=== PATIENT | male | born 1940 | race Caucasian/White ===

== ENCOUNTER 2020-06-30 05:43 | Emergency (ER) | payer MEDICARE, SELFPAY ==
[2020-06-30 05:50] VITALS: BP 176/80; PULSE 118; RESP 28; TEMP 36.9; O2SAT 98
[2020-06-30 06:06] VITALS: BP 129/69; PULSE 116; RESP 18; O2SAT 96
[2020-06-30] MEDS: LIDOCAINE 2% (UROJET) 5 ML GEL TOP ×2 (06:08→06:20)
--- NOTE | 2020-06-30 06:19 | ED_ITS ---
HPI - Male Genitourinary General Chief complaint: Urogenital-Male Stated complaint: unable to pee Time Seen by Provider: 06/30/20 06:12 Source: patient Mode of arrival: Ambulatory History of Present Illness HPI Narrative: Patient here for urinary retention. Onset yesterday/last night. Decreased urine output. Now has full sensation his bladder. History of atrial fibrillation and is on Coumadin. Had similar episode 5 years ago with Zepeda catheter leg bag. Does not have a regular urologist. Had instant relief with 14 Malay catheter placed. 800 mL of urine output Related Data Home Medications Medication Instructions Recorded Confirmed methimazole 5 mg #0 04/20/17 Previous Rx's Medication Instructions Recorded aspirin 81 mg PO QDAY #150 tab 10/03/16 tamsulosin 0.4 mg PO BEDTIME #7 cap 06/30/20 warfarin 5 mg tablet 5 mg PO QDAY #100 tab 07/06/20 Allergies Allergy/AdvReac Type Severity Reaction Status Date / Time No Known Allergies Allergy Uncoded 01/13/18 13:06 Review of Systems Review of Systems Narrative: GENERAL: Denies chills, fatigue, malaise, fever, sweats. HEENT: Denies sinus pain, ear pain, sore throat, difficulty swallowing, dizziness. RESPIRATORY: Denies dyspnea, cough, wheezing, hemoptysis, sputum. CARDIOVASCULAR: Denies chest pain, palpitations, orthopnea, edema, GASTROINTESTINAL: Denies nausea, vomiting, abdominal pain, diarrhea, constipation, melena. : Complains of urinary retention. MUSCULOSKELETAL: denies weakness, joint pain, or bony pain SKIN: Denies rash, skin lesions NEUROLOGIC: Denies weakness, headache, numbness, change in speech, confusion, seizures, incoordination. PSYCHIATRIC: No concerning psychosocial issues. ROS Unobtainable: All systems reviewed & are unremarkable except as noted in HPI and below Patient History Medical History Atrial fibrillation (Chronic 2013) Cardiomyopathy (Chronic 2013) CVA (cerebral vascular accident) (Resolved 08/03/15) Diabetes mellitus (Chronic) Hyperthyroidism (Chronic) Urinary retention (Resolved 2014) Family History Father CVA (cerebral vascular accident) Sister Thyroid disorder Social History (Reviewed 06/30/20 @ 17:03 by MARA Barrett Smoking Status: Never smoker Smoking Status: Never smoker Substance Use Type: does not use Exam Narrative Exam Narrative: GENERAL: patient appears stated age. Well-nourished, well- developed patient, in no distress, not toxic HEAD: Atraumatic. Normocephalic. EYES: Pupils equal round and reactive. Extraocular motions intact. No scleral icterus. No injection or drainage. GASTROINTESTINAL: Abdomen soft, palpable urinary bladder slightly tender and dis tended, no peritoneal signs NEURO: AOx4. SKIN: No rash or erythema of visible areas PSYCH: Not anxious, is cooperative Initial Vital Signs Initial Vital Signs: Vital Signs Temperature 98.4 F 06/30/20 05:50 Pulse Rate 118 H 06/30/20 05:50 Respiratory Rate 28 H 06/30/20 05:50 Blood Pressure 176/80 H 06/30/20 05:50 Pulse Oximetry 98 06/30/20 05:50 Course Course Course Narrative: s/o dr mujica...awaiting UA results Orders Ordered: Discontinued Medications Lidocaine HCl (Urojet) 5 ml TOP NOW ONE Stop: 06/30/20 06:03 Last Admin: 06/30/20 06:08 Dose: 5 ml Documented by: INÉS Lidocaine HCl (Urojet) 5 ml TOP NOW ONE Stop: 06/30/20 06:19 Last Admin: 06/30/20 06:20 Dose: 5 ml Documented by: INÉS Reevaluation(s) Reevaluation #1: Feeling much better now with Zepeda catheter. 800 mL urine output. No blood Time: 06:36 Vital Signs Vital signs: Vital Signs - 8 hr 06/30/20 05:50 06/30/20 06:06 Temperature 98.4 F Pulse Rate 118 H 116 H Respiratory Rate 28 H 18 Blood Pressure 176/80 H 129/69 Pulse Oximetry 98 96 MDM - Male Genitourinary Differential Diagnosis Differential diagnosis: Likely acute retention of urine Medical Records Attestation: I reviewed the patient's medical records. Lab Data Result diagrams: 06/30/20 06:35 06/30/20 06:35 Labs: Lab Results 06/30/20 06/30/20 06/30/20 Range/Units 06:09 06:35 06:35 WBC 8.7 (4.5-11.0) X10^3/uL RBC 4.87 (4.5-5.9) X10^6/uL Hgb 14.5 (13.5-17.5) g/dL Hct 42.8 (41-53) % MCV 87.8 (80-100) fL MCH 29.8 (26-34) PG MCHC 34.0 (30-36) % RDW 13.8 (11.6-14.8) % Plt Count 240 (150-400) X10^3/uL Neut % (Auto) 91.1 H (50-75) % Lymph % (Auto) 7.1 L (25-40) % [place] % (Auto) 1.7 L (3-14) % Eos % (Auto) 0.0 L (2-4) % Baso % (Auto) 0.1 (0-2) % Neut # (Auto) 7900 H (6620-3002) /uL Lymph # (Auto) 600 L (1591-0471) /uL [place] # (Auto) 100 (0-900) /uL Eos # (Auto) 0 (0-450) /uL Baso # (Auto) 0 (0-100) /uL PT 21.8 H (10.1-12.7) SECONDS INR 1.9 H (0.9-1.3) APTT 34 (26.4-36.2) SECONDS Sodium (137-145) mmol/L Potassium (3.4-5.1) mmol/L Chloride (98-107) mmol/L Carbon Dioxide (22-32) mmol/L BUN (9-20) mg/dL Creatinine (0.66-1.25) mg/dL Estimated GFR (>60) mL/min BUN/Creatinine Ratio (6-22) Glucose (80-110) mg/dL Calcium (8.4-10.2) mg/dL Total Bilirubin (0.2-1.3) mg/dL AST (17-59) IU/L ALT (<50) IU/L Alkaline Phosphatase (38-126) U/L Total Protein (6.3-8.2) g/dL Albumin (3.5-5.0) g/dL Globulin (1.7-4.1) g/dL Albumin/Globulin Ratio (1.0-2.8) Urine Color Yellow Urine Appearance Cloudy Urine pH 6.5 (4.5-8.0) Ur Specific [place] 1.015 (1.000-1.035) Urine Protein Negative (Negative) Urine Glucose (UA) Negative (Negative) g/dL Urine Ketones Negative (NEGATIVE) Urine Occult Blood 3+ H (Negative) Urine Nitrate Positive (Negative) Urine Bilirubin Negative (NEGATIVE) Urine Urobilinogen 0.2 (0.2) E.U./dL Ur Leukocyte Esterase 2+ H (NEGATIVE) Urine RBC 1-5/hpf (0-5/HPF) Urine WBC >100/hpf H (0-5/HPF) Ur Squamous Epith Cells 0-1 /hpf (0-5/HPF) Urine Bacteria Many (>30) H (None) Ur Culture Indicated? Specimen cultured 06/30/20 Range/Units 06:35 WBC (4.5-11.0) X10^3/uL RBC (4.5-5.9) X10^6/uL Hgb (13.5-17.5) g/dL Hct (41-53) % MCV (80-100) fL MCH (26-34) PG MCHC (30-36) % RDW (11.6-14.8) % Plt Count (150-400) X10^3/uL Neut % (Auto) (50-75) % Lymph % (Auto) (25-40) % [place] % (Auto) (3-14) % Eos % (Auto) (2-4) % Baso % (Auto) (0-2) % Neut # (Auto) (0267-4462) /uL Lymph # (Auto) (0282-6431) /uL [place] # (Auto) (0-900) /uL Eos # (Auto) (0-450) /uL Baso # (Auto) (0-100) /uL PT (10.1-12.7) SECONDS INR (0.9-1.3) APTT (26.4-36.2) SECONDS Sodium 137 (137-145) mmol/L Potassium 4.3 (3.4-5.1) mmol/L Chloride 105 (98-107) mmol/L Carbon Dioxide 21 L (22-32) mmol/L BUN 26 H (9-20) mg/dL Creatinine 0.61 L (0.66-1.25) mg/dL Estimated GFR > 60.0 (>60) mL/min BUN/Creatinine Ratio 42.6 H (6-22) Glucose 163 H (80-110) mg/dL Calcium 9.7 (8.4-10.2) mg/dL Total Bilirubin 1.3 (0.2-1.3) mg/dL AST 28 (17-59) IU/L ALT 25 (<50) IU/L Alkaline Phosphatase 100 (38-126) U/L Total Protein 7.8 (6.3-8.2) g/dL Albumin 4.3 (3.5-5.0) g/dL Globulin 3.5 (1.7-4.1) g/dL Albumin/Globulin Ratio 1.2 (1.0-2.8) Urine Color Urine Appearance Urine pH (4.5-8.0) Ur Specific [place] (1.000-1.035) Urine Protein (Negative) Urine Glucose (UA) (Negative) g/dL Urine Ketones (NEGATIVE) Urine Occult Blood (Negative) Urine Nitrate (Negative) Urine Bilirubin (NEGATIVE) Urine Urobilinogen (0.2) E.U./dL Ur Leukocyte Esterase (NEGATIVE) Urine RBC (0-5/HPF) Urine WBC (0-5/HPF) Ur Squamous Epith Cells (0-5/HPF) Urine Bacteria (None) Ur Culture Indicated? MDM Narrative Medical decision making narrative: Appropriate for discharge home. Will give referral for Urology Discharge Plan Departure Patient Disposition: Home Clinical Impression: Urinary retention UTI (urinary tract infection) Qualifiers: Urinary tract infection type: site unspecified Hematuria presence: without hematuria Qualified Code(s): N39.0 - Urinary tract infection, site not specified Discharge Date/Time: 06/30/20 08:05 Instructions: How to Care for Your Zepeda Catheter -- Male, DI for Urinary Tract Infection (UTI), DI for Urinary Retention in Men Activity Restrictions/Additional Instructions: Continue care for Zepeda bag as demonstrated here. Called provided urology office on Thursday for office recheck next week and for removal of the catheter. Return if worse.. Prescription for Flomax has been sent to [facility] here in [facility]. Close follow up is particularly important due to our need to use an antibiotic while you are on Warfarin. Antibiotics can alter your warfarin and make you more likely to bleed. It is very important that you follow closely to be sure there are no complications Prescriptions: New tamsulosin 0.4 mg capsule 0.4 mg PO BEDTIME Qty: 7 RF: 0 No Action aspirin 81 MG tablet,delayed release (DR/EC) 81 mg PO QDAY Qty: 150 RF: 11 methimazole 5 MG tablet 5 mg Qty: 0 RF: 0 warfarin 5 mg tablet 5 mg PO QDAY Qty: 100 RF: 3 Referrals: Nancy Conteh MD [Physician] - Lloyd Butler MD [Primary Care Provider] -
[2020-06-30 06:53] LABS: Add Manual Diff / Slide Review NO; Basophils Absolute Auto 0 /uL (0-100); Basophils Percent Auto 0.1 % (0-2); Eosinophils Absolute Auto 0 /uL (0-450); Hematocrit 42.8 % (41-53); Hemoglobin 14.5 g/dL (13.5-17.5); INR 1.9 (0.9-1.3); Lymphocytes Absolute Auto 600 /uL (1100-4500); Lymphocytes Percent Auto 7.1 % (25-40); Mean Corpuscular Hemoglobin 29.8 PG (26-34); Mean Corpuscular Volume 87.8 fL (80-100); Monocytes Absolute Auto 100 /uL (0-900); Monocytes Percent Auto 1.7 % (3-14); Neutrophils Absolute Auto 7900 /uL (1500-7000); Neutrophils Percent Auto 91.1 % (50-75); Platelet Count 240 X10^3/uL (150-400); Prothrombin Time 21.8 SECONDS (10.1-12.7); Red Blood Cell Count 4.87 X10^6/uL (4.5-5.9); Red Cell Distribution Width 13.8 % (11.6-14.8); White Blood Cell Count 8.7 X10^3/uL (4.5-11.0)
[2020-06-30 06:55] LABS: PTT Partial Thromboplastin Tim 34 SECONDS (26.4-36.2)
[2020-06-30 06:57] LABS: Alanine Aminotransferase 25 IU/L (<50); Albumin 4.3 g/dL (3.5-5.0); Albumin Globulin Ratio 1.2 (1.0-2.8); Alkaline Phosphatase 100 U/L (38-126); Aspartate Aminotransferase 28 IU/L (17-59); BUN Creatinine Ratio 42.6 (6-22); Bilirubin Total 1.3 mg/dL (0.2-1.3); Blood Urea Nitrogen 26 mg/dL (9-20); Calcium 9.7 mg/dL (8.4-10.2); Carbon Dioxide 21 mmol/L (22-32); Chloride 105 mmol/L (98-107); Estimated Glomerular Filt Rate > 60.0 mL/min (>60); Globulin 3.5 g/dL (1.7-4.1); Glucose 163 mg/dL (80-110); HEMOLYSIS < 15 (0-50); Potassium 4.3 mmol/L (3.4-5.1); Sodium 137 mmol/L (137-145); Total Protein 7.8 g/dL (6.3-8.2)
[2020-06-30 06:57] LABS: Bilirubin Urine UA NEGATIVE (NEGATIVE); Color Urine UA YELLOW; Glucose Urine UA NEGATIVE (Negative); Ketones Urine UA NEGATIVE (NEGATIVE); Leukocyte Esterase Urine UA 2+ (NEGATIVE); Nitrite Urine UA POSITIVE (Negative); Occult Blood Urine UA 3+ (Negative); Protein Urine UA NEGATIVE (Negative); Specific Gravity Urine UA 1.015 (1.000-1.035); Urobilinogen Urine UA 0.2 E.U./dL (0.2); pH Urine UA 6.5 (4.5-8.0)
[2020-06-30 06:59] LABS: Appearance Urine UA CLOUDY
[2020-06-30 07:18] LABS: Bacteria Urine Many (>30); Culture Indicated Urine Specimen Cultured; RBC Urine 1-5/HPF (0-5/HPF); Squamous Epithelial Cell Urine 0-1 /HPF (0-5/HPF); WBC Urine >100/HPF (0-5/HPF)
== END 2020-06-30 08:05 | disposition home or self-care (01) ==
PROVIDERS: Emergency Provider Emergency Medicine; PCP Internal Medicine
DX: R33.9 Retention of urine, unspecified (principal)
CPT/HCPCS: 36415; 51701; 51798; 80053; 81001; 85025; 85610; 85730; 87077; 87086; 99284

== ENCOUNTER 2020-06-30 15:08 | Emergency (ER) | payer MEDICARE, SELFPAY ==
[2020-06-30 15:22] VITALS: BP 134/73; PULSE 108; RESP 26; TEMP 37.2; O2SAT 98; BMI 22.6
--- NOTE | 2020-06-30 15:32 | ED.MALEGU ---
HPI - Male Genitourinary <BRAULIO Barrett - Last Filed: 06/30/20 17:09> General Chief complaint: Urogenital-Male Stated complaint: cath is plugging up Time Seen by Provider: 06/30/20 15:19 Source: patient Mode of arrival: Ambulatory Limitations: no limitations History of Present Illness HPI Narrative: This is a 80-year-old male, nonsmoker, who had history of AFib and takes Coumadin daily and baby aspirin as needed, urinary retention and has been using the indwelling [place] catheter return to ED with recurring urinary retention after he was seen and evaluated for urinary tension early this morning. A new campa catheter with 14 fr changed out at that time. Lab and urine tests were done this morning before he was discharged to home. INR at that time was 1.9. Urine showed + for nitritre and leuko esterase. Urine culture is pending and he was to start antibiotic medication Keflex q.i.d. dose for 7 days. No leukocytosis and kidney function was normal this morning. Patient was to follow-up with urologist by calling the office on Thursday and to take Flomax. Patient noticed no good urine output since 8:00 a.m. with blood tinged dark urine. Patient denies fever, chills, nausea or vomiting but bladder discomfort. Related Data Home Medications Medication Instructions Recorded Confirmed methimazole 5 mg #0 04/20/17 Previous Rx's Medication Instructions Recorded aspirin 81 mg PO QDAY #150 tab 10/03/16 warfarin 5 mg tablet 5 mg PO QDAY #100 tab 12/06/19 cephalexin [Keflex] 500 mg PO QID 7 Days #28 cap 06/30/20 tamsulosin 0.4 mg PO BEDTIME #7 cap 06/30/20 Allergies Allergy/AdvReac Type Severity Reaction Status Date / Time No Known Allergies Allergy Uncoded 01/13/18 13:06 Review of Systems <BRAULIO Barrett - Last Filed: 06/30/20 17:09> Review of Systems Narrative: General: Denies fever, chills, fatigue, malaise, sweats. HEENT: Denies sinus pain, ear pain, sore throat, difficulty swallowing, dizziness. Respiratory: Denies dyspnea, cough, wheezing, hemoptysis, sputum. Cardiovascular: Denies chest pain, palpitations, orthopnea, edema. Gastrointestinal: Denies nausea, vomiting, abdominal pain, diarrhea, constipation, melena. : See HPI Musculoskeletal: Denies weakness, joint pain or bony pain. Skin: Denies rash, skin lesions, or other. Neurologic: Denies weakness, headache, numbness, change in speech, confusion, seizures, incoordination. Psychiatric: No concerning psychosocial issues. 12-point review of systems is negative except for those stated above. Patient History <BRAULIO Barrett - Last Filed: 06/30/20 17:09> Medical History Atrial fibrillation (Chronic 2013) Cardiomyopathy (Chronic 2013) CVA (cerebral vascular accident) (Resolved 08/03/15) Diabetes mellitus (Chronic) Hyperthyroidism (Chronic) Urinary retention (Resolved 2014) Family History Father CVA (cerebral vascular accident) Sister Thyroid disorder Social History Smoking Status: Never smoker Smoking Status: Never smoker Substance Use Type: does not use Exam <BRAULIO Barrett - Last Filed: 06/30/20 17:09> Narrative Exam Narrative: GEN: Alert, oriented x 3, well appearing and nourished, and in mild distress with bladder discomfort. Head: Normal cephalic, atraumatic. No scalp or temporal tenderness, palpable mass or rash. EYES: Pupils are equal, round, and reactive to light and accommodation. Extraocular muscles are intact bilaterally. There is no subconjunctival hemorrhage, exudate and sclera non-icteric. ENT: Hearing grossly intact. Nose without bleeding, purulent discharge or deviation. Facial sinuses nontender to palpate. Mucous membrane moist, no mucosal lesion. Throat without erythema, tonsillar hypertrophy or exudate. Uvula in midline, airway patent. Neck: Trachea in midline. No JVD, non-tender without lymphadenopathy. No masses or thyroid megaly. Supple, non-tender and no meningeal signs. CARDIAC: Irregular regular rate and rhythm without murmurs, gallops, or rubs. No chest wall tenderness. No peripheral edema, cyanosis or pallor. Capillary refill is less than 2 seconds. RESPIRATORY: Lungs are clear to auscultate bilaterally. No cough, wheezes, rales, or rhonchi. No stridor, respiratory distress, increase work of breathing, or accessary muscle used. ABD: Abdomen soft and non-distended. Mid low abdomen tender to palpate. No guarding or rebound tenderness to palpate. Bowel sounds are normal in all 4 quadrants. There is no palpable masses or organomegaly. EXT: Full painless ROM of all extremities with no loss of sensation, strength, effusion or edema. SKIN: Warm, dry, normal color for patient. No erythema, lesions or rash over visible areas. BACK: Nontender without deformity or crepitance. No flank tenderness. NEUROLOGICAL: Alert and oriented to place, time and person. Sensation and motor function intact bilaterally. No facial droops, dysphasia. PSYCHIATRIC: Good judgement and reason, without hallucinations, abnormal affect or abnormal behaviors during the examination. Patient is not suicidal. Initial Vital Signs Initial Vital Signs: Vital Signs Temperature 98.9 F 06/30/20 15:22 Pulse Rate 108 H 06/30/20 15:22 Respiratory Rate 26 H 06/30/20 15:22 Blood Pressure 134/73 06/30/20 15:22 Pulse Oximetry 98 06/30/20 15:22 <Carrington Vigil DO - Last Filed: 07/06/20 01:11> Initial Vital Signs Initial Vital Signs: Vital Signs Temperature 98.9 F 06/30/20 15:22 Pulse Rate 108 H 06/30/20 15:22 Respiratory Rate 26 H 06/30/20 15:22 Blood Pressure 134/73 06/30/20 15:22 Pulse Oximetry 98 06/30/20 15:22 Scores <[facility] - Last Filed: 06/30/20 17:09> GCS [place] coma scale eye opening: Spontaneous [place] coma scale verbal response: Orientated [place] coma scale motor response: Obey commands [place] coma scale total score: 15 qSOFA Altered Mental Status (GCS <15): No Respiratory rate greater than/equal to 22: Yes Systolic blood pressure less than or equal to 100: No qSOFA Total: 1 0-1 Not High Risk 1-3 High risk Course <[facility] Last Filed: 06/30/20 17:09> Orders Ordered: Discontinued Medications Lidocaine HCl (Urojet) 5 ml TOP NOW ONE Stop: 06/30/20 15:43 Last Admin: 06/30/20 15:52 Dose: 5 ml Documented by: LUCHO Vital Signs Vital signs: Vital Signs - 8 hr 06/30/20 15:22 06/30/20 16:55 Temperature 98.9 F Pulse Rate 108 H 99 H Respiratory Rate 26 H 18 Blood Pressure 134/73 140/76 Pulse Oximetry 98 98 <Carrington Vigil DO - Last Filed: 07/06/20 01:11> Orders Ordered: Discontinued Medications Lidocaine HCl (Urojet) 5 ml TOP NOW ONE Stop: 06/30/20 15:43 Last Admin: 06/30/20 15:52 Dose: 5 ml Documented by: LUCHO Vital Signs Vital signs: Vital Signs - 8 hr 06/30/20 15:22 06/30/20 16:55 Temperature 98.9 F Pulse Rate 108 H 99 H Respiratory Rate 26 H 18 Blood Pressure 134/73 140/76 Pulse Oximetry 98 98 [facility] - Male Genitourinary <BRAULIO Barrett - Last Filed: 06/30/20 17:09> Differential Diagnosis Differential diagnosis: Likely urinary tract infection, acute retention of urine and other (Pyelonephritis, super therapeutic Coumadin) Medical Records Attestation: I reviewed the patient's medical records. [facility] Narrative Medical decision making narrative: This is a 80-year-old male who has chronic urinary retention with indwelling [place] catheter visited this morning with urinary retention. A new [place] catheter with 14 [place] was changed out at that time and patient discharged to home with Keflex for UTI and Flomax and to follow-up with urologist on Thursday return to ED with recurring urinary retention symptoms. No good urine output since 8:00 a.m. according to patient. Labs in test were not repeated. Urine culture is pending. INR is 1.9 this morning. No leukocytosis. Campa catheter was switched out to 20 [place] a larger size and irrigated with saline. Small multiple blood clots obtained and was able to drain bladder without difficulty. Patient reports relieve bladder discomfort with good urine output. Patient advised to take Keflex and Flomax as prescribed and to follow-up with urologist this morning and return precautions were discussed with patient. Patient verbalized understanding and in agreement with treatment plan. Patient request leg bag to use for urine drainage instead of campa bag and provided. Patient reports he is familiar how to manage Campa catheter and bag. Discharge Plan Departure Patient Disposition: Home Clinical Impression: Urinary retention Discharge Date/Time: 06/30/20 17:33 Instructions: DI for Urinary Retention in Men Activity Restrictions/Additional Instructions: You have been diagnosed with [urinary retention from Camp[place] catheter blockage with clots. New larger size in 20 [place] Campa catheter inserted with good drainage. Urine cultures pending. Labs are not repeated from this morning. INR is 1.9 today.]. What to do: *Take your medications as directed. Please continue with tamsulosin that has been prescribed for you at night daily. *Follow up with your primary care provider in 2-3 days, call for an appointment. Please follow-up with urologist Thursday by calling the office. Let them know you were seen in the ED and that we asked you to be seen in follow up. *Return to ED if you have any new, worsening, or concerning symptoms, such as bladder distension, urinary retention symptoms, chest pain, breathing difficulty, fever, chest pain, or any acute concerns.]. Prescriptions: No Action aspirin 81 MG tablet,delayed release (DR/EC) 81 mg PO QDAY Qty: 150 RF: 11 methimazole 5 MG tablet 5 mg Qty: 0 RF: 0 warfarin [Coumadin] 5 mg tablet 5 mg PO QDAY Qty: 100 RF: 3 tamsulosin 0.4 mg capsule 0.4 mg PO BEDTIME Qty: 7 RF: 0 cephalexin [Keflex] 500 mg capsule 500 mg PO QID 7 Days Qty: 28 RF: 0 Referrals: Nancy Conteh MD [Physician] - Lloyd Butler MD [Primary Care Provider] - <Carrington Vigil DO - Last Filed: 07/06/20 01:11> Cosign ED Attending Kortneyature Attestation: I was immediately available in the department for consultation. This documentation has been reviewed and I agree with assessment and plan. Supervised by Carrington Vigil DO
[2020-06-30] MEDS: LIDOCAINE 2% (UROJET) 5 ML GEL TOP (15:52)
[2020-06-30 16:55] VITALS: BP 140/76; PULSE 99; RESP 18; O2SAT 98
[2020-06-30 17:32] VITALS: BP 143/91; PULSE 100; RESP 20; O2SAT 97
== END 2020-06-30 17:33 | disposition home or self-care (01) ==
PROVIDERS: Emergency Provider Nurse Practitioner Family; PCP Internal Medicine
DX: R33.9 Retention of urine, unspecified (principal)
CPT/HCPCS: 36415; 51700; 51701; 51705; 51798; 80053; 81001; 85025; 85610; 85730; 87077; 87086; 87186; 99284

== ENCOUNTER → 2020-07-23 15:37 | Outpatient (CLI) | payer MEDICARE, SELFPAY ==
[2020-07-23 17:17] LABS: Hemoglobin A1C% w Est Avg Glu 5.7 % (4.0-6.0)
[2020-07-23 17:35] LABS: Free T3, Triiodothyronine Free 7.61 pg/mL (2.77-5.27); Free T4, Direct Thyroxine 2.82 ng/dL (0.78-2.19)
[2020-07-23 17:49] LABS: Thyroid Stimulating Hormone < 0.015 uIU/mL (0.47-4.68)
== END ==
PROVIDERS: PCP Internal Medicine; Referring Provider Internal Medicine; Visit Provider Internal Medicine
DX: E05.90 Thyrotoxicosis, unspecified without thyrotoxic crisis or storm (principal); E11.9 Type 2 diabetes mellitus without complications; I42.9 Cardiomyopathy, unspecified; I48.91 Unspecified atrial fibrillation; Z79.01 Long term (current) use of anticoagulants
CPT/HCPCS: 36415; 83036; 84439; 84443; 84481

== ENCOUNTER 2020-08-02 12:44 | Emergency (ER) | payer MEDICARE, SELFPAY ==
[2020-08-02] VITALS (8 sets, daily range): BP systolic 128–149; BP diastolic 69–78; PULSE 97–116; RESP 16–17; TEMP 35.7; O2SAT 95–100; BMI 22.6
--- NOTE | 2020-08-02 12:52 | ED_ITS ---
HPI - Male Genitourinary <SCOTT Wells - Last Filed: 08/02/20 18:30> General Chief complaint: Urogenital-Male Stated complaint: cannot urinate Time Seen by Provider: 08/02/20 12:45 Source: patient Mode of arrival: Ambulatory Limitations: no limitations History of Present Illness HPI Narrative: The patient is an 80 year old male nonsmoker with history of atrial fibrillation, on Coumadin and history of urinary retention who presents with a chief complaint of urinary retention. He states he had his Zepeda catheter removed on Thursday, was urinating fine yesterday with no dysuria u rgency or frequency. However he has been able to urinate since 05:30 this morning. He states that prior, he had a 14 [place] catheter inserted, had to come back and had replaced with a 20 [place] catheter. He denies any fevers nausea vomiting or diarrhea. He presents requesting a 20 [place] catheter to help him urinate today. He states that he saw urology on Thursday. The patient notes that he has not had anything to drink since last night as he has been self restricting his fluids. Related Data Previous Rx's Medication Instructions Recorded warfarin 5 mg tablet 5 mg PO QDAY #100 tab 07/06/20 methimazole 5 mg tablet 5 mg PO DAILY #90 tab 07/24/20 nitrofurantoin 100 mg PO BID #6 cap 07/24/20 monohydrate/macrocrystals 100 mg capsule tamsulosin 0.4 mg capsule 0.4 mg PO BEDTIME #30 cap 07/24/20 cephalexin 500 mg PO TID 7 Days #21 cap 08/02/20 Allergies Allergy/AdvReac Type Severity Reaction Status Date / Time No Known Drug Allergies Allergy Verified 08/02/20 12:51 Review of Systems <SCOTT Wlels - Last Filed: 08/02/20 18:30> Review of Systems Narrative: GENERAL: Denies chills, fatigue, malaise, fever, sweats. HEENT: Denies sinus pain, ear pain, sore throat, difficulty swallowing, dizziness. RESPIRATORY: Denies dyspnea, cough, wheezing, hemoptysis, sputum. CARDIOVASCULAR: Denies chest pain, palpitations, orthopnea, edema, GASTROINTESTINAL: Denies nausea, vomiting, abdominal pain, diarrhea, constipation, melena. : See HPI MUSCULOSKELETAL: denies weakness, joint pain, or bony pain SKIN: Denies rash, skin lesions, or other NEUROLOGIC: Denies weakness, headache, numbness, change in speech, confusion, seizures, incoordination. PSYCHIATRIC: No concerning psychosocial issues. 12 point review of systems is negative except for those stated above Patient History <SCOTT Wells - Last Filed: 08/02/20 18:30> Medical History (Updated 08/02/20 @ 16:01 by SCOTT Wells) Atrial fibrillation (Chronic) Cardiomyopathy (Chronic 2013) CVA (cerebral vascular accident) (Resolved 08/03/15) Diabetes mellitus (Chronic) Hyperthyroidism (Chronic) Urinary retention (Resolved 2014) Urinary retention (Acute) Surgical History S/P vasectomy (Acute) Family History Father CVA (cerebral vascular accident) Sister Thyroid disorder Social History Smoking Status: Never smoker Smoking Status: Never smoker Substance Use Type: does not use Exam <SCOTT Wells - Last Filed: 08/02/20 18:30> Narrative Exam Narrative: GENERAL: This is a well-nourished, well-developed patient, in mild distress. HEAD: Atraumatic. Normocephalic. No temporal or scalp tenderness. EYES: Pupils equal round and reactive. Extraocular motions intact. No scleral icterus. No injection or drainage. ENT: Nose without bleeding, purulent drainage or septal hematoma. Wearing a mask. Airway patent. NECK: Trachea midline. No JVD or lymphadenopathy. Supple, nontender, no meningeal signs. CARDIOVASCULAR: Irregular rate and tachycardic rhythm RESPIRATORY: Clear to auscultation. Breath sounds equal bilaterally. No wheezes, rales, or rhonchi. GASTROINTESTINAL: Abdomen soft, suprapubic tenderness to palpation, nondistended. No hepato-splenomegaly, or palpable masses. No guarding. Active bowel sounds all 4 quadrants EXTREMITIES: No clubbing, cyanosis, or edema. No joint tenderness, effusion, or edema noted. BACK: Nontender without deformity or crepitance. No flank tenderness. NEURO: AOx3. No gross cranial nerve deficit. SKIN: No rash or erythema on visible skin Initial Vital Signs Initial Vital Signs: Vital Signs Temperature 96.3 F L 08/02/20 12:45 Pulse Rate 111 H 08/02/20 12:45 Respiratory Rate 17 08/02/20 12:45 Blood Pressure 149/76 H 08/02/20 12:45 Pulse Oximetry 100 08/02/20 12:45 <Angy Walker DO - Last Filed: 08/06/20 07:55> Initial Vital Signs Initial Vital Signs: Vital Signs Temperature 96.3 F L 08/02/20 12:45 Pulse Rate 111 H 08/02/20 12:45 Respiratory Rate 17 08/02/20 12:45 Blood Pressure 149/76 H 08/02/20 12:45 Pulse Oximetry 100 08/02/20 12:45 Scores <SCOTT Wells - Last Filed: 08/02/20 18:30> GCS [place] coma scale eye opening: Spontaneous [place] coma scale verbal response: Orientated [place] coma scale motor response: Obey commands [place] coma scale total score: 15 Course <SCOTT Wells - Last Filed: 08/02/20 18:30> Orders Ordered: Discontinued Medications Sodium Chloride (Normal Saline 0.9%) 1,000 mls @ 1,000 mls/hr IV BOLUS ONE Stop: 08/02/20 14:38 Last Infusion: 08/02/20 15:02 Dose: 0 mls/hr Documented by: Admin: 08/02/20 14:02 Dose: 1,000 mls/hr Documented by: RMARTIN Lidocaine HCl (Urojet) 5 ml TOP NOW ONE Stop: 08/02/20 12:50 Last Admin: 08/02/20 13:18 Dose: 5 ml Documented by: BTONER Vital Signs Vital signs: Vital Signs - 8 hr 08/02/20 12:45 08/02/20 13:30 08/02/20 13:37 Temperature 96.3 F L Pulse Rate 111 H 115 H 116 H Respiratory Rate 17 16 Blood Pressure 149/76 H 132/77 Pulse Oximetry 100 98 98 08/02/20 14:00 08/02/20 14:30 08/02/20 15:00 Temperature Pulse Rate 106 H 115 H 105 H Respiratory Rate Blood Pressure 128/69 136/78 141/71 H Pulse Oximetry 95 99 97 08/02/20 15:30 08/02/20 16:13 Temperature Pulse Rate 103 H 97 H Respiratory Rate 16 Blood Pressure 130/73 Pulse Oximetry 99 95 <Angy Walker DO - Last Filed: 08/06/20 07:55> Orders Ordered: Discontinued Medications Sodium Chloride (Normal Saline 0.9%) 1,000 mls @ 1,000 mls/hr IV BOLUS ONE Stop: 08/02/20 14:38 Last Infusion: 08/02/20 15:02 Dose: 0 mls/hr Documented by: Admin: 08/02/20 14:02 Dose: 1,000 mls/hr Documented by: RMARTIN Lidocaine HCl (Urojet) 5 ml TOP NOW ONE Stop: 08/02/20 12:50 Last Admin: 08/02/20 13:18 Dose: 5 ml Documented by: BTONER Vital Signs Vital signs: Vital Signs - 8 hr 08/02/20 12:45 08/02/20 13:30 08/02/20 13:37 Temperature 96.3 F L Pulse Rate 111 H 115 H 116 H Respiratory Rate 17 16 Blood Pressure 149/76 H 132/77 Pulse Oximetry 100 98 98 08/02/20 14:00 08/02/20 14:30 08/02/20 15:00 Temperature Pulse Rate 106 H 115 H 105 H Respiratory Rate Blood Pressure 128/69 136/78 141/71 H Pulse Oximetry 95 99 97 08/02/20 15:30 08/02/20 16:13 Temperature Pulse Rate 103 H 97 H Respiratory Rate 16 Blood Pressure 130/73 Pulse Oximetry 99 95 MDM - Male Genitourinary <ESMER Wells-BC - Last Filed: 08/02/20 18:30> Lab Data Result diagrams: 08/02/20 13:53 08/02/20 13:53 Labs: Lab Results 08/02/20 08/02/20 08/02/20 Range/Units 13:15 13:53 13:53 WBC 8.6 (4.5-11.0) X10^3/uL RBC 4.82 (4.5-5.9) X10^6/uL Hgb 14.7 (13.5-17.5) g/dL Hct 43.2 (41-53) % MCV 89.5 (80-100) fL MCH 30.4 (26-34) PG MCHC 34.0 (30-36) % RDW 14.1 (11.6-14.8) % Plt Count 228 (150-400) X10^3/uL Neut % (Auto) 87.3 H (50-75) % Lymph % (Auto) 9.0 L (25-40) % [place] % (Auto) 3.3 (3-14) % Eos % (Auto) 0.1 L (2-4) % Baso % (Auto) 0.3 (0-2) % Neut # (Auto) 7500 H (6980-7944) /uL Lymph # (Auto) 800 L (1649-1119) /uL [place] # (Auto) 300 (0-900) /uL Eos # (Auto) 0 (0-450) /uL Baso # (Auto) 0 (0-100) /uL PT (10.1-12.7) SECONDS INR (0.9-1.3) APTT (26.4-36.2) SECONDS Sodium 140 (137-145) mmol/L Potassium 4.4 (3.4-5.1) mmol/L Chloride 106 (98-107) mmol/L Carbon Dioxide 27 (22-32) mmol/L BUN 17 (9-20) mg/dL Creatinine 0.53 L (0.66-1.25) mg/dL Estimated GFR > 60.0 (>60) mL/min BUN/Creatinine Ratio 32.1 H (6-22) Glucose 129 H (80-110) mg/dL Calcium 9.5 (8.4-10.2) mg/dL Total Bilirubin 1.1 (0.2-1.3) mg/dL AST 27 (17-59) IU/L ALT 22 (<50) IU/L Alkaline Phosphatase 100 (38-126) U/L Total Protein 7.7 (6.3-8.2) g/dL Albumin 4.3 (3.5-5.0) g/dL Globulin 3.4 (1.7-4.1) g/dL Albumin/Globulin Ratio 1.3 (1.0-2.8) Urine Color Yellow Urine Appearance Sl cloudy Urine pH 6.0 (4.5-8.0) Ur Specific [place] 1.015 (1.000-1.035) Urine Protein Negative (Negative) Urine Glucose (UA) Negative (Negative) g/dL Urine Ketones Negative (NEGATIVE) Urine Occult Blood 3+ H (Negative) Urine Nitrate Positive (Negative) Urine Bilirubin Negative (NEGATIVE) Urine Urobilinogen 0.2 (0.2) E.U./dL Ur Leukocyte Esterase 2+ H (NEGATIVE) Urine RBC 5-10/hpf H (0-5/HPF) Urine WBC 30-100/hpf H (0-5/HPF) Ur Squamous Epith Cells 0-1 /hpf (0-5/HPF) Urine Bacteria Many (>30) H (None) Ur Culture Indicated? Specimen cultured 08/02/20 Range/Units 13:53 WBC (4.5-11.0) X10^3/uL RBC (4.5-5.9) X10^6/uL Hgb (13.5-17.5) g/dL Hct (41-53) % MCV (80-100) fL MCH (26-34) PG MCHC (30-36) % RDW (11.6-14.8) % Plt Count (150-400) X10^3/uL Neut % (Auto) (50-75) % Lymph % (Auto) (25-40) % [place] % (Auto) (3-14) % Eos % (Auto) (2-4) % Baso % (Auto) (0-2) % Neut # (Auto) (7481-3664) /uL Lymph # (Auto) (8624-6762) /uL [place] # (Auto) (0-900) /uL Eos # (Auto) (0-450) /uL Baso # (Auto) (0-100) /uL PT 33.5 H (10.1-12.7) SECONDS INR 2.9 H (0.9-1.3) APTT 39 H D (26.4-36.2) SECONDS Sodium (137-145) mmol/L Potassium (3.4-5.1) mmol/L Chloride (98-107) mmol/L Carbon Dioxide (22-32) mmol/L BUN (9-20) mg/dL Creatinine (0.66-1.25) mg/dL Estimated GFR (>60) mL/min BUN/Creatinine Ratio (6-22) Glucose (80-110) mg/dL Calcium (8.4-10.2) mg/dL Total Bilirubin (0.2-1.3) mg/dL AST (17-59) IU/L ALT (<50) IU/L Alkaline Phosphatase (38-126) U/L Total Protein (6.3-8.2) g/dL Albumin (3.5-5.0) g/dL Globulin (1.7-4.1) g/dL Albumin/Globulin Ratio (1.0-2.8) Urine Color Urine Appearance Urine pH (4.5-8.0) Ur Specific [place] (1.000-1.035) Urine Protein (Negative) Urine Glucose (UA) (Negative) g/dL Urine Ketones (NEGATIVE) Urine Occult Blood (Negative) Urine Nitrate (Negative) Urine Bilirubin (NEGATIVE) Urine Urobilinogen (0.2) E.U./dL Ur Leukocyte Esterase (NEGATIVE) Urine RBC (0-5/HPF) Urine WBC (0-5/HPF) Ur Squamous Epith Cells (0-5/HPF) Urine Bacteria (None) Ur Culture Indicated? MDM Narrative Medical decision making narrative: The patient is an 80-year-old male who presents with a chief complaint of urinary retention after his Zepeda catheter was removed on Thursday. He has been restricting fluids overnight, so lab work was taken to evaluate renal function. This came back within normal limits. A Zepeda catheter was inserted over L of urine was drained. He does have signs of infection, nitrate positive urine. 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 I spoke with Dr Walker regarding antibiotic selection, who recommended another course of cephalexin at this point time. I did prescribe this 3 times a day, discussed at length the patient strict return precautions including abdominal pain with fever, flank pain etcetera. Discussed at length the importance of coming back to the emergency department for any acute concerns and encouraged follow-up with primary care provider as well as Urology. Patient was given copious instructions regarding Zepeda catheter care. He said he felt much improved after the Zepeda catheter was placed on requested to go home. Patient has no questions or concerns upon discharge and states understanding of return precautions as well as follow-up care. <Angy Sethi Aaron, DO - Last Filed: 08/06/20 07:55> Lab Data Labs: Lab Results 08/02/20 08/02/20 08/02/20 Range/Units 13:15 13:53 13:53 WBC 8.6 (4.5-11.0) X10^3/uL RBC 4.82 (4.5-5.9) X10^6/uL Hgb 14.7 (13.5-17.5) g/dL Hct 43.2 (41-53) % MCV 89.5 (80-100) fL MCH 30.4 (26-34) PG MCHC 34.0 (30-36) % RDW 14.1 (11.6-14.8) % Plt Count 228 (150-400) X10^3/uL Neut % (Auto) 87.3 H (50-75) % Lymph % (Auto) 9.0 L (25-40) % [place] % (Auto) 3.3 (3-14) % Eos % (Auto) 0.1 L (2-4) % Baso % (Auto) 0.3 (0-2) % Neut # (Auto) 7500 H (4424-1678) /uL Lymph # (Auto) 800 L (1735-0925) /uL [place] # (Auto) 300 (0-900) /uL Eos # (Auto) 0 (0-450) /uL Baso # (Auto) 0 (0-100) /uL PT (10.1-12.7) SECONDS INR (0.9-1.3) APTT (26.4-36.2) SECONDS Sodium 140 (137-145) mmol/L Potassium 4.4 (3.4-5.1) mmol/L Chloride 106 (98-107) mmol/L Carbon Dioxide 27 (22-32) mmol/L BUN 17 (9-20) mg/dL Creatinine 0.53 L (0.66-1.25) mg/dL Estimated GFR > 60.0 (>60) mL/min BUN/Creatinine Ratio 32.1 H (6-22) Glucose 129 H (80-110) mg/dL Calcium 9.5 (8.4-10.2) mg/dL Total Bilirubin 1.1 (0.2-1.3) mg/dL AST 27 (17-59) IU/L ALT 22 (<50) IU/L Alkaline Phosphatase 100 (38-126) U/L Total Protein 7.7 (6.3-8.2) g/dL Albumin 4.3 (3.5-5.0) g/dL Globulin 3.4 (1.7-4.1) g/dL Albumin/Globulin Ratio 1.3 (1.0-2.8) Urine Color Yellow Urine Appearance Sl cloudy Urine pH 6.0 (4.5-8.0) Ur Specific [place] 1.015 (1.000-1.035) Urine Protein Negative (Negative) Urine Glucose (UA) Negative (Negative) g/dL Urine Ketones Negative (NEGATIVE) Urine Occult Blood 3+ H (Negative) Urine Nitrate Positive (Negative) Urine Bilirubin Negative (NEGATIVE) Urine Urobilinogen 0.2 (0.2) E.U./dL Ur Leukocyte Esterase 2+ H (NEGATIVE) Urine RBC 5-10/hpf H (0-5/HPF) Urine WBC 30-100/hpf H (0-5/HPF) Ur Squamous Epith Cells 0-1 /hpf (0-5/HPF) Urine Bacteria Many (>30) H (None) Ur Culture Indicated? Specimen cultured 08/02/20 Range/Units 13:53 WBC (4.5-11.0) X10^3/uL RBC (4.5-5.9) X10^6/uL Hgb (13.5-17.5) g/dL Hct (41-53) % MCV (80-100) fL MCH (26-34) PG MCHC (30-36) % RDW (11.6-14.8) % Plt Count (150-400) X10^3/uL Neut % (Auto) (50-75) % Lymph % (Auto) (25-40) % [place] % (Auto) (3-14) % Eos % (Auto) (2-4) % Baso % (Auto) (0-2) % Neut # (Auto) (7544-9447) /uL Lymph # (Auto) (1368-0308) /uL [place] # (Auto) (0-900) /uL Eos # (Auto) (0-450) /uL Baso # (Auto) (0-100) /uL PT 33.5 H (10.1-12.7) SECONDS INR 2.9 H (0.9-1.3) APTT 39 H D (26.4-36.2) SECONDS Sodium (137-145) mmol/L Potassium (3.4-5.1) mmol/L Chloride (98-107) mmol/L Carbon Dioxide (22-32) mmol/L BUN (9-20) mg/dL Creatinine (0.66-1.25) mg/dL Estimated GFR (>60) mL/min BUN/Creatinine Ratio (6-22) Glucose (80-110) mg/dL Calcium (8.4-10.2) mg/dL Total Bilirubin (0.2-1.3) mg/dL AST (17-59) IU/L ALT (<50) IU/L Alkaline Phosphatase (38-126) U/L Total Protein (6.3-8.2) g/dL Albumin (3.5-5.0) g/dL Globulin (1.7-4.1) g/dL Albumin/Globulin Ratio (1.0-2.8) Urine Color Urine Appearance Urine pH (4.5-8.0) Ur Specific [place] (1.000-1.035) Urine Protein (Negative) Urine Glucose (UA) (Negative) g/dL Urine Ketones (NEGATIVE) Urine Occult Blood (Negative) Urine Nitrate (Negative) Urine Bilirubin (NEGATIVE) Urine Urobilinogen (0.2) E.U./dL Ur Leukocyte Esterase (NEGATIVE) Urine RBC (0-5/HPF) Urine WBC (0-5/HPF) Ur Squamous Epith Cells (0-5/HPF) Urine Bacteria (None) Ur Culture Indicated? Discharge Plan Departure Patient Disposition: Home Clinical Impression: Acute urinary retention Urinary tract infection Qualifiers: Urinary tract infection type: site unspecified Hematuria presence: with hematuria Qualified Code(s): N39.0 - Urinary tract infection, site not specified Discharge Date/Time: 08/02/20 16:13 Instructions: How to Care for Your Zepeda Catheter -- Male, DI for Urinary Tract Infection (UTI), DI for Urinary Retention in Men Activity Restrictions/Additional Instructions: Thank you for trusting us with your care today. As discussed, your urine is still showing signs of infection. I have placed you on an antibiotic. Please take this with probiotic or yogurt. Given that you had so much urine in her bladder and were unable to urinate we placed a Zepeda catheter. I have included a handout regarding care Zepeda catheters. Please be sure to keep it clean. I encouraged follow-up with both your primary care provider as well as your urologist. Please monitor for fevers, Zepeda not working properly, severe flank pain, etcetera and come back to the emergency department for any acute concerns. Prescriptions: New cephalexin 500 mg capsule 500 mg PO TID 7 Days Qty: 21 RF: 0 No Action warfarin 5 mg tablet 5 mg PO QDAY Qty: 100 RF: 3 methimazole 5 mg tablet 5 mg PO DAILY Qty: 90 RF: 3 nitrofurantoin monohyd/m-cryst [Macrobid] 100 mg capsule 100 mg PO BID Qty: 6 RF: 0 tamsulosin 0.4 mg capsule 0.4 mg PO BEDTIME Qty: 30 RF: 3 Referrals: Nancy Conteh MD [Physician] - Lloyd Butler MD [Primary Care Provider] -
[2020-08-02] MEDS: LIDOCAINE 2% (UROJET) 5 ML GEL TOP (13:18)
--- NOTE | 2020-08-02 13:23 | PC.NURSE ---
Pt had catheter removed 2 days ago.
[2020-08-02 13:28] LABS: Appearance Urine UA SL CLOUDY; Bilirubin Urine UA NEGATIVE (NEGATIVE); Color Urine UA YELLOW; Glucose Urine UA NEGATIVE (Negative); Ketones Urine UA NEGATIVE (NEGATIVE); Leukocyte Esterase Urine UA 2+ (NEGATIVE); Nitrite Urine UA POSITIVE (Negative); Occult Blood Urine UA 3+ (Negative); Protein Urine UA NEGATIVE (Negative); Specific Gravity Urine UA 1.015 (1.000-1.035); Urobilinogen Urine UA 0.2 E.U./dL (0.2)
[2020-08-02 13:37] LABS: Bacteria Urine Many (>30); RBC Urine 5-10/HPF (0-5/HPF); Squamous Epithelial Cell Urine 0-1 /HPF (0-5/HPF); WBC Urine 30-100/HPF (0-5/HPF)
[2020-08-02 13:38] LABS: Culture Indicated Urine Specimen Cultured
--- NOTE | 2020-08-02 13:38 | PC.NURSE ---
Hx of AFIB. Provider aware of pulse. Denies SOB, dizziness, or chest pain.
[2020-08-02 14:02] LABS: Add Manual Diff / Slide Review NO; Basophils Absolute Auto 0 /uL (0-100); Basophils Percent Auto 0.3 % (0-2); Eosinophils Absolute Auto 0 /uL (0-450); Eosinophils Percent Auto 0.1 % (2-4); Hematocrit 43.2 % (41-53); Hemoglobin 14.7 g/dL (13.5-17.5); Lymphocytes Absolute Auto 800 /uL (1100-4500); Mean Corpuscular Hemoglobin 30.4 PG (26-34); Mean Corpuscular Volume 89.5 fL (80-100); Monocytes Absolute Auto 300 /uL (0-900); Monocytes Percent Auto 3.3 % (3-14); Neutrophils Absolute Auto 7500 /uL (1500-7000); Neutrophils Percent Auto 87.3 % (50-75); Platelet Count 228 X10^3/uL (150-400); Red Blood Cell Count 4.82 X10^6/uL (4.5-5.9); Red Cell Distribution Width 14.1 % (11.6-14.8); White Blood Cell Count 8.6 X10^3/uL (4.5-11.0)
[2020-08-02] MEDS: SODIUM CHLORIDE 0.9% 1,000 ML 1000 ML IV (14:02)
[2020-08-02 14:06] LABS: INR 2.9 (0.9-1.3); Prothrombin Time 33.5 SECONDS (10.1-12.7)
--- NOTE | 2020-08-02 14:07 | PC.NURSE ---
1000ml out of urinary catheter. Dark yellow in color, clear, odorless.
[2020-08-02 14:09] LABS: PTT Partial Thromboplastin Tim 39 SECONDS (26.4-36.2)
[2020-08-02 14:10] LABS: Alanine Aminotransferase 22 IU/L (<50); Albumin 4.3 g/dL (3.5-5.0); Albumin Globulin Ratio 1.3 (1.0-2.8); Alkaline Phosphatase 100 U/L (38-126); Aspartate Aminotransferase 27 IU/L (17-59); BUN Creatinine Ratio 32.1 (6-22); Bilirubin Total 1.1 mg/dL (0.2-1.3); Blood Urea Nitrogen 17 mg/dL (9-20); Calcium 9.5 mg/dL (8.4-10.2); Carbon Dioxide 27 mmol/L (22-32); Chloride 106 mmol/L (98-107); Estimated Glomerular Filt Rate > 60.0 mL/min (>60); Globulin 3.4 g/dL (1.7-4.1); Glucose 129 mg/dL (80-110); HEMOLYSIS < 15 (0-50); Potassium 4.4 mmol/L (3.4-5.1); Sodium 140 mmol/L (137-145); Total Protein 7.7 g/dL (6.3-8.2)
== END 2020-08-02 16:13 | disposition home or self-care (01) ==
PROVIDERS: Emergency Provider Nurse Practitioner Family; PCP Internal Medicine
DX: R33.8 Other retention of urine (principal); N39.0 Urinary tract infection, site not specified; R31.9 Hematuria, unspecified; I48.91 Unspecified atrial fibrillation; Z79.01 Long term (current) use of anticoagulants
CPT/HCPCS: 36415; 51701; 51798; 80053; 81001; 85025; 85610; 85730; 87077; 87086; 87186; 96360; 99284

== ENCOUNTER → 2020-09-19 13:05 | Outpatient (CLI) | payer MEDICARE, SELFPAY ==
[2020-09-19 14:31] LABS: Prostate Specific Antigen 7.29 ng/mL (0.10-4.00)
== END ==
PROVIDERS: PCP Internal Medicine; Referring Provider Specialist; Visit Provider Specialist
DX: R97.20 Elevated prostate specific antigen [PSA] (principal)
CPT/HCPCS: 36415; 84153

== ENCOUNTER → 2020-09-25 09:41 | Outpatient (CLI) | payer MEDICARE, SELFPAY | PROVIDERS: PCP Internal Medicine; Visit Provider Specialist | DX: N39.0 Urinary tract infection, site not specified (principal); R33.9 Retention of urine, unspecified | CPT/HCPCS: 51798; 81002; 87077; 87086; 87186 ==

== ENCOUNTER 2020-10-27 13:30 | Emergency (ER) | payer MEDICARE, SELFPAY ==
[2020-10-27] VITALS (8 sets, daily range): BP systolic 131–197; BP diastolic 77–102; PULSE 90–125; RESP 28; TEMP 36.4; O2SAT 97–100; BMI 22.6
--- NOTE | 2020-10-27 13:53 | ED.MALEGU ---
HPI - Male Genitourinary <BRAULIO Calle - Last Filed: 10/27/20 16:21> General Chief complaint: Urogenital-Male Stated complaint: cant go to the bath room Time Seen by Provider: 10/27/20 13:33 Source: patient Mode of arrival: Ambulatory History of Present Illness HPI Narrative: 80yo male with a history of AFib who is currently on warfarin, and urinary retention who intermittently self caths, presents to the emergency department for ongoing urinary tension. Patient states he was last able to urinate last evening. He felt pressure to urinate this morning but was unable to. He tried to self cath but only was able to get a small amount of blood out. Patient reports increasing abdominal pain and pressure. He is currently on cephalexin for UTI on 09/25/20 per urology. Patient denies any fevers, chills, nausea, vomiting, diarrhea, chest pain, shortness of breath, or any other concerns. Related Data Previous Rx's Medication Instructions Recorded warfarin 5 mg tablet 5 mg PO QDAY #100 tab 07/06/20 methimazole 5 mg tablet 5 mg PO DAILY #90 tab 07/24/20 nitrofurantoin 100 mg PO BID #6 cap 09/25/20 monohydrate/macrocrystals 100 mg capsule cephalexin 500 mg capsule 500 mg PO TID #45 cap 09/27/20 Allergies Allergy/AdvReac Type Severity Reaction Status Date / Time No Known Drug Allergies Allergy Verified 10/27/20 13:42 Review of Systems <BRAULIO Calle - Last Filed: 10/27/20 16:21> Review of Systems Narrative: REVIEW OF SYSTEMS: GENERAL: Denies fever. HENT: No head trauma. CARDIOVASCULAR: No chest pain. RESPIRATORY: No shortness of breath or cough. GASTROINTESTINAL: No nausea, vomiting, or abdominal pain, see HPI. GENITOURINARY: Complains of urinary hesitancy, see HPI. MUSCULOSKELETAL: No trauma. INTEGUMENTARY: No rash. Patient History <BRAULIO Calle - Last Filed: 10/27/20 16:21> Medical History Atrial fibrillation Cardiomyopathy (2013) CVA (cerebral vascular accident) (08/03/15) Diabetes mellitus Hyperthyroidism Urinary retention (2015) Urinary retention Surgical History S/P vasectomy Family History Father CVA (cerebral vascular accident) Sister Thyroid disorder Social History Smoking Status: Never smoker Smoking Status: Never smoker alcohol intake frequency: holidays/special occasions only Substance Use Type: does not use Exam <BRAULIO Calle - Last Filed: 10/27/20 16:21> Initial Vital Signs Initial Vital Signs: Vital Signs Temperature 97.6 F 10/27/20 13:40 Pulse Rate 125 H 10/27/20 13:40 Respiratory Rate 28 H 10/27/20 13:40 Blood Pressure 197/102 H 10/27/20 13:40 Pulse Oximetry 100 10/27/20 13:40 PHYSICAL EXAMINATION: GENERAL: Awake and alert.. HENT: Normocephalic, atraumatic. Hearing intact. EYES: No periorbital swelling. CARDIOVASCULAR: AFib on monitor. RESPIRATORY: Normal respiratory rate, trachea midline, airway patent. No stridor, nasal flaring or accessory muscle use. GASTROINTESTINAL: Bowel sounds normoactive. Abdomen with bladder distended initially. Post drainage of > 1500ml and repeat examination without a palpable bladder. No tenderness. Urinary output initially with bright red blood, then a large amount of yellow urine, bright red blood returned with clots. Irrigation with 2L of NS restored urine to light pink. GENITALURINARY: No CVA tenderness. MUSCULOSKELETAL: Normal gait and coordination. Equal tone and mass bilaterally. SKIN: Warm, dry, soft, appropriate color for ethnicity. No lesions, rashes, or wounds to visulized areas. NEURO: Alert and Oriented X 3. Good coordination. No ataxia, or sensory deficits, or cognitive issues. PSYCH: Appropriate affect and mood. <Thanh Cortez DO - Last Filed: 10/27/20 17:18> Initial Vital Signs Initial Vital Signs: Vital Signs Temperature 97.6 F 10/27/20 13:40 Pulse Rate 125 H 10/27/20 13:40 Respiratory Rate 28 H 10/27/20 13:40 Blood Pressure 197/102 H 10/27/20 13:40 Pulse Oximetry 100 10/27/20 13:40 Course <Hannah OlsonBRAULIO - Last Filed: 10/27/20 16:21> Course Course Narrative: 1355: Bladder scanner with >1000ml. Nursing attempted straight cath, blood and cloths preventing draining. Bladder distended 1408: Nursing attempted [address] way Zepeda. Was able to drain urine with clots. 1600: Irrigation with 2 L complete. Orders Ordered: ED Orders 10/27/20 14:00 Complete Blood Count AUTO DIFF Stat Comprehensive Metabolic Panel Stat Prothrombin Time INR Stat Urinalysis and Microscopic Stat Urine Culture Stat Discontinued Medications Sodium Chloride (Normal Saline 0.9%) 500 mls @ 500 mls/hr IV BOLUS ONE Stop: 10/27/20 16:41 Last Infusion: 10/27/20 16:28 Dose: 0 mls/hr Documented by: Admin: 10/27/20 15:50 Dose: 500 mls/hr Documented by: KRIS Morphine Sulfate (Morphine 4 Mg/Ml Inj) 4 mg IV NOW ONE Stop: 10/27/20 13:59 Last Admin: 10/27/20 14:20 Dose: Not Given Documented by: KRIS Consultations Consultation #1: Patient staffed with Dr. cortez. Vital Signs Vital signs: Vital Signs - 8 hr 10/27/20 13:40 10/27/20 13:43 10/27/20 13:44 Temperature 97.6 F Pulse Rate 125 H 90 90 Respiratory Rate 28 H Blood Pressure 197/102 H 197/102 H Pulse Oximetry 100 100 99 10/27/20 14:30 10/27/20 15:00 10/27/20 15:30 Temperature Pulse Rate 114 H 111 H 106 H Respiratory Rate Blood Pressure 141/80 H 131/79 145/77 H Pulse Oximetry 99 99 97 10/27/20 16:00 10/27/20 16:30 Temperature Pulse Rate 111 H 119 H Respiratory Rate Blood Pressure 158/94 H 162/84 H Pulse Oximetry 98 100 <Thanh Cortez DO - Last Filed: 10/27/20 17:18> Orders Ordered: ED Orders 10/27/20 14:00 Complete Blood Count AUTO DIFF Stat Comprehensive Metabolic Panel Stat Prothrombin Time INR Stat Urinalysis and Microscopic Stat Urine Culture Stat Discontinued Medications Sodium Chloride (Normal Saline 0.9%) 500 mls @ 500 mls/hr IV BOLUS ONE Stop: 10/27/20 16:41 Last Infusion: 10/27/20 16:28 Dose: 0 mls/hr Documented by: Admin: 10/27/20 15:50 Dose: 500 mls/hr Documented by: KRIS Morphine Sulfate (Morphine 4 Mg/Ml Inj) 4 mg IV NOW ONE Stop: 10/27/20 13:59 Last Admin: 10/27/20 14:20 Dose: Not Given Documented by: KRIS Vital Signs Vital signs: Vital Signs - 8 hr 10/27/20 13:40 10/27/20 13:43 10/27/20 13:44 Temperature 97.6 F Pulse Rate 125 H 90 90 Respiratory Rate 28 H Blood Pressure 197/102 H 197/102 H Pulse Oximetry 100 100 99 10/27/20 14:30 10/27/20 15:00 10/27/20 15:30 Temperature Pulse Rate 114 H 111 H 106 H Respiratory Rate Blood Pressure 141/80 H 131/79 145/77 H Pulse Oximetry 99 99 97 10/27/20 16:00 10/27/20 16:30 Temperature Pulse Rate 111 H 119 H Respiratory Rate Blood Pressure 158/94 H 162/84 H Pulse Oximetry 98 100 MDM - Male Genitourinary <BRAULIO Calle - Last Filed: 10/27/20 16:21> Medical Records Attestation: I reviewed the patient's medical records. Lab Data Attestation: I reviewed the patient's lab results. Result diagrams: 10/27/20 14:00 10/27/20 14:00 Labs: Lab Results 10/27/20 10/27/20 10/27/20 Range/Units 14:00 14:00 14:00 WBC 10.0 (4.5-11.0) X10^3/uL RBC 5.23 (4.5-5.9) X10^6/uL Hgb 16.0 (13.5-17.5) g/dL Hct 46.6 (41-53) % MCV 89.2 (80-100) fL MCH 30.6 (26-34) PG MCHC 34.3 (30-36) % RDW 13.9 (11.6-14.8) % Plt Count 257 (150-400) X10^3/uL Neut % (Auto) 75.5 H (50-75) % Lymph % (Auto) 19.0 L (25-40) % [place] % (Auto) 5.1 (3-14) % Eos % (Auto) 0.1 L (2-4) % Baso % (Auto) 0.3 (0-2) % Neut # (Auto) 7500 H (0078-8490) /uL Lymph # (Auto) 1900 (3674-8029) /uL [place] # (Auto) 500 (0-900) /uL Eos # (Auto) 0 (0-450) /uL Baso # (Auto) 0 (0-100) /uL PT 27.0 H (10.1-12.7) SECONDS INR 2.4 H (0.9-1.3) Sodium 140 (137-145) mmol/L Potassium 4.5 (3.4-5.1) mmol/L Chloride 106 (98-107) mmol/L Carbon Dioxide 25 (22-32) mmol/L BUN 16 (9-20) mg/dL Creatinine 0.62 L (0.66-1.25) mg/dL Estimated GFR > 60.0 (>60) mL/min BUN/Creatinine Ratio 25.8 H (6-22) Glucose 120 H (80-110) mg/dL Calcium 9.9 (8.4-10.2) mg/dL Total Bilirubin 1.5 H (0.2-1.3) mg/dL AST 31 (17-59) IU/L ALT 24 (<50) IU/L Alkaline Phosphatase 121 (38-126) U/L Total Protein 8.4 H (6.3-8.2) g/dL Albumin 4.8 (3.5-5.0) g/dL Globulin 3.6 (1.7-4.1) g/dL Albumin/Globulin Ratio 1.3 (1.0-2.8) Urine Color Urine Appearance Urine pH (4.5-8.0) Ur Specific [place] (1.000-1.035) Urine Protein (Negative) Urine Glucose (UA) (Negative) g/dL Urine Ketones (NEGATIVE) Urine Occult Blood (Negative) Urine Nitrate (Negative) Urine Bilirubin (NEGATIVE) Urine Urobilinogen (0.2) E.U./dL Ur Leukocyte Esterase (NEGATIVE) Urine RBC (0-5/HPF) Urine WBC (0-5/HPF) Urine Bacteria (None) Ur Culture Indicated? 10/27/20 Range/Units 14:00 WBC (4.5-11.0) X10^3/uL RBC (4.5-5.9) X10^6/uL Hgb (13.5-17.5) g/dL Hct (41-53) % MCV (80-100) fL MCH (26-34) PG MCHC (30-36) % RDW (11.6-14.8) % Plt Count (150-400) X10^3/uL Neut % (Auto) (50-75) % Lymph % (Auto) (25-40) % [place] % (Auto) (3-14) % Eos % (Auto) (2-4) % Baso % (Auto) (0-2) % Neut # (Auto) (6866-1373) /uL Lymph # (Auto) (8068-8052) /uL [place] # (Auto) (0-900) /uL Eos # (Auto) (0-450) /uL Baso # (Auto) (0-100) /uL PT (10.1-12.7) SECONDS INR (0.9-1.3) Sodium (137-145) mmol/L Potassium (3.4-5.1) mmol/L Chloride (98-107) mmol/L Carbon Dioxide (22-32) mmol/L BUN (9-20) mg/dL Creatinine (0.66-1.25) mg/dL Estimated GFR (>60) mL/min BUN/Creatinine Ratio (6-22) Glucose (80-110) mg/dL Calcium (8.4-10.2) mg/dL Total Bilirubin (0.2-1.3) mg/dL AST (17-59) IU/L ALT (<50) IU/L Alkaline Phosphatase (38-126) U/L Total Protein (6.3-8.2) g/dL Albumin (3.5-5.0) g/dL Globulin (1.7-4.1) g/dL Albumin/Globulin Ratio (1.0-2.8) Urine Color Yellow Urine Appearance Clear Urine pH 6.0 (4.5-8.0) Ur Specific [place] 1.010 (1.000-1.035) Urine Protein Trace H (Negative) Urine Glucose (UA) Negative (Negative) g/dL Urine Ketones Negative (NEGATIVE) Urine Occult Blood 3+ H (Negative) Urine Nitrate Negative (Negative) Urine Bilirubin Negative (NEGATIVE) Urine Urobilinogen 0.2 (0.2) E.U./dL Ur Leukocyte Esterase Trace H (NEGATIVE) Urine RBC 10-30/hpf H (0-5/HPF) Urine WBC 10-30/hpf H (0-5/HPF) Urine Bacteria None seen (None) Ur Culture Indicated? Specimen cultured MDM Narrative Medical decision making narrative: 80-year-old male presenting to the emergency department for urinary tension. Unsure exact cause of urinary tension however, patient has a history of prostate issues in the past. He also self caths at home however he was not able to do so today due to clots. Patient is hemodynamically stable, well-appearing. Hemoglobin and hematocrit are stable, INR within therapeutic limits. After irrigation, urine return to light pink yellow without significant clots. Catheter was kept in place due to significant retention and difficulty self cathing as well as the initial catheter placed in the emergency department was unable to drain due to clots. Patient was given leg bag, he was encouraged to follow up with urologist as soon as possible. Patient initially had significant increased heart rate of 125, he appeared very uncomfortable due to bladder distension. After bladder distension was relieved patient remained in AFib with a rate of 90-111. No concerns for sepsis given lack of white blood cell count, patient is afebrile, well-appearing. Laboratory work does show a small amount of white blood cells and red blood cells in urine. He is currently on cephalexin as prescribed by Urology. Patient was encouraged to continue with cephalexin. Urine was sent for culture. Return precautions given for new or worsening symptoms. He agrees to plan of care verbalized understanding. <Thanh Cortez, - Last Filed: 10/27/20 17:18> Lab Data Attestation: I reviewed the patient's lab results. Labs: Lab Results 10/27/20 10/27/20 10/27/20 Range/Units 14:00 14:00 14:00 WBC 10.0 (4.5-11.0) X10^3/uL RBC 5.23 (4.5-5.9) X10^6/uL Hgb 16.0 (13.5-17.5) g/dL Hct 46.6 (41-53) % MCV 89.2 (80-100) fL MCH 30.6 (26-34) PG MCHC 34.3 (30-36) % RDW 13.9 (11.6-14.8) % Plt Count 257 (150-400) X10^3/uL Neut % (Auto) 75.5 H (50-75) % Lymph % (Auto) 19.0 L (25-40) % [place] % (Auto) 5.1 (3-14) % Eos % (Auto) 0.1 L (2-4) % Baso % (Auto) 0.3 (0-2) % Neut # (Auto) 7500 H (0387-4678) /uL Lymph # (Auto) 1900 (3512-9821) /uL [place] # (Auto) 500 (0-900) /uL Eos # (Auto) 0 (0-450) /uL Baso # (Auto) 0 (0-100) /uL PT 27.0 H (10.1-12.7) SECONDS INR 2.4 H (0.9-1.3) Sodium 140 (137-145) mmol/L Potassium 4.5 (3.4-5.1) mmol/L Chloride 106 (98-107) mmol/L Carbon Dioxide 25 (22-32) mmol/L BUN 16 (9-20) mg/dL Creatinine 0.62 L (0.66-1.25) mg/dL Estimated GFR > 60.0 (>60) mL/min BUN/Creatinine Ratio 25.8 H (6-22) Glucose 120 H (80-110) mg/dL Calcium 9.9 (8.4-10.2) mg/dL Total Bilirubin 1.5 H (0.2-1.3) mg/dL AST 31 (17-59) IU/L ALT 24 (<50) IU/L Alkaline Phosphatase 121 (38-126) U/L Total Protein 8.4 H (6.3-8.2) g/dL Albumin 4.8 (3.5-5.0) g/dL Globulin 3.6 (1.7-4.1) g/dL Albumin/Globulin Ratio 1.3 (1.0-2.8) Urine Color Urine Appearance Urine pH (4.5-8.0) Ur Specific [place] (1.000-1.035) Urine Protein (Negative) Urine Glucose (UA) (Negative) g/dL Urine Ketones (NEGATIVE) Urine Occult Blood (Negative) Urine Nitrate (Negative) Urine Bilirubin (NEGATIVE) Urine Urobilinogen (0.2) E.U./dL Ur Leukocyte Esterase (NEGATIVE) Urine RBC (0-5/HPF) Urine WBC (0-5/HPF) Urine Bacteria (None) Ur Culture Indicated? 10/27/20 Range/Units 14:00 WBC (4.5-11.0) X10^3/uL RBC (4.5-5.9) X10^6/uL Hgb (13.5-17.5) g/dL Hct (41-53) % MCV (80-100) fL MCH (26-34) PG MCHC (30-36) % RDW (11.6-14.8) % Plt Count (150-400) X10^3/uL Neut % (Auto) (50-75) % Lymph % (Auto) (25-40) % [place] % (Auto) (3-14) % Eos % (Auto) (2-4) % Baso % (Auto) (0-2) % Neut # (Auto) (8532-3766) /uL Lymph # (Auto) (0889-7135) /uL [place] # (Auto) (0-900) /uL Eos # (Auto) (0-450) /uL Baso # (Auto) (0-100) /uL PT (10.1-12.7) SECONDS INR (0.9-1.3) Sodium (137-145) mmol/L Potassium (3.4-5.1) mmol/L Chloride (98-107) mmol/L Carbon Dioxide (22-32) mmol/L BUN (9-20) mg/dL Creatinine (0.66-1.25) mg/dL Estimated GFR (>60) mL/min BUN/Creatinine Ratio (6-22) Glucose (80-110) mg/dL Calcium (8.4-10.2) mg/dL Total Bilirubin (0.2-1.3) mg/dL AST (17-59) IU/L ALT (<50) IU/L Alkaline Phosphatase (38-126) U/L Total Protein (6.3-8.2) g/dL Albumin (3.5-5.0) g/dL Globulin (1.7-4.1) g/dL Albumin/Globulin Ratio (1.0-2.8) Urine Color Yellow Urine Appearance Clear Urine pH 6.0 (4.5-8.0) Ur Specific [place] 1.010 (1.000-1.035) Urine Protein Trace H (Negative) Urine Glucose (UA) Negative (Negative) g/dL Urine Ketones Negative (NEGATIVE) Urine Occult Blood 3+ H (Negative) Urine Nitrate Negative (Negative) Urine Bilirubin Negative (NEGATIVE) Urine Urobilinogen 0.2 (0.2) E.U./dL Ur Leukocyte Esterase Trace H (NEGATIVE) Urine RBC 10-30/hpf H (0-5/HPF) Urine WBC 10-30/hpf H (0-5/HPF) Urine Bacteria None seen (None) Ur Culture Indicated? Specimen cultured MDM Narrative Medical decision making narrative: Patient is tachycardic however has a history of atrial fibrillation review of his prior ER/clinic vision shows that his heart rate normally Hovers around 110. Lab a follow-up with his primary provider. Discharge Plan Departure Patient Disposition: Home Clinical Impression: Acute urinary retention Hematuria Qualifiers: Hematuria type: gross Qualified Code(s): R31.0 - Gross hematuria Instructions: DI for Hematuria, DI for Urinary Retention in Men Activity Restrictions/Additional Instructions: Thank you for entrusting me with your care today. As discussed, we have placed a Zepeda catheter in your bladder and irrigated the clots out. Continue to take your Keflex that you have been prescribed. Leave the catheter in place. Please call Dr. Conteh on Thursday and schedule an appointment as soon as possible. Return emergency department for any new or worsening symptoms such as increased pain, catheter not draining, bladder pressure, high fevers, or any other concerns. Prescriptions: No Action warfarin 5 mg tablet 5 mg PO QDAY Qty: 100 RF: 3 methimazole 5 mg tablet 5 mg PO DAILY Qty: 90 RF: 3 cephalexin [Keflex] 500 mg capsule 500 mg PO TID Qty: 45 RF: 0 nitrofurantoin monohyd/m-cryst [Macrobid] 100 mg capsule 100 mg PO BID Qty: 6 RF: 0 Referrals: Lloyd Butler MD [Primary Care Provider] -
[2020-10-27 14:15] LABS: Bacteria Urine None Seen
[2020-10-27 14:16] LABS: Appearance Urine UA CLEAR; Bilirubin Urine UA NEGATIVE (NEGATIVE); Color Urine UA YELLOW; Glucose Urine UA NEGATIVE (Negative); Ketones Urine UA NEGATIVE (NEGATIVE); Leukocyte Esterase Urine UA TRACE (NEGATIVE); Nitrite Urine UA NEGATIVE (Negative); Occult Blood Urine UA 3+ (Negative); Protein Urine UA TRACE (Negative); Urobilinogen Urine UA 0.2 E.U./dL (0.2)
[2020-10-27 14:17] LABS: Add Manual Diff / Slide Review NO; Basophils Absolute Auto 0 /uL (0-100); Basophils Percent Auto 0.3 % (0-2); Eosinophils Absolute Auto 0 /uL (0-450); Eosinophils Percent Auto 0.1 % (2-4); Hematocrit 46.6 % (41-53); Lymphocytes Absolute Auto 1900 /uL (1100-4500); Mean Corpuscular HGB Conc 34.3 % (30-36); Mean Corpuscular Hemoglobin 30.6 PG (26-34); Mean Corpuscular Volume 89.2 fL (80-100); Monocytes Absolute Auto 500 /uL (0-900); Monocytes Percent Auto 5.1 % (3-14); Neutrophils Absolute Auto 7500 /uL (1500-7000); Neutrophils Percent Auto 75.5 % (50-75); Platelet Count 257 X10^3/uL (150-400); Red Blood Cell Count 5.23 X10^6/uL (4.5-5.9); Red Cell Distribution Width 13.9 % (11.6-14.8)
--- NOTE | 2020-10-27 14:22 | PC.NURSE ---
Pt had large clots and very little return with 2 way 20fr. Hosp coordinator getting 3 way 20fr.
--- NOTE | 2020-10-27 14:24 | PC.NURSE ---
Pt feels significant relief after 3 way placed. Had gross hematuria and large clots draining. irrigation not needed at this time.
[2020-10-27 14:30] LABS: INR 2.4 (0.9-1.3)
[2020-10-27 14:34] LABS: Culture Indicated Urine Specimen Cultured; RBC Urine 10-30/HPF (0-5/HPF); WBC Urine 10-30/HPF (0-5/HPF)
[2020-10-27 14:40] LABS: Alanine Aminotransferase 24 IU/L (<50); Albumin 4.8 g/dL (3.5-5.0); Albumin Globulin Ratio 1.3 (1.0-2.8); Alkaline Phosphatase 121 U/L (38-126); Aspartate Aminotransferase 31 IU/L (17-59); BUN Creatinine Ratio 25.8 (6-22); Bilirubin Total 1.5 mg/dL (0.2-1.3); Blood Urea Nitrogen 16 mg/dL (9-20); Calcium 9.9 mg/dL (8.4-10.2); Carbon Dioxide 25 mmol/L (22-32); Chloride 106 mmol/L (98-107); Estimated Glomerular Filt Rate > 60.0 mL/min (>60); Globulin 3.6 g/dL (1.7-4.1); Glucose 120 mg/dL (80-110); HEMOLYSIS < 15 (0-50); Potassium 4.5 mmol/L (3.4-5.1); Sodium 140 mmol/L (137-145); Total Protein 8.4 g/dL (6.3-8.2)
[2020-10-27] MEDS: SODIUM CHLORIDE 0.9% 500 ML IV (15:50)
--- NOTE | 2020-10-27 16:55 | PC.NURSE ---
Pt switched to a leg bag, irrigation complete. Pt has had catheter before. Dr Cortez, OK to DC home. HR is ok, pt to follow up with Dr Butler.
== END 2020-10-27 17:18 | disposition home or self-care (01) ==
PROVIDERS: Emergency Provider Nurse Practitioner; PCP Internal Medicine
DX: R33.8 Other retention of urine (principal); R31.0 Gross hematuria; I48.91 Unspecified atrial fibrillation; Z79.01 Long term (current) use of anticoagulants; R10.9 Unspecified abdominal pain; E11.9 Type 2 diabetes mellitus without complications
CPT/HCPCS: 36415; 51701; 51798; 80053; 81001; 85025; 85610; 87077; 87086; 96360; 99282; 99284

== ENCOUNTER 2020-11-01 10:23 | Emergency (ER) | payer MEDICARE, SELFPAY ==
[2020-11-01] VITALS (9 sets, daily range): BP systolic 138–175; BP diastolic 72–91; PULSE 107–128; RESP 17–43; TEMP 36.3; O2SAT 96–100; BMI 22.6
--- NOTE | 2020-11-01 11:03 | PC.NURSE ---
Pt here recenlty for catheter irrigation. Pt states that he is having dribbling around the catheter.
--- NOTE | 2020-11-01 11:09 | ED.MALEGU ---
HPI - Male Genitourinary <Veronica Strickland PA-C - Last Filed: 11/01/20 14:48> General Chief complaint: Urogenital-Male Stated complaint: urinary catheter clogged x4 days Time Seen by Provider: 11/01/20 10:48 Source: patient Mode of arrival: Ambulatory Limitations: no limitations History of Present Illness HPI Narrative: This is an 80-year-old male with history of AFib, urinary retention, on warfarin, indwelling Zepeda catheter in place who presents complaining of pressure and discomfort with peeing and urine leaking around his catheter. He was seen in the emergency department 5 days ago at that time he had blood in his urine and clots and was flushed with 2 L of fluid and left with a Zepeda catheter in place. Previous to this he self cathed intermittently. He then followed up with his urologist and his nurse 2 days ago because he was having leaking around his catheter he says that they seemed to fix the problem at his office visit but as soon as he got home the same thing happened again. He drank a lot of fluid yesterday but ?a lot of it went around outside my catheter?. He states he has been having pressure and pain with urination for a while this has not changed since it started about a week ago. Today he has not had anything to drink because ?it hurts and I feel pressure when I pee and I do not want to drink anything because of this. He acknowledges that he did stop taking his warfarin a few days ago because he was worried about the bleeding he had had his bladder but that he restarted it last night. He denies fevers, chills, flank pain, abdominal pain, chest pain, shortness of breath, fatigue or any other symptoms. MD Complaint: dysuria Onset (ago): week(s) (1) Duration: constant Location: abdomen (Tenderness over his bladder) Severity: similar to previous episodes Severity scale (1-10): 4 (Pressure and discomfort with urination) Quality: aching and dull Exacerbating factors: urination Associated symptoms: Reports other Related Data Previous Rx's Medication Instructions Recorded warfarin 5 mg tablet 5 mg PO QDAY #100 tab 07/06/20 methimazole 5 mg tablet 5 mg PO DAILY #90 tab 07/24/20 nitrofurantoin 100 mg PO BID #6 cap 09/25/20 monohydrate/macrocrystals 100 mg capsule cephalexin 500 mg capsule 500 mg PO TID #45 cap 09/27/20 minocycline 50 mg PO QID #41 caplet 11/01/20 phenazopyridine [Pyridium] 100 mg PO TID PRN #20 tab 11/01/20 Allergies Allergy/AdvReac Type Severity Reaction Status Date / Time No Known Drug Allergies Allergy Verified 11/01/20 10:47 Review of Systems <Veronica Strickland PA-C - Last Filed: 11/01/20 14:48> Review of Systems Narrative: GENERAL: Denies chills, fatigue, malaise, fever, sweats. HEENT: Denies sinus pain, ear pain, sore throat, difficulty swallowing, dizziness. RESPIRATORY: Denies dyspnea, cough, wheezing, hemoptysis, sputum. CARDIOVASCULAR: Denies chest pain, palpitations, orthopnea, edema, GASTROINTESTINAL: Denies nausea, vomiting, abdominal pain, diarrhea, constipation, melena. : Endorses dysuria with pressure and pain with urination, endorses but urine leaking around catheter, denies frequency, incontinence, hematuria, urinary retention. MUSCULOSKELETAL: denies weakness, joint pain, or bony pain SKIN: Denies rash, skin lesions, or other NEUROLOGIC: Denies weakness, headache, numbness, change in speech, confusion, seizures, incoordination. PSYCHIATRIC: No concerning psychosocial issues. 12 point review of systems is negative except for those stated above ROS Unobtainable: All systems reviewed & are unremarkable except as noted in HPI and below Patient History <Veronica Strickland PA-C - Last Filed: 11/01/20 14:48> Medical History Atrial fibrillation Cardiomyopathy (2013) CVA (cerebral vascular accident) (08/03/15) Diabetes mellitus Hyperthyroidism Urinary retention (2014) Urinary retention Surgical History S/P vasectomy Family History Father CVA (cerebral vascular accident) Sister Thyroid disorder Social History Smoking Status: Never smoker Smoking Status: Never smoker alcohol intake frequency: holidays/special occasions only Substance Use Type: does not use Exam <Veronica Strickland PA-C - Last Filed: 11/01/20 14:48> Narrative Exam Narrative: GENERAL: 80 year old patient appears stated age, well-appearing alert. Well-nourished, well-developed patient, in mild distress. HEAD: Atraumatic. Normocephalic. EYES: Pupils equal round and reactive. Extraocular motions intact. No scleral icterus. No injection or drainage. ENT: Nose without bleeding, purulent drainage. Throat without erythema, tonsillar hypertrophy or exudate. Airway patent. NECK: Trachea midline. Non tender CARDIOVASCULAR: Rapid irregular rate and rhythm about 120 without murmurs, gallops, or rubs. RESPIRATORY: No respiratory distress. Clear to auscultation. Breath sounds equal bilaterally. No wheezes, rales, or rhonchi. GASTROINTESTINAL: Abdomen soft, non-tender, nondistended. : urinary catheter in place EXTREMITIES: No edema or joint tenderness. BACK: Nontender without deformity or crepitance. No flank tenderness. NEURO: AOx3. SKIN: No rash or erythema of visible areas Initial Vital Signs Initial Vital Signs: Vital Signs Temperature 97.3 F L 11/01/20 10:41 Pulse Rate 124 H 11/01/20 10:41 Respiratory Rate 17 11/01/20 10:41 Blood Pressure 175/88 H 11/01/20 10:41 Pulse Oximetry 99 11/01/20 10:41 <Angy Walker DO - Last Filed: 11/01/20 19:06> Initial Vital Signs Initial Vital Signs: Vital Signs Temperature 97.3 F L 11/01/20 10:41 Pulse Rate 124 H 11/01/20 10:41 Respiratory Rate 17 11/01/20 10:41 Blood Pressure 175/88 H 11/01/20 10:41 Pulse Oximetry 99 11/01/20 10:41 Scores <Veronica Strickland PA-C - Last Filed: 11/01/20 14:48> GCS [place] coma scale eye opening: Spontaneous [place] coma scale verbal response: Orientated [place] coma scale motor response: Obey commands [place] coma scale total score: 15 Course <Veronica Strickland PA-C - Last Filed: 11/01/20 14:48> Course Course Narrative: Initially attempted to flush the patient's catheter at this was moderately successful but bladder scan revealed he has only about 138 mL present in his bladder. Then he was set up with a flash and we had good flow initially however after about 5 minutes this stopped flowing and RN reports that he is unable to flush the catheter. Discusses with attending physician, it is reasonable to replace the catheter at this point given that we are not able to get a consistent flow. 11:[address] Conteh, the patient's urologist and spoke with him about patient's complaints today as well as the culture which was noted to return positive for pantoea. Dr. Conteh does recommend treating this, based on the addendum to the patient's chart from 10/27 regarding the return of culture Dr. chiang noted that minocycline is 1 of the best oral treatments for this the dose is starting dose of minocycline 100 mg p.o. x1 dose than 50 mg p.o. q.6 for total of 41 tabs and a total of 10 day course. Patient will need to have more frequent INR monitoring as minocycline does affect the INR. Dr. Conteh recommends azo or a prescription for peridium that the patient can take Q 8 to help with his bladder spasms and pain. We were able to successfully flush the patient's catheter consistently and has not had any additional blockages. Additionally we were able to stand him up and he had no leakage around his catheter. This time we are not going to replace the catheter. 13:06 I spoke with the patient and discussed the plan with him he is in agreement he understands that he needs to have INR checks within 48 hours of starting his antibiotic and again every 2-4 days depending on what his doctor recommends. Advised him to keep taking his warfarin unless he is told to discontinue or change his dose. 13:11 Orders Ordered: ED Orders 11/01/20 10:50 EKG-12 Lead Stat 11/01/20 11:00 Basic Metabolic Panel Stat Complete Blood Count AUTO DIFF Stat Prothrombin Time INR Stat Discontinued Medications Hydromorphone HCl (Hydromorphone 1 Mg Inj) 0.5 mg IM NOW ONE Stop: 11/01/20 11:34 Last Admin: 11/01/20 11:37 Dose: 0.5 mg Documented by: AIDE Vital Signs Vital signs: Vital Signs - 8 hr 11/01/20 11:28 11/01/20 11:30 11/01/20 12:00 Pulse Rate 117 H 113 H 110 H Respiratory Rate 41 H 30 H 21 Blood Pressure 154/91 H 142/89 H 150/72 H Pulse Oximetry 100 100 96 11/01/20 12:30 11/01/20 12:32 11/01/20 14:13 Pulse Rate 107 H 111 H Respiratory Rate 43 H Blood Pressure 138/75 146/80 H Pulse Oximetry 100 100 <Angy Walker DO - Last Filed: 11/01/20 19:06> Orders Ordered: ED Orders 11/01/20 10:50 EKG-12 Lead Stat 11/01/20 11:00 Basic Metabolic Panel Stat Complete Blood Count AUTO DIFF Stat Prothrombin Time INR Stat Discontinued Medications Hydromorphone HCl (Hydromorphone 1 Mg Inj) 0.5 mg IM NOW ONE Stop: 11/01/20 11:34 Last Admin: 11/01/20 11:37 Dose: 0.5 mg Documented by: AIDE Vital Signs Vital signs: Vital Signs - 8 hr 11/01/20 11:28 11/01/20 11:30 11/01/20 12:00 Pulse Rate 117 H 113 H 110 H Respiratory Rate 41 H 30 H 21 Blood Pressure 154/91 H 142/89 H 150/72 H Pulse Oximetry 100 100 96 11/01/20 12:30 11/01/20 12:32 11/01/20 14:13 Pulse Rate 107 H 111 H Respiratory Rate 43 H Blood Pressure 138/75 146/80 H Pulse Oximetry 100 100 MDM - Male Genitourinary <Veronica Strickland PA-C - Last Filed: 11/01/20 14:48> Differential Diagnosis Differential diagnosis: Likely urinary tract infection, urethritis, acute retention of urine and other (Catheter problem, bladder pain, bladder spasm) Medical Records Attestation: I reviewed the patient's medical records. Lab Data Attestation: I reviewed the patient's lab results. Result diagrams: 11/01/20 11:00 11/01/20 11:00 Labs: Lab Results 11/01/20 11/01/20 11/01/20 Range/Units 11:00 11:00 11:00 WBC 7.3 (4.5-11.0) X10^3/uL RBC 4.77 (4.5-5.9) X10^6/uL Hgb 14.3 (13.5-17.5) g/dL Hct 43.3 (41-53) % MCV 90.7 (80-100) fL MCH 29.9 (26-34) PG MCHC 33.0 (30-36) % RDW 13.7 (11.6-14.8) % Plt Count 284 (150-400) X10^3/uL Neut % (Auto) 64.5 (50-75) % Lymph % (Auto) 26.9 (25-40) % [place] % (Auto) 7.4 (3-14) % Eos % (Auto) 0.8 L (2-4) % Baso % (Auto) 0.4 (0-2) % Neut # (Auto) 4700 (5288-0913) /uL Lymph # (Auto) 2000 (1213-4110) /uL [place] # (Auto) 500 (0-900) /uL Eos # (Auto) 100 (0-450) /uL Baso # (Auto) 0 (0-100) /uL PT 15.7 H D (10.1-12.7) SECONDS INR 1.4 H (0.9-1.3) Sodium 142 (137-145) mmol/L Potassium 3.9 (3.4-5.1) mmol/L Chloride 108 H (98-107) mmol/L Carbon Dioxide 28 (22-32) mmol/L BUN 25 H (9-20) mg/dL Creatinine 0.53 L (0.66-1.25) mg/dL Estimated GFR > 60.0 (>60) mL/min BUN/Creatinine Ratio 47.2 H (6-22) Glucose 117 H (80-110) mg/dL Calcium 9.7 (8.4-10.2) mg/dL [facility] Narrative Medical decision making narrative: This is a slightly uncomfortable appearing but alert 80-year-old a history of chronic AFib, urinary retention currently with a indwelling Zepeda catheter in place who presents complaining of pain with urination pressure with urination, and feeling like yesterday and today he has been having leaking outside of his catheter. Patient was in and out of AFib during ED stay. Was recently in the emergency department with clots and blood in his urine and was flushed out. Currently does not have any obvious clots or significant blood noted in his urine. Some of his urine is light pink tinged initially he is flushed with 2 L in the ED with ultimately good return. His pain improves with IM Dilaudid. He has no ongoing leaking around his catheter. After consultation with Urology, recommendation is to treat his UTI, recent cultures resulted with pantoea. Prescription sent in for minocycline, counseled the patient regarding INR checks on a frequent basis including initially at 48 hours after starting his antibiotic. Also sent in a prescription for Pyridium for the patient. I have low suspicion for pyelonephritis, urosepsis or other acute process that would require further workup in the emergency department today. Emergency return precautions provided, all questions answered. <Angy Walker, DO - Last Filed: 11/01/20 19:06> Lab Data Labs: Lab Results 11/01/20 11/01/20 11/01/20 Range/Units 11:00 11:00 11:00 WBC 7.3 (4.5-11.0) X10^3/uL RBC 4.77 (4.5-5.9) X10^6/uL Hgb 14.3 (13.5-17.5) g/dL Hct 43.3 (41-53) % MCV 90.7 (80-100) fL MCH 29.9 (26-34) PG MCHC 33.0 (30-36) % RDW 13.7 (11.6-14.8) % Plt Count 284 (150-400) X10^3/uL Neut % (Auto) 64.5 (50-75) % Lymph % (Auto) 26.9 (25-40) % [place] % (Auto) 7.4 (3-14) % Eos % (Auto) 0.8 L (2-4) % Baso % (Auto) 0.4 (0-2) % Neut # (Auto) 4700 (7346-5387) /uL Lymph # (Auto) 2000 (3813-1304) /uL [place] # (Auto) 500 (0-900) /uL Eos # (Auto) 100 (0-450) /uL Baso # (Auto) 0 (0-100) /uL PT 15.7 H D (10.1-12.7) SECONDS INR 1.4 H (0.9-1.3) Sodium 142 (137-145) mmol/L Potassium 3.9 (3.4-5.1) mmol/L Chloride 108 H (98-107) mmol/L Carbon Dioxide 28 (22-32) mmol/L BUN 25 H (9-20) mg/dL Creatinine 0.53 L (0.66-1.25) mg/dL Estimated GFR > 60.0 (>60) mL/min BUN/Creatinine Ratio 47.2 H (6-22) Glucose 117 H (80-110) mg/dL Calcium 9.7 (8.4-10.2) mg/dL ECG Data Attestation: I personally reviewed and interpreted this ECG as follows: Prior ECG tracings: available for review Interpretation: AFib with rapid ventricular response of 102, QRS [address] elevation appreciated. No depression noted. Patient has prior from 09/30/2016 which appears similar. Discharge Plan Departure Patient Disposition: Home Clinical Impression: Acute UTI (urinary tract infection), Painful bladder spasm, Anticoagulated on warfarin Instructions: DI for Urinary Tract Infection (UTI) Activity Restrictions/Additional Instructions: Thank you for letting us be part of your care in the emergency department today. We flushed your catheter and gave you some medicine for pain which improved your symptoms and you were no longer having issues with leaking around your catheter when standing up after your treatment in the ED. I also talked to your urologist Dr. Conteh will your in the emergency department and we do need to treat the urinary tract infection as we discussed the medication for this is called minocycline I have sent this prescription in to your pharmacy. I have also prescribed a medicine that should help with bladder pain and spasming that you can take every 8 hours. Please note as we discussed it is extremely important that you have your INR levels checked regularly while you are taking the antibiotic the antibiotic can affect your INR levels. You should get your INR checked within 48 hours of starting the antibiotic, and probably every 3-4 days after that or every 2 days if her doctor recommends that this. Do not change her dose unless your doctor recommends that you change it based on the results of your INR tests. There is no evidence of an emergent or life threatening illness at this time, but follow up with your doctor in 1-2 days is recommended nonetheless to continue to rule out serious underlying causes of your symptoms. Please call the office for an appointment. Please return to the Emergency Department for any worsening or persistent symptoms. Please take medications as directed. Prescriptions: New minocycline 50 mg capsule 50 mg PO QID Qty: 41 RF: 0 phenazopyridine [Pyridium] 100 mg tablet 100 mg PO TID PRN (Reason: pain) Qty: 20 RF: 0 No Action warfarin 5 mg tablet 5 mg PO QDAY Qty: 100 RF: 3 methimazole 5 mg tablet 5 mg PO DAILY Qty: 90 RF: 3 cephalexin [Keflex] 500 mg capsule 500 mg PO TID Qty: 45 RF: 0 nitrofurantoin monohyd/m-cryst [Macrobid] 100 mg capsule 100 mg PO BID Qty: 6 RF: 0 Referrals: Lloyd Butler MD [Primary Care Provider] - <Angy Walker DO - Last Filed: 11/01/20 19:06> Cosign ED Attending Greyson Attestation: I was immediately available in the department for consultation. Documentation has been reviewed. Patient was started on antibiotics secondary to urine culture from recent visit. Patient has a atypical bacteria and a literature search review showed the Levaquin her minocycline to be the most appropriate options. Both can elevated INR but was selected for minocycline also in conjunction with Urology recommendation. Patient has had this intermittent AFib. He is fully anticoagulated. Labs initial findings today did not show acute changes concerning for sepsis. Patient did not have any cardiac symptoms other than his chronic paroxysmal atrial fibrillation. Patient was recommended to have frequent INR checks this week, then next being within 2 day of starting antibiotics.
[2020-11-01 11:25] LABS: Add Manual Diff / Slide Review NO; Basophils Absolute Auto 0 /uL (0-100); Basophils Percent Auto 0.4 % (0-2); Eosinophils Absolute Auto 100 /uL (0-450); Eosinophils Percent Auto 0.8 % (2-4); Hematocrit 43.3 % (41-53); Hemoglobin 14.3 g/dL (13.5-17.5); Lymphocytes Absolute Auto 2000 /uL (1100-4500); Lymphocytes Percent Auto 26.9 % (25-40); Mean Corpuscular Hemoglobin 29.9 PG (26-34); Mean Corpuscular Volume 90.7 fL (80-100); Monocytes Absolute Auto 500 /uL (0-900); Monocytes Percent Auto 7.4 % (3-14); Neutrophils Absolute Auto 4700 /uL (1500-7000); Neutrophils Percent Auto 64.5 % (50-75); Platelet Count 284 X10^3/uL (150-400); Red Blood Cell Count 4.77 X10^6/uL (4.5-5.9); Red Cell Distribution Width 13.7 % (11.6-14.8); White Blood Cell Count 7.3 X10^3/uL (4.5-11.0)
[2020-11-01 11:32] LABS: INR 1.4 (0.9-1.3); Prothrombin Time 15.7 SECONDS (10.1-12.7)
[2020-11-01 11:36] LABS: BUN Creatinine Ratio 47.2 (6-22); Blood Urea Nitrogen 25 mg/dL (9-20); Calcium 9.7 mg/dL (8.4-10.2); Carbon Dioxide 28 mmol/L (22-32); Chloride 108 mmol/L (98-107); Estimated Glomerular Filt Rate > 60.0 mL/min (>60); Glucose 117 mg/dL (80-110); HEMOLYSIS < 15 (0-50); Potassium 3.9 mmol/L (3.4-5.1); Sodium 142 mmol/L (137-145)
[2020-11-01] MEDS: HYDROMORPHONE 1 MG INJ 0.5 MG IM (11:37)
== END 2020-11-01 14:14 | disposition home or self-care (01) ==
PROVIDERS: Emergency Provider Student in an Organized Health Care Education/Training Program; PCP Internal Medicine
DX: N39.0 Urinary tract infection, site not specified (principal); N32.89 Other specified disorders of bladder; I48.91 Unspecified atrial fibrillation; Z79.01 Long term (current) use of anticoagulants; R30.0 Dysuria; R10.9 Unspecified abdominal pain; R33.9 Retention of urine, unspecified; E11.9 Type 2 diabetes mellitus without complications; E05.90 Thyrotoxicosis, unspecified without thyrotoxic crisis or storm; I42.9 Cardiomyopathy, unspecified
CPT/HCPCS: 36415; 51798; 80048; 85025; 85610; 93005; 96372; 99283; 99284; J1170

== ENCOUNTER → 2020-11-28 11:08 | Outpatient (CLI) | payer MEDICARE, SELFPAY | PROVIDERS: PCP Internal Medicine; Visit Provider Specialist | DX: N39.0 Urinary tract infection, site not specified (principal) | CPT/HCPCS: 51702; 87077; 87086 ==

== ENCOUNTER → 2020-12-05 13:39 | Outpatient (CLI) | payer MEDICARE, SELFPAY | PROVIDERS: PCP Internal Medicine; Visit Provider Specialist | DX: N39.0 Urinary tract infection, site not specified (principal); R33.9 Retention of urine, unspecified; N40.1 Benign prostatic hyperplasia with lower urinary tract symptoms; N13.8 Other obstructive and reflux uropathy; Z87.440 Personal history of urinary (tract) infections | CPT/HCPCS: 51798; 52000; 76872; 81002; 87077; 87086; 87147; 87186; 99214 ==

== ENCOUNTER → 2021-01-08 13:55 | Outpatient (CLI) | payer MEDICARE, SELFPAY | PROVIDERS: PCP Internal Medicine; Visit Provider Specialist | DX: N39.0 Urinary tract infection, site not specified (principal); Z46.6 Encounter for fitting and adjustment of urinary device | CPT/HCPCS: 51702; 87077; 87086; 87186 ==

== ENCOUNTER → 2021-02-06 10:36 | Outpatient (CLI) | payer MEDICARE, SELFPAY | PROVIDERS: PCP Internal Medicine; Visit Provider Specialist | DX: N13.8 Other obstructive and reflux uropathy (principal); N40.1 Benign prostatic hyperplasia with lower urinary tract symptoms | CPT/HCPCS: 51702; 87077; 87086; 87186 ==

== ENCOUNTER 2021-02-08 16:49 | Observation (INO) | payer MEDICARE, SELFPAY ==
[2021-02-08] VITALS (20 sets, daily range): BP systolic 126–173; BP diastolic 64–137; PULSE 84–132; RESP 12–48; TEMP 36.4–36.6; O2SAT 96–100; BMI 22.6
--- NOTE | 2021-02-08 17:08 | DI.CT.S_ITS ---
PROCEDURE: CT STROKE INDICATIONS: severe right sided headache on comadin TECHNIQUE: Noncontrast 4.5 mm thick angled axial sections acquired from the foramen magnum to the vertex, with coronal reformats. For radiation dose reduction, the following was used: automated exposure control, adjustment of mA and/or kV according to patient size. COMPARISON: None. FINDINGS: Image quality: Excellent. CSF spaces: Basal cisterns are patent. No extra-axial fluid collections. The ventricles are symmetric in size and shape. Brain: Right frontoparietal encephalomalacia and gliosis consistent with an old right MCA infarct. Wedge-shaped left cerebellar infarcts noted as well. Old lacunar infarct noted in the left caudate. No intracranial bleeds or masses. There is cerebral volume loss for age, with resultant ventricular and sulcal prominence. There are periventricular and deep white matter chronic small vessel ischemic changes. There is intracranial internal carotid artery atherosclerosis. Skull and face: Calvarium and visualized facial bones appear intact, without suspicious lesions. Sinuses: Visualized sinuses and mastoids are clear. IMPRESSION: 1. No evidence of intracranial hemorrhage or mass effect. 2. Old right MCA infarct and smaller old left cerebellar infarcts. 3. Dense vertebral and cavernous ICA atherosclerotic calcification. Critical results were discussed with Dr. Pruitt at 4:43 p.m. [place] time 01/09/2021 This study fulfills neurological imaging criteria for inclusion or exclusion of acute stroke therapies based on available published neurological guidelines. Dictated by: Dariel Chao M.D. on 02/08/2021 at 16:38 Approved by: Dariel Chao M.D. on 02/08/2021 at 16:44
--- NOTE | 2021-02-08 17:09 | DI.RAD.S_ITS ---
PROCEDURE: XR CHEST 1V INDICATIONS: chest pain TECHNIQUE: One view of the chest was acquired. COMPARISON: [facility], , CHEST 1 VIEW, 09/30/2016, 20:38. FINDINGS: Surgical changes and devices: None. Lungs and pleura: Lungs are clear. No pleural effusions or pneumothorax. Mediastinum: Mediastinal contours appear normal. Heart size is normal. Bones and chest wall: No suspicious bony lesions. Overlying soft tissues appear unremarkable. IMPRESSION: No acute process. Dictated by: Leonor Hinton M.D. on 02/08/2021 at 17:35 Approved by: Leonor Hinton M.D. on 02/08/2021 at 17:35
--- NOTE | 2021-02-08 17:10 | ED.NEUROSD ---
HPI - Neuro Symptoms/Deficit General Chief Complaint: Neuro Symptoms/Deficit Stated Complaint: RIGHT EYE PAIN TO MUCH PAIN TO WALK Time Seen by Provider: 02/08/21 17:05 Source: patient and family Mode of arrival: Ambulatory Limitations: no limitations History of Present Illness HPI Narrative: Patient is a 80-year-old male history of atrial fibrillation on Coumadin presenting with sudden onset of severe right-sided headache and eye pain started last evening. Son states it comes and goes in waves is currently quite severe. He has had prior stroke and has some left-sided weakness. He denies any chest pain or palpitations. Pain is pretty unbearable at this moment a difficult to examine. He says he is quite sensitive to light feels better to keep his eyes closed. On Anticoagulants: Yes Related Data Home Medications Medication Instructions Recorded Confirmed tamsulosin [Flomax] 0.4 mg PO DAILY 02/08/21 02/08/21 Previous Rx's Medication Instructions Recorded warfarin 5 mg tablet 5 mg PO QDAY #100 tab 12/04/20 Allergies Allergy/AdvReac Type Severity Reaction Status Date / Time No Known Drug Allergies Allergy Verified 02/08/21 17:06 Review of Systems Review of Systems ROS Unobtainable: All systems reviewed & are unremarkable except as noted in HPI and below Constitutional Constitutional: Denies chills, Denies fever(s), Reports headache(s), Denies lethargy and Denies weakness Eyes Eyes: Denies loss of vision ENT Ears, Nose, Mouth, and Throat: Denies change in voice, Denies vertigo, Denies dizziness, Reports headache(s), Denies neck pain and Denies sore throat Cardiovascular Cardiovascular: Denies chest pain, Denies syncope, Denies irregular heart rhythm, Denies lightheadedness, Denies palpitations, Denies dyspnea, Denies dyspnea on exertion and Denies orthopnea Respiratory Respiratory: Denies cough, Denies dyspnea, Denies dyspnea on exertion and Denies wheezing Gastrointestinal Gastrointestinal: Reports as per HPI, Denies abdominal pain, Denies bloating, Denies constipation, Denies nausea, Denies vomiting and Denies hematemesis Musculoskeletal Musculoskeletal: Denies neck pain Integumentary/Breasts Skin/Breast: Denies pruritus, Denies erythema, Denies rash and Denies wounds Neurologic Neurologic: Reports as per HPI, Denies vertigo, Denies dizziness, Denies syncope, Reports headache(s), Denies loss of vision, Denies memory loss, Denies convulsions and Denies weakness Psychiatric Psychiatric: Denies memory loss Endocrine Endocrine: Denies palpitations Hematologic/Lymphatic On Anticoagulants: Yes Allergic/Immunologic Allergic/Immunologic: Denies wheezing Patient History Medical History Atrial fibrillation BPH w urinary obs/LUTS Cardiomyopathy (2013) CVA (cerebral vascular accident) (08/03/15) Diabetes mellitus History of UTI Hyperthyroidism Urinary retention (2014) Urinary retention Surgical History S/P vasectomy Family History Father CVA (cerebral vascular accident) Sister Thyroid disorder Social History household members: none Smoking Status: Never smoker Smoking Status: Never smoker alcohol intake frequency: holidays/special occasions only Substance Use Type: does not use Exam Initial Vital Signs Initial Vital Signs: Vital Signs Pulse Rate 114 H 02/08/21 16:58 Blood Pressure 173/104 H 02/08/21 16:58 Pulse Oximetry 99 02/08/21 16:58 GENERAL: Thin 80-year-old female clutching right side of his head appears in severe pain HEENT: Head atraumatic,EOMI, pupils reactive, no peripheral vision loss face symmetric, moist mucous membranes Neck supple CARDIOVASCULAR: Regular rate and rhythm without murmurs, rubs or gallops. RESPIRATORY: Breath sounds equal bilaterally, no wheezes rales or rhonchi. ABDOMEN: Soft, nontender. Normoactive bowel sounds all 4 quadrants. No guarding or rebound. EXTREMITIES: Normal range of motion, no clubbing or edema. Neurovascularly intact NEUROLOGICAL: Alert and oriented x4.Normal gait and speech. Cranial nerves II through XII grossly intact. Good agxzna-jh-crhr, good lpja-vj-rlqb, strength equal bilaterally, no dysarthria or aphasia, sensation in tact to soft touch bilaterally, no visual changes, no facial droop SKIN: Warm, dry, no laceration, no petechiae, no rashes or lesions. Scores NIH Stroke Scale Level of Conciousness: Alert, keenly responsive Ask month/age: Answers both questions correctly. Open/close eyes, close hand: Performs both tasks correctly Best gaze horizontal: Normal Visual hanson: No visual loss Facial palsy: Normal symetrical movement Left arm drift: No drift for full 10 sec Right arm drift: No drift for full 10 sec Left leg drift: No drift for full 5 sec Right leg drift: No drift for full 5 sec Limb ataxia: Absent Sensory on face/arms/legs: Normal, no sensory loss Best language: No aphasia, normal Dysarthria: Normal Extinction or inattention: No abnormality Total NIH Stroke scale score: 0 Course Orders Ordered: Acetaminophen (Acetaminophen 325 Mg Tablet) 650 mg PO Q6HR PRN PRN Reason: Fever/Mild Pain (1-3) Ascorbic Acid (Ascorbic Acid 500 Mg Tablet) 500 mg PO BID [facility] Hydromorphone HCl (Hydromorphone 0.5 Mg Inj) 0.5 mg IV Q6H PRN PRN Reason: Pain, Moderate (4-6) Last Admin: 02/09/21 05:43 Dose: 0.5 mg Documented by: Sodium Chloride (Normal Saline 0.9%) 1,000 mls @ 100 mls/hr IV CONT [facility] Last Admin: 02/09/21 03:08 Dose: 100 mls/hr Documented by: Methimazole (Methimazole 5 Mg Tablet) 5 mg PO DAILY [facility] Naloxone HCl (Naloxone 0.4 Mg/Ml Vial) 0.2 mg IV Q2MIN PRN PRN Reason: Opiate Reversal Non-Formulary Medication (Methenamine Hippurate) 1 gram PO BID [facility] Last Admin: 02/08/21 22:02 Dose: Not Given Documented by: Ondansetron HCl (Ondansetron 4 Mg/2 Ml Inj) 4 mg IV Q8HR PRN PRN Reason: Nausea And Vomiting Oxycodone HCl (Oxycodone Ir 5 Mg Tablet) 5 mg PO Q6HR PRN PRN Reason: Pain, Moderate (4-6) Last Admin: 02/08/21 21:22 Dose: 5 mg Documented by: Warfarin Sodium (Warfarin 5 Mg Tablet) 5 mg PO 1700 [facility] Discontinued Medications Acetaminophen (Acetaminophen 325 Mg Tablet) 975 mg PO NOW ONE Stop: 02/08/21 19:00 Last Admin: 02/08/21 19:28 Dose: 975 mg Documented by: [place] Hydromorphone HCl (Hydromorphone 0.5 Mg Inj) 0.5 mg IV NOW ONE Stop: 02/08/21 17:36 Last Admin: 02/08/21 17:40 Dose: 0.5 mg Documented by: [place] Hydromorphone HCl (Hydromorphone 0.5 Mg Inj) 0.5 mg IV NOW ONE Stop: 02/08/21 19:00 Last Admin: 02/08/21 19:28 Dose: 0.5 mg Documented by: [place] Sodium Chloride (Normal Saline 0.9%) 1,000 mls @ 150 mls/hr IV CONT [place] Last Admin: 02/08/21 17:40 Dose: 150 mls/hr Documented by: [place] Morphine Sulfate (Morphine 4 Mg/Ml Inj) 4 mg IV NOW ONE Stop: 02/08/21 17:09 Last Admin: 02/08/21 17:21 Dose: 4 mg Documented by: [place] Ondansetron HCl (Ondansetron 4 Mg/2 Ml Inj) 4 mg IV NOW ONE Stop: 02/08/21 17:09 Last Admin: 02/08/21 17:23 Dose: 4 mg Documented by: [place] Vital Signs Vital signs: Vital Signs - 8 hr 02/08/21 16:58 02/08/21 17:00 02/08/21 17:06 Temperature 97.9 F Pulse Rate 114 H 119 H 121 H Respiratory Rate 18 33 H Blood Pressure 173/104 H 168/92 H 168/92 H Pulse Oximetry 99 99 99 02/08/21 17:29 02/08/21 17:30 02/08/21 17:45 Temperature Pulse Rate 119 H 109 H 109 H Respiratory Rate 38 H 32 H Blood Pressure 167/137 H Pulse Oximetry 100 99 98 02/08/21 17:46 02/08/21 18:00 02/08/21 18:15 Temperature Pulse Rate 108 H 110 H 103 H Respiratory Rate 44 H 43 H 27 H Blood Pressure 145/64 H 132/65 140/74 Pulse Oximetry 97 98 98 02/08/21 18:30 02/08/21 18:45 02/08/21 19:00 Temperature Pulse Rate 104 H 105 H 102 H Respiratory Rate 18 41 H 48 H Blood Pressure 142/67 H 144/78 H Pulse Oximetry 98 97 97 02/08/21 19:01 Temperature Pulse Rate 128 H Respiratory Rate 43 H Blood Pressure 159/89 H Pulse Oximetry 98 MDM - Neuro Symptoms/Deficit Lab Data Attestation: I reviewed the patient's lab results. Result diagrams: 02/08/21 17:15 02/08/21 17:15 Labs: Lab Results 02/08/21 02/08/21 02/08/21 Range/Units 17:15 17:15 17:15 WBC 9.7 (4.5-11.0) X10^3/uL RBC 4.90 (4.5-5.9) X10^6/uL Hgb 14.9 (13.5-17.5) g/dL Hct 43.5 (41-53) % MCV 88.8 (80-100) fL MCH 30.4 (26-34) PG MCHC 34.3 (30-36) % RDW 14.0 (11.6-14.8) % Plt Count 265 (150-400) X10^3/uL Neut % (Auto) 67.4 (50-75) % Lymph % (Auto) 26.8 (25-40) % [place] % (Auto) 5.7 (3-14) % Eos % (Auto) 0.0 L (2-4) % Baso % (Auto) 0.1 (0-2) % Neut # (Auto) 6500 (8439-9946) /uL Lymph # (Auto) 2600 (0211-6376) /uL [place] # (Auto) 600 (0-900) /uL Eos # (Auto) 0 (0-450) /uL Baso # (Auto) 0 (0-100) /uL PT 35.9 H (10.1-12.7) SECONDS INR 3.1 H (0.9-1.3) APTT 41 H (26.4-36.2) SECONDS Sodium 140 (137-145) mmol/L Potassium 4.5 (3.4-5.1) mmol/L Chloride 107 (98-107) mmol/L Carbon Dioxide 23 (22-32) mmol/L BUN 22 H (9-20) mg/dL Creatinine 0.56 L (0.66-1.25) mg/dL Estimated GFR > 60.0 (>60) mL/min BUN/Creatinine Ratio 39.3 H (6-22) Glucose 148 H (80-110) mg/dL Calcium 10.3 H (8.4-10.2) mg/dL Total Bilirubin 1.0 (0.2-1.3) mg/dL AST 34 (17-59) IU/L ALT 26 (<50) IU/L Alkaline Phosphatase 103 (38-126) U/L Total Creatine Kinase 72 (55-170) U/L CK-MB (CK-2) TNP CK-MB (CK-2) Rel Index TNP Troponin I < 0.012 (0.01-0.034) ng/mL Total Protein 8.4 H (6.3-8.2) g/dL Albumin 4.6 (3.5-5.0) g/dL Globulin 3.8 (1.7-4.1) g/dL Albumin/Globulin Ratio 1.2 (1.0-2.8) Lipase 85 (23-300) U/L SARS-CoV-2 (PCR) (Negative) 02/08/21 Range/Units 19:51 WBC (4.5-11.0) X10^3/uL RBC (4.5-5.9) X10^6/uL Hgb (13.5-17.5) g/dL Hct (41-53) % MCV (80-100) fL MCH (26-34) PG MCHC (30-36) % RDW (11.6-14.8) % Plt Count (150-400) X10^3/uL Neut % (Auto) (50-75) % Lymph % (Auto) (25-40) % [place] % (Auto) (3-14) % Eos % (Auto) (2-4) % Baso % (Auto) (0-2) % Neut # (Auto) (6651-3640) /uL Lymph # (Auto) (4249-6104) /uL [place] # (Auto) (0-900) /uL Eos # (Auto) (0-450) /uL Baso # (Auto) (0-100) /uL PT (10.1-12.7) SECONDS INR (0.9-1.3) APTT (26.4-36.2) SECONDS Sodium (137-145) mmol/L Potassium (3.4-5.1) mmol/L Chloride (98-107) mmol/L Carbon Dioxide (22-32) mmol/L BUN (9-20) mg/dL Creatinine (0.66-1.25) mg/dL Estimated GFR (>60) mL/min BUN/Creatinine Ratio (6-22) Glucose (80-110) mg/dL Calcium (8.4-10.2) mg/dL Total Bilirubin (0.2-1.3) mg/dL AST (17-59) IU/L ALT (<50) IU/L Alkaline Phosphatase (38-126) U/L Total Creatine Kinase (55-170) U/L CK-MB (CK-2) CK-MB (CK-2) Rel Index Troponin I (0.01-0.034) ng/mL Total Protein (6.3-8.2) g/dL Albumin (3.5-5.0) g/dL Globulin (1.7-4.1) g/dL Albumin/Globulin Ratio (1.0-2.8) Lipase (23-300) U/L SARS-CoV-2 (PCR) Negative (Negative) Imaging Data CT scan - head: Radiologist's Impression: PROCEDURE: CT STROKE INDICATIONS: severe right sided headache on comadin TECHNIQUE: Noncontrast 4.5 mm thick angled axial sections acquired from the foramen magnum to the vertex, with coronal reformats. For radiation dose reduction, the following was used: automated exposure control, adjustment of mA and/or kV according to patient size. COMPARISON: None. FINDINGS: Image quality: Excellent. CSF spaces: Basal cisterns are patent. No extra-axial fluid collections. The ventricles are symmetric in size and shape. Brain: Right frontoparietal encephalomalacia and gliosis consistent with an old right MCA infarct. Wedge-shaped left cerebellar infarcts noted as well. Old lacunar infarct noted in the left caudate. No intracranial bleeds or masses. There is cerebral volume loss for age, with resultant ventricular and sulcal prominence. There are periventricular and deep white matter chronic small vessel ischemic changes. There is intracranial internal carotid artery atherosclerosis. Skull and face: Calvarium and visualized facial bones appear intact, without suspicious lesions. Sinuses: Visualized sinuses and mastoids are clear. IMPRESSION: 1. No evidence of intracranial hemorrhage or mass effect. 2. Old right MCA infarct and smaller old left cerebellar infarcts. 3. Dense vertebral and cavernous ICA atherosclerotic calcification. Critical results were discussed with Dr. Pruitt at 4:43 p.m. [place] time 01/09/2021 This study fulfills neurological imaging criteria for inclusion or exclusion of acute stroke therapies based on available published neurological guidelines. Dictated by: Dariel Chao M.D. on 02/08/2021 at 16:38 CTA - brain/neck: Radiologist's Impression: PROCEDURE: CT ANGIO HEAD AND NECK INDICATIONS: severe right sided headache TECHNIQUE: Pre-contrast 4.5 mm thick sections acquired from the foramen magnum to the vertex. After the administration of intravenous contrast, 1 mm thick sections acquired from the aortic arch through the [place]. Post-contrast 4.5 mm thick sections then re-acquired from the foramen magnum to the vertex. 3-dimensional nfixkep-ghvkikjpb-ovifrdxzwz (MIP) and/or volume rendering reformats were acquired of the central intracranial vasculature and neck separately. COMPARISON: None. FINDINGS: CT Brain with contrast: Cerebrum, cerebellum and brainstem: Cystic encephalomalacia and gliosis noted in the right frontoparietal lobe consistent with old infarct. There is wedge-shaped infarct in the left cerebellum as well as the lacunar infarct in the head of the left caudate. Generalized atrophy and chronic ischemic change noted. No intracranial hemorrhage. Ventricles: Appropriate size and position. No evidence of hydrocephalus. Skull base: The bony sella, pituitary gland and infundibulum are unremarkable. Posterior fossa and cerebellum are unremarkable. Visualized portions of the external auditory canals and tympanic cavity are within normal limits. Calvarium and Scalp: No scalp soft tissue swelling. The underlying calvarium is intact without skull fracture or lytic lesion. Paranasal Sinuses: Unremarkable as visualized. No acute sinusitis. Mastoids: Unremarkable as visualized. No mastoid effusion. Cerebral CT Angiogram: Internal carotid arteries: Dense bilateral atherosclerotic calcification of the cavernous portions of both internal carotid arteries results in moderate bilateral stenosis. Anterior cerebral arteries: Unremarkable. No significant stenosis. No occlusion. No aneurysm. Middle cerebral arteries: Unremarkable. No significant stenosis. No occlusion. No aneurysm. Posterior cerebral arteries: Unremarkable. No significant stenosis. No occlusion. No aneurysm. Basilar artery: Unremarkable. No significant stenosis. No occlusion. No aneurysm. Vertebral arteries: Dense intradural atherosclerotic calcification results in moderate bilateral V4 stenosis, there is a moderate poststenotic dilatation noted on the right as well Dural sinuses: Hypoplastic left transverse and sigmoid sinus. Neck CT Angiogram: Internal carotid arteries: Calcified and noncalcified atherosclerotic plaque noted in both proximal internal carotid arteries results in 60 to 70% stenosis on the right and no hemodynamically significant stenosis on the left utilizing NASCET criteria. Common carotid arteries: Unremarkable. No significant stenosis. No dissection or occlusion. External carotid arteries: Unremarkable. No occlusion. Vertebral arteries: Unremarkable. No significant stenosis. No dissection or occlusion. Aortic arch and mediastinum: None Soft tissues: Visualized neck soft tissues demonstrate no suspicious abnormalities. Unremarkable thyroid. Bones: No suspicious bony lesions. Visualized cervical spine appears normally aligned. Multilevel degenerative disc disease results in moderate central stenosis at C6-7. IMPRESSION: 1. No evidence of intracranial large vessel occlusion, or vascular malformation 2. Mixed atherosclerotic plaque in both proximal ICA results in 60-70% stenosis on the right utilizing NASCET criteria 3. Dense calcified atherosclerotic plaque results in moderate bilateral cavernous ICA stenosis and moderate bilateral intradural vertebral artery stenosis with poststenotic dilation of right V4 vertebral artery. 4. Old right frontoparietal, left cerebellar cortical infarcts and left basal ganglia lacunar infarcts. Any quantitative measurements of stenosis were performed using NASCET criteria. Dictated by: Dariel Chao M.D. on 02/08/2021 at 16:45 ECG Data Attestation: I personally reviewed and interpreted this ECG as follows: Prior ECG tracings: available for review Interpretation: Is atrial fibrillation rate [address] changes artifact noted PVC noted MDM Narrative Medical decision making narrative: Patient has had multiple doses of pain medications. Dilaudid does seem to help his pain. He gets sharp shooting episodes of pain in his head and not his eye that last for about 2-3 minutes and then resolved. Shingles like pain however no rash has developed yet. I did a bedside ultrasound does not show any retinal detachment or does he have loss or blackening of his chin. At this time working diagnosis of severe migraine headache or early shingles. He is afebrile does not have leukocytosis do not suspect meningitis or infection at this time. Patients son is here with him however patient does live alone. At this time patient's pain continues beyond his control and unable to go home. Dr. Muñoz up dated on test results and need for pain control agrees to observation Discharge Plan Departure Patient Disposition: Admitted as Observation Clinical Impression: Headache Qualifiers: Headache type: unspecified Headache chronicity pattern: acute headache Intractability: intractable Qualified Code(s): R51.9 - Headache, unspecified Admit Date/Time: 02/08/21 19:51 Admit Provider: Rosario Muñoz
--- NOTE | 2021-02-08 17:17 | DI.CT.S_ITS ---
PROCEDURE: CT ANGIO HEAD AND NECK INDICATIONS: severe right sided headache TECHNIQUE: Pre-contrast 4.5 mm thick sections acquired from the foramen magnum to the vertex. After the administration of intravenous contrast, 1 mm thick sections acquired from the aortic arch through the [place] of [place]. Post-contrast 4.5 mm thick sections then re-acquired from the foramen magnum to the vertex. 3-dimensional hbbztkn-kmqvcecuw-vdpnbwrlpm (MIP) and/or volume rendering reformats were acquired of the central intracranial vasculature and neck separately. COMPARISON: None. FINDINGS: CT Brain with contrast: Cerebrum, cerebellum and brainstem: Cystic encephalomalacia and gliosis noted in the right frontoparietal lobe consistent with old infarct. There is wedge-shaped infarct in the left cerebellum as well as the lacunar infarct in the head of the left caudate. Generalized atrophy and chronic ischemic change noted. No intracranial hemorrhage. Ventricles: Appropriate size and position. No evidence of hydrocephalus. Skull base: The bony sella, pituitary gland and infundibulum are unremarkable. Posterior fossa and cerebellum are unremarkable. Visualized portions of the external auditory canals and tympanic cavity are within normal limits. Calvarium and Scalp: No scalp soft tissue swelling. The underlying calvarium is intact without skull fracture or lytic lesion. Paranasal Sinuses: Unremarkable as visualized. No acute sinusitis. Mastoids: Unremarkable as visualized. No mastoid effusion. Cerebral CT Angiogram: Internal carotid arteries: Dense bilateral atherosclerotic calcification of the cavernous portions of both internal carotid arteries results in moderate bilateral stenosis. Anterior cerebral arteries: Unremarkable. No significant stenosis. No occlusion. No aneurysm. Middle cerebral arteries: Unremarkable. No significant stenosis. No occlusion. No aneurysm. Posterior cerebral arteries: Unremarkable. No significant stenosis. No occlusion. No aneurysm. Basilar artery: Unremarkable. No significant stenosis. No occlusion. No aneurysm. Vertebral arteries: Dense intradural atherosclerotic calcification results in moderate bilateral V4 stenosis, there is a moderate poststenotic dilatation noted on the right as well Dural sinuses: Hypoplastic left transverse and sigmoid sinus. Neck CT Angiogram: Internal carotid arteries: Calcified and noncalcified atherosclerotic plaque noted in both proximal internal carotid arteries results in 60 to 70% stenosis on the right and no hemodynamically significant stenosis on the left utilizing NASCET criteria. Common carotid arteries: Unremarkable. No significant stenosis. No dissection or occlusion. External carotid arteries: Unremarkable. No occlusion. Vertebral arteries: Unremarkable. No significant stenosis. No dissection or occlusion. Aortic arch and mediastinum: None Soft tissues: Visualized neck soft tissues demonstrate no suspicious abnormalities. Unremarkable thyroid. Bones: No suspicious bony lesions. Visualized cervical spine appears normally aligned. Multilevel degenerative disc disease results in moderate central stenosis at C6-7. IMPRESSION: 1. No evidence of intracranial large vessel occlusion, or vascular malformation 2. Mixed atherosclerotic plaque in both proximal ICA results in 60-70% stenosis on the right utilizing NASCET criteria 3. Dense calcified atherosclerotic plaque results in moderate bilateral cavernous ICA stenosis and moderate bilateral intradural vertebral artery stenosis with poststenotic dilation of right V4 vertebral artery. 4. Old right frontoparietal, left cerebellar cortical infarcts and left basal ganglia lacunar infarcts. Any quantitative measurements of stenosis were performed using NASCET criteria. Dictated by: Dariel Chao M.D. on 02/08/2021 at 16:45 Approved by: Dariel Chao M.D. on 02/08/2021 at 17:17
[2021-02-08] MEDS: MORPHINE 4 MG/ML INJ IV (17:21)
[2021-02-08 17:22] LABS: Add Manual Diff / Slide Review NO; Basophils Absolute Auto 0 /uL (0-100); Basophils Percent Auto 0.1 % (0-2); Eosinophils Absolute Auto 0 /uL (0-450); Hematocrit 43.5 % (41-53); Hemoglobin 14.9 g/dL (13.5-17.5); Lymphocytes Absolute Auto 2600 /uL (1100-4500); Lymphocytes Percent Auto 26.8 % (25-40); Mean Corpuscular HGB Conc 34.3 % (30-36); Mean Corpuscular Hemoglobin 30.4 PG (26-34); Mean Corpuscular Volume 88.8 fL (80-100); Monocytes Absolute Auto 600 /uL (0-900); Monocytes Percent Auto 5.7 % (3-14); Neutrophils Absolute Auto 6500 /uL (1500-7000); Neutrophils Percent Auto 67.4 % (50-75); Platelet Count 265 X10^3/uL (150-400); White Blood Cell Count 9.7 X10^3/uL (4.5-11.0)
[2021-02-08] MEDS: ONDANSETRON 4 MG/2 ML INJ IV (17:23)
[2021-02-08 17:29] LABS: INR 3.1 (0.9-1.3); Prothrombin Time 35.9 SECONDS (10.1-12.7)
[2021-02-08 17:32] LABS: PTT Partial Thromboplastin Tim 41 SECONDS (26.4-36.2)
[2021-02-08 17:34] LABS: Alanine Aminotransferase 26 IU/L (<50); Albumin 4.6 g/dL (3.5-5.0); Albumin Globulin Ratio 1.2 (1.0-2.8); Alkaline Phosphatase 103 U/L (38-126); Aspartate Aminotransferase 34 IU/L (17-59); BUN Creatinine Ratio 39.3 (6-22); Blood Urea Nitrogen 22 mg/dL (9-20); Calcium 10.3 mg/dL (8.4-10.2); Carbon Dioxide 23 mmol/L (22-32); Chloride 107 mmol/L (98-107); Creatine Kinase 72 U/L (55-170); Estimated Glomerular Filt Rate > 60.0 mL/min (>60); Globulin 3.8 g/dL (1.7-4.1); Glucose 148 mg/dL (80-110); HEMOLYSIS 20 (0-50); Lipase 85 U/L (23-300); Potassium 4.5 mmol/L (3.4-5.1); Sodium 140 mmol/L (137-145); Total Protein 8.4 g/dL (6.3-8.2)
[2021-02-08] MEDS: SODIUM CHLORIDE 0.9% 1,000 ML 150 ML IV (17:40)
[2021-02-08] MEDS: HYDROMORPHONE 0.5 MG INJ IV ×2 (17:40→19:28)
[2021-02-08 17:46] LABS: Troponin I < 0.012 ng/mL (0.01-0.034)
[2021-02-08] MEDS: ACETAMINOPHEN 325 MG TABLET 975 MG PO (19:28)
[2021-02-08 20:51] LABS: COVID19 - ADMIT (NP swab/PCR) Negative (Negative)
[2021-02-08] MEDS: OXYCODONE IR 5 MG TABLET PO (21:22)
[2021-02-09 01:00] VITALS: BP 156/86; RESP 18; TEMP 37.2
[2021-02-09 01:35] VITALS: PULSE 79; O2SAT 98
[2021-02-09] MEDS: SODIUM CHLORIDE 0.9% 1,000 ML 100 ML IV (03:08)
[2021-02-09] MEDS: HYDROMORPHONE 0.5 MG INJ IV (05:43)
[2021-02-09 06:12] LABS: INR 3.2 (0.9-1.3); Prothrombin Time 37.9 SECONDS (10.1-12.7)
--- NOTE | 2021-02-09 06:19 | PC.NURSE ---
Pt having episode of severe pain for approximately 10min, RN at bedside along with son. BLOCK MECHANIC arrives after episode when pt was resting, RN and son recommended waiting to obtain VS so pt can rest.
[2021-02-09 08:00] VITALS: BP 145/94; PULSE 96; RESP 22; TEMP 36.5; O2SAT 100
[2021-02-09] MEDS: OXYCODONE IR 5 MG TABLET PO (08:27)
[2021-02-09] MEDS: ACETAMINOPHEN 325 MG TABLET 650 MG PO (08:28)
[2021-02-09] MEDS: methIMAzole 5 MG TABLET PO (10:09)
--- NOTE | 2021-02-09 11:11 | DI.MRI.S_ITS ---
PROCEDURE: MR HEAD/BRAIN WO/W CON INDICATIONS: trigeminal neuralgia TECHNIQUE: Noncontrast sagittal T1 spin echo, axial T2 fast spin echo, axial FLAIR, axial gradient echo, axial diffusion and ADC through the brain. Axial/sagittal/coronal 3-D CISS, thin-slice axial T1 spin echo with fat saturation through the skull base. After the administration of contrast, axial and coronal thin-slice T1 spin echo with fat saturation through the skull base, axial T1 spin echo with fat saturation through the brain. COMPARISON: [facility], MR, STROKE PROTOCOL, 08/03/2015, 12:34. [facility], CT, HEAD WITHOUT CONTRAST, 09/30/2016, 20:51. [facility], CT, CT ANGIO HEAD AND NECK, 02/08/2021, 17:22. [facility], CT, CT STROKE, 02/08/2021, 17:15. FINDINGS: Image quality: Excellent. Trigeminal nerves: In this patient with this given history, scrutiny is given to the trigeminal nerves. The trigeminal nerves demonstrate a normal appearance, without masses or abdominal enhancement seen along their courses, including within the [place]ckel's [place]. The other visualized cranial nerves at the skull base likewise appear unremarkable. CSF spaces: Ventricles are normal in size and shape. No extra-axial fluid collections. Basal cisterns are patent. Brain: No intracranial bleeds or mass effects. No abnormal intracranial enhancement. Diffusion weighted images show no acute ischemic insults. [place]-white matter interface is intact. Brainstem is normal. Areas of remote infarction are seen, which are worst involving the right MCA distribution. Brain parenchymal volume loss and chronic small vessel ischemic change can be seen. Normal intravascular flow voids are present. Relatively prominent perivascular spaces are noted. Skull and face: Calvarial marrow signal is normal. Orbits appear normal. Sinuses: Sinuses and mastoids appear clear. IMPRESSION: No significant abnormality of the trigeminal nerves is seen on this study. No masses or abnormal enhancement can be seen. Remote areas of infarction are seen, which are worst involving the right MCA distribution. Note is made of age-appropriate brain parenchymal volume loss and chronic small vessel ischemic changes. Dictated by: Guillermo Martin M.D. on 02/09/2021 at 16:05 Approved by: Guillermo Martin M.D. on 02/09/2021 at 16:08
--- NOTE | 2021-02-09 11:16 | P.HP_ITS ---
History of Present Illness History of Present Illness Date Patient Seen: 02/09/21 Time Patient Seen: 09:00 Chief complaint: RIGHT EYE PAIN UNABLE TO WALK Narrative: Pt is an 80yo man with atrial fibrillation on chronic anticoagulation, hyperthyroidism, and BPH who presents with severe episodic right-sided facial pain. The patient reports that the evening of 02/07 he had his 1st severe episode. The pain was sharp and stabbing, and started behind his right eye and traveled to his right cheek and jaw. It lasted for around 1 minutes and then spontaneously resolved. Yesterday, he continued to have more of these episodes. He states that they became increasingly intense in pain and lasting for a few minutes at a time. He reached the point that he could hardly walk when the pain was happening due to it being too severe, and he came to the hospital for evaluation. The patient does report having intermittent sharp shooting pain on the right side of his face for many years, since working a local [email or web address]. He always attributed this to a sinus infection he had in the past. These episodes historically would only last for a few seconds. In the ED, due to initial concern for brain bleed, head CT/CTA were completed that did not show any etiology. Lab work was also unrevealing. He was treated with IV Dilaudid with improvement of the pain. This morning, the pt reports that he was symptom free for 5-6 hours overnight. He notes that moving his head suddenly seems to provoke the pain, such as when he was startled awake for vitals this morning. The pain seems to be lasting for slightly longer periods of time now. When the pain occurs, all he can do is close his eyes tightly. Nursing noted he became very sweaty and clenched his entire body when it occurred this morning. The pt denies any photophobia, however. He has no history of headaches or migraines. He denies any recent rash. No recent head trauma. He was otherwise feeling well prior to 02/07. Patient History Medical History Atrial fibrillation BPH w urinary obs/LUTS Cardiomyopathy (2013) CVA (cerebral vascular accident) (08/03/15) Diabetes mellitus History of UTI Hyperthyroidism Urinary retention (2014) Urinary retention Surgical History S/P vasectomy Family & Social History Family History Father CVA (cerebral vascular accident) Sister Thyroid disorder Social History: household members none Prior Living Arrangements House Safety & Behavioral: Feels Safe in Current Yes Environment Suicidal Ideation Description None Tobacco & Substance use: Smoking Status Never smoker alcohol intake frequency holiday/special occasion Substance Use Type does not use Meds Home Medications and Allergies Home Medications Medication Instructions Recorded Confirmed Type warfarin 5 mg tablet 5 mg PO QDAY #100 tab 12/04/20 02/08/21 Rx tamsulosin [Flomax] 0.4 mg PO DAILY 02/08/21 02/08/21 History Allergies Allergy/AdvReac Type Severity Reaction Status Date / Time No Known Drug Allergies Allergy Verified 02/08/21 17:06 Exam Vital Signs (past 8 hours): - 02/09/21 08:00 Temperature 97.7 F Pulse Rate 96 H Respiratory Rate 22 Blood Pressure 145/94 H Pulse Oximetry 100 Oxygen Delivery Method Room Air Oxygen Flow Rate 0 Narrative Exam Narrative: GEN - alert, cooperative and no distress HEENT - normocephalic and atraumatic, sclera white, moist mucus membranes NECK - FROM, no adenopathy, no JVD HEART - irregularly irregular rhythm, S1, S2 normal, no S3 or S4, grade 2/6 systolic murmur LUNGS - symmetric chest rise, no accessory muscles, clear to auscultation bilaterally ABD - flat, nondistended, normal bowel sounds, soft, nontender and no hepatomegaly, splenomegaly or masses EXT - no cyanosis, clubbing or edema SKIN - no rashes or suspicious lesions NEURO - alert and and oriented to person, place and situation, CN II-XII intact on right side, left side with slight facial droop from prior CVA, left side with decreased strength compared to right from prior CVA Objective Labs Result Diagrams: 02/08/21 17:15 02/08/21 17:15 Labs: Laboratory Results - last 24 hr 02/08/21 02/08/21 02/08/21 17:15 17:15 17:15 WBC 9.7 RBC 4.90 Hgb 14.9 Hct 43.5 MCV 88.8 MCH 30.4 MCHC 34.3 RDW 14.0 Plt Count 265 Neut % (Auto) 67.4 Lymph % (Auto) 26.8 [place] % (Auto) 5.7 Eos % (Auto) 0.0 L Baso % (Auto) 0.1 Neut # (Auto) 6500 Lymph # (Auto) 2600 [place] # (Auto) 600 Eos # (Auto) 0 Baso # (Auto) 0 PT 35.9 H INR 3.1 H APTT 41 H Sodium 140 Potassium 4.5 Chloride 107 Carbon Dioxide 23 BUN 22 H Creatinine 0.56 L Estimated GFR > 60.0 BUN/Creatinine Ratio 39.3 H Glucose 148 H Calcium 10.3 H Total Bilirubin 1.0 AST 34 ALT 26 Alkaline Phosphatase 103 Total Creatine Kinase 72 CK-MB (CK-2) TNP CK-MB (CK-2) Rel Index TNP Troponin I < 0.012 Total Protein 8.4 H Albumin 4.6 Globulin 3.8 Albumin/Globulin Ratio 1.2 Lipase 85 SARS-CoV-2 (PCR) 02/08/21 02/09/21 19:51 05:36 WBC RBC Hgb Hct MCV MCH MCHC RDW Plt Count Neut % (Auto) Lymph % (Auto) [place] % (Auto) Eos % (Auto) Baso % (Auto) Neut # (Auto) Lymph # (Auto) [place] # (Auto) Eos # (Auto) Baso # (Auto) PT 37.9 H INR 3.2 H APTT Sodium Potassium Chloride Carbon Dioxide BUN Creatinine Estimated GFR BUN/Creatinine Ratio Glucose Calcium Total Bilirubin AST ALT Alkaline Phosphatase Total Creatine Kinase CK-MB (CK-2) CK-MB (CK-2) Rel Index Troponin I Total Protein Albumin Globulin Albumin/Globulin Ratio Lipase SARS-CoV-2 (PCR) Negative Assessment & Plan Assessment & Plan narrative: Pt is an 80yo man with atrial fibrillation on chronic anticoagulation, hyperthyroidism, hx of CVA, and BPH who presents with severe episodic right-sided facial pain. Based on symptoms, most consistent with trigeminal neuralgia. No other evidence of shingles at this time, as no rash is present. No causes seen on head CT completed in the ED. 1) Trigeminal neuralgia: Most consistent diagnosis. No known trigger at this point, possibly idiopathic. Based on pt report, could have been having low- grade symptoms for several years. - Careful initiate Carbamazepine. Start very low dose 100mg BID. Can titrate up as needed/tolerated. - Head MRI to evaluate more thoroughly for neurovascular compromise - If Carbamazepine ineffective consider addition of Sumatriptan or Gabapentin - Labs with CBC, CMP in the AM 2) Atrial fibrillation: Rate controlled - Trend INR - Continue Coumadin as per clinic dosing 3) Hyperthyroidism: - Continue Methimazole - Recheck TSH, T3, T4 in the AM 4) BPH: - Continue Tamsulosin FEN: General diet DVT ppx: on Warfarin as above Code: DNR Dispo: Pending stability on new medications and improvement in symptoms. Anticipate at least one additional midnight. Quality VTE Deep Vein Thrombosis/Pulmonary Embolism Present on Admission: No
[2021-02-09 12:00] VITALS: BP 160/58; PULSE 104; RESP 16; TEMP 36.6; O2SAT 96
[2021-02-09] MEDS: carBAMazepine 200 MG TABLET 100 MG PO ×2 (12:26→21:27)
--- NOTE | 2021-02-09 14:11 | CM.DANOTE ---
Patient is an 80 year old male who was admitted on 02/08/21 for Right Eye Pain. Pt has MCR for insurance and his PCP is Dr. Butler. EMR was reviewed. Per MD, pt with hx of AFIB and CVA with residual weakness and admitted for possible severe migraine vs early shingles and needing pain management. Per RN, pt with possible new dx and pt and son were given information regarding this new dx and a new trial on a seizure medication to see if it lessens pt's pain and gets him closer to baseline. Pt resides in [place] alone but has local supportive son and Dtr and another son. Pt's last admission was when he had his CVA and family was very supportive. Plan: SW to follow tomorrow to determine d/c planning needs and if new medication has helped to relieve some of pt's symptoms towards confirming safe plan of home with family assist. EDDA Ray Discharge Planning/Care Management CM Discharge Assessment Start: 02/09/21 14:08 Freq: Status: Active Protocol: Document 02/09/21 14:08 BF (Rec: 02/09/21 14:11 BF [id number]) Discharge Planning Assessment Assigned Shelf Filler EDDA Delgado Advance Directives? Yes: POLST Advance Directives on File No History Provided By Patient,Family Member,Medical Record Has Patient been admitted in last 30 No days? Prior Living Arrangements House Household Members none Type of transporation used prior to Relies on Others admit Independent with ADL's Yes Is patient alert and oriented? Yes: mostly Needs Assistance With Home Chores / Shopping Caregiver for Another No Barriers to Discharge No Discharge Plan Home Transportation Arrangement Son bedside and can provide transport Referrals Initiated None needed Review Status In Process Please Provide Date Initial DC 02/09/21 Assessment Was Performed Next Review Type Continued Stay Review
[2021-02-09 17:12] VITALS: BP 147/90; PULSE 69; RESP 19; TEMP 36.8; O2SAT 95
[2021-02-09] MEDS: WARFARIN 5 MG TABLET PO (17:22)
[2021-02-09 20:52] VITALS: BP 161/78; PULSE 68; RESP 17; O2SAT 98
[2021-02-09] MEDS: SODIUM CHLORIDE 0.9% FLUSH 10 ML IV (21:27)
[2021-02-10 02:20] VITALS: BP 158/101; PULSE 106; RESP 18; TEMP 36.7; O2SAT 99
[2021-02-10 04:59] VITALS: BP 140/91; PULSE 99; RESP 16; TEMP 37.1; O2SAT 98
[2021-02-10 06:35] LABS: Add Manual Diff / Slide Review NO; Basophils Absolute Auto 0 /uL (0-100); Basophils Percent Auto 0.3 % (0-2); Eosinophils Absolute Auto 0 /uL (0-450); Eosinophils Percent Auto 0.4 % (2-4); Hematocrit 42.9 % (41-53); Hemoglobin 14.3 g/dL (13.5-17.5); Lymphocytes Absolute Auto 2400 /uL (1100-4500); Lymphocytes Percent Auto 26.6 % (25-40); Mean Corpuscular HGB Conc 33.3 % (30-36); Mean Corpuscular Hemoglobin 30.1 PG (26-34); Mean Corpuscular Volume 90.4 fL (80-100); Monocytes Absolute Auto 700 /uL (0-900); Monocytes Percent Auto 7.7 % (3-14); Neutrophils Absolute Auto 5900 /uL (1500-7000); Platelet Count 240 X10^3/uL (150-400); Red Blood Cell Count 4.74 X10^6/uL (4.5-5.9); Red Cell Distribution Width 14.2 % (11.6-14.8)
[2021-02-10 06:41] LABS: Prothrombin Time 56.4 SECONDS (10.1-12.7)
[2021-02-10 06:44] LABS: PTT Partial Thromboplastin Tim 45 SECONDS (26.4-36.2)
[2021-02-10 06:47] LABS: Alanine Aminotransferase 133 IU/L (<50); Albumin 3.7 g/dL (3.5-5.0); Albumin Globulin Ratio 1.2 (1.0-2.8); Alkaline Phosphatase 77 U/L (38-126); Aspartate Aminotransferase 114 IU/L (17-59); BUN Creatinine Ratio 41.3 (6-22); Bilirubin Total 0.9 mg/dL (0.2-1.3); Blood Urea Nitrogen 26 mg/dL (9-20); Calcium 9.3 mg/dL (8.4-10.2); Carbon Dioxide 29 mmol/L (22-32); Chloride 108 mmol/L (98-107); Estimated Glomerular Filt Rate > 60.0 mL/min (>60); Globulin 3.1 g/dL (1.7-4.1); Glucose 98 mg/dL (80-110); HEMOLYSIS < 15 (0-50); Potassium 4.4 mmol/L (3.4-5.1); Sodium 143 mmol/L (137-145); Total Protein 6.8 g/dL (6.3-8.2)
[2021-02-10 07:00] LABS: Erythrocyte Sedimentation Rate 7 MM/HR (0-15)
[2021-02-10 07:23] LABS: INR 4.8 (0.9-1.3)
[2021-02-10 07:33] LABS: Thyroid Stimulating Hormone < 0.015 uIU/mL (0.47-4.68)
[2021-02-10] MEDS: HYDROMORPHONE 0.5 MG INJ IV (08:45)
[2021-02-10] MEDS: SODIUM CHLORIDE 0.9% FLUSH 10 ML IV ×2 (08:46→21:04)
--- NOTE | 2021-02-10 09:15 | P.PN_ITS ---
Subjective Subjective Date Patient Seen: 02/10/21 Time Patient Seen: 08:30 Interval history: The pt reports having no additional episodes of pain until a single episode last night around 10:30pm. That episode lasted at most 5 minutes. He then had another episode when I was present in the room this morning, that lasted nearly 20 minutes. During the episode, his entire body was extremely tense, and he was wincing in severe pain. An ice pack was applied to his head which did help slightly. He received IV Dilaudid with minimal relief. The pt denies any negative side effects from the Carbamazepine. Exam Vital Signs (past 8 hours): - 02/10/21 02:20 02/10/21 04:59 Temperature 98.0 F 98.7 F Pulse Rate 106 H 99 H Respiratory Rate 18 16 Blood Pressure 158/101 H 140/91 H Pulse Oximetry 99 98 Oxygen Delivery Method Room Air Oxygen Flow Rate 0 Narrative Exam Narrative: Gen: laying in bed holding extremely still CV: RRR, grade 2/6 systolic murmur Resp: clear to auscultation bilaterally Abd: soft, nontender, nondistended Ext: no edema Objective Labs Result Diagrams: 02/10/21 06:04 02/10/21 06:04 Labs: Laboratory Results - last 24 hr 02/10/21 02/10/21 02/10/21 06:04 06:04 06:04 WBC 9.0 RBC 4.74 Hgb 14.3 Hct 42.9 MCV 90.4 MCH 30.1 MCHC 33.3 RDW 14.2 Plt Count 240 Neut % (Auto) 65.0 Lymph % (Auto) 26.6 [place] % (Auto) 7.7 Eos % (Auto) 0.4 L Baso % (Auto) 0.3 Neut # (Auto) 5900 Lymph # (Auto) 2400 [place] # (Auto) 700 Eos # (Auto) 0 Baso # (Auto) 0 ESR 7 PT 56.4 H D INR 4.8 H* APTT 45 H Sodium 143 Potassium 4.4 Chloride 108 H Carbon Dioxide 29 BUN 26 H Creatinine 0.63 L Estimated GFR > 60.0 BUN/Creatinine Ratio 41.3 H Glucose 98 Calcium 9.3 Total Bilirubin 0.9 AST 114 H ALT 133 H Alkaline Phosphatase 77 C-Reactive Protein 1.0 Total Protein 6.8 Albumin 3.7 Globulin 3.1 Albumin/Globulin Ratio 1.2 TSH 02/10/21 06:04 WBC RBC Hgb Hct MCV MCH MCHC RDW Plt Count Neut % (Auto) Lymph % (Auto) [place] % (Auto) Eos % (Auto) Baso % (Auto) Neut # (Auto) Lymph # (Auto) [place] # (Auto) Eos # (Auto) Baso # (Auto) ESR PT INR APTT Sodium Potassium Chloride Carbon Dioxide BUN Creatinine Estimated GFR BUN/Creatinine Ratio Glucose Calcium Total Bilirubin AST ALT Alkaline Phosphatase C-Reactive Protein Total Protein Albumin Globulin Albumin/Globulin Ratio TSH < 0.015 L PFSH Medical History Atrial fibrillation BPH w urinary obs/LUTS Cardiomyopathy (2013) CVA (cerebral vascular accident) (08/03/15) Diabetes mellitus History of UTI Hyperthyroidism Urinary retention (2014) Urinary retention Surgical History S/P vasectomy Family History Father CVA (cerebral vascular accident) Sister Thyroid disorder Social History household members: none Smoking Status: Never smoker Assessment & Plan Assessment & Plan narrative: Pt is an 80yo man with atrial fibrillation on chronic anticoagulation, hyperthyroidism, hx of CVA, and BPH who presents with severe episodic right-sided facial pain. Based on symptoms, most consistent with trigeminal neuralgia. No other evidence of shingles at this time, as no rash is present. No causes seen on head CT completed in the ED. 1) Trigeminal neuralgia: Most consistent diagnosis, however duration of sympto ms when they occur is atypical. No known trigger at this point, possibly idiopathic. MRI completed yesterday negative. Based on pt report, could have been having low-grade symptoms for several years. Pt did have decreased frequency of symptoms on Carbamazepine, however liver enzymes elevated this morning. - D/C Carbamazepine due to liver enzyme elevation - Start Gabapentin 100mg TID, gradual titration due to risk of sedation and age - Will give 3mg Sumatriptan subcuteneously as well - Trend CMP due to liver enzyme elevation 2) Atrial fibrillation: Rate controlled. INR significantly elevated to 4.8 this morning, no evidence of bleeding. - Trend INR - Hold Coumadin dose 3) Hyperthyroidism: TSH remains low, T3/T4 pending - Continue Methimazole 4) BPH: - Continue Tamsulosin FEN: General diet DVT ppx: on Warfarin as above Code: DNR Dispo: Pending stability today. Pt does not tolerate pain, likely return to ED if discharged now. Hopeful pain remains controlled during the day and can d/c this evening. Quality VTE Deep Vein Thrombosis/Pulmonary Embolism Present on Admission: No
[2021-02-10] MEDS: SUMAtriptan 6 MG/0.5 ML VIAL 3 MG SUBCUT (09:30)
[2021-02-10] MEDS: GABAPENTIN 100 MG CAPSULE PO ×3 (09:30→21:04)
[2021-02-10 09:45] VITALS: BP 147/99; PULSE 116; RESP 16; TEMP 37.6; O2SAT 98
[2021-02-10] MEDS: OXYCODONE IR 5 MG TABLET PO (13:00)
[2021-02-10 17:00] VITALS: BP 132/77; PULSE 88; RESP 19; TEMP 36.6; O2SAT 98
[2021-02-10 21:00] VITALS: BP 145/90; PULSE 103; RESP 17; TEMP 36.7; O2SAT 97
[2021-02-10] MEDS: ASCORBIC ACID 500 MG TABLET PO (21:04)
[2021-02-11 02:00] VITALS: BP 147/79; PULSE 98; RESP 18; TEMP 36.9
[2021-02-11] MEDS: SODIUM CHLORIDE 0.9% FLUSH 10 ML IV (06:38)
[2021-02-11] MEDS: HYDROMORPHONE 0.5 MG INJ IV (06:38)
--- NOTE | 2021-02-11 06:46 | PC.NURSE ---
Patient denied pain at 0630. Lab came and lights were put on overhead. Patient had 10/10 pain in his right mosque area. face was covered with a towel to keep out the light. Pain was too much to speak. Patient shaking,fists clenched, jaw rigid. Son was helping to keep towel over his eyes. Administered dilaudid for pain.
[2021-02-11 06:54] LABS: Alanine Aminotransferase 98 IU/L (<50); Albumin 3.7 g/dL (3.5-5.0); Albumin Globulin Ratio 1.2 (1.0-2.8); Alkaline Phosphatase 81 U/L (38-126); Aspartate Aminotransferase 60 IU/L (17-59); BUN Creatinine Ratio 34.5 (6-22); Bilirubin Total 1.2 mg/dL (0.2-1.3); Blood Urea Nitrogen 20 mg/dL (9-20); Calcium 9.2 mg/dL (8.4-10.2); Carbon Dioxide 24 mmol/L (22-32); Chloride 105 mmol/L (98-107); Estimated Glomerular Filt Rate > 60.0 mL/min (>60); Globulin 3.2 g/dL (1.7-4.1); Glucose 95 mg/dL (80-110); HEMOLYSIS < 15 (0-50); Potassium 4.1 mmol/L (3.4-5.1); Sodium 138 mmol/L (137-145); Total Protein 6.9 g/dL (6.3-8.2)
[2021-02-11 07:13] LABS: Prothrombin Time 62.1 SECONDS (10.1-12.7)
[2021-02-11 07:16] LABS: PTT Partial Thromboplastin Tim 45 SECONDS (26.4-36.2)
[2021-02-11 07:20] LABS: INR 5.2 (0.9-1.3)
[2021-02-11 08:29] VITALS: BP 154/79; PULSE 105; RESP 18; TEMP 36.1; O2SAT 96
--- NOTE | 2021-02-11 08:43 | P.DS_ITS ---
History of Present Illness History of Present Illness Date Patient Seen: 02/11/21 Time Patient Seen: 08:45 Chief complaint: RIGHT EYE PAIN UNABLE TO WALK Narrative: Pt is an 80yo man with atrial fibrillation on chronic anticoagulation, hyperthyroidism, and BPH who presents with severe episodic right-sided facial pain. The patient reports that the evening of 02/07 he had his 1st severe episode. The pain was sharp and stabbing, and started behind his right eye and traveled to his right cheek and jaw. It lasted for around 1 minutes and then spontaneously resolved. Yesterday, he continued to have more of these episodes. He states that they became increasingly intense in pain and lasting for a few minutes at a time. He reached the point that he could hardly walk when the pain was happening due to it being too severe, and he came to the hospital for evaluation. The patient does report having intermittent sharp shooting pain on the right side of his face for many years, since working a local [id number]. He always attributed this to a sinus infection he had in the past. These episodes historically would only last for a few seconds. In the ED, due to initial concern for brain bleed, head CT/CTA were completed that did not show any etiology. Lab work was also unrevealing. He was treated with IV Dilaudid with improvement of the pain. This morning, the pt reports that he was symptom free for 5-6 hours overnight. He notes that moving his head suddenly seems to provoke the pain, such as when he was startled awake for vitals this morning. The pain seems to be lasting for slightly longer periods of time now. When the pain occurs, all he can do is close his eyes tightly. Nursing noted he became very sweaty and clenched his entire body when it occurred this morning. The pt denies any photophobia, however. He has no history of headaches or migraines. He denies any recent rash. No recent head trauma. He was otherwise feeling well prior to 02/07. {from Dr. Muñoz's H&P 02/09/21} Discharge Providers Provider Date of admission: 02/08/21 19:51 Discharge Date: 02/11/21 Primary care physician: Lloyd Butler MD Discharge provider: Lloyd Butler MD Summary Hospital Course Discharge Diagnosis: 1. Head pain, possible trigeminal neuralgia verses early herpes zoster 2. Iatrogenic coagulopathy due to warfarin 3. Hyperthyroidism on medication 4. Atrial fibrillation, chronic, anticoagulated with warfarin 5. Diabetes 6. BPH with urinary outflow obstruction, with chronic indwelling Zepeda catheter Hospital Course: Patient was admitted to the hospital via the ED as above. Entire workup from a neurologic standpoint was normal including imaging with CT scan CT angiography and MRI. Symptoms were felt to be due possibly to early zoster verses eye trigeminal neuralgia. Patient had initially been started on carbamazepine but bumped his LFTs so this was discontinued. Patient was switched to gabapentin which seem to at least reduce the frequency of his episodes of pain. He was still having episodes up to and including the morning of discharge. Patient was empirically started on valacyclovir which will be continued for 7 days given that zoster remains a significant possibility Patient's INR was elevated and remained elevated at discharge. He will remain off warfarin until INR returns to a therapeutic level No issues with his catheter or urinary tract during this hospitalization Status at Discharge Cognitive/behavioral status at discharge: at baseline, oriented Functional status at discharge: independent ambulation Overall status at discharge: patient is progressing back to baseline Exam Vital Signs (past 8 hours): - 02/11/21 02:00 02/11/21 08:29 Temperature 98.5 F 96.9 F L Pulse Rate 98 H 105 H Respiratory Rate 18 18 Blood Pressure 147/79 H 154/79 H Pulse Oximetry 96 Oxygen Delivery Method Room Air Oxygen Flow Rate 0 Objective Labs Result Diagrams: 02/10/21 06:04 02/11/21 06:37 Labs: Laboratory Results - last 24 hr 02/11/21 02/11/21 06:37 06:37 PT 62.1 H D INR 5.2 H* APTT 45 H Sodium 138 Potassium 4.1 Chloride 105 Carbon Dioxide 24 BUN 20 Creatinine 0.58 L Estimated GFR > 60.0 BUN/Creatinine Ratio 34.5 H Glucose 95 Calcium 9.2 Total Bilirubin 1.2 AST 60 H ALT 98 H Alkaline Phosphatase 81 Total Protein 6.9 Albumin 3.7 Globulin 3.2 Albumin/Globulin Ratio 1.2 PFSH Medical History Atrial fibrillation BPH w urinary obs/LUTS Cardiomyopathy (2013) CVA (cerebral vascular accident) (08/03/15) Diabetes mellitus History of UTI Hyperthyroidism Urinary retention (2014) Urinary retention Surgical History S/P vasectomy Family History Father CVA (cerebral vascular accident) Sister Thyroid disorder Social History household members: none Smoking Status: Never smoker Discharge Plan Discharge Plan Patient Disposition: Home Discharge orders & Medications Prescriptions: New methimazole 5 mg Tablet 5 mg PO DAILY Qty: 30 RF: 0 gabapentin 100 mg Capsule 100 mg PO TID Qty: 90 RF: 0 valacyclovir [Valtrex] 1 gram tablet 1,000 mg PO TID Qty: 20 RF: 0 Continued tamsulosin [Flomax] 0.4 mg Capsule 0.4 mg PO DAILY RF: 0 Discontinued warfarin 5 mg tablet 5 mg PO QDAY Qty: 100 RF: 0 Follow up/Referrals: Lloyd Butler MD [Primary Care Provider] - 1 Week (protime at [facility] on 02/13/21, please make appt as well as f/u with Dr. Butler) Discharge Health Status Multidrug resistant organism: No MDRO Diet/Activity/Treatments Diet: Diet as Tolerated Other treatments: Hold Warfarin until next protime on 02/13/21 Visit Report/Discharge Packet Instructions: Trigeminal Neuralgia Discharge Data Primary Care Provider: Lloyd Butler Attending Provider: Lloyd Butler Quality VTE Deep Vein Thrombosis/Pulmonary Embolism Present on Admission: No
[2021-02-11] MEDS: OXYCODONE IR 5 MG TABLET PO (09:21)
[2021-02-11] MEDS: GABAPENTIN 100 MG CAPSULE PO (09:22)
[2021-02-11] MEDS: methIMAzole 5 MG TABLET PO (09:22)
[2021-02-11] MEDS: valACYclovir 500 MG TABLET 1000 MG PO (09:30)
[2021-02-11 10:38] LABS: Free T3, Triiodothyronine Free 6.99 pg/mL (2.77-5.27); Free T4, Direct Thyroxine 2.92 ng/dL (0.78-2.19)
[2021-02-11 11:18] VITALS: BP 135/77; PULSE 107; RESP 18; TEMP 36.4; O2SAT 97
--- NOTE | 2021-02-11 13:10 | PC.NURSE ---
Discharge instructions reviewed with patient and his son. Patient aware of blood draw on 02/13 and to not take coumadin until then, patient aware of follow up appointment with Dr. Butler. IV dc'd intact. Escorted out via wheelchair with IT SALES EXECUTIVE with all belongings to home with son.
== END 2021-02-11 13:11 | disposition home or self-care (01) ==
LOC: ED 19:51 → AC 19:51
PROVIDERS: Admitting Provider Family Medicine; Emergency Provider Emergency Medicine; PCP Internal Medicine; Referring Provider Emergency Medicine; Visit Provider Internal Medicine
DX: R51.9 Headache, unspecified (principal); H57.11 Ocular pain, right eye; Z79.01 Long term (current) use of anticoagulants; I48.20 Chronic atrial fibrillation, unspecified; I69.354 Hemiplegia and hemiparesis following cerebral infarction affecting left non-dominant side; N40.1 Benign prostatic hyperplasia with lower urinary tract symptoms; N13.8 Other obstructive and reflux uropathy; R33.8 Other retention of urine; E05.90 Thyrotoxicosis, unspecified without thyrotoxic crisis or storm; E11.9 Type 2 diabetes mellitus without complications; Z20.822 Contact with and (suspected) exposure to COVID-19
CPT/HCPCS: 36415; 70450; 70496; 70498; 70553; 71045; 80053; 82550; 82962; 83690; 84439; 84443; 84481; 84484; 85025; 85610; 85651; 85730; 86140; 87635; 93005; 96361; 96372; 96374; 96375; 96376; 99217; 99219; 99224; 99285; 99406; C9803; G0378; A9579; J1170; J2270; J2405; J3030

== ENCOUNTER → 2021-03-27 10:36 | Outpatient (CLI) | payer MEDICARE, SELFPAY ==
[2021-02-08 21:24] VITALS: BMI 22.6
== END ==
PROVIDERS: PCP Internal Medicine; Visit Provider Specialist
DX: R33.9 Retention of urine, unspecified (principal); Z87.440 Personal history of urinary (tract) infections
CPT/HCPCS: 51702; 87077; 87086; 87186

== ENCOUNTER → 2021-04-17 10:42 | Outpatient (CLI) | payer MEDICARE, SELFPAY ==
[2021-02-08 21:24] VITALS: BMI 22.6
== END ==
PROVIDERS: PCP Internal Medicine; Referring Provider Specialist; Visit Provider Specialist
DX: N39.0 Urinary tract infection, site not specified (principal)
CPT/HCPCS: 51702; 87077; 87086; 87186

== ENCOUNTER → 2021-05-15 10:51 | Outpatient (CLI) | payer MEDICARE, SELFPAY ==
[2021-02-08 21:24] VITALS: BMI 22.6
== END ==
PROVIDERS: PCP Internal Medicine; Visit Provider Specialist
DX: R30.0 Dysuria (principal)
CPT/HCPCS: 51702; 87077; 87086; 87186

== ENCOUNTER → 2021-06-19 08:32 | Outpatient (CLI) | payer MEDICARE, SELFPAY ==
[2021-02-08 21:24] VITALS: BMI 22.6
== END ==
PROVIDERS: PCP Internal Medicine; Visit Provider Specialist
DX: R30.0 Dysuria (principal)
CPT/HCPCS: 51702; 87077; 87086; 87186

== ENCOUNTER → 2021-06-21 13:47 | Outpatient (CLI) | payer MEDICARE, SELFPAY ==
[2021-02-08 21:24] VITALS: BMI 22.6
[2021-06-21 15:15] LABS: Hemoglobin A1C% w Est Avg Glu 5.3 % (4.0-6.0)
[2021-06-21 15:49] LABS: Alanine Aminotransferase 20 IU/L (<50); Albumin 4.4 g/dL (3.5-5.0); Albumin Globulin Ratio 1.5 (1.0-2.8); Alkaline Phosphatase 79 U/L (38-126); Aspartate Aminotransferase 28 IU/L (17-59); BUN Creatinine Ratio 27.4 (6-22); Bilirubin Total 0.6 mg/dL (0.2-1.3); Blood Urea Nitrogen 17 mg/dL (9-20); Calcium 9.9 mg/dL (8.4-10.2); Carbon Dioxide 32 mmol/L (22-32); Chloride 103 mmol/L (98-107); Estimated Glomerular Filt Rate > 60.0 mL/min (>60); Glucose 99 mg/dL (80-110); HEMOLYSIS < 15 (0-50); Potassium 5.2 mmol/L (3.4-5.1); Sodium 141 mmol/L (137-145); Total Protein 7.4 g/dL (6.3-8.2)
[2021-06-21 16:07] LABS: Free T4, Direct Thyroxine 3.27 ng/dL (0.78-2.19)
[2021-06-21 16:21] LABS: Thyroid Stimulating Hormone < 0.015 uIU/mL (0.47-4.68)
== END ==
PROVIDERS: PCP Internal Medicine; Referring Provider Internal Medicine; Visit Provider Internal Medicine
DX: E11.9 Type 2 diabetes mellitus without complications (principal); G50.0 Trigeminal neuralgia; E05.90 Thyrotoxicosis, unspecified without thyrotoxic crisis or storm
CPT/HCPCS: 36415; 80053; 83036; 84439; 84443; 84481

== ENCOUNTER → 2021-07-18 13:54 | Outpatient (CLI) | payer MEDICARE, SELFPAY ==
[2021-02-08 21:24] VITALS: BMI 22.6
== END ==
PROVIDERS: PCP Internal Medicine; Referring Provider Specialist; Visit Provider Specialist
DX: R30.0 Dysuria (principal)
CPT/HCPCS: 51702; 87077; 87086; 87186

== ENCOUNTER → 2021-08-15 11:22 | Outpatient (CLI) | payer MEDICARE, SELFPAY ==
[2021-02-08 21:24] VITALS: BMI 22.6
== END ==
PROVIDERS: PCP Internal Medicine; Referring Provider Specialist; Visit Provider Specialist
DX: N39.0 Urinary tract infection, site not specified (principal); R33.9 Retention of urine, unspecified
CPT/HCPCS: 51702; 87077; 87086; 87186

== ENCOUNTER → 2021-09-16 10:11 | Outpatient (CLI) | payer MEDICARE, SELFPAY ==
[2021-02-08 21:24] VITALS: BMI 22.6
[2021-09-16 11:20] LABS: Appearance Urine UA CLOUDY; Bilirubin Urine UA NEGATIVE (NEGATIVE); Color Urine UA YELLOW; Glucose Urine UA NEGATIVE (Negative); Ketones Urine UA NEGATIVE (NEGATIVE); Leukocyte Esterase Urine UA 3+ (NEGATIVE); Nitrite Urine UA POSITIVE (Negative); Occult Blood Urine UA 3+ (Negative); Protein Urine UA 1+ (Negative); Urobilinogen Urine UA 0.2 E.U./dL (0.2)
[2021-09-16 12:43] LABS: Amorphous Sediment Urine 1+; Bacteria Urine Many (>30); Culture Indicated Urine Specimen Cultured; RBC Urine 10-30/HPF (0-5/HPF); WBC Urine 30-100/HPF (0-5/HPF)
== END ==
PROVIDERS: PCP Internal Medicine; Visit Provider Specialist
DX: Z87.440 Personal history of urinary (tract) infections (principal); Z09 Encounter for follow-up examination after completed treatment for conditions other than malignant neoplasm
CPT/HCPCS: 51702; 81001; 87077; 87086; 87186

== ENCOUNTER → 2021-10-17 11:43 | Outpatient (CLI) | payer MEDICARE, SELFPAY ==
[2021-02-08 21:24] VITALS: BMI 22.6
== END ==
PROVIDERS: PCP Internal Medicine; Referring Provider Specialist; Visit Provider Specialist
DX: N39.0 Urinary tract infection, site not specified (principal); R33.9 Retention of urine, unspecified; R31.0 Gross hematuria; Z87.440 Personal history of urinary (tract) infections
CPT/HCPCS: 51702; 51798; 87077; 87086; 87186; 99215

== ENCOUNTER → 2021-11-18 10:45 | Outpatient (CLI) | payer MEDICARE, SELFPAY ==
[2021-02-08 21:24] VITALS: BMI 22.6
== END ==
PROVIDERS: PCP Internal Medicine; Visit Provider Specialist
DX: R30.0 Dysuria (principal); R33.9 Retention of urine, unspecified
CPT/HCPCS: 51702; 87077; 87086; 87186

== ENCOUNTER → 2021-12-17 10:40 | Outpatient (CLI) | payer MEDICARE, SELFPAY ==
[2021-02-08 21:24] VITALS: BMI 22.6
== END ==
PROVIDERS: PCP Internal Medicine; Visit Provider Specialist
DX: R30.0 Dysuria (principal)
CPT/HCPCS: 87077; 87086; 87186

== ENCOUNTER → 2022-01-17 08:29 | Outpatient (CLI) | payer MEDICARE, SELFPAY ==
[2021-02-08 21:24] VITALS: BMI 22.6
== END ==
PROVIDERS: PCP Internal Medicine; Visit Provider Specialist
DX: R30.0 Dysuria (principal); R33.9 Retention of urine, unspecified
CPT/HCPCS: 51703; 87077; 87086; 87186

== ENCOUNTER 2022-01-23 09:00 | Emergency (ER) | payer MEDICARE, SELFPAY ==
[2021-02-08 21:24] VITALS: BMI 22.6
[2022-01-23] VITALS (23 sets, daily range): BP systolic 122–180; BP diastolic 70–104; PULSE 78–125; RESP 14–35; TEMP 36.6; O2SAT 94–100; BMI 21.9
--- NOTE | 2022-01-23 09:11 | DI.RAD.S_ITS ---
PROCEDURE: XR CHEST 1V INDICATIONS: Possible stroke TECHNIQUE: One view of the chest was acquired. COMPARISON: [facility], CR, CHEST 1 VIEW, 09/30/2016, 20:38. [facility], CT, CT STROKE, 01/23/2022, 9:18. [facility], CR, XR CHEST 1V, 02/08/2021, 17:08. FINDINGS: Surgical changes and devices: None. Lungs and pleura: Low lung volumes are noted. This causes a crowded appearance to the lung markings and limits evaluation. On this semiupright portable chest examination, no large pneumothorax or large pleural effusions are seen. No focal infiltrates are seen. Mediastinum: Mediastinal contours appear normal. Heart size is normal. Bones and chest wall: No suspicious bony lesions. Age-appropriate bony degenerative changes are seen. Overlying soft tissues appear unremarkable. IMPRESSION: Limited portable chest examination, without a significant cardiopulmonary abnormality identified. Dictated by: Guillermo Martin M.D. on 01/23/2022 at 8:25 Approved by: Guillermo Martin M.D. on 01/23/2022 at 8:26
--- NOTE | 2022-01-23 09:11 | DI.CT.S_ITS ---
PROCEDURE: CT STROKE INDICATIONS: SLURRED SPEECH,not tpa candidate TECHNIQUE: Noncontrast 4.5 mm thick angled axial sections acquired from the foramen magnum to the vertex, with coronal reformats. For radiation dose reduction, the following was used: automated exposure control, adjustment of mA and/or kV according to patient size. COMPARISON: [facility], MR, MR HEAD/BRAIN WO/W CON, 02/09/2021, 15:55. [facility], CT, CT ANGIO HEAD AND NECK, 02/08/2021, 17:22. [facility], CT, CT STROKE, 02/08/2021, 17:15. FINDINGS: Image quality: Excellent. CSF spaces: Basal cisterns are patent. No extra-axial fluid collections. The ventricles are symmetric in size and shape. Brain: No intracranial bleeds or masses. Chronic right frontal-parietal infarct and small left cerebellar hemisphere lacunar infarcts are stable compared to February 08, 2021. Small, chronic lacunar infarcts in the left grigsby radiata have developed in the interval since the prior exam. There is cerebral volume loss for age, with resultant ventricular and sulcal prominence. There are periventricular and deep white matter chronic small vessel ischemic changes. There is intracranial internal carotid artery and vertebral artery atherosclerosis. Skull and face: Calvarium and visualized facial bones appear intact, without suspicious lesions. Sinuses: Visualized sinuses and mastoids are clear. IMPRESSION: No acute intracranial disease process. Findings telephoned to Dr. Oquendo on January 23, 2022 at 9:27 a.m.. This study fulfills neurological imaging criteria for inclusion or exclusion of acute stroke therapies based on available published neurological guidelines. Dictated by: Dena Sahu MD, PhD on 01/23/2022 at 9:25 Approved by: Dena Sahu MD, PhD on 01/23/2022 at 9:29
--- NOTE | 2022-01-23 09:18 | DI.CT.S_ITS ---
PROCEDURE: CT ANGIO HEAD AND NECK INDICATIONS: CVA TECHNIQUE: After the administration of intravenous contrast, 1 mm thick sections acquired from the aortic arch through the [place] of [place]. Post-contrast 4.5 mm thick sections then re-acquired from the foramen magnum to the vertex. 3-dimensional zassjcq-yxbeojien-vmeihwjrcr (MIP) and/or volume rendering reformats were acquired of the central intracranial vasculature and neck separately. For radiation dose reduction, the following was used: automated exposure control, adjustment of mA and/or kV according to patient size. COMPARISON: [facility], MR, MR HEAD/BRAIN WO/W CON, 02/09/2021, 15:55. [facility], CT, CT STROKE, 01/23/2022, 9:18. [facility], CT, CT ANGIO HEAD AND NECK, 02/08/2021, 17:22. FINDINGS: Image quality: Excellent. BRAIN: CSF spaces: Ventricles are normal in size and shape. Basal cisterns are patent. No extra-axial fluid collections. Brain: No midline shift. No intracranial bleeds or masses. Reina-white matter interface appears intact. Old moderately large right MCA distribution infarct. Old body of left caudate lacunar infarction. Age-related volume loss and small vessel ischemic change. Skull and face: Calvarium and facial bones appear intact, without suspicious lesions. Orbits appear normal. Sinuses: Sinuses and mastoids are clear. HEAD CT ANGIOGRAPHY: Anterior circulation: Intracranial internal carotid arteries are normal in size and flow. The flow within the paired anterior cerebral arteries is normal and symmetric. The flow within the middle cerebral arteries is normal and symmetric. The anterior communicating artery is seen. No aneurysms are seen. Posterior circulation: The distal left vertebral artery is narrow caliber. The right vertebral artery is dominant. They join to form a normal-appearing basilar artery. Flow within the posterior cerebral arteries is normal and symmetric. No aneurysms are seen. NECK CT ANGIOGRAPHY: Carotid system: The great vessels demonstrate a conventional anatomy as they arise from the aortic arch. The origins of the common carotid arteries appear patent. The common carotid arteries demonstrate normal caliber and courses. There is a progression of an origin stenosis of the right internal carotid artery which has predominantly soft clot, as before at this point, the stenosis is greater than 90%. There is mild calcified left internal carotid artery stenotic disease. Posterior circulation: Much of the left vertebral artery is occluded. It is occluded from its origin for approximately 7.5 cm. It reconstitutes at C4-C5, where it is diffusely narrow. It is patent above this at the level of the basilar artery. This is a chronically occluded segment. The right vertebral artery is widely patent. The basilar artery is patent. Soft tissues: Visualized neck soft tissues demonstrate no suspicious abnormalities. Bones: No suspicious bony lesions. Visualized cervical spine appears normally aligned. IMPRESSION: 1. Old right MCA distribution infarct. 2. Age-related volume loss, old lacunar infarcts, small vessel ischemic change. 3. No evidence acute stroke, hemorrhage, or mass. 4. Unremarkable CTA head. No stenosis, aneurysm, occlusion, or focal filling defect. 5. 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 6. Interval increase in the stenosis of the right internal carotid artery, now greater than 90%, with predominantly soft clot. 7. 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 Comment: Findings were discussed with Dr. Oquendo on 01/23/2022 at 1007 hours Any quantitative measurements of stenosis were performed using NASCET criteria. Dictated by: Michael Pike M.D. on 01/23/2022 at 9:49 Approved by: Michael Pike M.D. on 01/23/2022 at 10:16
[2022-01-23 09:33] LABS: Add Manual Diff / Slide Review NO; Basophils Absolute Auto 0 /uL (0-100); Basophils Percent Auto 0.5 % (0-2); Eosinophils Absolute Auto 100 /uL (0-450); Eosinophils Percent Auto 1.5 % (2-4); Hematocrit 41.5 % (41-53); Hemoglobin 14.2 g/dL (13.5-17.5); Lymphocytes Absolute Auto 1900 /uL (1100-4500); Lymphocytes Percent Auto 24.6 % (25-40); Mean Corpuscular HGB Conc 34.2 % (30-36); Mean Corpuscular Hemoglobin 29.8 PG (26-34); Mean Corpuscular Volume 87.1 fL (80-100); Monocytes Absolute Auto 500 /uL (0-900); Monocytes Percent Auto 6.2 % (3-14); Neutrophils Absolute Auto 5100 /uL (1500-7000); Neutrophils Percent Auto 67.2 % (50-75); Platelet Count 345 X10^3/uL (150-400); Red Blood Cell Count 4.76 X10^6/uL (4.5-5.9); Red Cell Distribution Width 13.7 % (11.6-14.8); White Blood Cell Count 7.6 X10^3/uL (4.5-11.0)
[2022-01-23 09:45] LABS: INR 1.7 (0.9-1.3); Prothrombin Time 19.5 SECONDS (10.1-12.7)
[2022-01-23 09:47] LABS: PTT Partial Thromboplastin Tim 34 SECONDS (26.4-36.2)
--- NOTE | 2022-01-23 09:52 | ED_ITS ---
HPI - Neuro Symptoms/Deficit General Chief Complaint: Neuro Symptoms/Deficit Stated Complaint: Confused, trouble speaking Time Seen by Provider: 01/23/22 09:17 Source: patient and family Mode of arrival: Wheelchair History of Present Illness HPI Narrative: The patient is anticoagulated with warfarin for AFib. He has a prior history of CVA, with mild left arm deficits. He is with his son. His son saw him at 1:00 p.m. yesterday, patient was at baseline. His son came in late last night. His father showed up at his room at 08:30 this morning, asking for help. He then sat down on the sofa. There were dropped papers spread about, there was a spilled beverage. The patient seemed confused to his son, talking nonsense. He did want to come in to be seen, but by his own provider. He went to the INR nurse, who then referred him here. His son doubts recent illness or injury. The patient is verbal, but cannot complete sentences and conversations. He has no difficulty obeying commands. He has a left facial droop, but no other perceived weakness. Onset of symptoms cannot be determined. On Anticoagulants: Yes (coumadin) Related Data Home Medications Medication Instructions Recorded Confirmed ascorbic acid (vitamin C) 500 mg 500 mg PO BID 08/23/21 01/17/22 tablet warfarin 5 mg tablet 5 mg PO DAILY tab 12/30/21 01/20/22 Previous Rx's Medication Instructions Recorded gabapentin 600 mg tablet 600 mg PO TID #270 tab 06/21/21 methimazole 5 mg tablet 5 mg PO DAILY #90 tab 06/21/21 methenamine hippurate 1 gram 0.5 g PO BID #90 tab 08/23/21 tablet (Hiprex) oxybutynin chloride 5 mg 5 mg PO DAILY #30 tab 12/19/21 tablet,extended release 24 hr (Ditropan XL) Allergies Allergy/AdvReac Type Severity Reaction Status Date / Time No Known Drug Allergies Allergy Verified 01/23/22 09:14 Review of Systems Review of Systems Narrative: See HPI. ROS limited by patient's medical condition. Hematologic/Lymphatic On Anticoagulants: Yes (coumadin) Patient History Medical History Atrial fibrillation BPH w urinary obs/LUTS Cardiomyopathy (2013) CVA (cerebral vascular accident) (08/03/15) Diabetes mellitus History of recurrent UTI (urinary tract infection) History of UTI Hyperthyroidism Trigeminal neuralgia Urinary retention (2014) Urinary retention Surgical History S/P vasectomy Family History Father CVA (cerebral vascular accident) Sister Thyroid disorder Social History household members: none Smoking Status: Never smoker Smoking Status: Never smoker alcohol intake frequency: holidays/special occasions only Substance Use Type: does not use Exam Narrative Exam Narrative: Awake, alert, responsive. Confused in conversation. Obeys orders. Initial Vital Signs Initial Vital Signs: Vital Signs Temperature 97.8 F 01/23/22 09:02 Pulse Rate 103 H 01/23/22 09:02 Respiratory Rate 26 H 01/23/22 09:02 Blood Pressure 180/88 H 01/23/22 09:02 Pulse Oximetry 100 01/23/22 09:02 Const General: cooperative, disheveled and frail appearing [facility] Head: normal to inspection, normocephalic and atraumatic Face and sinus: normal facial exam and other (Left facial droop.) Mouth: oral mucosae normal Eyes General: appearance normal, both eyes and all related structures Neck Neck: normal visual inspection Chest Chest: normal inspection of the chest Resp Effort & Inspection: normal respiratory effort Auscultation: clear to auscultation bilaterally Cardio Rate: regular rate Rhythm: regular rhythm Heart Sounds: S1 normal, S2 normal, no gallops, no murmurs and no rubs GI Inspection: normal to inspection Percussion: normal to percussion Auscultation: normal bowel sounds Back/Spine/Pelvis Back: normal to inspection, back tenderness and No CVA tenderness Thoracic/Lumbar Spine: thoracic and lumbar spine normal to inspection Skin General: no rashes or lesions noted Neuro General: patient alert, patient awake, oriented (Person. Not oriented to place and time.), no meningeal signs and other (Left facial droop. No weakness in extremities.) Motor: muscle tone normal throughout Extrem General: normal to inspection, full ROM, no pedal edema and no calf tenderness Psych Appearance: grossly normal and well kempt Scores NIH Stroke Scale Level of Conciousness: Alert, keenly responsive Ask month/age: Answers neither question correctly, aphasic, stuporous, coma Open/close eyes, close hand: Performs both tasks correctly Best gaze horizontal: Normal Visual hanson: No visual loss Facial palsy: Minor paralysis, flattened nasolabial fold, asymmetry on smiling Left arm drift: No drift for full 10 sec Right arm drift: No drift for full 10 sec Left leg drift: No drift for full 5 sec Right leg drift: No drift for full 5 sec Limb ataxia: Absent Sensory on face/arms/legs: Normal, no sensory loss Best language: Mild to moderate, slurs some words Dysarthria: Mild to mod,some slurring Extinction or inattention: No abnormality Total NIH Stroke scale score: 5 Course Course Course Narrative: Patient was identified as having a acute/subacute CVA, NIHSS of 5. Head CT revealed prior CVAs, no acute CVA. CTA of head and neck revealed ischemic changes as well as the old infarcts. There is a chronic long segment proximal occlusion of the left vertebral artery, posterior circulation is otherwise intact. Of most significance is a stenosis of the right internal carotid artery rating 9% with a soft clot, as identified by the radiologist. MRI of the brain showed the old infarcts, there is no evidence of acute infarct. The situation was discussed [address] Limon, stroke neurologist with [facility] in [place]. Aspirin was added to the Warfarin. Atorvastatin 80 mg was given. Vascular surgery input was recommended. I discussed the case with Dr. Hightower, stroke neurologist and Dr. Kwon, vascular surgeon at [facility] in [place]. He has accepted interviewed transfer to [facility]. The patient is alert, responsive. His speech seems of cleared a bit. Vital signs are stable. There is no progression of neurologic deficit. Orders Ordered: ED Orders 01/23/22 09:30 COVID19 -Nasal RAPID/Pre-Proc Stat 01/23/22 10:39 MR head/brain wo con Stat 01/23/22 11:52 Urinalysis and Microscopic Stat Urine Culture Stat 01/23/22 11:57 Urine Drug Screen, Rapid Stat Sodium Chloride (Normal Saline 0.9%) 1,000 mls @ 100 mls/hr IV BOLUS ONE Stop: 01/24/22 02:01 Last Infusion: 01/23/22 17:53 Dose: 0 mls/hr Documented by: Admin: 01/23/22 16:16 Dose: 100 mls/hr Documented by: BTRACHEL Discontinued Medications Aspirin (Aspirin 81 Mg Chew Tab) 324 mg PO NOW ONE Stop: 01/23/22 13:07 Last Admin: 01/23/22 13:19 Dose: 324 mg Documented by: LUCHO Atorvastatin Calcium (Atorvastatin 20 Mg Tablet) 80 mg PO NOW ONE Stop: 01/23/22 13:07 Last Admin: 01/23/22 13:19 Dose: 80 mg Documented by: LUCHO Vital Signs Vital signs: Vital Signs - 8 hr 01/23/22 10:30 01/23/22 11:19 01/23/22 11:30 Pulse Rate 92 H 102 H 88 Respiratory Rate 17 Blood Pressure 131/75 Pulse Oximetry 94 99 99 01/23/22 12:00 01/23/22 12:30 01/23/22 13:00 Pulse Rate 84 89 82 Respiratory Rate Blood Pressure Pulse Oximetry 98 96 99 01/23/22 13:25 01/23/22 13:26 01/23/22 13:30 Pulse Rate 125 H 117 H 95 H Respiratory Rate 24 20 14 Blood Pressure 173/81 H 147/80 H Pulse Oximetry 99 99 100 01/23/22 14:00 01/23/22 14:30 01/23/22 15:00 Pulse Rate 85 78 82 Respiratory Rate 17 15 18 Blood Pressure 163/72 H 144/82 H 125/84 Pulse Oximetry 99 98 99 01/23/22 15:30 01/23/22 16:00 01/23/22 16:30 Pulse Rate 80 115 H 88 Respiratory Rate 15 20 35 H Blood Pressure 122/79 147/104 H 137/91 H Pulse Oximetry 99 97 98 01/23/22 17:00 01/23/22 17:30 Pulse Rate 82 83 Respiratory Rate 14 17 Blood Pressure 149/72 H 147/70 H Pulse Oximetry 98 99 MDM - Neuro Symptoms/Deficit Lab Data Result diagrams: 01/23/22 07:23 01/23/22 07:23 Labs: Lab Results 01/23/22 01/23/22 01/23/22 Range/Units 07:23 07:23 07:23 WBC 7.6 (4.5-11.0) X10^3/uL RBC 4.76 (4.5-5.9) X10^6/uL Hgb 14.2 (13.5-17.5) g/dL Hct 41.5 (41-53) % MCV 87.1 (80-100) fL MCH 29.8 (26-34) PG MCHC 34.2 (30-36) % RDW 13.7 (11.6-14.8) % Plt Count 345 (150-400) X10^3/uL Neut % (Auto) 67.2 (50-75) % Lymph % (Auto) 24.6 L (25-40) % [place] % (Auto) 6.2 (3-14) % Eos % (Auto) 1.5 L (2-4) % Baso % (Auto) 0.5 (0-2) % Neut # (Auto) 5100 (5789-8291) /uL Lymph # (Auto) 1900 (8708-5119) /uL [place] # (Auto) 500 (0-900) /uL Eos # (Auto) 100 (0-450) /uL Baso # (Auto) 0 (0-100) /uL PT 19.5 H (10.1-12.7) SECONDS INR 1.7 H (0.9-1.3) APTT 34 D (26.4-36.2) SECONDS Sodium 140 (137-145) mmol/L Potassium 4.0 (3.4-5.1) mmol/L Chloride 106 (98-107) mmol/L Carbon Dioxide 27 (22-32) mmol/L BUN 12 (9-20) mg/dL Creatinine 0.64 L (0.66-1.25) mg/dL Estimated GFR > 60 (>60) mL/min BUN/Creatinine Ratio 18.8 (6-22) Glucose 118 H (80-110) mg/dL Calcium 9.1 (8.4-10.2) mg/dL Total Bilirubin 0.9 (0.2-1.3) mg/dL AST 28 (17-59) IU/L ALT 20 (<50) IU/L Alkaline Phosphatase 88 (38-126) U/L Total Creatine Kinase 58 (55-170) U/L CK-MB (CK-2) TNP CK-MB (CK-2) Rel Index TNP Troponin I 0.068 H (0.01-0.034) ng/mL Total Protein 7.8 (6.3-8.2) g/dL Albumin 4.3 (3.5-5.0) g/dL Globulin 3.5 (1.7-4.1) g/dL Albumin/Globulin Ratio 1.2 (1.0-2.8) Urine Color Urine Appearance Urine pH (4.5-8.0) Ur Specific [place] (1.000-1.035) Urine Protein (Negative) Urine Glucose (UA) (Negative) g/dL Urine Ketones (NEGATIVE) Urine Occult Blood (Negative) Urine Nitrate (Negative) Urine Bilirubin (NEGATIVE) Urine Urobilinogen (0.2) E.U./dL Ur Leukocyte Esterase (NEGATIVE) Urine RBC (0-5/HPF) Urine WBC (0-5/HPF) Urine Bacteria (None) Urine Mucus (Negative) Urine Yeast (None) Ur Culture Indicated? U Opiates 300ng/mL cut (Negative) Ur Oxycodone Screen (Negative) Urine Methadone Screen (Negative) Ur Barbiturates Screen (Negative) U Tricyclic Antidepress (Negative) Ur Phencyclidine Scrn (Negative) Ur Amphetamines Screen (Negative) U Methamphetamines Scrn (Negative) Ur MDMA Scrn (Ecstasy) (Negative) U Benzodiazepines Scrn (Negative) Urine Cocaine Screen (Negative) U Marijuana (THC) Screen (Negative) SARS-CoV-2 (PCR) (Negative) 01/23/22 01/23/22 01/23/22 Range/Units 09:30 11:52 11:57 WBC (4.5-11.0) X10^3/uL RBC (4.5-5.9) X10^6/uL Hgb (13.5-17.5) g/dL Hct (41-53) % MCV (80-100) fL MCH (26-34) PG MCHC (30-36) % RDW (11.6-14.8) % Plt Count (150-400) X10^3/uL Neut % (Auto) (50-75) % Lymph % (Auto) (25-40) % [place] % (Auto) (3-14) % Eos % (Auto) (2-4) % Baso % (Auto) (0-2) % Neut # (Auto) (6101-4165) /uL Lymph # (Auto) (1908-7169) /uL [place] # (Auto) (0-900) /uL Eos # (Auto) (0-450) /uL Baso # (Auto) (0-100) /uL PT (10.1-12.7) SECONDS INR (0.9-1.3) APTT (26.4-36.2) SECONDS Sodium (137-145) mmol/L Potassium (3.4-5.1) mmol/L Chloride (98-107) mmol/L Carbon Dioxide (22-32) mmol/L BUN (9-20) mg/dL Creatinine (0.66-1.25) mg/dL Estimated GFR (>60) mL/min BUN/Creatinine Ratio (6-22) Glucose (80-110) mg/dL Calcium (8.4-10.2) mg/dL Total Bilirubin (0.2-1.3) mg/dL AST (17-59) IU/L ALT (<50) IU/L Alkaline Phosphatase (38-126) U/L Total Creatine Kinase (55-170) U/L CK-MB (CK-2) CK-MB (CK-2) Rel Index Troponin I (0.01-0.034) ng/mL Total Protein (6.3-8.2) g/dL Albumin (3.5-5.0) g/dL Globulin (1.7-4.1) g/dL Albumin/Globulin Ratio (1.0-2.8) Urine Color Yellow Urine Appearance Clear Urine pH 8.0 (4.5-8.0) Ur Specific [place] 1.010 (1.000-1.035) Urine Protein Negative (Negative) Urine Glucose (UA) Negative (Negative) g/dL Urine Ketones Negative (NEGATIVE) Urine Occult Blood 2+ H (Negative) Urine Nitrate Negative (Negative) Urine Bilirubin Negative (NEGATIVE) Urine Urobilinogen 0.2 (0.2) E.U./dL Ur Leukocyte Esterase Trace H (NEGATIVE) Urine RBC 5-10/hpf H (0-5/HPF) Urine WBC 5-10/hpf H (0-5/HPF) Urine Bacteria Moderate (10-30) H (None) Urine Mucus 1+ H (Negative) Urine Yeast 5-10/hpf H (None) Ur Culture Indicated? Specimen cultured U Opiates 300ng/mL cut Negative (Negative) Ur Oxycodone Screen Negative (Negative) Urine Methadone Screen Negative (Negative) Ur Barbiturates Screen Negative (Negative) U Tricyclic Antidepress Negative (Negative) Ur Phencyclidine Scrn Negative (Negative) Ur Amphetamines Screen Negative (Negative) U Methamphetamines Scrn Negative (Negative) Ur MDMA Scrn (Ecstasy) Negative (Negative) U Benzodiazepines Scrn Negative (Negative) Urine Cocaine Screen Negative (Negative) U Marijuana (THC) Screen Negative (Negative) SARS-CoV-2 (PCR) Negative (Negative) Imaging Data Chest x-ray: Radiologist's Impression: Limited portable chest examination, without a significant cardiopulmonary abnormality identified.? ? CT scan - head: Radiologist's Impression: No acute intracranial disease process.? CTA - brain/neck: Radiologist's Impression: 1. Old right MCA distribution infarct. ? 2. Age-related volume loss, old lacunar infarcts, small vessel ischemic change. ? 3. No evidence acute stroke, hemorrhage, or mass. ? 4. Unremarkable CTA head.? No stenosis, aneurysm, occlusion, or focal filling defect. ? 5. 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 ? 6. Interval increase in the stenosis of the right internal carotid artery, now greater than 90%, with predominantly soft clot. ? 7. Mild left internal carotid artery stenotic disease.? Stroke protocol MRI:: Radiologist's Impression: PROCEDURE:? MR HEAD/BRAIN WO CON ? INDICATIONS:? stroke symptoms ? TECHNIQUE:? Noncontrast axial T1 spin echo, axial T2 fast spin echo, sagittal and axial FLAIR, coronal T2 fast spin echo, axial gradient echo, axial diffusion and ADC through the brain.? ? COMPARISON:? None. ? FINDINGS:? Image quality:? Excellent.? ? CSF Spaces:? Basal cisterns are patent.? No extra-axial fluid collections.? Ventricles are normal in size and shape.? ? Brain:? Moderate atrophy and multifocal white matter chronic ischemic change.? Encephalomalacia and gliosis noted centered on the right precentral gyrus and left cerebellar hemisphere.? Diffusion sequence however is within expected limits without evidence of acute infarct.? Appropriate flow voids noted in the basal cisterns.? No evidence of acute hemorrhage. ? Skull and face:? Calvarium has normal marrow signal.? Orbits appear normal.? ? Sinuses:? Sinuses and mastoids are clear.? ? IMPRESSION:? ? 1. Atrophy and chronic ischemic change without acute infarct, hemorrhage or mass lesion ? 2. Old right frontal and left cerebellar cortical infarcts with associated cystic encephalomalacia and gliosis ECG Data Attestation: I personally reviewed and interpreted this ECG as follows: (AFib rate 94 beats per minute. LVH. No acute ST elevations.) Critical Care Time Critical Care Time Critical Care Time: Yes Total Critical Care Time: 120 Attestation: Time included initial assessment patient, review of medical records, and review of lab, radiology and EKG data. Patient and family were informed of the clinical findings, the patient agreed to seeking surgical intervention. Multiple consultations of multiple hospitals were required to complete the disposition. Discharge Plan Departure Patient Disposition: [facility] Clinical Impression: Acute CVA (cerebrovascular accident), Anticoagulated on warfarin, Diabetes mellitus, Atrial fibrillation, Stenosis of right carotid artery Prescriptions: No Action methimazole 5 mg tablet 5 mg PO DAILY Qty: 90 3RF methenamine hippurate [Hiprex] 1 gram tablet 0.5 g PO BID Qty: 90 3RF ascorbic acid (vitamin C) 500 mg tablet 500 mg PO BID 0RF Label Comments: take along with Hiprex oxybutynin chloride [Ditropan XL] 5 mg tablet extended release 24hr 5 mg PO DAILY Qty: 30 3RF gabapentin 600 mg tablet 600 mg PO TID Qty: 270 3RF warfarin 5 mg tablet 5 mg PO DAILY 0RF Hold Instructions: Bleeding in urinary catheter Rx Instructions: Take 2.5mg Thursday, Thursday, Thursday and 5mg all other days or as directed. Referrals: Lloyd Butler MD [Primary Care Provider] -
[2022-01-23 09:54] LABS: Alanine Aminotransferase 20 IU/L (<50); Albumin 4.3 g/dL (3.5-5.0); Albumin Globulin Ratio 1.2 (1.0-2.8); Alkaline Phosphatase 88 U/L (38-126); Aspartate Aminotransferase 28 IU/L (17-59); BUN Creatinine Ratio 18.8 (6-22); Bilirubin Total 0.9 mg/dL (0.2-1.3); Blood Urea Nitrogen 12 mg/dL (9-20); Calcium 9.1 mg/dL (8.4-10.2); Carbon Dioxide 27 mmol/L (22-32); Chloride 106 mmol/L (98-107); Creatine Kinase 58 U/L (55-170); Estimated Glomerular Filt Rate > 60 mL/min (>60); Globulin 3.5 g/dL (1.7-4.1); Glucose 118 mg/dL (80-110); HEMOLYSIS < 15 (0-50); Sodium 140 mmol/L (137-145); Total Protein 7.8 g/dL (6.3-8.2)
[2022-01-23 10:06] LABS: Troponin I 0.068 ng/mL (0.01-0.034)
[2022-01-23 10:11] LABS: COVID19 -Nasal RAPID Negative (Negative)
--- NOTE | 2022-01-23 10:39 | DI.MRI.S_ITS ---
PROCEDURE: MR HEAD/BRAIN WO CON INDICATIONS: stroke symptoms TECHNIQUE: Noncontrast axial T1 spin echo, axial T2 fast spin echo, sagittal and axial FLAIR, coronal T2 fast spin echo, axial gradient echo, axial diffusion and ADC through the brain. COMPARISON: None. FINDINGS: Image quality: Excellent. CSF Spaces: Basal cisterns are patent. No extra-axial fluid collections. Ventricles are normal in size and shape. Brain: Moderate atrophy and multifocal white matter chronic ischemic change. Encephalomalacia and gliosis noted centered on the right precentral gyrus and left cerebellar hemisphere. Diffusion sequence however is within expected limits without evidence of acute infarct. Appropriate flow voids noted in the basal cisterns. No evidence of acute hemorrhage. Skull and face: Calvarium has normal marrow signal. Orbits appear normal. Sinuses: Sinuses and mastoids are clear. IMPRESSION: 1. Atrophy and chronic ischemic change without acute infarct, hemorrhage or mass lesion 2. Old right frontal and left cerebellar cortical infarcts with associated cystic encephalomalacia and gliosis Approved by: Dariel Chao M.D. on 01/23/2022 at 11:07
[2022-01-23 12:22] LABS: UR Morphine/Opiate cutoff 300 Negative (Negative); Ur Creatinine Normal (Normal); Ur Specific Gravity Normal (Normal); Urine Amphetamines Negative (Negative); Urine Barbiturates Negative (Negative); Urine Benzodiazepines Negative (Negative); Urine Cocaine Negative (Negative); Urine MDMA Negative (Negative); Urine Methadone Negative (Negative); Urine Methamphetamines Negative (Negative); Urine Oxycodone Negative (Negative); Urine Phencyclidine Negative (Negative); Urine Tetrahydrocannabinol Negative (Negative); Urine Tricyclic Antidepressant Negative (Negative); Urine pH Normal (Normal)
[2022-01-23 12:25] LABS: Appearance Urine UA CLEAR; Bilirubin Urine UA NEGATIVE (NEGATIVE); Color Urine UA YELLOW; Glucose Urine UA NEGATIVE (Negative); Ketones Urine UA NEGATIVE (NEGATIVE); Leukocyte Esterase Urine UA TRACE (NEGATIVE); Nitrite Urine UA NEGATIVE (Negative); Occult Blood Urine UA 2+ (Negative); Protein Urine UA NEGATIVE (Negative); Urobilinogen Urine UA 0.2 E.U./dL (0.2)
[2022-01-23 12:29] LABS: WBC Urine 5-10/HPF (0-5/HPF)
[2022-01-23 12:30] LABS: Bacteria Urine Moderate (10-30); Culture Indicated Urine Specimen Cultured; Mucus Urine 1+ (Negative); RBC Urine 5-10/HPF (0-5/HPF)
[2022-01-23] MEDS: ASPIRIN 81 MG CHEW TAB 324 MG PO (13:19)
[2022-01-23] MEDS: ATORVASTATIN 20 MG TABLET 80 MG PO (13:19)
--- NOTE | 2022-01-23 13:20 | PC.NURSE ---
pt passed swallow study. drank and ate applesauce without difficulty.
--- NOTE | 2022-01-23 16:15 | PC.NURSE ---
Pt accepted to [facility], Dr. Angy Hightower of the Stroke team. ED to ED transfer. Pt / family verbalized understanding of plan of care w/ risks and benefits. [facility] eta 1715. [facility] updated w/ ambulance ETA. [facility] updated and asked to remove pt from their waiting list.
[2022-01-23] MEDS: SODIUM CHLORIDE 0.9% 1,000 ML 100 ML IV (16:16)
== END 2022-01-23 18:00 | disposition short-term general hospital (02) ==
PROVIDERS: Emergency Provider Emergency Medicine; PCP Internal Medicine
DX: I63.9 Cerebral infarction, unspecified (principal); Z79.01 Long term (current) use of anticoagulants; E11.9 Type 2 diabetes mellitus without complications; I48.91 Unspecified atrial fibrillation; I65.21 Occlusion and stenosis of right carotid artery; Z20.822 Contact with and (suspected) exposure to COVID-19
CPT/HCPCS: 36415; 70450; 70496; 70498; 70551; 71045; 80053; 80305; 81001; 82550; 84484; 85025; 85610; 85730; 87077; 87086; 87635; 93005; 96360; 96361; 99285; 99291; 99292; C9803; Q9967

== ENCOUNTER → 2022-02-04 10:32 | Outpatient (CLI) | payer MEDICARE, SELFPAY ==
[2022-02-04 10:27] VITALS: BMI 22.6
[2022-02-04 12:02] LABS: Free T4, Direct Thyroxine 2.61 ng/dL (0.78-2.19)
[2022-02-04 13:16] LABS: Thyroid Stimulating Hormone < 0.015 uIU/mL (0.47-4.68)
== END ==
PROVIDERS: PCP Internal Medicine; Referring Provider Internal Medicine; Visit Provider Internal Medicine
DX: E05.90 Thyrotoxicosis, unspecified without thyrotoxic crisis or storm (principal)
CPT/HCPCS: 36415; 84439; 84443; 84481

== ENCOUNTER → 2022-02-14 09:54 | Outpatient (CLI) | payer MEDICARE, SELFPAY ==
[2022-02-04 10:27] VITALS: BMI 22.6
== END ==
PROVIDERS: PCP Internal Medicine; Visit Provider Specialist
DX: Z87.440 Personal history of urinary (tract) infections (principal)
CPT/HCPCS: 87077; 87086; 87186

== ENCOUNTER → 2022-03-18 10:43 | Outpatient (CLI) | payer MEDICARE, SELFPAY ==
[2022-02-04 10:27] VITALS: BMI 22.6
== END ==
PROVIDERS: PCP Internal Medicine; Visit Provider Specialist
DX: R30.0 Dysuria (principal); R33.9 Retention of urine, unspecified
CPT/HCPCS: 51702; 87077; 87086; 87185; 87186

== ENCOUNTER → 2022-04-17 09:02 | Outpatient (CLI) | payer MEDICARE, SELFPAY ==
[2022-02-04 10:27] VITALS: BMI 22.6
== END ==
PROVIDERS: PCP Internal Medicine; Visit Provider Specialist
DX: R30.0 Dysuria (principal); R33.9 Retention of urine, unspecified
CPT/HCPCS: 51703; 87077; 87086; 87185; 87186

== ENCOUNTER → 2022-04-22 08:24 | Outpatient (CLI) | payer MEDICARE, SELFPAY ==
[2022-02-04 10:27] VITALS: BMI 22.6
[2022-04-22 11:10] LABS: Free T3, Triiodothyronine Free 7.22 pg/mL (2.77-5.27); Free T4, Direct Thyroxine 2.52 ng/dL (0.78-2.19)
[2022-04-22 11:24] LABS: Thyroid Stimulating Hormone < 0.015 uIU/mL (0.47-4.68)
== END ==
PROVIDERS: PCP Internal Medicine; Referring Provider Internal Medicine; Visit Provider Internal Medicine
DX: E05.90 Thyrotoxicosis, unspecified without thyrotoxic crisis or storm (principal)
CPT/HCPCS: 36415; 84439; 84443; 84481

== ENCOUNTER 2022-05-09 05:43 | Emergency (ER) | payer MEDICARE, SELFPAY ==
[2022-02-04 10:27] VITALS: BMI 22.6
[2022-05-09] VITALS (15 sets, daily range): BP systolic 116–174; BP diastolic 62–107; PULSE 83–174; RESP 19–41; TEMP 36.9; O2SAT 95–99
[2022-05-09] MEDS: LIDOCAINE 2% (GLYDO) 6 ML GEL TOP (06:00)
--- NOTE | 2022-05-09 06:15 | ED_ITS ---
HPI - Male Genitourinary <Carrington Vigil DO - Last Filed: 05/10/22 02:53> General Chief complaint: Urogenital-Male Stated complaint: cant pee Time Seen by Provider: 05/09/22 05:47 Source: patient Mode of arrival: Ambulatory History of Present Illness HPI Narrative: 81-year-old male nonsmoker with history of AFib on Coumadin, diabetes, BPH with urinary retention and Zepeda catheter in place presents with a chief complaint of severe suprapubic pain and problems with his Zepeda draining for the past 12 hours. He denies any dizziness, weakness or lightheadedness. He denies any chest pain or shortness of breath. Denies any nausea or vomiting. He states that he is had this Zepeda catheter in place for about 2 weeks and has had bloody urine for most of it. He is not had any issues with it draining and does not flush it at home. He is had no output and increased pain for the past 12 hours as stated. He sees Dr. Conteh next week Related Data Home Medications Medication Instructions Recorded Confirmed aspirin 81 mg tablet,delayed 81 mg PO DAILY 02/04/22 02/14/22 release (Adult Low Dose Aspirin) gabapentin 600 mg tablet 600 mg PO BID 02/04/22 02/14/22 Previous Rx's Medication Instructions Recorded methenamine hippurate 1 gram 0.5 g PO BID #90 tabs 08/23/21 tablet (Hiprex) methimazole 5 mg tablet 5 mg PO DAILY #90 tabs 02/04/22 atorvastatin 80 mg tablet 80 mg PO DAILY #90 tabs 02/06/22 warfarin 5 mg tablet See Rx Instructions .Route 04/08/22 .COMPLEX #90 tabs metoprolol tartrate 25 mg tablet 12.5 mg PO BID #60 tabs 05/09/22 metoprolol tartrate 25 mg tablet 12.5 mg PO BID #60 tabs 05/09/22 Allergies Allergy/AdvReac Type Severity Reaction Status Date / Time No Known Drug Allergies Allergy Verified 02/14/22 09:28 Review of Systems <Carrington Vigil DO - Last Filed: 05/10/22 02:53> Review of Systems Narrative: GENERAL: Denies chills, fatigue, malaise, fever, sweats. HEENT: Denies sinus pain, ear pain, sore throat, difficulty swallowing, dizziness. RESPIRATORY: Denies dyspnea, cough, wheezing, hemoptysis, sputum. CARDIOVASCULAR: Denies chest pain, palpitations, orthopnea, edema, GASTROINTESTINAL: See HPI : See HPI MUSCULOSKELETAL: denies weakness, joint pain, or bony pain SKIN: Denies rash, skin lesions, or other NEUROLOGIC: Denies weakness, headache, numbness, change in speech, confusion, seizures, incoordination. PSYCHIATRIC: No concerning psychosocial issues. 12 point review of systems is negative except for those stated above Patient History <Carrington Vigil DO - Last Filed: 05/10/22 02:53> Medical History Atrial fibrillation Bladder stones BPH w urinary obs/LUTS Cardiomyopathy (2013) CVA (cerebral vascular accident) (08/03/15) Diabetes mellitus History of UTI Hyperthyroidism Recurrent UTI Stenosis of right carotid artery Trigeminal neuralgia Urinary retention (2014) Urinary retention Surgical History S/P carotid endarterectomy (01/29/22) S/P vasectomy Family History Father CVA (cerebral vascular accident) Sister Thyroid disorder Social History household members: none Smoking Status: Never smoker Smoking Status: Never smoker alcohol intake frequency: holidays/special occasions only Substance Use Type: does not use Exam <Carrington Vigil DO - Last Filed: 05/10/22 02:53> Narrative Exam Narrative: GENERAL: [81] year old patient appears stated age. Well-developed patient, in obvious distress, complaining of significant pain HEAD: Atraumatic. Normocephalic. EYES: Pupils equal round and reactive. Extraocular motions intact. No scleral icterus. No injection or drainage. ENT: Nose without bleeding, purulent drainage. Throat without erythema, tonsillar hypertrophy or exudate. Airway patent. NECK: Trachea midline. Non tender CARDIOVASCULAR: Tachycardic but a regular rhythm without murmurs, gallops, or rubs. RESPIRATORY: Clear to auscultation. Breath sounds equal bilaterally. No wheezes, rales, or rhonchi. GASTROINTESTINAL: Abdomen soft, tender in the suprapubic region, fullness noted EXTREMITIES: No edema or joint tenderness. BACK: Nontender without deformity or crepitance. No flank tenderness. NEURO: AOx3. SKIN: No rash or erythema of visible areas Initial Vital Signs Initial Vital Signs: Vital Signs Temperature 98.4 F 05/09/22 05:45 Pulse Rate 150 H 05/09/22 05:45 Respiratory Rate 25 H 05/09/22 05:45 Blood Pressure 174/90 H 05/09/22 05:45 Pulse Oximetry 97 05/09/22 05:45 Oxygen Delivery Method 05/09/22 05:45 <Lucie Pruitt DO - Last Filed: 05/09/22 17:56> Initial Vital Signs Initial Vital Signs: Vital Signs Temperature 98.4 F 05/09/22 05:45 Pulse Rate 150 H 05/09/22 05:45 Respiratory Rate 25 H 05/09/22 05:45 Blood Pressure 174/90 H 05/09/22 05:45 Pulse Oximetry 97 05/09/22 05:45 Oxygen Delivery Method 05/09/22 05:45 Course <DO Shayan Valdes Last Filed: 05/10/22 02:53> Course Course Narrative: Existing 2 way Zepeda catheter unable to be flushed, it is replaced with a 3 way and irrigated. Patient has complete resolution of symptoms Orders Ordered: Discontinued Medications Lidocaine HCl (Lidocaine 2% (Glydo) 6 Ml Gel) 6 ml TOP NOW ONE Stop: 05/09/22 05:49 Last Admin: 05/09/22 06:00 Dose: 6 ml Documented By: KEYLA Metoprolol Succinate (Metoprolol Er 25 Mg Tablet) 12.5 mg PO NOW ONE Stop: 05/09/22 08:30 Last Admin: 05/09/22 09:01 Dose: 12.5 mg Documented By: KB Vital Signs Vital signs: Vital Signs - 8 hr 05/09/22 10:00 05/09/22 10:00 05/09/22 10:30 Pulse Rate 98 H Respiratory Rate 20 Blood Pressure 123/72 128/78 Pulse Oximetry 99 05/09/22 10:30 05/09/22 10:52 Pulse Rate 91 H 83 Respiratory Rate 20 Blood Pressure 128/78 Pulse Oximetry 98 <Lucie Pruitt DO - Last Filed: 05/09/22 17:56> Orders Ordered: Discontinued Medications Lidocaine HCl (Lidocaine 2% (Glydo) 6 Ml Gel) 6 ml TOP NOW ONE Stop: 05/09/22 05:49 Last Admin: 05/09/22 06:00 Dose: 6 ml Documented By: KEYLA Metoprolol Succinate (Metoprolol Er 25 Mg Tablet) 12.5 mg PO NOW ONE Stop: 05/09/22 08:30 Last Admin: 05/09/22 09:01 Dose: 12.5 mg Documented By: ALCIDES Vital Signs Vital signs: Vital Signs - 8 hr 05/09/22 10:00 05/09/22 10:00 05/09/22 10:30 Pulse Rate 98 H Respiratory Rate 20 Blood Pressure 123/72 128/78 Pulse Oximetry 99 05/09/22 10:30 05/09/22 10:52 Pulse Rate 91 H 83 Respiratory Rate 20 Blood Pressure 128/78 Pulse Oximetry 98 MDM - Male Genitourinary <Carrington Vigil DO - Last Filed: 05/10/22 02:53> Lab Data Result diagrams: 05/09/22 06:25 05/09/22 06:25 Labs: Lab Results 05/09/22 05/09/22 05/09/22 Range/Units 06:25 06:25 06:25 WBC 10.7 (4.5-11.0) X10^3/uL RBC 4.36 L (4.5-5.9) X10^6/uL Hgb 12.9 L (13.5-17.5) g/dL Hct 38.2 L (41-53) % MCV 87.8 (80-100) fL MCH 29.7 (26-34) PG MCHC 33.8 (30-36) % RDW 14.3 (11.6-14.8) % Plt Count 290 (150-400) X10^3/uL Neut % (Auto) 88.6 H (50-75) % Lymph % (Auto) 6.6 L (25-40) % Robertson % (Auto) 4.3 (3-14) % Eos % (Auto) 0.3 L (2-4) % Baso % (Auto) 0.2 (0-2) % Neut # (Auto) 9500 H (4949-9298) /uL Lymph # (Auto) 700 L (0329-8286) /uL Robertson # (Auto) 500 (0-900) /uL Eos # (Auto) 0 (0-450) /uL Baso # (Auto) 0 (0-100) /uL PT 33.7 H (10.1-12.7) SECONDS INR 2.9 H (0.9-1.3) Sodium 137 (137-145) mmol/L Potassium 3.8 (3.4-5.1) mmol/L Chloride 108 H (98-107) mmol/L Carbon Dioxide 23 (22-32) mmol/L BUN 18 (9-20) mg/dL Creatinine 0.56 L (0.66-1.25) mg/dL Estimated GFR > 60 (>60) mL/min BUN/Creatinine Ratio 32.1 H (6-22) Glucose 137 H (80-110) mg/dL Calcium 8.9 (8.4-10.2) mg/dL Magnesium 1.5 L (1.6-2.3) mg/dL Total Bilirubin 1.2 (0.2-1.3) mg/dL AST 26 (17-59) IU/L ALT 25 (<50) IU/L Alkaline Phosphatase 108 (38-126) U/L Total Protein 7.3 (6.3-8.2) g/dL Albumin 4.1 (3.5-5.0) g/dL Globulin 3.2 (1.7-4.1) g/dL Albumin/Globulin Ratio 1.3 (1.0-2.8) Urine Color Urine Appearance Urine pH (4.5-8.0) Ur Specific [place] (1.000-1.035) Urine Protein (Negative) Urine Glucose (UA) (Negative) g/dL Urine Ketones (NEGATIVE) Urine Occult Blood (Negative) Urine Nitrate (Negative) Urine Bilirubin (NEGATIVE) Urine Urobilinogen (0.2) E.U./dL Ur Leukocyte Esterase (NEGATIVE) Urine RBC (0-5/HPF) Urine WBC (0-5/HPF) Ur Squamous Epith Cells (0-5/HPF) Urine Bacteria (None) Ur Culture Indicated? Blood Type Antibody Screen 05/09/22 05/09/22 Range/Units 06:25 10:36 WBC (4.5-11.0) X10^3/uL RBC (4.5-5.9) X10^6/uL Hgb (13.5-17.5) g/dL Hct (41-53) % MCV (80-100) fL MCH (26-34) PG MCHC (30-36) % RDW (11.6-14.8) % Plt Count (150-400) X10^3/uL Neut % (Auto) (50-75) % Lymph % (Auto) (25-40) % Robertson % (Auto) (3-14) % Eos % (Auto) (2-4) % Baso % (Auto) (0-2) % Neut # (Auto) (9300-4581) /uL Lymph # (Auto) (3800-3809) /uL Robertson # (Auto) (0-900) /uL Eos # (Auto) (0-450) /uL Baso # (Auto) (0-100) /uL PT (10.1-12.7) SECONDS INR (0.9-1.3) Sodium (137-145) mmol/L Potassium (3.4-5.1) mmol/L Chloride (98-107) mmol/L Carbon Dioxide (22-32) mmol/L BUN (9-20) mg/dL Creatinine (0.66-1.25) mg/dL Estimated GFR (>60) mL/min BUN/Creatinine Ratio (6-22) Glucose (80-110) mg/dL Calcium (8.4-10.2) mg/dL Magnesium (1.6-2.3) mg/dL Total Bilirubin (0.2-1.3) mg/dL AST (17-59) IU/L ALT (<50) IU/L Alkaline Phosphatase (38-126) U/L Total Protein (6.3-8.2) g/dL Albumin (3.5-5.0) g/dL Globulin (1.7-4.1) g/dL Albumin/Globulin Ratio (1.0-2.8) Urine Color Red Urine Appearance Cloudy Urine pH 7.5 (4.5-8.0) Ur Specific [place] 1.010 (1.000-1.035) Urine Protein 1+ H (Negative) Urine Glucose (UA) Negative (Negative) g/dL Urine Ketones Negative (NEGATIVE) Urine Occult Blood 3+ H (Negative) Urine Nitrate Negative (Negative) Urine Bilirubin Negative (NEGATIVE) Urine Urobilinogen 0.2 (0.2) E.U./dL Ur Leukocyte Esterase 1+ H (NEGATIVE) Urine RBC >100/hpf H (0-5/HPF) Urine WBC 5-10/hpf H (0-5/HPF) Ur Squamous Epith Cells None seen (0-5/HPF) Urine Bacteria None seen (None) Ur Culture Indicated? Specimen cultured Blood Type B Positive Antibody Screen Negative <Lucie Pruitt, DO - Last Filed: 05/09/22 17:56> Lab Data Labs: Lab Results 05/09/22 05/09/22 05/09/22 Range/Units 06:25 06:25 06:25 WBC 10.7 (4.5-11.0) X10^3/uL RBC 4.36 L (4.5-5.9) X10^6/uL Hgb 12.9 L (13.5-17.5) g/dL Hct 38.2 L (41-53) % MCV 87.8 (80-100) fL MCH 29.7 (26-34) PG MCHC 33.8 (30-36) % RDW 14.3 (11.6-14.8) % Plt Count 290 (150-400) X10^3/uL Neut % (Auto) 88.6 H (50-75) % Lymph % (Auto) 6.6 L (25-40) % Robertson % (Auto) 4.3 (3-14) % Eos % (Auto) 0.3 L (2-4) % Baso % (Auto) 0.2 (0-2) % Neut # (Auto) 9500 H (8420-5180) /uL Lymph # (Auto) 700 L (4985-6594) /uL Robertson # (Auto) 500 (0-900) /uL Eos # (Auto) 0 (0-450) /uL Baso # (Auto) 0 (0-100) /uL PT 33.7 H (10.1-12.7) SECONDS INR 2.9 H (0.9-1.3) Sodium 137 (137-145) mmol/L Potassium 3.8 (3.4-5.1) mmol/L Chloride 108 H (98-107) mmol/L Carbon Dioxide 23 (22-32) mmol/L BUN 18 (9-20) mg/dL Creatinine 0.56 L (0.66-1.25) mg/dL Estimated GFR > 60 (>60) mL/min BUN/Creatinine Ratio 32.1 H (6-22) Glucose 137 H (80-110) mg/dL Calcium 8.9 (8.4-10.2) mg/dL Magnesium 1.5 L (1.6-2.3) mg/dL Total Bilirubin 1.2 (0.2-1.3) mg/dL AST 26 (17-59) IU/L ALT 25 (<50) IU/L Alkaline Phosphatase 108 (38-126) U/L Total Protein 7.3 (6.3-8.2) g/dL Albumin 4.1 (3.5-5.0) g/dL Globulin 3.2 (1.7-4.1) g/dL Albumin/Globulin Ratio 1.3 (1.0-2.8) Urine Color Urine Appearance Urine pH (4.5-8.0) Ur Specific [place] (1.000-1.035) Urine Protein (Negative) Urine Glucose (UA) (Negative) g/dL Urine Ketones (NEGATIVE) Urine Occult Blood (Negative) Urine Nitrate (Negative) Urine Bilirubin (NEGATIVE) Urine Urobilinogen (0.2) E.U./dL Ur Leukocyte Esterase (NEGATIVE) Urine RBC (0-5/HPF) Urine WBC (0-5/HPF) Ur Squamous Epith Cells (0-5/HPF) Urine Bacteria (None) Ur Culture Indicated? Blood Type Antibody Screen 05/09/22 05/09/22 Range/Units 06:25 10:36 WBC (4.5-11.0) X10^3/uL RBC (4.5-5.9) X10^6/uL Hgb (13.5-17.5) g/dL Hct (41-53) % MCV (80-100) fL MCH (26-34) PG MCHC (30-36) % RDW (11.6-14.8) % Plt Count (150-400) X10^3/uL Neut % (Auto) (50-75) % Lymph % (Auto) (25-40) % Robertson % (Auto) (3-14) % Eos % (Auto) (2-4) % Baso % (Auto) (0-2) % Neut # (Auto) (0718-1898) /uL Lymph # (Auto) (8556-7392) /uL Robertson # (Auto) (0-900) /uL Eos # (Auto) (0-450) /uL Baso # (Auto) (0-100) /uL PT (10.1-12.7) SECONDS INR (0.9-1.3) Sodium (137-145) mmol/L Potassium (3.4-5.1) mmol/L Chloride (98-107) mmol/L Carbon Dioxide (22-32) mmol/L BUN (9-20) mg/dL Creatinine (0.66-1.25) mg/dL Estimated GFR (>60) mL/min BUN/Creatinine Ratio (6-22) Glucose (80-110) mg/dL Calcium (8.4-10.2) mg/dL Magnesium (1.6-2.3) mg/dL Total Bilirubin (0.2-1.3) mg/dL AST (17-59) IU/L ALT (<50) IU/L Alkaline Phosphatase (38-126) U/L Total Protein (6.3-8.2) g/dL Albumin (3.5-5.0) g/dL Globulin (1.7-4.1) g/dL Albumin/Globulin Ratio (1.0-2.8) Urine Color Red Urine Appearance Cloudy Urine pH 7.5 (4.5-8.0) Ur Specific [place] 1.010 (1.000-1.035) Urine Protein 1+ H (Negative) Urine Glucose (UA) Negative (Negative) g/dL Urine Ketones Negative (NEGATIVE) Urine Occult Blood 3+ H (Negative) Urine Nitrate Negative (Negative) Urine Bilirubin Negative (NEGATIVE) Urine Urobilinogen 0.2 (0.2) E.U./dL Ur Leukocyte Esterase 1+ H (NEGATIVE) Urine RBC >100/hpf H (0-5/HPF) Urine WBC 5-10/hpf H (0-5/HPF) Ur Squamous Epith Cells None seen (0-5/HPF) Urine Bacteria None seen (None) Ur Culture Indicated? Specimen cultured Blood Type B Positive Antibody Screen Negative ECG Data Interpretation: Atrial fibrillation rate [address] changes PVC noted similar to previous EKG MDM Narrative Medical decision making narrative: Patient has been signed out to me by Dr. Vigil. I seen evaluated patient self. He is in no acute distress. He does have gross hematuria with blood clots in Zepeda catheter. Been irrigated now with 3 L of normal saline. He is noted to be in AFib with RVR he is on warfarin but does appear to be on any rate controlling medications. He apparently also has hyperthyroidism and is on methimazole. INR today is 2.9. Urine has cleared. Dr. Butler patient's PCP has been updated the patient's symptoms test results. Agrees with holding Coumadin in till evaluation with Urology and okay to start metoprolol tartrate for rate control. Questionable how compliant patient is with medications. Discharge Plan Departure Patient Disposition: Home Clinical Impression: Hematuria, Atrial fibrillation Instructions: Atrial Fibrillation, DI for Hematuria Activity Restrictions/Additional Instructions: *You have been diagnosed with hematuria, atrial fibrillation *What to do: At this time you will need to follow-up with urology *Continue to take medications as directed STOP COUMADIN FOR NOW Start taking metoprolol 12.5 mg twice a day --> SENT TO [facility] IN [place] *Follow up with your primary care provider in 2-3 days or call [phone] *Return to ER if you should have gross blood in catheter catheter not working, chest pain or palpitation or any new, worsening or concerning symptoms Prescriptions: New metoprolol tartrate 25 mg tablet 12.5 mg PO BID Qty: 60 0RF metoprolol tartrate 25 mg tablet 12.5 mg PO BID Qty: 60 0RF No Action methenamine hippurate [Hiprex] 1 gram tablet 0.5 g PO BID Qty: 90 3RF methimazole 5 mg tablet 5 mg PO DAILY Qty: 90 3RF aspirin [Adult Low Dose Aspirin] 81 mg tablet,delayed release (DR/EC) 81 mg PO DAILY gabapentin 600 mg tablet 600 mg PO BID atorvastatin 80 mg tablet 80 mg PO DAILY Qty: 90 3RF warfarin 5 mg tablet See Rx Instructions .ROUTE .COMPLEX Qty: 90 3RF Hold Instructions: Bleeding in urinary catheter Rx Instructions: Take 2.5mg Thursday and 5mg all other days or as directed. Referrals: Lloyd Butler MD [Primary Care Provider] - Visit Report Forms: Patient Portal/API
[2022-05-09 06:45] LABS: Add Manual Diff / Slide Review NO; Basophils Absolute Auto 0 /uL (0-100); Basophils Percent Auto 0.2 % (0-2); Eosinophils Absolute Auto 0 /uL (0-450); Eosinophils Percent Auto 0.3 % (2-4); Hematocrit 38.2 % (41-53); Hemoglobin 12.9 g/dL (13.5-17.5); Lymphocytes Absolute Auto 700 /uL (1100-4500); Lymphocytes Percent Auto 6.6 % (25-40); Mean Corpuscular HGB Conc 33.8 % (30-36); Mean Corpuscular Hemoglobin 29.7 PG (26-34); Mean Corpuscular Volume 87.8 fL (80-100); Monocytes Absolute Auto 500 /uL (0-900); Monocytes Percent Auto 4.3 % (3-14); Neutrophils Absolute Auto 9500 /uL (1500-7000); Neutrophils Percent Auto 88.6 % (50-75); Platelet Count 290 X10^3/uL (150-400); Red Blood Cell Count 4.36 X10^6/uL (4.5-5.9); Red Cell Distribution Width 14.3 % (11.6-14.8); White Blood Cell Count 10.7 X10^3/uL (4.5-11.0)
[2022-05-09 06:46] LABS: INR 2.9 (0.9-1.3); Prothrombin Time 33.7 SECONDS (10.1-12.7)
[2022-05-09 06:52] LABS: Alanine Aminotransferase 25 IU/L (<50); Albumin 4.1 g/dL (3.5-5.0); Albumin Globulin Ratio 1.3 (1.0-2.8); Alkaline Phosphatase 108 U/L (38-126); Aspartate Aminotransferase 26 IU/L (17-59); BUN Creatinine Ratio 32.1 (6-22); Bilirubin Total 1.2 mg/dL (0.2-1.3); Blood Urea Nitrogen 18 mg/dL (9-20); Calcium 8.9 mg/dL (8.4-10.2); Carbon Dioxide 23 mmol/L (22-32); Chloride 108 mmol/L (98-107); Estimated Glomerular Filt Rate > 60 mL/min (>60); Globulin 3.2 g/dL (1.7-4.1); Glucose 137 mg/dL (80-110); HEMOLYSIS < 15 (0-50); Magnesium 1.5 mg/dL (1.6-2.3); Potassium 3.8 mmol/L (3.4-5.1); Sodium 137 mmol/L (137-145); Total Protein 7.3 g/dL (6.3-8.2)
[2022-05-09] MEDS: METOPROLOL ER 25 MG TABLET 12.5 MG PO (09:01)
[2022-05-09 11:00] LABS: Appearance Urine UA CLOUDY; Bilirubin Urine UA NEGATIVE (NEGATIVE); Color Urine UA RED; Glucose Urine UA NEGATIVE (Negative); Ketones Urine UA NEGATIVE (NEGATIVE); Leukocyte Esterase Urine UA 1+ (NEGATIVE); Nitrite Urine UA NEGATIVE (Negative); Occult Blood Urine UA 3+ (Negative); Protein Urine UA 1+ (Negative); Urobilinogen Urine UA 0.2 E.U./dL (0.2); pH Urine UA 7.5 (4.5-8.0)
[2022-05-09 11:04] LABS: Bacteria Urine None Seen; Culture Indicated Urine Specimen Cultured; RBC Urine >100/HPF (0-5/HPF); Squamous Epithelial Cell Urine None Seen (0-5/HPF); WBC Urine 5-10/HPF (0-5/HPF)
== END 2022-05-09 11:05 | disposition home or self-care (01) ==
PROVIDERS: Emergency Medicine; Emergency Provider Emergency Medicine; PCP Internal Medicine
DX: R31.9 Hematuria, unspecified (principal); I48.91 Unspecified atrial fibrillation; Z79.01 Long term (current) use of anticoagulants
CPT/HCPCS: 36415; 80053; 81001; 83735; 85025; 85610; 86850; 86900; 86901; 87077; 87086; 87186; 93005; 99284

== ENCOUNTER → 2022-05-26 07:52 | Outpatient (CLI) | payer MEDICARE, SELFPAY ==
[2022-02-04 10:27] VITALS: BMI 22.6
[2022-05-26 09:35] LABS: INR 4.5 (0.9-1.3); Prothrombin Time 51.9 SECONDS (10.1-12.7)
== END ==
PROVIDERS: PCP Internal Medicine; Referring Provider Internal Medicine; Visit Provider Internal Medicine
DX: Z79.01 Long term (current) use of anticoagulants (principal)
CPT/HCPCS: 36415; 85610

== ENCOUNTER → 2022-06-02 07:19 | Outpatient (CLI) | payer MEDICARE, SELFPAY ==
[2022-02-04 10:27] VITALS: BMI 22.6
[2022-06-02 08:19] LABS: INR 1.7 (0.9-1.3); Prothrombin Time 19.3 SECONDS (10.1-12.7)
== END ==
PROVIDERS: PCP Internal Medicine; Referring Provider Internal Medicine; Visit Provider Internal Medicine
DX: Z79.01 Long term (current) use of anticoagulants (principal)
CPT/HCPCS: 36415; 85610

== ENCOUNTER → 2022-06-10 10:42 | Outpatient (CLI) | payer MEDICARE, SELFPAY ==
[2022-02-04 10:27] VITALS: BMI 22.6
== END ==
PROVIDERS: PCP Internal Medicine; Visit Provider Specialist
DX: R30.0 Dysuria (principal); R33.9 Retention of urine, unspecified
CPT/HCPCS: 51702; 87077; 87086; 87186

== ENCOUNTER 2022-06-18 18:45 | Emergency (ER) | payer MEDICARE, SELFPAY ==
[2022-02-04 10:27] VITALS: BMI 22.6
[2022-06-18] VITALS (15 sets, daily range): BP systolic 114–191; BP diastolic 65–112; PULSE 91–141; RESP 24–98; TEMP 36.3; O2SAT 94–98; BMI 20.7
--- NOTE | 2022-06-18 19:35 | ED_ITS ---
HPI - Abdominal Pain General Chief Complaint: Abdominal Pain Stated Complaint: kidney stones Time Seen by Provider: 06/18/22 19:34 Source: patient and family Mode of arrival: Ambulatory Limitations: no limitations History of Present Illness HPI narrative: This is a 82-year-old male with history of atrial fibrillation on warfarin, cardiomyopathy, hypothyroidism, diabetes and chronic urinary retention. Patient presents with complaint of severe suprapubic pain. Patient states his catheter has been draining appropriately. He had eye surgery on the left eye yesterday had stopped his warfarin prior but restarted last night. Patient states significant pain that has been slowly building as the day goes by no flank pain, no fevers or chills, no chest pain or shortness of breath, heart rates noted to be elevated here in the department he does not appreciated, no syncope. No nausea or vomiting. He states he had a normal bowel movement before coming into the emergency department. He states his catheter seems to be draining yellow urine but he is having quite a bit of pain in what feels like his bladder. Patient denies new swelling in his extremities. He saw Dr. Conteh in the office on the for his Zepeda catheter be changed and states that was uneventful. Related Data Home Medications Medication Instructions Recorded Confirmed aspirin 81 mg tablet,delayed 81 mg PO DAILY 02/04/22 06/10/22 release (Adult Low Dose Aspirin) gabapentin 600 mg tablet 600 mg PO BID 02/04/22 06/10/22 ampicillin 500 mg capsule 1 g PO TID 06/10/22 06/10/22 fosfomycin tromethamine 3 gram 3 g PO ONCE 06/10/22 06/10/22 oral packet Previous Rx's Medication Instructions Recorded methimazole 5 mg tablet 5 mg PO DAILY #90 tabs 02/04/22 atorvastatin 80 mg tablet 80 mg PO DAILY #90 tabs 02/06/22 warfarin 5 mg tablet See Rx Instructions .Route 04/08/22 .COMPLEX #90 tabs metoprolol tartrate 25 mg tablet 12.5 mg PO BID #60 tabs 05/09/22 finasteride 5 mg tablet 5 mg PO DAILY #90 tabs 06/10/22 cephalexin 500 mg capsule 500 mg PO BID 7 days #14 caps 06/18/22 Allergies Allergy/AdvReac Type Severity Reaction Status Date / Time No Known Drug Allergies Allergy Verified 06/10/22 10:33 Review of Systems Review of Systems ROS Unobtainable: All systems reviewed & are unremarkable except as noted in HPI and below Patient History Medical History Atrial fibrillation Bladder stones BPH w urinary obs/LUTS Cardiomyopathy (2013) CVA (cerebral vascular accident) (08/03/15) Diabetes mellitus History of UTI Hyperthyroidism Recurrent UTI Stenosis of right carotid artery Trigeminal neuralgia Urinary retention (2014) Urinary retention Surgical History S/P carotid endarterectomy (01/29/22) S/P vasectomy Family History Father CVA (cerebral vascular accident) Sister Thyroid disorder Social History household members: none Smoking Status: Never smoker Smoking Status: Never smoker alcohol intake frequency: holidays/special occasions only Substance Use Type: does not use Exam Narrative Exam Narrative: GENERAL: Alert and oriented x three, elderly male in mild distress HEENT: Head normocephalic, atraumatic, EOMI, pupils reactive, face symmetric, moist mucous membranes NECK: Supple, full range of motion CARDIOVASCULAR: Tachycardic and irregularly irregular rate and rhythm without murmurs, rubs or gallops. No JVD. Mild bilateral lower extremity swelling. RESPIRATORY: Breath sounds equal bilaterally, no wheezes rales or rhonchi. No tachypnea, no accessory muscle use. ABDOMEN: Soft, nontender the patient seen after Zepeda catheter changed out pain is resolved. Normoactive bowel sounds all 4 quadrants. No guarding or rebound, rigidity, no mass : No CVA tenderness. Zepeda catheter in place draining dark brown/reddish urine. No clots are appreciated. EXTREMITIES: Normal range of motion, no clubbing or edema. Neurovascularly intact NEUROLOGICAL: Cranial nerves II through XII grossly intact. Moving all extremities SKIN: Warm, dry, no petechiae, no rashes or lesions. Initial Vital Signs Initial Vital Signs: Vital Signs Temperature 97.4 F L 06/18/22 18:52 Pulse Rate 124 H 06/18/22 18:52 Respiratory Rate 98 H 06/18/22 18:52 Blood Pressure 191/112 H 06/18/22 18:52 Pulse Oximetry 98 06/18/22 18:52 Oxygen Delivery Method 06/18/22 18:52 Course Orders Ordered: Discontinued Medications Metoprolol Tartrate (Metoprolol Tartrate 5 Mg/5 Ml Inj) 5 mg IV Q5M [facility] Stop: 06/18/22 19:56 Last Admin: 06/18/22 20:14 Dose: 5 mg Documented By: Admin: 06/18/22 20:07 Dose: 5 mg Documented By: Admin: 06/18/22 20:01 Dose: 5 mg Documented By: YOANDY Vital Signs Vital signs: Vital Signs - 8 hr 06/18/22 18:52 06/18/22 19:26 06/18/22 19:27 Temperature 97.4 F L Pulse Rate 124 H 135 H Respiratory Rate 98 H 35 H Blood Pressure 191/112 H 114/87 Pulse Oximetry 98 Oxygen Delivery Method Room Air 06/18/22 19:27 06/18/22 19:30 06/18/22 19:30 Temperature Pulse Rate 141 H 131 H Respiratory Rate 37 H 35 H Blood Pressure 176/107 H Pulse Oximetry 97 96 Oxygen Delivery Method 06/18/22 20:00 06/18/22 20:00 06/18/22 20:05 Temperature Pulse Rate 129 H 107 H Respiratory Rate 43 H 42 H Blood Pressure 177/85 H Pulse Oximetry 96 97 Oxygen Delivery Method 06/18/22 20:05 06/18/22 20:10 06/18/22 20:10 Temperature Pulse Rate 103 H Respiratory Rate 55 H Blood Pressure 150/84 H 137/73 Pulse Oximetry 94 Oxygen Delivery Method 06/18/22 20:15 06/18/22 20:15 Temperature Pulse Rate 93 H Respiratory Rate 64 H Blood Pressure 147/76 H Pulse Oximetry 95 Oxygen Delivery Method MDM - Abdominal Pain Lab Data Result diagrams: 06/18/22 19:14 06/18/22 19:14 Labs: Lab Results 06/18/22 06/18/22 06/18/22 Range/Units 19:14 19:14 19:14 WBC 13.1 H (4.5-11.0) X10^3/uL RBC 4.64 (4.5-5.9) X10^6/uL Hgb 14.2 (13.5-17.5) g/dL Hct 40.8 L (41-53) % MCV 88.0 (80-100) fL MCH 30.5 (26-34) PG MCHC 34.7 (30-36) % RDW 14.8 (11.6-14.8) % Plt Count 261 (150-400) X10^3/uL Neut % (Auto) 83.0 H (50-75) % Lymph % (Auto) 11.1 L (25-40) % [place] % (Auto) 5.5 (3-14) % Eos % (Auto) 0.1 L (2-4) % Baso % (Auto) 0.3 (0-2) % Neut # (Auto) 55663 H (5965-5305) /uL Lymph # (Auto) 1500 (5335-6030) /uL [place] # (Auto) 700 (0-900) /uL Eos # (Auto) 0 (0-450) /uL Baso # (Auto) 0 (0-100) /uL PT (10.1-12.7) SECONDS INR (0.9-1.3) APTT (26-36) SECONDS Sodium 140 (137-145) mmol/L Potassium 4.3 (3.4-5.1) mmol/L Chloride 106 (98-107) mmol/L Carbon Dioxide 18 L (22-32) mmol/L BUN 20 (9-20) mg/dL Creatinine 0.60 L (0.66-1.25) mg/dL Estimated GFR > 60 (>60) mL/min BUN/Creatinine Ratio 33.3 H (6-22) Glucose 156 H (80-110) mg/dL Calcium 9.3 (8.4-10.2) mg/dL Total Bilirubin 1.9 H (0.2-1.3) mg/dL AST 47 (17-59) IU/L ALT 26 (<50) IU/L Alkaline Phosphatase 119 (38-126) U/L Total Creatine Kinase 89 (55-170) U/L CK-MB (CK-2) TNP CK-MB (CK-2) Rel Index TNP Troponin I 0.014 (0.01-0.034) ng/mL Total Protein 8.3 H (6.3-8.2) g/dL Albumin 4.5 (3.5-5.0) g/dL Globulin 3.8 (1.7-4.1) g/dL Albumin/Globulin Ratio 1.2 (1.0-2.8) Lipase 97 (23-300) U/L TSH (0.47-4.68) uIU/mL Free T4 (0.78-2.19) ng/dL Urine Color Urine Appearance Urine pH (4.5-8.0) Ur Specific [place] (1.000-1.035) Urine Protein (Negative) Urine Glucose (UA) (Negative) g/dL Urine Ketones (NEGATIVE) Urine Occult Blood (Negative) Urine Nitrate (Negative) Urine Bilirubin (NEGATIVE) Urine Urobilinogen (0.2) E.U./dL Ur Leukocyte Esterase (NEGATIVE) Urine RBC (0-5/HPF) Urine WBC (0-5/HPF) Urine Bacteria (None) Ur Culture Indicated? 06/18/22 06/18/22 06/18/22 Range/Units 19:14 19:14 19:20 WBC (4.5-11.0) X10^3/uL RBC (4.5-5.9) X10^6/uL Hgb (13.5-17.5) g/dL Hct (41-53) % MCV (80-100) fL MCH (26-34) PG MCHC (30-36) % RDW (11.6-14.8) % Plt Count (150-400) X10^3/uL Neut % (Auto) (50-75) % Lymph % (Auto) (25-40) % [place] % (Auto) (3-14) % Eos % (Auto) (2-4) % Baso % (Auto) (0-2) % Neut # (Auto) (6274-7598) /uL Lymph # (Auto) (4041-0137) /uL [place] # (Auto) (0-900) /uL Eos # (Auto) (0-450) /uL Baso # (Auto) (0-100) /uL PT 18.6 H (10.1-12.7) SECONDS INR 1.6 H (0.9-1.3) APTT 31 (26-36) SECONDS Sodium (137-145) mmol/L Potassium (3.4-5.1) mmol/L Chloride (98-107) mmol/L Carbon Dioxide (22-32) mmol/L BUN (9-20) mg/dL Creatinine (0.66-1.25) mg/dL Estimated GFR (>60) mL/min BUN/Creatinine Ratio (6-22) Glucose (80-110) mg/dL Calcium (8.4-10.2) mg/dL Total Bilirubin (0.2-1.3) mg/dL AST (17-59) IU/L ALT (<50) IU/L Alkaline Phosphatase (38-126) U/L Total Creatine Kinase (55-170) U/L CK-MB (CK-2) CK-MB (CK-2) Rel Index Troponin I (0.01-0.034) ng/mL Total Protein (6.3-8.2) g/dL Albumin (3.5-5.0) g/dL Globulin (1.7-4.1) g/dL Albumin/Globulin Ratio (1.0-2.8) Lipase (23-300) U/L TSH < 0.02 L (0.47-4.68) uIU/mL Free T4 2.98 H (0.78-2.19) ng/dL Urine Color Yellow Urine Appearance Cloudy Urine pH 6.5 (4.5-8.0) Ur Specific [place] 1.020 (1.000-1.035) Urine Protein 2+ H (Negative) Urine Glucose (UA) Negative (Negative) g/dL Urine Ketones Negative (NEGATIVE) Urine Occult Blood 3+ H (Negative) Urine Nitrate Negative (Negative) Urine Bilirubin Negative (NEGATIVE) Urine Urobilinogen 1.0 (0.2) E.U./dL Ur Leukocyte Esterase 3+ H (NEGATIVE) Urine RBC >100/hpf H (0-5/HPF) Urine WBC >100/hpf H (0-5/HPF) Urine Bacteria Many (>30) H (None) Ur Culture Indicated? Specimen cultured Imaging Data CT scan - abdomen/pelvis: Radiologist's Impression: [address] [address] [address] Scan Report Signed Patient: Juan R Winn MR#: [id number] : 1940 Acct:[id number] Age/Sex: 82 / M Date of Service: 06/18/22 Loc: ED Accession Number: [id number] ?? Procedure: CT kidney ureter bladder (KUB) Ordering Provider: Angy Walker D.O. PROCEDURE:? CT KIDNEY URETER BLADDER (KUB) ? INDICATIONS:? pelvic pain, catheter was draining. ? TECHNIQUE:? Axial sections were acquired from the lung bases to the pubic symphysis.? Coronal and sagittal reformats were performed.? For radiation dose reduction, the following was used: ?automated exposure control, adjustment of mA and/or kV according to patient size.? ? COMPARISON:? None. ? FINDINGS:? Image quality:? Excellent.? ? Lung bases:? There is mild scarring in the lung bases. Heart:? Heart is normal in size. ? URINARY: Right Kidney and Ureter: ? No stones or hydronephrosis.? No hydroureter.? ? Left Kidney and Ureter: ? No stones or hydronephrosis.? No hydroureter. ? Bladder:? There is a Zepeda catheter within a partially distended urinary bladder.? Intraluminal gas within the bladder is likely related to recent catheter placement.? There is mild bladder wall thickening with associated mild perivesicular fat stranding.? No bladder stones. ? ABDOMEN: Liver:? Noncontrast evaluation of the liver demonstrates no discrete? mass.? The liver is slightly nodular in contour suggestive of cirrhosis. Gallbladder:? Within normal limits without calcified gallstones.? ? Biliary ducts:? No biliary ductal dilatation.? ? Pancreas:? Unremarkable.? ? Spleen:? Normal in size.? ? Adrenal Glands:? No adrenal nodules.? ? ? Stomach and Bowel:? Stomach, small bowel loops, and colon are normal in caliber and wall thickness.? The appendix is not well seen but there are no pericecal inflammatory changes to suggest appendicitis. Peritoneum:? No abnormal intraperitoneal fluid.? No free air.? ? Ventral Wall: ? No hernia.? Abdominal Nodes:? No retroperitoneal or mesenteric adenopathy by size criteria.? Vessels:? Aorta and inferior vena cava are normal in size.? ? PELVIS: Pelvic Organs:? The prostate is markedly enlarged.? ? Pelvic Nodes:? There are mildly enlarged right pelvic sidewall lymph nodes measuring up to 1.0 cm on series 2, image 61.? Miscellaneous: No inguinal hernias identified. ? ? ? Bones:? Visualized osseous structures demonstrate no suspicious focal lesions. IMPRESSION:? ? 1. No evidence of nephrolithiasis or obstructive uropathy. ? 2. No bladder stones identified.? Mild concentric bladder wall thickening with associated minimal fat stranding is suggestive of a cystitis or sequelae of chronic bladder outlet obstruction. ? 3. Marked enlargement of the prostate. ? 4. Mildly enlarged right pelvic sidewall lymph nodes are nonspecific.? The differential includes reactive changes or metastatic disease.? ? ? Dictated by: Glenroy Rey M.D. on 06/18/2022 at 20:09 ? ? Approved by: Glenroy Rey M.D. on 06/18/2022 at 20:14?? ECG Data Attestation: I personally reviewed and interpreted this ECG as follows: Prior ECG tracings: available for review Interpretation: AFib with RVR rate of 116 QRS of 92 QTC of 453. No acute ST changes appreciated. Patient has prior from 05/09/2022 which appears similar has her frequent PVCs today. MDM Narrative Medical decision making narrative: Is an 82-year-old male who presents with acute onset of suprapubic pain, patient states his Zepeda catheter is seems to be draining but he is having lot of pain or thinks he might be having kidney stones. He describes it as central lower pelvic. No fevers, no chills he does appear to be tachycardic in AFib RVR. He is normally anticoagulated on Coumadin but did stop it for surgery and restarted last night. Cardiac labs, chest x-ray, KUB and labs as well as urine were obtained. Patient was given metoprolol IV patient is rate controlled. Imaging does not show any acute changes. INR subtherapeutic but not unexpected based on his just restarting his medication. Urine does show changes consistent with possible infection. Discharge Plan Departure Patient Disposition: Home Clinical Impression: Atrial fibrillation with rapid ventricular response, Malfunction of Zepeda catheter Activity Restrictions/Additional Instructions: Follow-up with your physician for recheck. Your INR today is 1.6 Take an extra dose of her oral metoprolol at home this evening. Your imaging today shows a possible lung nodule it is recommended to have a chest CT in the future to rule out nodule or further evaluate this. Please talk with your physician and they can help with this. Your urine shows possible bladder infection I would start you on an antibiotic. You may continue your home medications as prescribed. Prescription sent to [facility] [place]. Please return for fevers new or worsening abdominal back or flank pain, difficulty with urination or if your catheter seems blocked or not draining properly or other new or concerning symptoms. Prescriptions: New cephalexin 500 mg capsule 500 mg PO BID 7 Days Qty: 14 0RF No Action methimazole 5 mg tablet 5 mg PO DAILY Qty: 90 3RF aspirin [Adult Low Dose Aspirin] 81 mg tablet,delayed release (DR/EC) 81 mg PO DAILY gabapentin 600 mg tablet 600 mg PO BID atorvastatin 80 mg tablet 80 mg PO DAILY Qty: 90 3RF warfarin 5 mg tablet See Rx Instructions .ROUTE .COMPLEX Qty: 90 3RF Hold Instructions: Bleeding in urinary catheter Rx Instructions: Take 2.5mg Thursday and 5mg all other days or as directed. metoprolol tartrate 25 mg tablet 12.5 mg PO BID Qty: 60 0RF fosfomycin tromethamine 3 gram packet 3 g PO ONCE ampicillin 500 mg capsule 1 g PO TID finasteride 5 mg tablet 5 mg PO DAILY Qty: 90 3RF Referrals: Lloyd Butler MD [Primary Care Provider] - Visit Report Forms: Patient Portal/API
--- NOTE | 2022-06-18 19:40 | DI.CT.S_ITS ---
PROCEDURE: CT KIDNEY URETER BLADDER (KUB) INDICATIONS: pelvic pain, catheter was draining. TECHNIQUE: Axial sections were acquired from the lung bases to the pubic symphysis. Coronal and sagittal reformats were performed. For radiation dose reduction, the following was used: automated exposure control, adjustment of mA and/or kV according to patient size. COMPARISON: None. FINDINGS: Image quality: Excellent. Lung bases: There is mild scarring in the lung bases. Heart: Heart is normal in size. URINARY: Right Kidney and Ureter: No stones or hydronephrosis. No hydroureter. Left Kidney and Ureter: No stones or hydronephrosis. No hydroureter. Bladder: There is a Zepeda catheter within a partially distended urinary bladder. Intraluminal gas within the bladder is likely related to recent catheter placement. There is mild bladder wall thickening with associated mild perivesicular fat stranding. No bladder stones. ABDOMEN: Liver: Noncontrast evaluation of the liver demonstrates no discrete mass. The liver is slightly nodular in contour suggestive of cirrhosis. Gallbladder: Within normal limits without calcified gallstones. Biliary ducts: No biliary ductal dilatation. Pancreas: Unremarkable. Spleen: Normal in size. Adrenal Glands: No adrenal nodules. Stomach and Bowel: Stomach, small bowel loops, and colon are normal in caliber and wall thickness. The appendix is not well seen but there are no pericecal inflammatory changes to suggest appendicitis. Peritoneum: No abnormal intraperitoneal fluid. No free air. Ventral Wall: No hernia. Abdominal Nodes: No retroperitoneal or mesenteric adenopathy by size criteria. Vessels: Aorta and inferior vena cava are normal in size. PELVIS: Pelvic Organs: The prostate is markedly enlarged. Pelvic Nodes: There are mildly enlarged right pelvic sidewall lymph nodes measuring up to 1.0 cm on series 2, image 61. Miscellaneous: No inguinal hernias identified. Bones: Visualized osseous structures demonstrate no suspicious focal lesions. IMPRESSION: 1. No evidence of nephrolithiasis or obstructive uropathy. 2. No bladder stones identified. Mild concentric bladder wall thickening with associated minimal fat stranding is suggestive of a cystitis or sequelae of chronic bladder outlet obstruction. 3. Marked enlargement of the prostate. 4. Mildly enlarged right pelvic sidewall lymph nodes are nonspecific. The differential includes reactive changes or metastatic disease. Dictated by: Glenroy Rey M.D. on 06/18/2022 at 20:09 Approved by: Glenroy Rey M.D. on 06/18/2022 at 20:14
--- NOTE | 2022-06-18 19:42 | DI.RAD.S_ITS ---
PROCEDURE: XR CHEST 1V INDICATIONS: tachycardia, pelvic pain TECHNIQUE: One view of the chest was acquired. COMPARISON: [facility], CR, XR CHEST 1V, 01/23/2022, 9:01. FINDINGS: Surgical changes and devices: None. Lungs and pleura: There is hyperinflation of the lungs with flattening of the hemidiaphragms compatible with COPD. There is an indistinct nodular opacity within the left mid lung measuring up to 0.7 cm. No acute consolidation. No pleural effusions or pneumothorax. Mediastinum: Mediastinal contours are unchanged. Heart size is enlarged. Bones and chest wall: No suspicious bony lesions. Overlying soft tissues appear unremarkable. IMPRESSION: 1. No acute cardiopulmonary disease. 2. Nodular opacity within the left mid lung may represent confluence of vascular and bony structures but a pulmonary nodules cannot excluded. Recommend a follow-up nonemergent CT for further evaluation if clinically indicated. Dictated by: Glenroy Rey M.D. on 06/18/2022 at 20:21 Approved by: Glenroy Rey M.D. on 06/18/2022 at 20:25
[2022-06-18 19:52] LABS: INR 1.6 (0.9-1.3); Prothrombin Time 18.6 SECONDS (10.1-12.7)
[2022-06-18 19:55] LABS: PTT Partial Thromboplastin Tim 31 SECONDS (26-36)
[2022-06-18 19:59] LABS: Add Manual Diff / Slide Review NO; Basophils Absolute Auto 0 /uL (0-100); Basophils Percent Auto 0.3 % (0-2); Eosinophils Absolute Auto 0 /uL (0-450); Eosinophils Percent Auto 0.1 % (2-4); Hematocrit 40.8 % (41-53); Hemoglobin 14.2 g/dL (13.5-17.5); Lymphocytes Absolute Auto 1500 /uL (1100-4500); Lymphocytes Percent Auto 11.1 % (25-40); Mean Corpuscular HGB Conc 34.7 % (30-36); Mean Corpuscular Hemoglobin 30.5 PG (26-34); Monocytes Absolute Auto 700 /uL (0-900); Monocytes Percent Auto 5.5 % (3-14); Neutrophils Absolute Auto 10900 /uL (1500-7000); Platelet Count 261 X10^3/uL (150-400); Red Blood Cell Count 4.64 X10^6/uL (4.5-5.9); Red Cell Distribution Width 14.8 % (11.6-14.8); White Blood Cell Count 13.1 X10^3/uL (4.5-11.0)
[2022-06-18] MEDS: METOPROLOL TARTRATE 5 MG/5 ML INJ IV ×3 (20:01→20:14)
[2022-06-18 20:12] LABS: Creatine Kinase 89 U/L (55-170)
[2022-06-18 20:14] LABS: Alanine Aminotransferase 26 IU/L (<50); Albumin 4.5 g/dL (3.5-5.0); Albumin Globulin Ratio 1.2 (1.0-2.8); Alkaline Phosphatase 119 U/L (38-126); Aspartate Aminotransferase 47 IU/L (17-59); BUN Creatinine Ratio 33.3 (6-22); Bilirubin Total 1.9 mg/dL (0.2-1.3); Blood Urea Nitrogen 20 mg/dL (9-20); Calcium 9.3 mg/dL (8.4-10.2); Carbon Dioxide 18 mmol/L (22-32); Chloride 106 mmol/L (98-107); Estimated Glomerular Filt Rate > 60 mL/min (>60); Globulin 3.8 g/dL (1.7-4.1); Glucose 156 mg/dL (80-110); HEMOLYSIS 35 (0-50); Lipase 97 U/L (23-300); Potassium 4.3 mmol/L (3.4-5.1); Sodium 140 mmol/L (137-145); Total Protein 8.3 g/dL (6.3-8.2)
[2022-06-18 20:18] LABS: Appearance Urine UA CLOUDY; Bilirubin Urine UA NEGATIVE (NEGATIVE); Color Urine UA YELLOW; Glucose Urine UA NEGATIVE (Negative); Ketones Urine UA NEGATIVE (NEGATIVE); Leukocyte Esterase Urine UA 3+ (NEGATIVE); Nitrite Urine UA NEGATIVE (Negative); Occult Blood Urine UA 3+ (Negative); Protein Urine UA 2+ (Negative); pH Urine UA 6.5 (4.5-8.0)
[2022-06-18 20:23] LABS: Bacteria Urine Many (>30); Culture Indicated Urine Specimen Cultured; RBC Urine >100/HPF (0-5/HPF); WBC Urine >100/HPF (0-5/HPF)
[2022-06-18 20:25] LABS: Troponin I 0.014 ng/mL (0.01-0.034)
[2022-06-18 20:52] LABS: TSH w/ Reflex to FT4 < 0.02 uIU/mL (0.47-4.68)
[2022-06-18 21:16] LABS: Free T4, Direct Thyroxine 2.98 ng/dL (0.78-2.19)
== END 2022-06-18 22:03 | disposition home or self-care (01) ==
PROVIDERS: Emergency Provider Emergency Medicine; PCP Internal Medicine
DX: Z79.01 Long term (current) use of anticoagulants (principal); I48.20 Chronic atrial fibrillation, unspecified; T83.011A Breakdown (mechanical) of indwelling urethral catheter, initial encounter
CPT/HCPCS: 36415; 71045; 74176; 80053; 81001; 82550; 83690; 84439; 84443; 84484; 85025; 85610; 85730; 87077; 87086; 87186; 93005; 96374; 99284; 99285

== ENCOUNTER → 2022-07-10 10:16 | Outpatient (CLI) | payer MEDICARE, SELFPAY ==
[2022-02-04 10:27] VITALS: BMI 22.6
== END ==
PROVIDERS: PCP Internal Medicine; Visit Provider Specialist
DX: R33.9 Retention of urine, unspecified (principal); Z97.8 Presence of other specified devices
CPT/HCPCS: 51702; 87077; 87086; 87186

== ENCOUNTER → 2022-07-17 11:02 | Outpatient (CLI) | payer MEDICARE, SELFPAY ==
[2022-02-04 10:27] VITALS: BMI 22.6
--- NOTE | 2022-07-17 11:05 | DI.RAD.S_ITS ---
PROCEDURE: XR CHEST 2V INDICATIONS: pulm nodule TECHNIQUE: 2 views of the chest were acquired. COMPARISON: [facility], CT, CT ANGIO HEAD AND NECK, 01/23/2022, 9:23. [facility], CR, XR CHEST 1V, 01/23/2022, 9:01. [facility], CR, XR CHEST 1V, 06/18/2022, 19:52. FINDINGS: Surgical changes and devices: None. Lungs and pleura: No consolidation. Prominent upper lobe pulmonary markings. Prominent lung volumes. No pleural effusions or pneumothorax. Mediastinum: Mediastinal contours are unchanged. Heart size is normal. Bones and chest wall: No suspicious bony abnormalities. Soft tissues appear unremarkable. IMPRESSION: Suspect emphysematous change. No conspicuous pulmonary nodule identified. CT chest should be considered for further evaluation. Dictated by: Tristian Woods M.D. on 07/17/2022 at 13:07 Approved by: Tristian Woods M.D. on 07/17/2022 at 13:11
== END ==
PROVIDERS: PCP Internal Medicine; Referring Provider Internal Medicine; Visit Provider Internal Medicine
DX: R91.1 Solitary pulmonary nodule (principal)
CPT/HCPCS: 71046

== ENCOUNTER 2022-08-02 06:53 | Emergency (ER) | payer MEDICARE, SELFPAY ==
[2022-08-01 09:57] VITALS: BMI 22.6
[2022-08-02 07:00] VITALS: BP 133/75; PULSE 110; RESP 20; TEMP 36.4; O2SAT 98; BMI 21.1
--- NOTE | 2022-08-02 07:03 | ED_ITS ---
HPI - Male Genitourinary General Chief complaint: Urogenital-Male Stated complaint: cathater came out Time Seen by Provider: 08/02/22 07:02 History of Present Illness HPI Narrative: 82-year-old male nonsmoker with history of stroke, atrial fibrillation, urinary issues stemming from BPH with chronic indwelling catheter states that yesterday he accidentally pulled out his campa catheter. He states it was painful and bled a bit initially but that stopped and over the course of the night he was unable to urinate but denies any pain, fever, chills or ongoing bleeding. He is here today for help with his catheter. He is not dizzy nor weak or lightheaded. He denies any chest pain or shortness of breath. He denies nausea, vomiting or diarrhea. He has no abdominal pain except maybe a bit of tenderness overlying his bladder developing this morning. Related Data Home Medications Medication Instructions Recorded Confirmed aspirin 81 mg tablet,delayed 81 mg PO DAILY 02/04/22 08/01/22 release (Adult Low Dose Aspirin) gabapentin 600 mg tablet 600 mg PO BID 02/04/22 08/01/22 Previous Rx's Medication Instructions Recorded atorvastatin 80 mg tablet 80 mg PO DAILY #90 tabs 02/06/22 warfarin 5 mg tablet See Rx Instructions .Route 04/08/22 .COMPLEX #90 tabs metoprolol tartrate 25 mg tablet 12.5 mg PO BID #60 tabs 05/09/22 finasteride 5 mg tablet 5 mg PO DAILY #90 tabs 06/10/22 methimazole 5 mg tablet 2.5 mg PO DAILY #90 tabs 07/17/22 Allergies Allergy/AdvReac Type Severity Reaction Status Date / Time No Known Drug Allergies Allergy Verified 08/01/22 11:09 Review of Systems Review of Systems Narrative: GENERAL: Denies chills, fatigue, malaise, fever, sweats. HEENT: Denies sinus pain, ear pain, sore throat, difficulty swallowing, dizziness. RESPIRATORY: Denies dyspnea, cough, wheezing, hemoptysis, sputum. CARDIOVASCULAR: Denies chest pain, palpitations, orthopnea, edema, GASTROINTESTINAL: Denies nausea, vomiting, abdominal pain, diarrhea, constipation, melena. : See HPI MUSCULOSKELETAL: denies weakness, joint pain, or bony pain SKIN: Denies rash, skin lesions, or other NEUROLOGIC: Denies weakness, headache, numbness, change in speech, confusion, seizures, incoordination. PSYCHIATRIC: No concerning psychosocial issues. 12 point review of systems is negative except for those stated above Patient History Medical History Atrial fibrillation Bladder stones BPH w urinary obs/LUTS Cardiomyopathy (2013) Chronic indwelling Campa catheter CVA (cerebral vascular accident) (08/03/15) Diabetes mellitus History of UTI Hyperthyroidism Stenosis of right carotid artery Trigeminal neuralgia Urinary retention (2014) Urinary retention Surgical History S/P carotid endarterectomy (01/29/22) S/P vasectomy Family History Father CVA (cerebral vascular accident) Sister Thyroid disorder Social History household members: none Smoking Status: Never smoker Smoking Status: Never smoker alcohol intake frequency: holidays/special occasions only Substance Use Type: does not use Exam Narrative Exam Narrative: GEN: AOx3 and in mild distress EYES: Pupils are equal, round, and reactive to light and accommodation. Extraoccular muscles are intact bilaterally. There is no subconjunctival hemorrhage or exudate. CHEST: Lungs are clear to auscultation bilaterally and free of wheezes, rales, or rhonchi. Heart rate is regular rhythm, there are no murmurs, clicks, rubs, or gallops. There is no chest wall tenderness. ABD: Abdomen is soft and very minimally tender over bladder There is no guarding or rebound. Bowel sounds are normal in all 4 quadrants. There is no mass or organomegaly. No CVA tenderness EXT: Full painless ROM of all extremities with no loss of sensation or strength. SKIN: Warm, pink, and dry. No erythema or rash Initial Vital Signs Initial Vital Signs: Vital Signs Temperature 97.5 F L 08/02/22 07:00 Pulse Rate 110 H 08/02/22 07:00 Respiratory Rate 20 08/02/22 07:00 Blood Pressure 133/75 08/02/22 07:00 Pulse Oximetry 98 08/02/22 07:00 Oxygen Delivery Method 08/02/22 07:00 Procedures [facility] [place] Procedure Name of Procedure: Bedside US notes >1000mL post void. Campa catheter placed by myself under sterile conditions. Patient is prepped in standard fashion using sterile gloves, sterile drapes, Betadine. Uro gel instilled initially, no external evidence of bleeding. Patient had a 20 Singaporean initially and therefore I attempted to place another, however after multiple minutes of steady pressure I was unable to advance past the prostate. A 16 Singaporean was easily advanced, no blood noted, initially some sediment but eventually clear urine. Sent for culture but given his lack of systemic findings will not initiate any antibiotics. Patient feels quite well, Campa draining appropriately Course Orders Ordered: ED Orders 08/02/22 08:46 Urine Culture Stat Discontinued Medications Lidocaine HCl (Lidocaine 2% (Glydo) 6 Ml Gel) 6 ml TOP NOW ONE Stop: 08/02/22 08:31 Vital Signs Vital signs: Vital Signs - 8 hr 08/02/22 07:00 Temperature 97.5 F L Pulse Rate 110 H Respiratory Rate 20 Blood Pressure 133/75 Pulse Oximetry 98 Oxygen Delivery Method Room Air Discharge Plan Departure Patient Disposition: Home Clinical Impression: Complication of Campa catheter Instructions: How to Care for Your Campa Catheter -- Male Activity Restrictions/Additional Instructions: *You have been diagnosed with [Campa catheter problem. Thankfully easily replaced here in the emergency department though, as we discussed I had to use a 16 Singaporean as the 20 that you had would not advance.] *What to do: *Please continue to take your regular medications as directed. [ *Please follow up with your primary urology provider in 2-3 days, call for an appointment. Let them know you were seen in the Emergency Department and that we ask that you be seen in follow up. We will electronically transmit a record of today's note *Return to Emergency Department if you should have any new, worsening or concerning symptoms, such as [fever greater than 101 F, shaking chills, worsening pain, persistent vomiting or other bothersome symptoms] Prescriptions: No Action aspirin [Adult Low Dose Aspirin] 81 mg tablet,delayed release (DR/EC) 81 mg PO DAILY gabapentin 600 mg tablet 600 mg PO BID methimazole 5 mg tablet 2.5 mg PO DAILY Qty: 90 3RF atorvastatin 80 mg tablet 80 mg PO DAILY Qty: 90 3RF warfarin 5 mg tablet See Rx Instructions .ROUTE .COMPLEX Qty: 90 3RF Hold Instructions: Bleeding in urinary catheter Rx Instructions: Take 2.5mg Thursday and 5mg all other days or as directed. metoprolol tartrate 25 mg tablet 12.5 mg PO BID Qty: 60 0RF finasteride 5 mg tablet 5 mg PO DAILY Qty: 90 3RF Referrals: Lloyd Butler MD [Primary Care Provider] - Nancy Conteh MD [Physician] -
--- NOTE | 2022-08-02 07:21 | PC.NURSE ---
Needs catheter replaced
--- NOTE | 2022-08-02 07:22 | PC.NURSE ---
Report to dayshift RN team - care relinquished at this time
[2022-08-02] MEDS: LIDOCAINE 2% (GLYDO) 6 ML GEL TOP (09:08)
[2022-08-02 09:10] VITALS: BP 136/76; PULSE 111; RESP 18; O2SAT 98
== END 2022-08-02 09:11 | disposition home or self-care (01) ==
PROVIDERS: Emergency Provider Emergency Medicine; PCP Internal Medicine
DX: T83.9XXA Unspecified complication of genitourinary prosthetic device, implant and graft, initial encounter (principal)
CPT/HCPCS: 87077; 87086; 87186; 99283

== ENCOUNTER 2022-08-05 21:05 | Inpatient (IN) | payer MEDICARE, SELFPAY ==
[2022-08-01 09:57] VITALS: BMI 22.6
[2022-08-05 21:10] VITALS: BP 140/72; PULSE 88; RESP 20; TEMP 36.9; O2SAT 100; BMI 21.4
[2022-08-06] VITALS (67 sets, daily range): BP systolic 77–165; BP diastolic 50–110; PULSE 68–157; RESP 16–27; TEMP 36.4–37.2; O2SAT 94–100; BMI 21.4
--- NOTE | 2022-08-06 05:04 | ED_ITS ---
HPI - Male Genitourinary <Lucie Pruitt DO - Last Filed: 08/07/22 03:14> General Chief complaint: Urogenital-Male Stated complaint: states catheter is bleeding all over Time Seen by Provider: 08/06/22 04:17 Source: patient Mode of arrival: Ambulatory History of Present Illness HPI Narrative: Patient is an 82-year-old male history of stroke, atrial fibrillation on warfarin, with BPH presenting with Zepeda catheter issues. He was seen and evaluated here in 08/02/2022 with urinary retention and hematuria. Has no abdominal pain. States that he has blood clots coming out of his penis between his catheter. It was blocked. Related Data Home Medications Medication Instructions Recorded Confirmed aspirin 81 mg tablet,delayed 81 mg PO DAILY 02/04/22 08/06/22 release (Adult Low Dose Aspirin) gabapentin 600 mg tablet 600 mg PO DAILY 02/04/22 08/06/22 Previous Rx's Medication Instructions Recorded atorvastatin 80 mg tablet 80 mg PO DAILY #90 tabs 02/06/22 warfarin 5 mg tablet See Rx Instructions .Route 04/08/22 .COMPLEX #90 tabs metoprolol tartrate 25 mg tablet 12.5 mg PO BID #60 tabs 05/09/22 finasteride 5 mg tablet 5 mg PO DAILY #90 tabs 06/10/22 methimazole 5 mg tablet 2.5 mg PO DAILY #90 tabs 07/17/22 Allergies Allergy/AdvReac Type Severity Reaction Status Date / Time No Known Drug Allergies Allergy Verified 08/01/22 11:09 Review of Systems <Lucie Pruitt DO - Last Filed: 08/07/22 03:14> Review of Systems Narrative: GENERAL: Denies chills,fever HEENT: Denies throat pain RESPIRATORY: Denies dyspnea, cough, wheezing CARDIOVASCULAR: Denies chest pain, palpitations GASTROINTESTINAL: Denies nausea, vomiting : See HPI MUSCULOSKELETAL: Denies extremity pain, injury SKIN: No rash, no laceration, no pruritus NEUROLOGIC: Denies weakness, dizziness, headache, numbness 8 point review of systems is negative except for those stated above and HPI Patient History <Lucie Pruitt DO - Last Filed: 08/07/22 03:14> Medical History Atrial fibrillation Bladder stones BPH w urinary obs/LUTS Cardiomyopathy (2013) Chronic indwelling Zepeda catheter CVA (cerebral vascular accident) (08/03/15) Diabetes mellitus History of UTI Hyperthyroidism Stenosis of right carotid artery Trigeminal neuralgia Urinary retention (2014) Urinary retention Surgical History S/P carotid endarterectomy (01/29/22) S/P vasectomy Family History Father CVA (cerebral vascular accident) Sister Thyroid disorder Social History household members: children Smoking Status: Never smoker alcohol intake: current Smoking Status: Never smoker alcohol intake frequency: holidays/special occasions only Substance Use Type: does not use Exam <Lucie Pruitt DO - Last Filed: 08/07/22 03:14> Initial Vital Signs Initial Vital Signs: Vital Signs Temperature 98.5 F 08/05/22 21:10 Pulse Rate 88 08/05/22 21:10 Respiratory Rate 20 08/05/22 21:10 Blood Pressure 140/72 08/05/22 21:10 Pulse Oximetry 100 08/05/22 21:10 Oxygen Delivery Method 08/05/22 21:10 GENERAL: Alert pleasant 82-year-old male CARDIOVASCULAR: peripheral pulses in tact, cap refill <2 sec RESPIRATORY: No respiratory distress, speaks in full sentences without difficulty [ABDOMEN: Soft, nontender, no guarding or rebound] : Zepeda catheter has been placed by nursing staff. There is actually still blood clot surrounding the penis despite multiple clean up. It is irrigated initially serosanguineous EXTREMITIES: Normal range of motion, no clubbing or edema. Neurovascularly intact NEUROLOGICAL: Cranial nerves II through XII grossly intact. Normal gait and speech. SKIN: Warm, dry, no petechiae, no rashes or lesions. <Vincent Oquendo MD - Last Filed: 08/06/22 16:52> Initial Vital Signs Initial Vital Signs: Vital Signs Temperature 98.5 F 08/05/22 21:10 Pulse Rate 88 08/05/22 21:10 Respiratory Rate 20 08/05/22 21:10 Blood Pressure 140/72 08/05/22 21:10 Pulse Oximetry 100 08/05/22 21:10 Oxygen Delivery Method 08/05/22 21:10 Course <Lucie Edmond, DO - Last Filed: 08/07/22 03:14> Orders Ordered: Acetaminophen (Acetaminophen 325 Mg Tablet) 650 mg PO Q6H [facility] Last Admin: 08/07/22 01:43 Dose: Not Given Documented By: Admin: 08/06/22 19:53 Dose: 650 mg Documented By: ERON Atorvastatin Calcium (Atorvastatin 20 Mg Tablet) 80 mg PO DAILY [facility] Finasteride (Finasteride 5 Mg Tablet) 5 mg PO DAILY [facility] Gabapentin (Gabapentin 600 Mg Tablet) 600 mg PO BID [facility] Last Admin: 08/06/22 21:36 Dose: 600 mg Documented By: ERON Sodium Chloride (Normal Saline 0.9%) 1,000 mls @ 100 mls/hr IV CONT [facility] Last Admin: 08/07/22 03:08 Dose: 100 mls/hr Documented By: Infusion: 08/07/22 03:08 Dose: 100 mls/hr Documented By: Admin: 08/06/22 20:59 Dose: 100 mls/hr Documented By: ERON Cefepime HCl 1 gm/ Sodium (Chloride) 100 mls @ 200 mls/hr IV Q24H [facility] Last Infusion: 08/07/22 03:06 Dose: 0 mls/hr Documented By: Admin: 08/06/22 20:58 Dose: 200 mls/hr Documented By: ERON Methimazole (Methimazole 5 Mg Tablet) 2.5 mg PO DAILY [facility] Metoprolol Tartrate (Metoprolol Ir 25 Mg Tablet) 12.5 mg PO BID [facility] Naloxone HCl (Naloxone 0.4 Mg/Ml Vial) 0.2 mg IV Q2MIN PRN PRN Reason: Opiate Reversal Sodium Chloride (Sodium Chloride 0.9% Flush) 10 ml IV PRN PRN PRN Reason: Flush Sodium Chloride (Sodium Chloride 0.9% Flush) 10 ml IV BID [facility] Last Admin: 08/06/22 19:53 Dose: 10 ml Documented By: ERON Discontinued Medications Hydromorphone HCl (Hydromorphone 0.5 Mg Inj) 0.5 mg IV NOW ONE Stop: 08/06/22 08:11 Last Admin: 08/06/22 08:50 Dose: 0.5 mg Documented By: ALCIDES Phytonadione 5 mg/ Sodium (Chloride) 100.5 mls @ 201 mls/hr IV NOW ONE Stop: 08/06/22 08:46 Last Infusion: 08/06/22 14:01 Dose: 0 mls/hr Documented By: ALCIDES(2) Admin: 08/06/22 09:14 Dose: 201 mls/hr Documented By: ALCIDES Sodium Chloride (Normal Saline 0.9%) 1,000 mls @ 200 mls/hr IV CONT [facility] Last Infusion: 08/06/22 16:14 Dose: 0 mls/hr Documented By: Admin: 08/06/22 09:16 Dose: 200 mls/hr Documented By: ALCIDES Lidocaine HCl (Lidocaine 2% (Glydo) 6 Ml Gel) 6 ml TOP NOW ONE Stop: 08/06/22 12:38 Last Admin: 08/06/22 13:00 Dose: 6 ml Documented By: ALCIDES(2) Metoprolol Tartrate (Metoprolol Ir 25 Mg Tablet) 12.5 mg PO NOW ONE Stop: 08/06/22 19:40 Last Admin: 08/06/22 19:53 Dose: 12.5 mg Documented By: ERON Vital Signs Vital signs: Vital Signs - 8 hr 08/06/22 09:00 08/06/22 09:00 08/06/22 09:50 Temperature 97.5 F L Pulse Rate 115 H 129 H Respiratory Rate 18 17 Blood Pressure 101/57 L 152/65 H Pulse Oximetry 98 08/06/22 09:50 08/06/22 10:00 08/06/22 09:15 Temperature 97.5 F L 97.5 F L Pulse Rate 130 H 130 H Respiratory Rate 18 17 Blood Pressure 108/61 107/61 125/74 Pulse Oximetry 08/06/22 09:15 08/06/22 09:30 08/06/22 09:30 Temperature Pulse Rate 124 H 68 Respiratory Rate Blood Pressure 104/68 Pulse Oximetry 98 96 08/06/22 09:32 08/06/22 09:32 08/06/22 09:45 Temperature Pulse Rate 122 H Respiratory Rate Blood Pressure 119/77 127/70 Pulse Oximetry 98 08/06/22 09:45 08/06/22 09:46 08/06/22 09:46 Temperature Pulse Rate 129 H 117 H Respiratory Rate Blood Pressure 152/65 H Pulse Oximetry 99 97 08/06/22 09:56 08/06/22 09:56 08/06/22 10:00 Temperature Pulse Rate 123 H 130 H Respiratory Rate Blood Pressure 108/61 Pulse Oximetry 98 99 08/06/22 10:01 08/06/22 10:01 08/06/22 10:15 Temperature Pulse Rate 135 H Respiratory Rate Blood Pressure 137/87 127/73 Pulse Oximetry 99 08/06/22 10:15 08/06/22 10:30 08/06/22 10:30 Temperature Pulse Rate 128 H 118 H Respiratory Rate Blood Pressure 124/64 Pulse Oximetry 97 98 08/06/22 10:45 08/06/22 10:45 08/06/22 11:18 Temperature 99 F Pulse Rate 137 H 120 H Respiratory Rate 17 Blood Pressure 129/70 128/77 Pulse Oximetry 99 08/06/22 11:00 08/06/22 11:00 08/06/22 11:15 Temperature Pulse Rate 116 H Respiratory Rate Blood Pressure 127/74 128/77 Pulse Oximetry 99 08/06/22 11:15 08/06/22 11:30 08/06/22 11:30 Temperature 99 F Pulse Rate 120 H 118 H Respiratory Rate 18 Blood Pressure 130/82 Pulse Oximetry 99 98 08/06/22 11:45 08/06/22 11:45 08/06/22 12:00 Temperature Pulse Rate 117 H Respiratory Rate Blood Pressure 122/73 131/65 Pulse Oximetry 97 08/06/22 12:00 08/06/22 12:15 08/06/22 12:15 Temperature 99 F Pulse Rate 116 H 106 H Respiratory Rate 18 18 Blood Pressure 124/84 Pulse Oximetry 98 98 08/06/22 13:47 08/06/22 12:30 08/06/22 12:30 Temperature 98 F Pulse Rate 110 H Respiratory Rate Blood Pressure 127/77 Pulse Oximetry 98 08/06/22 12:46 08/06/22 12:46 08/06/22 13:00 Temperature Pulse Rate 130 H 128 H Respiratory Rate Blood Pressure 151/110 H Pulse Oximetry 99 99 08/06/22 13:17 08/06/22 13:17 08/06/22 13:30 Temperature Pulse Rate 137 H Respiratory Rate Blood Pressure 132/70 136/75 Pulse Oximetry 99 08/06/22 13:30 08/06/22 13:45 08/06/22 13:45 Temperature Pulse Rate 122 H 102 H Respiratory Rate Blood Pressure 122/71 Pulse Oximetry 98 96 08/06/22 14:00 08/06/22 14:00 08/06/22 14:32 Temperature Pulse Rate 121 H 129 H Respiratory Rate Blood Pressure 130/64 Pulse Oximetry 98 98 08/06/22 14:34 08/06/22 14:34 08/06/22 14:45 Temperature Pulse Rate 131 H Respiratory Rate 26 H Blood Pressure 127/68 141/89 H Pulse Oximetry 98 08/06/22 14:45 08/06/22 15:00 08/06/22 15:00 Temperature Pulse Rate 127 H 115 H Respiratory Rate 22 23 Blood Pressure 130/56 L Pulse Oximetry 94 98 08/06/22 15:15 08/06/22 15:15 08/06/22 15:30 Temperature Pulse Rate 112 H Respiratory Rate 20 Blood Pressure 124/73 117/67 Pulse Oximetry 98 08/06/22 15:30 08/06/22 15:45 08/06/22 15:45 Temperature 98.5 F Pulse Rate 121 H 123 H Respiratory Rate 22 27 H Blood Pressure 119/61 Pulse Oximetry 100 98 08/06/22 16:00 08/06/22 16:00 Temperature Pulse Rate 117 H Respiratory Rate 22 Blood Pressure 145/62 H Pulse Oximetry 98 <Vincent Oquendo MD - Last Filed: 08/06/22 16:52> Course Course Narrative: I am assuming care of this patient at change of shift. This 82-year-old gentleman has a history of severe BPH, he is had indwelling Zepeda for several years. He has history of AFib, CVA and dementia. He is anticoagulated with Cou madin. He was seen here 4 days ago after pulling his Zepeda out, the existing 20 gauge Zepeda was replaced with a 16 gauge Zepeda. He returned last night with persistent hematuria for the last 4 days. He is bleeding around the Zepeda tube. He is INR is greater than 4. His CBC is stable. A 20 gauge Zepeda was placed. Extensive irrigation has not resolved the hematuria. Consultation was obtained with Urology at the [facility], anticoagulation reversal that has been done is applauded. Zepeda traction he is suggested. Patient has received FFP as well as vitamin K. irrigation continues to produce clots and hematuria. Dr. Conteh, the patient's urologist, later became involved. At his recommendation, a 24 gauge Zepeda was placed, the bulb was inflated to 60 mL. The patient was rotated, this did not identify a persistent clot, he did not help the patient's situation. CT of the abdomen revealed hemorrhage in the enlarged prostate, there is no obvious hematoma in the bladder. The patient has thus far received over 40 L of irrigation to the bladder. Hematuria persist. He is afebrile. He is in AFib. His blood pressure is stable. He has trauma to the significantly enlarged prostate. The prostate as now been manipulated several times a day. I did give him a dose of Levaquin. Multiple calls , [facility], and regarding this patient other clinical situations of equal concern indicate no acute beds are available. He will be admitted to observation to Dr. Muñoz. Continued support from his urologist, Dr. Conteh his anticipated.-Azalea PARRY. 08/06/22@15:36. Orders Ordered: Acetaminophen (Acetaminophen 325 Mg Tablet) 650 mg PO Q6H [facility] Last Admin: 08/07/22 01:43 Dose: Not Given Documented By: Admin: 08/06/22 19:53 Dose: 650 mg Documented By: ERON Atorvastatin Calcium (Atorvastatin 20 Mg Tablet) 80 mg PO DAILY [facility] Finasteride (Finasteride 5 Mg Tablet) 5 mg PO DAILY [facility] Gabapentin (Gabapentin 600 Mg Tablet) 600 mg PO BID [facility] Last Admin: 08/06/22 21:36 Dose: 600 mg Documented By: ERON Sodium Chloride (Normal Saline 0.9%) 1,000 mls @ 100 mls/hr IV CONT [facility] Last Admin: 08/07/22 03:08 Dose: 100 mls/hr Documented By: Infusion: 08/07/22 03:08 Dose: 100 mls/hr Documented By: Admin: 08/06/22 20:59 Dose: 100 mls/hr Documented By: ERON Cefepime HCl 1 gm/ Sodium (Chloride) 100 mls @ 200 mls/hr IV Q24H [facility] Last Infusion: 08/07/22 03:06 Dose: 0 mls/hr Documented By: Admin: 08/06/22 20:58 Dose: 200 mls/hr Documented By: ERON Methimazole (Methimazole 5 Mg Tablet) 2.5 mg PO DAILY [facility] Metoprolol Tartrate (Metoprolol Ir 25 Mg Tablet) 12.5 mg PO BID [facility] Naloxone HCl (Naloxone 0.4 Mg/Ml Vial) 0.2 mg IV Q2MIN PRN PRN Reason: Opiate Reversal Sodium Chloride (Sodium Chloride 0.9% Flush) 10 ml IV PRN PRN PRN Reason: Flush Sodium Chloride (Sodium Chloride 0.9% Flush) 10 ml IV BID [facility] Last Admin: 08/06/22 19:53 Dose: 10 ml Documented By: ERON Discontinued Medications Hydromorphone HCl (Hydromorphone 0.5 Mg Inj) 0.5 mg IV NOW ONE Stop: 08/06/22 08:11 Last Admin: 08/06/22 08:50 Dose: 0.5 mg Documented By: ALCIDES Phytonadione 5 mg/ Sodium (Chloride) 100.5 mls @ 201 mls/hr IV NOW ONE Stop: 08/06/22 08:46 Last Infusion: 08/06/22 14:01 Dose: 0 mls/hr Documented By: ALCIDES(2) Admin: 08/06/22 09:14 Dose: 201 mls/hr Documented By: ALCIDES Sodium Chloride (Normal Saline 0.9%) 1,000 mls @ 200 mls/hr IV CONT [facility] Last Infusion: 08/06/22 16:14 Dose: 0 mls/hr Documented By: Admin: 08/06/22 09:16 Dose: 200 mls/hr Documented By: ALCIDES Lidocaine HCl (Lidocaine 2% (Glydo) 6 Ml Gel) 6 ml TOP NOW ONE Stop: 08/06/22 12:38 Last Admin: 08/06/22 13:00 Dose: 6 ml Documented By: ALCIDES(2) Metoprolol Tartrate (Metoprolol Ir 25 Mg Tablet) 12.5 mg PO NOW ONE Stop: 08/06/22 19:40 Last Admin: 08/06/22 19:53 Dose: 12.5 mg Documented By: ERON Vital Signs Vital signs: Vital Signs - 8 hr 08/06/22 09:00 08/06/22 09:00 08/06/22 09:50 Temperature 97.5 F L Pulse Rate 115 H 129 H Respiratory Rate 18 17 Blood Pressure 101/57 L 152/65 H Pulse Oximetry 98 08/06/22 09:50 08/06/22 10:00 08/06/22 09:15 Temperature 97.5 F L 97.5 F L Pulse Rate 130 H 130 H Respiratory Rate 18 17 Blood Pressure 108/61 107/61 125/74 Pulse Oximetry 08/06/22 09:15 08/06/22 09:30 08/06/22 09:30 Temperature Pulse Rate 124 H 68 Respiratory Rate Blood Pressure 104/68 Pulse Oximetry 98 96 08/06/22 09:32 08/06/22 09:32 08/06/22 09:45 Temperature Pulse Rate 122 H Respiratory Rate Blood Pressure 119/77 127/70 Pulse Oximetry 98 08/06/22 09:45 08/06/22 09:46 08/06/22 09:46 Temperature Pulse Rate 129 H 117 H Respiratory Rate Blood Pressure 152/65 H Pulse Oximetry 99 97 08/06/22 09:56 08/06/22 09:56 08/06/22 10:00 Temperature Pulse Rate 123 H 130 H Respiratory Rate Blood Pressure 108/61 Pulse Oximetry 98 99 08/06/22 10:01 08/06/22 10:01 08/06/22 10:15 Temperature Pulse Rate 135 H Respiratory Rate Blood Pressure 137/87 127/73 Pulse Oximetry 99 08/06/22 10:15 08/06/22 10:30 08/06/22 10:30 Temperature Pulse Rate 128 H 118 H Respiratory Rate Blood Pressure 124/64 Pulse Oximetry 97 98 08/06/22 10:45 08/06/22 10:45 08/06/22 11:18 Temperature 99 F Pulse Rate 137 H 120 H Respiratory Rate 17 Blood Pressure 129/70 128/77 Pulse Oximetry 99 08/06/22 11:00 08/06/22 11:00 08/06/22 11:15 Temperature Pulse Rate 116 H Respiratory Rate Blood Pressure 127/74 128/77 Pulse Oximetry 99 08/06/22 11:15 08/06/22 11:30 08/06/22 11:30 Temperature 99 F Pulse Rate 120 H 118 H Respiratory Rate 18 Blood Pressure 130/82 Pulse Oximetry 99 98 08/06/22 11:45 08/06/22 11:45 08/06/22 12:00 Temperature Pulse Rate 117 H Respiratory Rate Blood Pressure 122/73 131/65 Pulse Oximetry 97 08/06/22 12:00 08/06/22 12:15 08/06/22 12:15 Temperature 99 F Pulse Rate 116 H 106 H Respiratory Rate 18 18 Blood Pressure 124/84 Pulse Oximetry 98 98 08/06/22 13:47 08/06/22 12:30 08/06/22 12:30 Temperature 98 F Pulse Rate 110 H Respiratory Rate Blood Pressure 127/77 Pulse Oximetry 98 08/06/22 12:46 08/06/22 12:46 08/06/22 13:00 Temperature Pulse Rate 130 H 128 H Respiratory Rate Blood Pressure 151/110 H Pulse Oximetry 99 99 08/06/22 13:17 08/06/22 13:17 08/06/22 13:30 Temperature Pulse Rate 137 H Respiratory Rate Blood Pressure 132/70 136/75 Pulse Oximetry 99 08/06/22 13:30 08/06/22 13:45 08/06/22 13:45 Temperature Pulse Rate 122 H 102 H Respiratory Rate Blood Pressure 122/71 Pulse Oximetry 98 96 08/06/22 14:00 08/06/22 14:00 08/06/22 14:32 Temperature Pulse Rate 121 H 129 H Respiratory Rate Blood Pressure 130/64 Pulse Oximetry 98 98 08/06/22 14:34 08/06/22 14:34 08/06/22 14:45 Temperature Pulse Rate 131 H Respiratory Rate 26 H Blood Pressure 127/68 141/89 H Pulse Oximetry 98 08/06/22 14:45 08/06/22 15:00 08/06/22 15:00 Temperature Pulse Rate 127 H 115 H Respiratory Rate 22 23 Blood Pressure 130/56 L Pulse Oximetry 94 98 08/06/22 15:15 08/06/22 15:15 08/06/22 15:30 Temperature Pulse Rate 112 H Respiratory Rate 20 Blood Pressure 124/73 117/67 Pulse Oximetry 98 08/06/22 15:30 08/06/22 15:45 08/06/22 15:45 Temperature 98.5 F Pulse Rate 121 H 123 H Respiratory Rate 22 27 H Blood Pressure 119/61 Pulse Oximetry 100 98 08/06/22 16:00 08/06/22 16:00 Temperature Pulse Rate 117 H Respiratory Rate 22 Blood Pressure 145/62 H Pulse Oximetry 98 MDM - Male Genitourinary <Lucie Pruitt DO - Last Filed: 08/07/22 03:14> Lab Data Result diagrams: 08/06/22 12:09 Labs: Lab Results 08/06/22 08/06/22 08/06/22 Range/Units 04:55 04:55 07:49 WBC 7.8 11.5 H (4.5-11.0) X10^3/uL RBC 4.08 L 3.91 L (4.5-5.9) X10^6/uL Hgb 11.9 L 11.4 L (13.5-17.5) g/dL Hct 35.4 L 34.1 L (41-53) % MCV 86.8 87.1 (80-100) fL MCH 29.2 29.0 (26-34) PG MCHC 33.7 33.3 (30-36) % RDW 14.7 14.7 (11.6-14.8) % Plt Count 336 326 (150-400) X10^3/uL Neut % (Auto) 53.6 (50-75) % Lymph % (Auto) 35.3 (25-40) % [place] % (Auto) 9.2 (3-14) % Eos % (Auto) 1.5 L (2-4) % Baso % (Auto) 0.4 (0-2) % Neut # (Auto) 4200 (5578-8193) /uL Lymph # (Auto) 2800 (6058-8799) /uL [place] # (Auto) 700 (0-900) /uL Eos # (Auto) 100 (0-450) /uL Baso # (Auto) 0 (0-100) /uL Total Counted 100 Seg Neutrophils % 70.0 (38-70) % Lymphocytes % (Manual) 17.0 L (25-45) % Atypical Lymphs % 9.0 H ( - 0) % Monocytes % (Manual) 4.0 (2-11) % Neutrophils # (Manual) 8050 H (0175-7442) /uL RBC Morphology Normal morphology PT 47.9 H (10.1-12.7) SECONDS INR 4.1 H (0.9-1.3) SARS-CoV-2 (PCR) (Negative) Blood Type Antibody Screen 08/06/22 08/06/22 08/06/22 Range/Units 07:49 07:49 08:53 WBC (4.5-11.0) X10^3/uL RBC (4.5-5.9) X10^6/uL Hgb (13.5-17.5) g/dL Hct (41-53) % MCV (80-100) fL MCH (26-34) PG MCHC (30-36) % RDW (11.6-14.8) % Plt Count (150-400) X10^3/uL Neut % (Auto) (50-75) % Lymph % (Auto) (25-40) % [place] % (Auto) (3-14) % Eos % (Auto) (2-4) % Baso % (Auto) (0-2) % Neut # (Auto) (5521-6037) /uL Lymph # (Auto) (5158-6625) /uL [place] # (Auto) (0-900) /uL Eos # (Auto) (0-450) /uL Baso # (Auto) (0-100) /uL Total Counted Seg Neutrophils % (38-70) % Lymphocytes % (Manual) (25-45) % Atypical Lymphs % ( - 0) % Monocytes % (Manual) (2-11) % Neutrophils # (Manual) (0592-4613) /uL RBC Morphology PT 44.3 H (10.1-12.7) SECONDS INR 3.8 H (0.9-1.3) SARS-CoV-2 (PCR) (Negative) Blood Type B Positive Cancelled Antibody Screen Negative Cancelled 08/06/22 08/06/22 08/06/22 Range/Units 12:09 12:11 15:50 WBC 11.8 H (4.5-11.0) X10^3/uL RBC 3.29 L (4.5-5.9) X10^6/uL Hgb 9.7 L (13.5-17.5) g/dL Hct 28.5 L (41-53) % MCV 86.7 (80-100) fL MCH 29.5 (26-34) PG MCHC 34.1 (30-36) % RDW 14.6 (11.6-14.8) % Plt Count 308 (150-400) X10^3/uL Neut % (Auto) 84.8 H D (50-75) % Lymph % (Auto) 8.2 L D (25-40) % [place] % (Auto) 6.7 (3-14) % Eos % (Auto) 0.1 L (2-4) % Baso % (Auto) 0.2 (0-2) % Neut # (Auto) 14402 H (4799-6992) /uL Lymph # (Auto) 1000 L (6801-9391) /uL [place] # (Auto) 800 (0-900) /uL Eos # (Auto) 0 (0-450) /uL Baso # (Auto) 0 (0-100) /uL Total Counted Seg Neutrophils % (38-70) % Lymphocytes % (Manual) (25-45) % Atypical Lymphs % ( - 0) % Monocytes % (Manual) (2-11) % Neutrophils # (Manual) (0280-4903) /uL RBC Morphology PT 27.8 H D (10.1-12.7) SECONDS INR 2.4 H (0.9-1.3) SARS-CoV-2 (PCR) Negative (Negative) Blood Type Antibody Screen MDM Narrative Medical decision making narrative: Patient presents with hematuria on warfarin INR 4.1. Vitals are stable. It has been irrigated Zepeda catheter has been changed nursing staff has been working with patient. Initially it was serosanguineous it becomes more gross lead bloody. He continues to bleed around the catheter. Multiple times trying to get bleeding to stop. Patient is signed out to Dr. Oquendo for further management. <Vincent Oquendo MD - Last Filed: 08/06/22 16:52> Lab Data Labs: Lab Results 08/06/22 08/06/22 08/06/22 Range/Units 04:55 04:55 07:49 WBC 7.8 11.5 H (4.5-11.0) X10^3/uL RBC 4.08 L 3.91 L (4.5-5.9) X10^6/uL Hgb 11.9 L 11.4 L (13.5-17.5) g/dL Hct 35.4 L 34.1 L (41-53) % MCV 86.8 87.1 (80-100) fL MCH 29.2 29.0 (26-34) PG MCHC 33.7 33.3 (30-36) % RDW 14.7 14.7 (11.6-14.8) % Plt Count 336 326 (150-400) X10^3/uL Neut % (Auto) 53.6 (50-75) % Lymph % (Auto) 35.3 (25-40) % [place] % (Auto) 9.2 (3-14) % Eos % (Auto) 1.5 L (2-4) % Baso % (Auto) 0.4 (0-2) % Neut # (Auto) 4200 (2645-3249) /uL Lymph # (Auto) 2800 (8577-3577) /uL [place] # (Auto) 700 (0-900) /uL Eos # (Auto) 100 (0-450) /uL Baso # (Auto) 0 (0-100) /uL Total Counted 100 Seg Neutrophils % 70.0 (38-70) % Lymphocytes % (Manual) 17.0 L (25-45) % Atypical Lymphs % 9.0 H ( - 0) % Monocytes % (Manual) 4.0 (2-11) % Neutrophils # (Manual) 8050 H (1852-2557) /uL RBC Morphology Normal morphology PT 47.9 H (10.1-12.7) SECONDS INR 4.1 H (0.9-1.3) SARS-CoV-2 (PCR) (Negative) Blood Type Antibody Screen 08/06/22 08/06/22 08/06/22 Range/Units 07:49 07:49 08:53 WBC (4.5-11.0) X10^3/uL RBC (4.5-5.9) X10^6/uL Hgb (13.5-17.5) g/dL Hct (41-53) % MCV (80-100) fL MCH (26-34) PG MCHC (30-36) % RDW (11.6-14.8) % Plt Count (150-400) X10^3/uL Neut % (Auto) (50-75) % Lymph % (Auto) (25-40) % [place] % (Auto) (3-14) % Eos % (Auto) (2-4) % Baso % (Auto) (0-2) % Neut # (Auto) (8196-6764) /uL Lymph # (Auto) (3191-6473) /uL [place] # (Auto) (0-900) /uL Eos # (Auto) (0-450) /uL Baso # (Auto) (0-100) /uL Total Counted Seg Neutrophils % (38-70) % Lymphocytes % (Manual) (25-45) % Atypical Lymphs % ( - 0) % Monocytes % (Manual) (2-11) % Neutrophils # (Manual) (1616-9402) /uL RBC Morphology PT 44.3 H (10.1-12.7) SECONDS INR 3.8 H (0.9-1.3) SARS-CoV-2 (PCR) (Negative) Blood Type B Positive Cancelled Antibody Screen Negative Cancelled 08/06/22 08/06/22 08/06/22 Range/Units 12:09 12:11 15:50 WBC 11.8 H (4.5-11.0) X10^3/uL RBC 3.29 L (4.5-5.9) X10^6/uL Hgb 9.7 L (13.5-17.5) g/dL Hct 28.5 L (41-53) % MCV 86.7 (80-100) fL MCH 29.5 (26-34) PG MCHC 34.1 (30-36) % RDW 14.6 (11.6-14.8) % Plt Count 308 (150-400) X10^3/uL Neut % (Auto) 84.8 H D (50-75) % Lymph % (Auto) 8.2 L D (25-40) % [place] % (Auto) 6.7 (3-14) % Eos % (Auto) 0.1 L (2-4) % Baso % (Auto) 0.2 (0-2) % Neut # (Auto) 77866 H (0216-4663) /uL Lymph # (Auto) 1000 L (6696-9962) /uL [place] # (Auto) 800 (0-900) /uL Eos # (Auto) 0 (0-450) /uL Baso # (Auto) 0 (0-100) /uL Total Counted Seg Neutrophils % (38-70) % Lymphocytes % (Manual) (25-45) % Atypical Lymphs % ( - 0) % Monocytes % (Manual) (2-11) % Neutrophils # (Manual) (1865-2501) /uL RBC Morphology PT 27.8 H D (10.1-12.7) SECONDS INR 2.4 H (0.9-1.3) SARS-CoV-2 (PCR) Negative (Negative) Blood Type Antibody Screen Imaging Data CT scan - abdomen/pelvis: Radiologist's Impression: ?No hydronephrosis.? No intrarenal calculi identified. ? Under distended bladder with Zepeda in place, difficult to evaluate.? Within this limitation, there is moderate degree of hemorrhage either lining the inside of the bladder wall or within the bladder wall.? There is also hemorrhage and gas in the enlarged prostate.? Differential includes hemorrhagic cystitis, neoplasm, or trauma related.? There also mildly enlarged pelvic lymph nodes, also described previously.? Consider urologic consultation. <Vincent Oquendo MD - Last Filed: 08/06/22 16:52> Critical Care Time Critical Care Time: Yes Total Critical Care Time: 120 Attestation: Critical care time includes initial patient assessment, review of medical records, review of lab data, and multiple medical decisions as well as repeat evaluation of the patient. Situation required consultation with multiple physicians, repeatedly Discharge Plan Departure Patient Disposition: Admitted as Observation Clinical Impression: Chronic indwelling Zepeda catheter, Benign prostatic hyperplasia, Anticoagulated on warfarin, Atrial fibrillation, Laceration of prostate, Hematuria Admit Date/Time: 08/06/22 16:00 Admit Provider: Rosario Muñoz
[2022-08-06 05:12] LABS: Add Manual Diff / Slide Review NO; Basophils Absolute Auto 0 /uL (0-100); Basophils Percent Auto 0.4 % (0-2); Eosinophils Absolute Auto 100 /uL (0-450); Eosinophils Percent Auto 1.5 % (2-4); Hematocrit 35.4 % (41-53); Hemoglobin 11.9 g/dL (13.5-17.5); Lymphocytes Absolute Auto 2800 /uL (1100-4500); Lymphocytes Percent Auto 35.3 % (25-40); Mean Corpuscular HGB Conc 33.7 % (30-36); Mean Corpuscular Hemoglobin 29.2 PG (26-34); Mean Corpuscular Volume 86.8 fL (80-100); Monocytes Absolute Auto 700 /uL (0-900); Monocytes Percent Auto 9.2 % (3-14); Neutrophils Absolute Auto 4200 /uL (1500-7000); Neutrophils Percent Auto 53.6 % (50-75); Platelet Count 336 X10^3/uL (150-400); Red Blood Cell Count 4.08 X10^6/uL (4.5-5.9); Red Cell Distribution Width 14.7 % (11.6-14.8); White Blood Cell Count 7.8 X10^3/uL (4.5-11.0)
[2022-08-06 05:14] LABS: INR 4.1 (0.9-1.3); Prothrombin Time 47.9 SECONDS (10.1-12.7)
--- NOTE | 2022-08-06 07:49 | PC.NURSE ---
sterile saline irrigation bag changed, still large bloody drainage and clots from tip of penis, blood tinged pink urine draiing from 3way catheter. second attempt to call urology regional [facility] manager.
[2022-08-06 08:04] LABS: Hematocrit 34.1 % (41-53); Hemoglobin 11.4 g/dL (13.5-17.5); Mean Corpuscular HGB Conc 33.3 % (30-36); Mean Corpuscular Volume 87.1 fL (80-100); Platelet Count 326 X10^3/uL (150-400); Red Blood Cell Count 3.91 X10^6/uL (4.5-5.9); Red Cell Distribution Width 14.7 % (11.6-14.8); White Blood Cell Count 11.5 X10^3/uL (4.5-11.0)
[2022-08-06 08:11] LABS: INR 3.8 (0.9-1.3); Prothrombin Time 44.3 SECONDS (10.1-12.7)
[2022-08-06 08:16] LABS: Neutrophils Absolute Manual 8050 /uL (3000-5900); RBC Morphology Normal Morphology; Total Cells Counted 100
--- NOTE | 2022-08-06 08:33 | PC.NURSE ---
This MANAGER WAREHOUSE attempted to call Dr. Ortega for urology consult. Attempted by pager at [phone] also attempted by cell at [phone] and [phone]. Left a message for the cell call at [phone]. Resorted to calling [facility] and was able to reach Dr. Conteh at 0831. He was with a patient and will call when done.
[2022-08-06] MEDS: HYDROMORPHONE 0.5 MG INJ IV (08:50)
--- NOTE | 2022-08-06 09:10 | PC.NURSE ---
changed to sterile water cbi fluid for irrigation at 0730 am, using sterile water as well for manual flushes, second bag of sterile water cbi fluid hung at 0900 am
[2022-08-06] MEDS: PHYTONADIONE (VIT K1) 5 MG in SODIUM CHLORIDE 0.9% 100 ML 201 MG IV (09:14)
[2022-08-06] MEDS: SODIUM CHLORIDE 0.9% 1,000 ML 200 ML IV (09:16)
--- NOTE | 2022-08-06 09:51 | PC.NURSE ---
unable to scan product FFP due to change in product once thawed. Lab ordered to override.
--- NOTE | 2022-08-06 10:10 | PC.NURSE ---
0950 at recommendation of urology dr morris. this rn and er physician secured coban around base of penis to provide pressure and secured campa to leg with some traction using tape and securement device, cath remains patent with bloody/blood tinged urine and occaisonal clots, removed large clot from tip of penis and replaced bloody 4x4 dressings.
--- NOTE | 2022-08-06 11:05 | PC.NURSE ---
pt catheter draining bloody to blood tinged urine with clots, rn must manually push-pull flush it every 20 mins, and irrigation bags are being changed every 40-60 mins. all irrigation and flush continues with sterile water, coban remains around base of penis to hold pressure and campa secured with traction as recommended by urology ovidio.
[2022-08-06 12:15] LABS: Add Manual Diff / Slide Review NO; Basophils Absolute Auto 0 /uL (0-100); Basophils Percent Auto 0.2 % (0-2); Eosinophils Absolute Auto 0 /uL (0-450); Eosinophils Percent Auto 0.1 % (2-4); Hematocrit 28.5 % (41-53); Hemoglobin 9.7 g/dL (13.5-17.5); Lymphocytes Absolute Auto 1000 /uL (1100-4500); Lymphocytes Percent Auto 8.2 % (25-40); Mean Corpuscular HGB Conc 34.1 % (30-36); Mean Corpuscular Hemoglobin 29.5 PG (26-34); Mean Corpuscular Volume 86.7 fL (80-100); Monocytes Absolute Auto 800 /uL (0-900); Monocytes Percent Auto 6.7 % (3-14); Neutrophils Absolute Auto 10000 /uL (1500-7000); Neutrophils Percent Auto 84.8 % (50-75); Platelet Count 308 X10^3/uL (150-400); Red Blood Cell Count 3.29 X10^6/uL (4.5-5.9); Red Cell Distribution Width 14.6 % (11.6-14.8); White Blood Cell Count 11.8 X10^3/uL (4.5-11.0)
--- NOTE | 2022-08-06 12:20 | PC.NURSE ---
continued bloody urine with blood clots, irrigating manually with push pull every 20-40 mins to obtain bloody urine and large and small blood clots. all irrigation with sterile water. [address] catheter with a [address]
[2022-08-06 12:25] LABS: INR 2.4 (0.9-1.3); Prothrombin Time 27.8 SECONDS (10.1-12.7)
[2022-08-06] MEDS: LIDOCAINE 2% (GLYDO) 6 ML GEL TOP (13:00)
--- NOTE | 2022-08-06 13:47 | DI.CT.S_ITS ---
PROCEDURE: CT KIDNEY URETER BLADDER (KUB) INDICATIONS: Persistent hematuria. Suspect bladder hematoma TECHNIQUE: Axial sections were acquired from the lung bases to the pubic symphysis. Coronal and sagittal reformats were performed. For radiation dose reduction, the following was used: automated exposure control, adjustment of mA and/or kV according to patient size. COMPARISON: [facility], CT, CT KIDNEY URETER BLADDER (KUB), 06/18/2022, 19:51. FINDINGS: Image quality: Excellent Lower chest: Scarring and atelectasis. Coronary calcifications. Solid organs: Liver is unremarkable. Gallbladder is unremarkable. No biliary ductal dilation. Mild pancreatic parenchymal atrophy. No splenomegaly. Similar lobulated appearance of the spleen. No adrenal nodules. Subcentimeter lesions are too small to characterize. No hydronephrosis. No intrarenal calculi. There is marked bladder wall thickening with hyperdensity in the wall. A Zepeda is in place. Gas is probably iatrogenic. Marked prostatomegaly. There is also probably some hemorrhage in the prostate, along with gas. Vessels and lymph nodes: Stable borderline enlarged pelvic lymph nodes, for example along the right external iliac chain measuring 11 millimeters. There also prominent upper abdominal lymph nodes that are indeterminate. No abdominal aortic aneurysm. High-grade calcification noted in the right common femoral artery, not well evaluated without contrast. Bowel and peritoneum: No bowel obstruction. No pathologic ascites. Body wall: Unremarkable Pelvis: Described above Bones: Scattered degenerative changes without acute or suspicious osseous abnormality. IMPRESSION: No hydronephrosis. No intrarenal calculi identified. Under distended bladder with Zepeda in place, difficult to evaluate. Within this limitation, there is moderate degree of hemorrhage either lining the inside of the bladder wall or within the bladder wall. There is also hemorrhage and gas in the enlarged prostate. Differential includes hemorrhagic cystitis, neoplasm, or trauma related. There also mildly enlarged pelvic lymph nodes, also described previously. Consider urologic consultation. Other less acute findings described above. Dictated by: John Vaca M.D. on 08/06/2022 at 14:18 Approved by: John Vaca M.D. on 08/06/2022 at 14:25
--- NOTE | 2022-08-06 13:49 | PC.NURSE ---
removed [address] catheter, changed to larger 3 way cath instructed by dr Conteh urology at [address] cath placed, very larg long clot removed with changing willater clot 12 in long. manual irrigation results in many large and small blood clots.
[2022-08-06 16:09] LABS: COVID19 -Nasal RAPID Negative (Negative)
--- NOTE | 2022-08-06 16:57 | PC.NURSE ---
Dr Muñoz at bs with patient and pts son
--- NOTE | 2022-08-06 17:13 | P.HP_ITS ---
History of Present Illness History of Present Illness Date Patient Seen: 08/06/22 Time Patient Seen: 17:14 Chief complaint: states catheter is bleeding all over Narrative: Pt is a 82yo man with atrial fibrillation on chronic anticoagulation, DM type 2, hyperthyroidism, and BPH with chronic indwelling campa who presented with bleeding around his campa catheter and clots in his catheter. The pt accidentally pulled out his campa on 08/01. He had discomfort and some bleeding at the time. He came to the ED on 08/02, and had the campa replaced. A 20 [place] was initially attempted but could not be advanced past the prostate, and a 16 [place] was ultimately used. He was discharged home. The pt and his son report that he has continued to have bleeding around and within the catheter since then. They have noticed progressively larger clots within the catheter as well. The pt denies any abdominal pain or pain around the catheter. He reports that he has otherwise been feeling well. In the ED, lab work revealed mild anemia. Urine cultures from 08/02 had returned positive, and the pt received one dose of Levofloxacin. After discussion with Urology, the pts campa was replaced with a 24 [place] successfully. His anticoagulation was reversed with Vitamin K. CT abdomen/pelvis showed potential bleeding within the bladder and prostate, most likely traumatic based on the recent history. The pts campa was irrigated copiously, and as per nursing report bleeding, while still present, was minimally improved. Patient History Medical History Atrial fibrillation Bladder stones BPH w urinary obs/LUTS Cardiomyopathy (2013) Chronic indwelling Campa catheter CVA (cerebral vascular accident) (08/03/15) Diabetes mellitus History of UTI Hyperthyroidism Stenosis of right carotid artery Trigeminal neuralgia Urinary retention (2014) Urinary retention Surgical History S/P carotid endarterectomy (01/29/22) S/P vasectomy Family & Social History Family History Father CVA (cerebral vascular accident) Sister Thyroid disorder Social History: household members none Safety & Behavioral: Feels Safe in Current Yes Environment Been Physically Hurt or No Threatened By a Person Tobacco & Substance use: Smoking Status Never smoker alcohol intake frequency holiday/special occasion Substance Use Type does not use Meds Home Medications and Allergies Home Medications Medication Instructions Recorded Confirmed Type aspirin 81 mg tablet,delayed 81 mg PO DAILY 02/04/22 08/06/22 History release (Adult Low Dose Aspirin) gabapentin 600 mg tablet 600 mg PO DAILY 02/04/22 08/06/22 History atorvastatin 80 mg tablet 80 mg PO DAILY #90 tabs 02/06/22 08/06/22 Rx warfarin 5 mg tablet See Rx Instructions .Route 04/08/22 08/06/22 Rx .COMPLEX #90 tabs metoprolol tartrate 25 mg tablet 12.5 mg PO BID #60 tabs 05/09/22 08/01/22 Rx finasteride 5 mg tablet 5 mg PO DAILY #90 tabs 06/10/22 08/01/22 Rx methimazole 5 mg tablet 2.5 mg PO DAILY #90 tabs 07/17/22 08/06/22 Rx Allergies Allergy/AdvReac Type Severity Reaction Status Date / Time No Known Drug Allergies Allergy Verified 08/01/22 11:09 Exam Vital Signs (past 8 hours): - 08/06/22 09:50 08/06/22 09:50 08/06/22 10:00 Temperature 97.5 F L 97.5 F L 97.5 F L Pulse Rate 129 H 130 H 130 H Respiratory Rate 17 18 17 Blood Pressure 152/65 H 108/61 107/61 Pulse Oximetry 08/06/22 09:15 08/06/22 09:15 08/06/22 09:30 Temperature Pulse Rate 124 H Respiratory Rate Blood Pressure 125/74 104/68 Pulse Oximetry 98 08/06/22 09:30 08/06/22 09:32 08/06/22 09:32 Temperature Pulse Rate 68 122 H Respiratory Rate Blood Pressure 119/77 Pulse Oximetry 96 98 08/06/22 09:45 08/06/22 09:45 08/06/22 09:46 Temperature Pulse Rate 129 H Respiratory Rate Blood Pressure 127/70 152/65 H Pulse Oximetry 99 08/06/22 09:46 08/06/22 09:56 08/06/22 09:56 Temperature Pulse Rate 117 H 123 H Respiratory Rate Blood Pressure 108/61 Pulse Oximetry 97 98 08/06/22 10:00 08/06/22 10:01 08/06/22 10:01 Temperature Pulse Rate 130 H 135 H Respiratory Rate Blood Pressure 137/87 Pulse Oximetry 99 99 08/06/22 10:15 08/06/22 10:15 08/06/22 10:30 Temperature Pulse Rate 128 H Respiratory Rate Blood Pressure 127/73 124/64 Pulse Oximetry 97 08/06/22 10:30 08/06/22 10:45 08/06/22 10:45 Temperature Pulse Rate 118 H 137 H Respiratory Rate Blood Pressure 129/70 Pulse Oximetry 98 99 08/06/22 11:18 08/06/22 11:00 08/06/22 11:00 Temperature 99 F Pulse Rate 120 H 116 H Respiratory Rate 17 Blood Pressure 128/77 127/74 Pulse Oximetry 99 08/06/22 11:15 08/06/22 11:15 08/06/22 11:30 Temperature 99 F Pulse Rate 120 H Respiratory Rate 18 Blood Pressure 128/77 130/82 Pulse Oximetry 99 08/06/22 11:30 08/06/22 11:45 08/06/22 11:45 Temperature Pulse Rate 118 H 117 H Respiratory Rate Blood Pressure 122/73 Pulse Oximetry 98 97 08/06/22 12:00 08/06/22 12:00 08/06/22 12:15 Temperature 99 F Pulse Rate 116 H 106 H Respiratory Rate 18 18 Blood Pressure 131/65 Pulse Oximetry 98 98 08/06/22 12:15 08/06/22 13:47 08/06/22 12:30 Temperature 98 F Pulse Rate Respiratory Rate Blood Pressure 124/84 127/77 Pulse Oximetry 08/06/22 12:30 08/06/22 12:46 08/06/22 12:46 Temperature Pulse Rate 110 H 130 H Respiratory Rate Blood Pressure 151/110 H Pulse Oximetry 98 99 08/06/22 13:00 08/06/22 13:17 08/06/22 13:17 Temperature Pulse Rate 128 H 137 H Respiratory Rate Blood Pressure 132/70 Pulse Oximetry 99 99 08/06/22 13:30 08/06/22 13:30 08/06/22 13:45 Temperature Pulse Rate 122 H Respiratory Rate Blood Pressure 136/75 122/71 Pulse Oximetry 98 08/06/22 13:45 08/06/22 14:00 08/06/22 14:00 Temperature Pulse Rate 102 H 121 H Respiratory Rate Blood Pressure 130/64 Pulse Oximetry 96 98 08/06/22 14:32 08/06/22 14:34 08/06/22 14:34 Temperature Pulse Rate 129 H 131 H Respiratory Rate 26 H Blood Pressure 127/68 Pulse Oximetry 98 98 08/06/22 14:45 08/06/22 14:45 08/06/22 15:00 Temperature Pulse Rate 127 H Respiratory Rate 22 Blood Pressure 141/89 H 130/56 L Pulse Oximetry 94 08/06/22 15:00 08/06/22 15:15 08/06/22 15:15 Temperature Pulse Rate 115 H 112 H Respiratory Rate 23 20 Blood Pressure 124/73 Pulse Oximetry 98 98 08/06/22 15:30 08/06/22 15:30 08/06/22 15:45 Temperature 98.5 F Pulse Rate 121 H Respiratory Rate 22 Blood Pressure 117/67 119/61 Pulse Oximetry 100 08/06/22 15:45 08/06/22 16:00 08/06/22 16:00 Temperature Pulse Rate 123 H 117 H Respiratory Rate 27 H 22 Blood Pressure 145/62 H Pulse Oximetry 98 98 08/06/22 16:15 08/06/22 16:15 08/06/22 16:30 Temperature Pulse Rate 117 H Respiratory Rate 23 Blood Pressure 111/62 118/57 L Pulse Oximetry 99 08/06/22 16:30 08/06/22 16:45 08/06/22 16:45 Temperature Pulse Rate 110 H 122 H Respiratory Rate 20 19 Blood Pressure 111/67 Pulse Oximetry 98 99 Oxygen Delivery Method Room Air Narrative Exam Narrative: Gen: NAD, laying comfortably in bed, pleasantly conversant Neck: no LAD, no JVD CV: tachycardic, irregularly irregular rhythm, no murmurs Resp: clear to auscultation bilaterally Abd: soft, nontender, nondistended, normoactive bowel sounds : penis with campa in place, minimal dried blood around urethral meatus Ext: no edema Objective Labs Result Diagrams: 08/06/22 12:09 Labs: Laboratory Results - last 24 hr 08/06/22 08/06/22 08/06/22 04:55 04:55 07:49 WBC 7.8 11.5 H RBC 4.08 L 3.91 L Hgb 11.9 L 11.4 L Hct 35.4 L 34.1 L MCV 86.8 87.1 MCH 29.2 29.0 MCHC 33.7 33.3 RDW 14.7 14.7 Plt Count 336 326 Neut % (Auto) 53.6 Lymph % (Auto) 35.3 [place] % (Auto) 9.2 Eos % (Auto) 1.5 L Baso % (Auto) 0.4 Neut # (Auto) 4200 Lymph # (Auto) 2800 [place] # (Auto) 700 Eos # (Auto) 100 Baso # (Auto) 0 Total Counted 100 Seg Neutrophils % 70.0 Lymphocytes % (Manual) 17.0 L Atypical Lymphs % 9.0 H Monocytes % (Manual) 4.0 Neutrophils # (Manual) 8050 H RBC Morphology Normal morphology PT 47.9 H INR 4.1 H SARS-CoV-2 (PCR) Blood Type Antibody Screen 08/06/22 08/06/22 08/06/22 07:49 07:49 08:53 WBC RBC Hgb Hct MCV MCH MCHC RDW Plt Count Neut % (Auto) Lymph % (Auto) [place] % (Auto) Eos % (Auto) Baso % (Auto) Neut # (Auto) Lymph # (Auto) [place] # (Auto) Eos # (Auto) Baso # (Auto) Total Counted Seg Neutrophils % Lymphocytes % (Manual) Atypical Lymphs % Monocytes % (Manual) Neutrophils # (Manual) RBC Morphology PT 44.3 H INR 3.8 H SARS-CoV-2 (PCR) Blood Type B Positive Cancelled Antibody Screen Negative Cancelled 08/06/22 08/06/22 08/06/22 12:09 12:11 15:50 WBC 11.8 H RBC 3.29 L Hgb 9.7 L Hct 28.5 L MCV 86.7 MCH 29.5 MCHC 34.1 RDW 14.6 Plt Count 308 Neut % (Auto) 84.8 H D Lymph % (Auto) 8.2 L D [place] % (Auto) 6.7 Eos % (Auto) 0.1 L Baso % (Auto) 0.2 Neut # (Auto) 69458 H Lymph # (Auto) 1000 L [place] # (Auto) 800 Eos # (Auto) 0 Baso # (Auto) 0 Total Counted Seg Neutrophils % Lymphocytes % (Manual) Atypical Lymphs % Monocytes % (Manual) Neutrophils # (Manual) RBC Morphology PT 27.8 H D INR 2.4 H SARS-CoV-2 (PCR) Negative Blood Type Antibody Screen Assessment & Plan Assessment & Plan narrative: Pt is a 82yo man with atrial fibrillation on chronic anticoagulation, DM type 2, hyperthyroidism, and BPH with chronic indwelling campa who presented with bleeding around his campa catheter and clots in his catheter. 1) Bleeding around campa: Most likely traumatic from accidental pulling of campa followed by traumatic replacement of campa the next day, exacerbated by chronic anticoagulation. Pt now s/p Vitamin K to reverse anticoagulation. Bleeding does seem to be gradually slowing. Dr Conteh, Urology, consulted. Recommended continued monitoring after reversal anticoagulation, but no acute interventions at this time. Larger campa was placed successfully. Will continue with frequent bladder irrigation to prevent clotting. Due to frequency of irrigation currently needed, pt will be admitted to ICU for more 1:1 nursing, however does not have other ICU requirements. Will continue to trend H/H. 2) UTI: Urine from 08/02 growing multiple bacteria. Both sensitive to Cefepime. 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 3) Atrial fibrillation: Pt in atrial fibrillation with RVR in the ED, however had not received his Metoprolol in nearly 24hrs. Will plan to restart this for him and monitor HR. If not improving, consider additional intervention. Will hold Aspirin and Coumadin for now. 4) BPH: Main contributor to ongoing campa issues. Pt has discussed potential suprapubic catheter with Dr Conteh in the past, and would like to consider in greater detail. Will continue Finasteride. 5) Hyperthyroidism: Continue home Methimazole FEN: General diet, mIVF for now as drinking very minimally so far DVT ppx: SCDs only due to bleeding Code: DNR Dispo: Pending stabilization of bleeding. Hopeful for d/c tomorrow. Time Spent With Patient Critical Care time: I spent a total of [] minutes of critical care time on this patient's care today; this time is exclusive of procedural time.
--- NOTE | 2022-08-06 17:20 | PC.NURSE ---
pt remains with hematuria and clots larg and small at times. manuall irrigation performed to remove clots when needed. urine ranging from blood tinged dark pink to blood tinged red colored.
[2022-08-06] MEDS: METOPROLOL IR 25 MG TABLET 12.5 MG PO (19:53)
[2022-08-06] MEDS: SODIUM CHLORIDE 0.9% FLUSH 10 ML IV (19:53)
[2022-08-06] MEDS: ACETAMINOPHEN 325 MG TABLET 650 MG PO (19:53)
[2022-08-06] MEDS: CEFEPIME 1 GM in SODIUM CHLORIDE 0.9% 100 ML IV (20:58)
[2022-08-06] MEDS: SODIUM CHLORIDE 0.9% 1,000 ML 100 ML IV (20:59)
[2022-08-06] MEDS: GABAPENTIN 600 MG TABLET PO (21:36)
[2022-08-07] VITALS (23 sets, daily range): BP systolic 87–133; BP diastolic 53–86; PULSE 64–113; RESP 15–18; TEMP 36.1–37; O2SAT 98–100
[2022-08-07] MEDS: SODIUM CHLORIDE 0.9% 1,000 ML 100 ML IV ×2 (03:08→12:27)
[2022-08-07 05:09] LABS: INR 1.6 (0.9-1.3); Prothrombin Time 18.9 SECONDS (10.1-12.7)
[2022-08-07 05:10] LABS: Add Manual Diff / Slide Review NO; Basophils Absolute Auto 0 /uL (0-100); Basophils Percent Auto 0.5 % (0-2); Eosinophils Absolute Auto 100 /uL (0-450); Eosinophils Percent Auto 0.8 % (2-4); Hematocrit 25.2 % (41-53); Hemoglobin 8.6 g/dL (13.5-17.5); Lymphocytes Absolute Auto 2800 /uL (1100-4500); Lymphocytes Percent Auto 34.7 % (25-40); Mean Corpuscular HGB Conc 34.2 % (30-36); Mean Corpuscular Hemoglobin 29.6 PG (26-34); Mean Corpuscular Volume 86.5 fL (80-100); Monocytes Absolute Auto 900 /uL (0-900); Monocytes Percent Auto 11.3 % (3-14); Neutrophils Absolute Auto 4300 /uL (1500-7000); Neutrophils Percent Auto 52.7 % (50-75); Platelet Count 263 X10^3/uL (150-400); Red Blood Cell Count 2.91 X10^6/uL (4.5-5.9); Red Cell Distribution Width 14.7 % (11.6-14.8); White Blood Cell Count 8.1 X10^3/uL (4.5-11.0)
[2022-08-07 05:12] LABS: PTT Partial Thromboplastin Tim 29 SECONDS (26-36)
[2022-08-07 05:20] LABS: BUN Creatinine Ratio 39.6 (6-22); Blood Urea Nitrogen 21 mg/dL (9-20); Calcium 8.1 mg/dL (8.4-10.2); Carbon Dioxide 25 mmol/L (22-32); Chloride 108 mmol/L (98-107); Estimated Glomerular Filt Rate > 60 mL/min (>60); Glucose 111 mg/dL (80-110); HEMOLYSIS < 15 (0-50); Sodium 140 mmol/L (137-145)
--- NOTE | 2022-08-07 07:02 | PC.NURSE ---
Addendum entered by Venessa Muñoz R.N. 08/07/22 07:11: HS meds given, including 12.5mg metoprolol and Tylenol, HR decreased from 120s to 80s, BP 98/53(68) while sleeping at midnight. Original Note: Campground Cleaning Attendant Note-Patient admitted to ICU room 230 at 1920, A/Ox4, slightly nervous r/t lower abdominal pain and pressure and 3-way Zepeda needing to be irrigated frequently to remove blood clots. Irrigant flowing fairly well, needing manual flushing 3 times.
--- NOTE | 2022-08-07 07:45 | P.CONS_ITS ---
History of Present Illness Consult details Date Patient Seen: 08/07/22 Time Patient Seen: 07:10 Chief complaint: states catheter is bleeding all over Reason for consult: Urinary clot retention Requesting provider: Vincent Oquendo Narrative: The patient is an 82-year-old gentleman with multiple medical com orbidities including need for chronic warfarin anticoagulation and history of CVA presenting to [facility] ED on 08/02/2022, after apparently having older dislodged an indwelling 20 Gibralt[place] Zepeda catheter. A 16 Gib[place] catheter was replaced. He then presented back to the [facility] ED on 08/05/2022 with complaint of bleeding and clots per penis around the Zepeda catheter. Evaluation was consistent with Zepeda dysfunction and clot retention. I was contacted yesterday afternoon by ED provider. We developed a action plan including placement of a 24 Gib[place] three-way hematuria catheter. Repeated hand irrigation eventually cleared the bladder of clot and the 3 way catheter was placed to continuous normal saline CBI. He is on chronic warfarin anticoagulation. Anticoagulation was reversed and warfarin was temporarily discontinued. He has a history of urinary retention dating back some 6-7 years. He presented in October of 2020 after having had another retention event of 800 cc. Subsequent voiding trials failed. Lower tract evaluation on 11/15/2020 revealed a 6+ cm prostatic length with impressive trilobar hyperplasia. Prostate volume was calculated at 200.25 cc. The patient was prescribed finasteride at that time to decrease prostate volume and decreased prostate vascularity given known history need for chronic warfarin anticoagulation. The patient is deemed an unsuitable candidate for simple open prostatectomy. He has been encouraged over the many months since then to proceed with placement suprapubic catheter to markedly decrease incidence catheter dysfunction, prostate related bleeding, and patient comfort. He has been reluctant to proceed despite extensive counseling regarding the inherent benefits of placement suprapubic tube to maintain and improve his quality of life. He had an uneventful night. The catheter was hand irrigated on 3 occasions. Nursing reports that on 1 occasion large clot was returned, but otherwise the system is been functioning well. Meds Home Medications and Allergies Home Medications Medication Instructions Recorded Confirmed Type aspirin 81 mg tablet,delayed 81 mg PO DAILY 02/04/22 08/06/22 History release (Adult Low Dose Aspirin) gabapentin 600 mg tablet 600 mg PO DAILY 02/04/22 08/06/22 History atorvastatin 80 mg tablet 80 mg PO DAILY #90 tabs 02/06/22 08/06/22 Rx warfarin 5 mg tablet See Rx Instructions .Route 04/08/22 08/06/22 Rx .COMPLEX #90 tabs metoprolol tartrate 25 mg tablet 12.5 mg PO BID #60 tabs 05/09/22 08/06/22 Rx finasteride 5 mg tablet 5 mg PO DAILY #90 tabs 06/10/22 08/06/22 Rx methimazole 5 mg tablet 2.5 mg PO DAILY #90 tabs 07/17/22 08/06/22 Rx Allergies Allergy/AdvReac Type Severity Reaction Status Date / Time No Known Drug Allergies Allergy Verified 08/01/22 11:09 Review of Systems Review of Systems ROS: Yes All systems reviewed with the patient and are negative except as otherwise documented Exam Vital Signs (past 8 hours): - 08/07/22 00:00 08/07/22 00:00 08/07/22 02:00 Temperature 98.1 F Pulse Rate 83 Respiratory Rate 16 Blood Pressure 98/53 L 102/61 Pulse Oximetry 98 08/07/22 02:00 08/07/22 04:00 08/07/22 04:00 Temperature 98.3 F Pulse Rate 88 83 Respiratory Rate 15 Blood Pressure 99/56 L Pulse Oximetry 99 98 08/07/22 06:00 08/07/22 06:00 Temperature Pulse Rate 84 Respiratory Rate Blood Pressure 104/59 L Pulse Oximetry 99 Oxygen Delivery Method Room Air Narrative Exam Narrative: He is a thin, elderly gentleman appearing chronically ill but in no distress. Head/neck-sclera clear and pupils are round and equal. No evidence of JVD visually. Chest-equal and unlabored expansion bilaterally. Respiratory rate approximately 15 Heart-regular rate, proximally 80. Abdomen-flat, soft, and mildly tender in the suprapubic area. No guarding, or rebound. Genitalia indwelling three-way catheter functioning well with very lightly pink tinged outflow and no clots. Objective Labs Result Diagrams: 08/07/22 04:08 08/07/22 04:08 Labs: Laboratory Results - last 24 hr 08/06/22 08/06/22 08/06/22 07:49 07:49 07:49 WBC 11.5 H RBC 3.91 L Hgb 11.4 L Hct 34.1 L MCV 87.1 MCH 29.0 MCHC 33.3 RDW 14.7 Plt Count 326 Neut % (Auto) Lymph % (Auto) [place] % (Auto) Eos % (Auto) Baso % (Auto) Neut # (Auto) Lymph # (Auto) [place] # (Auto) Eos # (Auto) Baso # (Auto) Total Counted 100 Seg Neutrophils % 70.0 Lymphocytes % (Manual) 17.0 L Atypical Lymphs % 9.0 H Monocytes % (Manual) 4.0 Neutrophils # (Manual) 8050 H RBC Morphology Normal morphology PT 44.3 H INR 3.8 H APTT Sodium Potassium Chloride Carbon Dioxide BUN Creatinine Estimated GFR BUN/Creatinine Ratio Glucose Calcium Nasal Screen MRSA (PCR) SARS-CoV-2 (PCR) Blood Type B Positive Antibody Screen Negative 08/06/22 08/06/22 08/06/22 08:53 12:09 12:11 WBC 11.8 H RBC 3.29 L Hgb 9.7 L Hct 28.5 L MCV 86.7 MCH 29.5 MCHC 34.1 RDW 14.6 Plt Count 308 Neut % (Auto) 84.8 H D Lymph % (Auto) 8.2 L D [place] % (Auto) 6.7 Eos % (Auto) 0.1 L Baso % (Auto) 0.2 Neut # (Auto) 97974 H Lymph # (Auto) 1000 L [place] # (Auto) 800 Eos # (Auto) 0 Baso # (Auto) 0 Total Counted Seg Neutrophils % Lymphocytes % (Manual) Atypical Lymphs % Monocytes % (Manual) Neutrophils # (Manual) RBC Morphology PT 27.8 H D INR 2.4 H APTT Sodium Potassium Chloride Carbon Dioxide BUN Creatinine Estimated GFR BUN/Creatinine Ratio Glucose Calcium Nasal Screen MRSA (PCR) SARS-CoV-2 (PCR) Blood Type Cancelled Antibody Screen Cancelled 08/06/22 08/06/22 08/07/22 15:50 23:41 04:08 WBC 8.1 RBC 2.91 L Hgb 8.6 L Hct 25.2 L MCV 86.5 MCH 29.6 MCHC 34.2 RDW 14.7 Plt Count 263 Neut % (Auto) 52.7 D Lymph % (Auto) 34.7 D [place] % (Auto) 11.3 Eos % (Auto) 0.8 L Baso % (Auto) 0.5 Neut # (Auto) 4300 Lymph # (Auto) 2800 [place] # (Auto) 900 Eos # (Auto) 100 Baso # (Auto) 0 Total Counted Seg Neutrophils % Lymphocytes % (Manual) Atypical Lymphs % Monocytes % (Manual) Neutrophils # (Manual) RBC Morphology PT INR APTT Sodium Potassium Chloride Carbon Dioxide BUN Creatinine Estimated GFR BUN/Creatinine Ratio Glucose Calcium Nasal Screen MRSA (PCR) Negative for mrsa SARS-CoV-2 (PCR) Negative Blood Type Antibody Screen 08/07/22 08/07/22 04:08 04:08 WBC RBC Hgb Hct MCV MCH MCHC RDW Plt Count Neut % (Auto) Lymph % (Auto) [place] % (Auto) Eos % (Auto) Baso % (Auto) Neut # (Auto) Lymph # (Auto) [place] # (Auto) Eos # (Auto) Baso # (Auto) Total Counted Seg Neutrophils % Lymphocytes % (Manual) Atypical Lymphs % Monocytes % (Manual) Neutrophils # (Manual) RBC Morphology PT 18.9 H D INR 1.6 H APTT 29 Sodium 140 Potassium 4.0 Chloride 108 H Carbon Dioxide 25 BUN 21 H Creatinine 0.53 L Estimated GFR > 60 BUN/Creatinine Ratio 39.6 H Glucose 111 H Calcium 8.1 L Nasal Screen MRSA (PCR) SARS-CoV-2 (PCR) Blood Type Antibody Screen [facility] Medical History Atrial fibrillation Bladder stones BPH w urinary obs/LUTS Cardiomyopathy (2013) Chronic indwelling Zepeda catheter CVA (cerebral vascular accident) (08/03/15) Diabetes mellitus History of UTI Hyperthyroidism Stenosis of right carotid artery Trigeminal neuralgia Urinary retention (2014) Urinary retention Surgical History S/P carotid endarterectomy (01/29/22) S/P vasectomy Family History Father CVA (cerebral vascular accident) Sister Thyroid disorder Social History household members: children Tobacco & Substance Use Smoking Status: Never smoker alcohol intake: current Assessment & Plan Assessment & Plan narrative: Assessment: 1. Recurrent clot retention. 2. Markedly enlarged prostate. 3. Recurrent UTI. 4. Chronic warfarin anticoagulation. Plan: 1. Schedule PLACEMENT SUPRAPUBIC TUBE. Reviewed findings, discussed impression, and recommended plan as has been discussed on multiple occasions with the patient previously. Also had discussion with his PCP, Dr. Butler, this morning to formulate and optimize a management plan for Juan R. The common side effects, possible complications, perioperative limitations/restrictions, and reasonable expectations of surgical outcome and recovery was explained to the patient at the bedside with nursing staff in attendance. Time Spent With Patient Critical Care time: I spent a total of [] minutes of critical care time on this patient's care to day; this time is exclusive of procedural time.
--- NOTE | 2022-08-07 08:16 | P.PN_ITS ---
Subjective Subjective Date Patient Seen: 08/07/22 Time Patient Seen: 07:50 Interval history: Patient seen in conjunction with Urology (Dr. Conteh). Patient's bleeding seems to have ceased or nearly ceased. Currently draining clear urine and no evidence of bleeding around the catheter at this time anyway. Has had a couple of flushes overnight and remained clear Urology would like to proceed with a suprapubic catheter placement to avoid issues around the chronic indwelling Zepeda the patient has well experienced over the last several months including this most recent episode with the traumatic removal of the catheter difficult replacement and now ongoing bleeding etcetera. Vital signs have been okay overnight. Lab work this morning shows a decline in hemoglobin hematocrit consistent with his known bleeding. INR this morning is 1.6 Microbiology shows Citrobacter and a Providencia species. Currently on appropriate antibiotic therapy with levofloxacin for which both organisms are sensitive Exam Vital Signs (past 8 hours): - 08/07/22 02:00 08/07/22 02:00 08/07/22 04:00 Temperature Pulse Rate 88 Respiratory Rate Blood Pressure 102/61 99/56 L Pulse Oximetry 99 08/07/22 04:00 08/07/22 06:00 08/07/22 06:00 Temperature 98.3 F Pulse Rate 83 84 Respiratory Rate 15 Blood Pressure 104/59 L Pulse Oximetry 98 99 Oxygen Delivery Method Room Air Objective Labs Result Diagrams: 08/07/22 04:08 08/07/22 04:08 Labs: Laboratory Results - last 24 hr 08/06/22 08/06/22 08/06/22 07:49 07:49 08:53 WBC RBC Hgb Hct MCV MCH MCHC RDW Plt Count Neut % (Auto) Lymph % (Auto) [place] % (Auto) Eos % (Auto) Baso % (Auto) Neut # (Auto) Lymph # (Auto) [place] # (Auto) Eos # (Auto) Baso # (Auto) Total Counted 100 Seg Neutrophils % 70.0 Lymphocytes % (Manual) 17.0 L Atypical Lymphs % 9.0 H Monocytes % (Manual) 4.0 Neutrophils # (Manual) 8050 H RBC Morphology Normal morphology PT INR APTT Sodium Potassium Chloride Carbon Dioxide BUN Creatinine Estimated GFR BUN/Creatinine Ratio Glucose Calcium Nasal Screen MRSA (PCR) SARS-CoV-2 (PCR) Blood Type B Positive Cancelled Antibody Screen Negative Cancelled 08/06/22 08/06/22 08/06/22 12:09 12:11 15:50 WBC 11.8 H RBC 3.29 L Hgb 9.7 L Hct 28.5 L MCV 86.7 MCH 29.5 MCHC 34.1 RDW 14.6 Plt Count 308 Neut % (Auto) 84.8 H D Lymph % (Auto) 8.2 L D [place] % (Auto) 6.7 Eos % (Auto) 0.1 L Baso % (Auto) 0.2 Neut # (Auto) 69793 H Lymph # (Auto) 1000 L [place] # (Auto) 800 Eos # (Auto) 0 Baso # (Auto) 0 Total Counted Seg Neutrophils % Lymphocytes % (Manual) Atypical Lymphs % Monocytes % (Manual) Neutrophils # (Manual) RBC Morphology PT 27.8 H D INR 2.4 H APTT Sodium Potassium Chloride Carbon Dioxide BUN Creatinine Estimated GFR BUN/Creatinine Ratio Glucose Calcium Nasal Screen MRSA (PCR) SARS-CoV-2 (PCR) Negative Blood Type Antibody Screen 08/06/22 08/07/22 08/07/22 23:41 04:08 04:08 WBC 8.1 RBC 2.91 L Hgb 8.6 L Hct 25.2 L MCV 86.5 MCH 29.6 MCHC 34.2 RDW 14.7 Plt Count 263 Neut % (Auto) 52.7 D Lymph % (Auto) 34.7 D [place] % (Auto) 11.3 Eos % (Auto) 0.8 L Baso % (Auto) 0.5 Neut # (Auto) 4300 Lymph # (Auto) 2800 [place] # (Auto) 900 Eos # (Auto) 100 Baso # (Auto) 0 Total Counted Seg Neutrophils % Lymphocytes % (Manual) Atypical Lymphs % Monocytes % (Manual) Neutrophils # (Manual) RBC Morphology PT 18.9 H D INR 1.6 H APTT 29 Sodium Potassium Chloride Carbon Dioxide BUN Creatinine Estimated GFR BUN/Creatinine Ratio Glucose Calcium Nasal Screen MRSA (PCR) Negative for mrsa SARS-CoV-2 (PCR) Blood Type Antibody Screen 08/07/22 04:08 WBC RBC Hgb Hct MCV MCH MCHC RDW Plt Count Neut % (Auto) Lymph % (Auto) [place] % (Auto) Eos % (Auto) Baso % (Auto) Neut # (Auto) Lymph # (Auto) [place] # (Auto) Eos # (Auto) Baso # (Auto) Total Counted Seg Neutrophils % Lymphocytes % (Manual) Atypical Lymphs % Monocytes % (Manual) Neutrophils # (Manual) RBC Morphology PT INR APTT Sodium 140 Potassium 4.0 Chloride 108 H Carbon Dioxide 25 BUN 21 H Creatinine 0.53 L Estimated GFR > 60 BUN/Creatinine Ratio 39.6 H Glucose 111 H Calcium 8.1 L Nasal Screen MRSA (PCR) SARS-CoV-2 (PCR) Blood Type Antibody Screen [facility] Medical History Atrial fibrillation Bladder stones BPH w urinary obs/LUTS Cardiomyopathy (2013) Chronic indwelling Zepeda catheter CVA (cerebral vascular accident) (08/03/15) Diabetes mellitus History of UTI Hyperthyroidism Stenosis of right carotid artery Trigeminal neuralgia Urinary retention (2014) Urinary retention Surgical History S/P carotid endarterectomy (01/29/22) S/P vasectomy Family History Father CVA (cerebral vascular accident) Sister Thyroid disorder Social History household members: children Smoking Status: Never smoker alcohol intake: current Assessment & Plan Assessment & Plan narrative: 1. Hematuria and bleeding from the urethra likely secondary to traumatic issues with his Zepeda catheter although a contributing factor would be the persistent infection/colonization of his bladder as well. In addition course patient was a bit supratherapeutic with his chronic anticoagulation. Anticoagulation has been discontinued and mostly reversed with the expected effect on reduction in bleeding etcetera. No particular intervention necessary regarding his hematuria at this time. 2. Acute blood loss anemia-patient should be okay with current levels of hemoglobin hematocrit. I do not believe he requires transfusion at this point. Patient does not have underlying ischemic heart disease nor other indication for early transfusion and we appeared of control bleeding so do not anticipate his numbers will drop much more significantly 3. Chronic bladder outlet obstruction-I agree patient has had long-term complications of his chronic indwelling Zepeda between issues with infection issues with traumatic removal and need for reinsertion etcetera. I think patient would indeed be far better served by having a suprapubic catheter in place which should be a simple and easy procedure in this particular individual given his body habitus etcetera. I would be very hesitant to restart his warfarin on a long-term basis if he continued with Zepeda catheter as his bladder drainage but would have no qualms about restarting with the presence of a suprapubic catheter. At this point I discussed at length with patient who has been hesitant about this procedure but I think for him in the end after all that he has been through with a chronic indwelling Zepeda that a suprapubic catheter is a far better choice. I also discussed with him about my concerns regarding restarting his chronic anticoagulation and he has concerns about not being on that over risk for stroke (which of course he is already sustained). Therefore he was in agreement that a suprapubic catheter placement which could be done today apparently makes sense and that will allow us to get him back on his warfarin and remove his Zepeda at least eventually. I would plan to continue him off of his warfarin for another week or so to allow for more complete healing in the prostatic bed and with the bladder itself given the ongoing bleeding that we experienced after his most recent traumatic Zepeda removal and replacement. This is relatively low risk regarding stroke risk and many patients have their chronic anticoagulation in this setting interrupted for periods of a week or so around simple procedures such as colonoscopy etcetera and I think patient understands all of that 4. Diabetes-patient's diabetes is frankly very minimal his A1c is a bit normal blood sugars have not been an active issue not an active concern. He is not on any medication for this etcetera 5. Hyperthyroidism-patient does continue on his methimazole I believe he is actually taking it at this point continue with his usual dose 6. Atrial fibrillation-adequate rate control back on his usual oral medication. No changes necessary Overall patient is much improved bleeding seems to be under control. I think he can likely be discharged after his propose suprapubic catheter placement later today which is usually an outpatient procedure anyway. I would defer ongoing treatment of his potential cystitis to Urology. He has received parental antibiotics here that may well be sufficient especially if we plan to remove the Zepeda catheter in the coming days. Note: Greater than 30 minutes total time was spent on day of service, evaluating the patient on the floor, including examining the patient, discussing clinical course with clinical and nursing staff, reviewing clinical course in the computer, preparing documentation and writing orders for continued management of care, discussing status with family as appropriate, reviewing plans for the next 24 hours with both patient/family and nursing staff as appropriate.
[2022-08-07] MEDS: ATORVASTATIN 20 MG TABLET 80 MG PO (08:25)
[2022-08-07] MEDS: METOPROLOL IR 25 MG TABLET 12.5 MG PO ×2 (08:25→20:18)
[2022-08-07] MEDS: GABAPENTIN 600 MG TABLET PO ×2 (08:25→20:18)
[2022-08-07] MEDS: ACETAMINOPHEN 325 MG TABLET 650 MG PO (08:26)
[2022-08-07] MEDS: methIMAzole 5 MG TABLET 2.5 MG PO (08:26)
[2022-08-07] MEDS: FINASTERIDE 5 MG TABLET PO (08:29)
[2022-08-07] MEDS: SODIUM CHLORIDE 0.9% FLUSH 10 ML IV ×2 (08:30→20:19)
--- NOTE | 2022-08-07 08:59 | CM.DANOTE ---
DCP Assessment: Payor confirmed: [employer] PCP confirmed: Lloyd Butler MD Pt is a 82 y.o. M who presented to the ER with a chief complaint of bleeding from campa catheter. Pt sees Dr. Conteh in urology. Pt was admitted for further management and evaluation of campa catheter. DCP met with pt this morning to discuss discharge needs. Pt laying in bed watching TV. DCP introduced self and role. Pt states that he lives in a house in [place] with his son, Shahzad. Pt states he is independent at baseline. Pt denies DME use and states that he still drives POV. Pt states that his son can transport him home upon discharge. Pt denies any resources at this time. White board updated and instructed to call. Pt thankful for discussion. P: Pt to have surgery to place a suprapubic catheter. Once medically stable for discharge, pt to discharge home via son POV. Rule out HH services. Karen Wing RN/POL[place] Discharge Planning/Care Management CM Discharge Assessment Start: 08/07/22 08:59 Freq: Status: Active Protocol: Document 08/07/22 08:59 CONNOR (Rec: 08/07/22 08:59 CONNOR [id number]) Discharge Planning Assessment Assigned Ux Researcher Karen Wing RN/[place] Advance Directives? Yes: POLST Advance Directives on File Yes History Provided By Patient,Family Member,Medical Record Prior Living Arrangements House Household Members children Type of transporation used prior to Drives own vehicle admit Independent with ADL's Yes Is patient alert and oriented? Yes Caregiver for Another No Discharge Plan Home Transportation Arrangement Son POV Referrals Initiated None needed Additional Comment At this time. Whiteboard Updated in Patient Room with Yes name and ext. # of Ux Researcher Comment Instructed to call Review Status In Process Please Provide Date Initial DC 08/07/22 Assessment Was Performed Next Review Type Continued Stay Review
--- NOTE | 2022-08-07 17:53 | PM.PREOP ---
Pre-operative Note COVID-19 Criteria for continued procedure: Expected advancement of disease process, Possibility delay results in more complex future surgery or treatment, Increased loss of function, Continuing or worsening of significant or severe pain, Deterioration of the patient's condition or overall health, Delay expected to result in less-positive ultimate med/surg outcome and Non-surgical alternatives not available or appropriate per current SOC Interval Note History & Physical reviewed/Exam performed by Physician: Yes Changes to H&P: No
[2022-08-07] MEDS: levoFLOXacin 500 MG/100 ML PIGGYBACK 100 MG IV (18:05)
[2022-08-07] MEDS: BUPIVACAINE 0.5% W/ EPI (PF) 30 ML VIAL INJ (18:23)
--- NOTE | 2022-08-07 18:26 | SUR.OPER ---
Lithotomy on padded OR bed, head on pillow, arms secured on padded arm boards at <90 degrees abduction. Legs secured in padded yellow fins stirrups.
[2022-08-07] MEDS: BACITRACIN OINT 0.9 GM PCKT 1 APPLIC TOP (18:36)
--- NOTE | 2022-08-07 18:43 | P.OP_ITS ---
Operative Date/Time/Diagnoses Date of procedure: 08/07/22 Time of procedure: 18:44 Pre-op diagnosis: 1. Clot retention. 2. History of urinary retention. 3. Markedly enlarged prostate. Post-op diagnosis: same Procedure & Clinicians Procedure: 1. Cystoscopy/clot evacuation. 2. Placement suprapubic tube. Same procedure as scheduled: Yes Indications: 1. Clot retention. 2. History of urinary retention. 3. Markedly enlarged prostate. Surgeon: Nancy Conteh Click Yes if Unassisted: Yes Anesthesia Type: General and Local (0.5% Marcaine with epinephrine.) Operative Notes Findings: 1. Urethra-normal caliber without annular stricture or lesion. 2. External sphincter-coapted with normal overlying urothelium other than mild foreign body excoriations due to long history of indwelling Zepeda catheter. 3. Prostate-6 cm length with markedly obstructing 6 cm length without active bleeding. 4. Bladder-severe trabeculation. Multiple mucosal hemorrhages consistent with repeated and irrigation within recent 24-48 hours. There is impressive circumferential impingement the bladder neck due to prostate. There is a mixture of fresh and old and organizing clot lying dependently in the bladder which was irrigated with the J Carlos syringe. Closure Type: primary Specimen(s): none sent Applied: catheter (Twenty [place] silicone Zepeda catheter placed to gravity drainage through suprapubic tract.) Estimated Blood Loss (mL): 2 Blood products transfused: none Procedure in detail: The patient was positioned supine was administered general anesthesia. He was then repositioned semi lithotomy and lower abdomen, genitalia, and groin were then prepped and draped in sterile fashion. The 22 [place] panendoscope was then passed the lower urinary tract with the findings as described above. The J Carlos syringe was prepared and the mixture of retained clot was then irrigated free to remove all retained clot from the bladder lumen. Next the bladder was filled to capacity. An area approximately 1 cm above the pubic symphysis was then infiltrated with local anesthetic at the level of the skin, subcutaneous tissue, and midline rectus fascia wall. The panendoscope was then removed. The [place] retractor was then advanced in the lower urinary track was positioned anteriorly and flexed. The tip was palpable in the locally anesthetized area. A scalpel was then used to cut down to the tip of the [place]owsley. The [place]ley was then passed through the anterior abdominal wall. The jaws of the [place]ows[place] were then opened and the tip of the 20 [place] silicone Zepeda catheter was then wedged within the jaws of the [place] as they were closed snugly. The lousy retractor was then withdrawn bringing the catheter tip within the bladder lumen. The [place]ows[place] jaws release the tip of the catheter. And then were closed and then the lousy retractor was then removed. The panendoscope was reintroduced lower urinary track for inspection. The balloon was then inflated to 10 cc and snugged against the anterior bladder wall. There was no visible active bleeding. The bladder was filled twice and reinspected at the placement site. The panendoscope was then removed final time. A 0 silk suture was then used to secure the suprapubic catheter at the level of the skin using a Mandeep sandal technique in usual fashion. The site was then dressed with bacitracin ointment and drain sponge applied. Paper tape was then applied to secure the gauze to lower abdominal wall. The patient was then repositioned in supine, was awakened, then was transferred to a [place] for transport to PACU in stable condition. Complications: none Post-operative Condition: stable Disposition: PACU Plan for aftercare: Admit to hospitalist service-acute care.
[2022-08-07] MEDS: CEFEPIME 1 GM in SODIUM CHLORIDE 0.9% 100 ML IV (20:19)
[2022-08-08] VITALS: BP 108/58; PULSE 98; RESP 19; TEMP 37; O2SAT 95
[2022-08-08 04:00] VITALS: BP 105/69; PULSE 86; RESP 17; TEMP 37.3; O2SAT 96
--- NOTE | 2022-08-08 07:34 | PM.PN.1 ---
Subjective Subjective Date Patient Seen: 08/08/22 Time Patient Seen: 07:34 Interval history: Patient went for placement of suprapubic catheter last evening. Upon cystoscopy still found to have fair amount of blood/clots within the bladder itself. Prostatic bed actually looked pretty good. Uneventful placement of suprapubic catheter. Zepeda catheter was removed Exam Vital Signs (past 8 hours): - 08/08/22 00:00 08/08/22 04:00 Temperature 98.6 F 99.2 F Pulse Rate 98 H 86 Respiratory Rate 19 17 Blood Pressure 108/58 L 105/69 Pulse Oximetry 95 96 Oxygen Delivery Method Room Air Objective Labs Result Diagrams: 08/07/22 04:08 08/07/22 04:08 [facility] Medical History Atrial fibrillation Bladder stones BPH w urinary obs/LUTS Cardiomyopathy (2013) Chronic indwelling Zepeda catheter CVA (cerebral vascular accident) (08/03/15) Diabetes mellitus History of UTI Hyperthyroidism Stenosis of right carotid artery Trigeminal neuralgia Urinary retention (2014) Urinary retention Surgical History S/P carotid endarterectomy (01/29/22) S/P vasectomy Family History Father CVA (cerebral vascular accident) Sister Thyroid disorder Social History household members: children Smoking Status: Never smoker alcohol intake: current Assessment & Plan Assessment & Plan narrative: 1. Hematuria-likely secondary to source of bleeding in the bladder combined with patient's anticoagulation. Anticoagulation has been discontinued temporarily and I would remain off of anticoagulation for another week to ensure complete healing. 2. Bladder outlet obstruction-patient now suprapubic catheter which should be far less problematic in allowing for appropriate drainage of bladder. Continue management as per Urology, including wound care of the new suprapubic catheter 3. Atrial fibrillation-patient is rate control is adequate. Resume warfarin probably will within a week to allow for healing to prevent recurrence of bleeding etcetera 4. Acute blood loss anemia-patient not demonstrating any evidence of any significant negative effect from his anemia. Will recommend oral iron therapy to assist with replacement of his red blood cells 5. Diabetes-very well controlled without medication. No active issues with this 6. Cardiomyopathy-no evidence of acute congestive heart failure at this time. Be cautious with IV fluids etcetera. Overall patient is improved and probably ready to go home today with follow-up regarding his Zepeda and new suprapubic catheter as per Urology. I believe patient is medically clear for discharge when okay with Urology. Note: Greater than 20 minutes total time was spent on day of service, evaluating the patient on the floor, including examining the patient, discussing clinical course with clinical and nursing staff, reviewing clinical course in the computer, preparing documentation and writing orders for continued management of care, discussing status with family as appropriate, reviewing plans for the next 24 hours with both patient/family and nursing staff as appropriate.
--- NOTE | 2022-08-08 07:59 | P.DS_ITS ---
History of Present Illness History of Present Illness Date Patient Seen: 08/08/22 Time Patient Seen: 08:00 Chief complaint: states catheter is bleeding all over Narrative: Pt is a 82yo man with atrial fibrillation on chronic anticoagulation, DM type 2, hyperthyroidism, and BPH with chronic indwelling campa who presented with bleeding around his campa catheter and clots in his catheter.? The pt accidentally pulled out his campa on 08/01.? He had discomfort and some bleeding at the time.? He came to the ED on 08/02, and had the campa replaced.? A 20 [place] was initially attempted but could not be advanced past the prostate, and a 16 [place] was ultimately used.? He was discharged home.? The pt and his son report that he has continued to have bleeding around and within the catheter since then.? They have noticed progressively larger clots within the catheter as well.? The pt denies any abdominal pain or pain around the catheter.? He reports that he has otherwise been feeling well.? In the ED, lab work revealed mild anemia.? Urine cultures from 08/02 had returned positive, and the pt received one dose of Levofloxacin.? After discussion with Urology, the pts campa was replaced with a 24 [place] successfully.? His anticoagulation was reversed with Vitamin K.? CT abdomen/pelvis showed potential bleeding within the bladder and prostate, most likely traumatic based on the recent history.? The pts campa was irrigated copiously, and as per nursing report bleeding, while still present, was minimally improved. {from Dr. Muñoz's H&P} Discharge Providers Provider Date of admission: 08/06/22 16:00 Discharge Date: 08/08/22 Primary care physician: Lloyd Butler MD Consults: Nancy Conteh MD Discharge provider: Lloyd Butler MD Summary Hospital Course Discharge Diagnosis: 1. Gross hematuria 2. Iatrogenic over anticoagulation with warfarin 3. Uncomplicated cystitis likely secondary to long-term Campa catheter 4. Bladder outlet obstruction with chronic indwelling Campa catheter 5. Atrial fibrillation with chronic anticoagulation 6. History of stroke 7. Diabetes on diet control alone 8. Hyperthyroidism 9. Acute blood loss anemia secondary to hematuria above 10. 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 Continued show evidence of active bleeding so was admitted to the hospital. He eventually had slowing of his bleeding likely due to treatment of his UTI reversal of his anticoagulation and continued irrigation of his bladder. Urology saw patient in hospital and after long discussion between urology myself and the patient was determine that placement of a suprapubic catheter was likely the most efficacious way to manage his bladder outlet obstruction and yet prevent complications that been very clear with the long-term indwelling Campa catheter including infection and traumatic removal of catheter etcetera. Patient's blood counts did drop with the degree of hematuria he was demonstrating but was hemodynamically stable and had no symptoms related to the anemia After approval patient went to the OR for placement of suprapubic catheter. Cystoscopy revealed retained blood and clots within the bladder which was irrigated copiously and Campa catheter was removed once successful suprapubic catheter was placed Patient was felt to be stable for discharge home day after his procedure. He will remain off of anticoagulation for another week in effort to allow for healing within the bladder itself. He will complete a 7 day course of antibiotic therapy for the proven infection with Providencia and Citrobacter organisms which were felt to be a contributing factor to the hematuria Exam Vital Signs (past 8 hours): - 08/08/22 00:00 08/08/22 04:00 Temperature 98.6 F 99.2 F Pulse Rate 98 H 86 Respiratory Rate 19 17 Blood Pressure 108/58 L 105/69 Pulse Oximetry 95 96 Oxygen Delivery Method Room Air Objective Labs Result Diagrams: 08/07/22 04:08 08/07/22 04:08 [facility] Medical History Atrial fibrillation Bladder stones BPH w urinary obs/LUTS Cardiomyopathy (2013) Chronic indwelling Campa catheter CVA (cerebral vascular accident) (08/03/15) Diabetes mellitus History of UTI Hyperthyroidism Stenosis of right carotid artery Trigeminal neuralgia Urinary retention (2014) Urinary retention Surgical History S/P carotid endarterectomy (01/29/22) S/P vasectomy Family History Father CVA (cerebral vascular accident) Sister Thyroid disorder Social History household members: children Smoking Status: Never smoker alcohol intake: current Discharge Assessment & Plan Assessment and Plan Plan of Treatment: Patient to complete 7 days of antibiotic therapy with Levaquin Patient remain off warfarin till seen in the outpatient clinic by Dr. Butler to allow for healing of the bladder to prevent recurrent hematuria Patient to continue all of his other usual medications Follow-up regarding his suprapubic catheter as per Dr. Conteh in Urology Discharge Plan Discharge Plan Patient Disposition: Home Discharge orders & Medications Prescriptions: New levofloxacin 500 mg tablet 500 mg PO DAILY Qty: 5 0RF ferrous sulfate 325 mg (65 mg iron) tablet 325 mg PO DAILY Qty: 90 2RF Continued aspirin [Adult Low Dose Aspirin] 81 mg tablet,delayed release (DR/EC) 81 mg PO DAILY gabapentin 600 mg tablet 600 mg PO DAILY methimazole 5 mg tablet 2.5 mg PO DAILY Qty: 90 3RF Label Comments: Patient takes with lunch atorvastatin 80 mg tablet 80 mg PO DAILY Qty: 90 3RF Label Comments: Patient takes in am. metoprolol tartrate 25 mg tablet 12.5 mg PO BID Qty: 60 0RF finasteride 5 mg tablet 5 mg PO DAILY Qty: 90 3RF Label Comments: Patient does not always take as directed per son. Discontinued warfarin 5 mg tablet See Rx Instructions .ROUTE .COMPLEX Qty: 90 3RF Hold Instructions: Bleeding in urinary catheter Rx Instructions: Take 2.5mg Thursday and 5mg all other days or as directed. Takes in pm. Follow up/Referrals: Nancy Conteh MD [Physician] - 1 Month Lloyd Butler MD [Primary Care Provider] - 1 Week Discharge Health Status Multidrug resistant organism: No MDRO Diet/Activity/Treatments Diet: Diet as Tolerated Skin/Wound/Dressing Care Other wound treatment: call urology clinic with questions/issues with new suprapubic catheter management and wound care Discharge Data Primary Care Provider: Lloyd Butler
[2022-08-08 08:00] VITALS: BP 109/64; PULSE 71; RESP 16; TEMP 37.1; O2SAT 98
[2022-08-08] MEDS: ATORVASTATIN 20 MG TABLET 80 MG PO (08:19)
[2022-08-08] MEDS: GABAPENTIN 600 MG TABLET PO (08:19)
[2022-08-08] MEDS: METOPROLOL IR 25 MG TABLET 12.5 MG PO (08:20)
[2022-08-08] MEDS: FINASTERIDE 5 MG TABLET PO (08:20)
[2022-08-08] MEDS: SODIUM CHLORIDE 0.9% FLUSH 10 ML IV (08:21)
[2022-08-08] MEDS: methIMAzole 5 MG TABLET 2.5 MG PO (08:21)
[2022-08-08 11:45] VITALS: BP 133/59; PULSE 94; RESP 17; TEMP 36.6; O2SAT 94
== END 2022-08-08 13:25 | disposition home or self-care (01) | DRG 699 ==
LOC: ED 08-06 15:59 → AC 08-06 16:02 → ICU 08-06 17:44
PROVIDERS: Specialist; Admitting Provider Family Medicine; Emergency Provider Emergency Medicine; PCP Internal Medicine; Referring Provider Emergency Medicine; Visit Provider Internal Medicine
PROC: 0T9B30Z Drainage of Bladder with Drainage Device, Percutaneous Approach (ICD-10-PCS; CPT 51102; principal; 2022-08-07 16:30)
DX: T83.83XA Hemorrhage due to genitourinary prosthetic devices, implants and grafts, initial encounter (principal); I42.8 Other cardiomyopathies; N13.8 Other obstructive and reflux uropathy; I48.91 Unspecified atrial fibrillation; E05.90 Thyrotoxicosis, unspecified without thyrotoxic crisis or storm; N40.1 Benign prostatic hyperplasia with lower urinary tract symptoms; T83.511A Infection and inflammatory reaction due to indwelling urethral catheter, initial encounter; N30.91 Cystitis, unspecified with hematuria; R79.1 Abnormal coagulation profile; Z86.73 Personal history of transient ischemic attack (TIA), and cerebral infarction without residual deficits; Z20.822 Contact with and (suspected) exposure to COVID-19; Z66 Do not resuscitate; Z79.01 Long term (current) use of anticoagulants
CPT/HCPCS: 36415; 36430; 51702; 74176; 80048; 82962; 85025; 85610; 85730; 86850; 86900; 86901; 86927; 87040; 87635; 87797; 93005; 96365; 96366; 96375; 99223; 99232; 99238; 99284; 99285; 99291; 99292; C9803; P9016; J0692; J1170; J1956; J2704; J3010; J3430

== ENCOUNTER → 2022-09-11 09:10 | Outpatient (CLI) | payer MEDICARE, SELFPAY ==
[2022-08-06 19:36] VITALS: BMI 21.4
== END ==
PROVIDERS: PCP Internal Medicine; Visit Provider Specialist
DX: R31.9 Hematuria, unspecified (principal); R33.9 Retention of urine, unspecified; Z87.440 Personal history of urinary (tract) infections
CPT/HCPCS: 51702; 87086; 99214

== ENCOUNTER → 2022-10-03 07:37 | Outpatient (CLI) | payer MEDICARE, SELFPAY ==
[2022-08-06 19:36] VITALS: BMI 21.4
[2022-10-03 09:12] LABS: BUN Creatinine Ratio 22.1 (6-22); Blood Urea Nitrogen 15 mg/dL (9-20); Calcium 8.8 mg/dL (8.4-10.2); Carbon Dioxide 27 mmol/L (22-32); Chloride 103 mmol/L (98-107); Estimated Glomerular Filt Rate > 60 mL/min (>60); Glucose 111 mg/dL (80-110); HEMOLYSIS < 15 (0-50); Potassium 4.3 mmol/L (3.4-5.1); Sodium 139 mmol/L (137-145)
[2022-10-03 09:23] LABS: Free T3, Triiodothyronine Free 4.31 pg/mL (2.77-5.27)
[2022-10-03 09:40] LABS: Thyroid Stimulating Hormone < 0.015 uIU/mL (0.47-4.68)
== END ==
PROVIDERS: PCP Internal Medicine; Referring Provider Internal Medicine; Visit Provider Internal Medicine
DX: E05.90 Thyrotoxicosis, unspecified without thyrotoxic crisis or storm (principal); E11.9 Type 2 diabetes mellitus without complications; I48.20 Chronic atrial fibrillation, unspecified
CPT/HCPCS: 36415; 80048; 84439; 84443; 84481

== ENCOUNTER → 2022-10-16 08:55 | Outpatient (CLI) | payer MEDICARE, SELFPAY ==
[2022-08-06 19:36] VITALS: BMI 21.4
== END ==
PROVIDERS: PCP Internal Medicine; Visit Provider Specialist
DX: R33.9 Retention of urine, unspecified (principal); Z93.59 Other cystostomy status
CPT/HCPCS: 51702; 87086

== ENCOUNTER → 2022-11-18 09:18 | Outpatient (CLI) | payer MEDICARE, SELFPAY ==
[2022-08-06 19:36] VITALS: BMI 21.4
== END ==
PROVIDERS: PCP Internal Medicine; Visit Provider Specialist
DX: R31.9 Hematuria, unspecified (principal); R33.9 Retention of urine, unspecified; Z87.440 Personal history of urinary (tract) infections
CPT/HCPCS: 51702; 87077; 87086; 87185; 87186

== ENCOUNTER → 2022-12-17 10:25 | Outpatient (CLI) | payer MEDICARE, SELFPAY ==
[2022-08-06 19:36] VITALS: BMI 21.4
== END ==
PROVIDERS: PCP Internal Medicine; Visit Provider Specialist
DX: R31.9 Hematuria, unspecified (principal); R33.9 Retention of urine, unspecified; Z87.440 Personal history of urinary (tract) infections; Z93.59 Other cystostomy status
CPT/HCPCS: 87086

== ENCOUNTER 2022-12-17 17:28 | Inpatient (IN) | payer MEDICARE, SELFPAY ==
[2022-08-06 19:36] VITALS: BMI 21.4
[2022-12-17] VITALS (55 sets, daily range): BP systolic 99–181; BP diastolic 47–102; PULSE 101–163; RESP 10–58; TEMP 37–40.1; O2SAT 91–99; BMI 21.4; BMI 25.0
[2022-12-17] MEDS: LIDOCAINE 2% (GLYDO) 6 ML GEL TOP (18:23)
[2022-12-17] MEDS: MORPHINE 4 MG/ML INJ IV (18:23)
--- NOTE | 2022-12-17 18:31 | DI.CT.S_ITS ---
PROCEDURE: CT KIDNEY URETER BLADDER (KUB) INDICATIONS: hematuria TECHNIQUE: Axial sections were acquired from the lung bases to the pubic symphysis. Coronal and sagittal reformats were performed. For radiation dose reduction, the following was used: automated exposure control, adjustment of mA and/or kV according to patient size. COMPARISON: [facility], CT, CT KIDNEY URETER BLADDER (KUB), 08/06/2022, 14:05. FINDINGS: Image quality: Degraded by motion artifact. Lung bases: Unremarkable. Heart: Moderate calcification of the coronary vasculature. URINARY: Right Kidney: No stones or hydronephrosis. Right Ureter: No hydroureter. Left Kidney: No stones or hydronephrosis. Left Ureter: No hydroureter. Bladder: Prostate is enlarged. Suprapubic Zepeda catheter is present. Urinary bladder is decompressed, limiting evaluation for wall thickening. ABDOMEN: Liver: Nodular hepatic contour. Gallbladder: Unremarkable. Biliary ducts: Unremarkable. Pancreas: Unremarkable. Spleen: Unremarkable. Adrenal Glands: Unremarkable. Stomach and Bowel: Stomach, small bowel loops, and colon are unremarkable. Appendix not seen. No evidence of appendicitis. Peritoneum: No abnormal intraperitoneal fluid. No free air. Ventral Wall: No hernia. Abdominal Nodes: No change in mildly prominent bilateral iliac chain lymph nodes. Vessels: Aorta and inferior vena cava are normal in size. PELVIS: Pelvic Organs: Unremarkable. Pelvic Nodes: Unremarkable. Miscellaneous: No inguinal hernias are seen. Bones: Unremarkable. IMPRESSION: 1. Limited examination secondary to motion artifact. 2. No evidence of urinary tract calcification, nor obstruction. 3. Enlarged prostate. 4. Coronary artery disease. 5. No change in mildly enlarged iliac chain lymph nodes. Dictated by: Leonor Hinton M.D. on 12/17/2022 at 19:47 Approved by: Leonor Hinton M.D. on 12/17/2022 at 19:50
[2022-12-17 18:45] LABS: INR 2.5 (0.9-1.3); Prothrombin Time 29.5 SECONDS (10.1-12.7)
[2022-12-17 18:46] LABS: Add Manual Diff / Slide Review NO; Basophils Absolute Auto 0 /uL (0-100); Basophils Percent Auto 0.3 % (0-2); Eosinophils Absolute Auto 0 /uL (0-450); Eosinophils Percent Auto 0.2 % (2-4); Hemoglobin 13.4 g/dL (13.5-17.5); Lymphocytes Absolute Auto 1300 /uL (1100-4500); Lymphocytes Percent Auto 12.3 % (25-40); Mean Corpuscular HGB Conc 32.8 % (30-36); Mean Corpuscular Hemoglobin 26.6 PG (26-34); Mean Corpuscular Volume 81.3 fL (80-100); Monocytes Absolute Auto 400 /uL (0-900); Monocytes Percent Auto 3.5 % (3-14); Neutrophils Absolute Auto 8900 /uL (1500-7000); Neutrophils Percent Auto 83.7 % (50-75); Platelet Count 241 X10^3/uL (150-400); Red Blood Cell Count 5.04 X10^6/uL (4.5-5.9); Red Cell Distribution Width 20.7 % (11.6-14.8); White Blood Cell Count 10.7 X10^3/uL (4.5-11.0)
[2022-12-17 18:47] LABS: PTT Partial Thromboplastin Tim 33 SECONDS (26-36)
[2022-12-17 18:49] LABS: Alanine Aminotransferase 31 IU/L (<50); Albumin 4.5 g/dL (3.5-5.0); Albumin Globulin Ratio 1.3 (1.0-2.8); Alkaline Phosphatase 103 U/L (38-126); Aspartate Aminotransferase 39 IU/L (17-59); Bilirubin Total 1.7 mg/dL (0.2-1.3); Blood Urea Nitrogen 15 mg/dL (9-20); Calcium 8.9 mg/dL (8.4-10.2); Carbon Dioxide 23 mmol/L (22-32); Chloride 103 mmol/L (98-107); Estimated Glomerular Filt Rate > 60 mL/min (>60); Globulin 3.5 g/dL (1.7-4.1); Glucose 128 mg/dL (80-110); HEMOLYSIS < 15 (0-50); Lipase 94 U/L (23-300); Potassium 4.4 mmol/L (3.4-5.1); Sodium 138 mmol/L (137-145)
[2022-12-17 19:14] LABS: Anisocytosis 2+; Ovalocytes 1+
[2022-12-17 19:40] LABS: Lactate (Lactic Acid) 3.4 mmol/L (0.7-2.1)
[2022-12-17] MEDS: ACETAMINOPHEN 325 MG TABLET 975 MG PO (19:40)
--- NOTE | 2022-12-17 19:47 | ED.MALEGU ---
HPI - Male Genitourinary General Chief complaint: Urogenital-Male Stated complaint: pain, urinary catheter not working Time Seen by Provider: 12/17/22 18:15 Mode of arrival: Family Vehicle History of Present Illness HPI Narrative: Patient 82-year-old male history of atrial fibrillation possibly on warfarin he has urinary retention with suprapubic catheter presenting today with increased abdominal pain. He reports the suprapubic catheter was changed by Urology today however it does not seem to be draining any having increasing pain. He is not having any cough chest pain or palpitations. He said that he was feeling well yesterday and this morning. However significant suprapubic pain Related Data Home Medications Medication Instructions Recorded Confirmed aspirin 81 mg tablet,delayed 81 mg PO DAILY 02/04/22 12/17/22 release (Adult Low Dose Aspirin) Previous Rx's Medication Instructions Recorded atorvastatin 80 mg tablet 80 mg PO DAILY #90 tabs 02/06/22 methimazole 5 mg tablet 2.5 mg PO DAILY #90 tabs 07/17/22 ferrous sulfate 325 mg (65 mg 325 mg PO DAILY #90 tabs 08/08/22 iron) tablet gabapentin 600 mg tablet 600 mg PO TID #270 tabs 09/04/22 metoprolol tartrate 25 mg tablet 12.5 mg PO BID #60 tabs 10/24/22 Allergies Allergy/AdvReac Type Severity Reaction Status Date / Time No Known Drug Allergies Allergy Verified 12/17/22 17:36 Review of Systems Review of Systems ROS Unobtainable: All systems reviewed & are unremarkable except as noted in HPI and below Patient History Medical History Atrial fibrillation Bladder stones BPH w urinary obs/LUTS Cardiomyopathy (2013) Chronic indwelling Zepeda catheter CVA (cerebral vascular accident) (08/03/15) Diabetes mellitus History of UTI Hyperthyroidism Stenosis of right carotid artery Suprapubic catheter Trigeminal neuralgia Urinary retention (2014) Urinary retention Surgical History S/P carotid endarterectomy (01/29/22) S/P vasectomy Family History Father CVA (cerebral vascular accident) Sister Thyroid disorder Social History household members: children Smoking Status: Never smoker alcohol intake: current Smoking Status: Never smoker alcohol intake frequency: holidays/special occasions only Substance Use Type: does not use Exam Initial Vital Signs Initial Vital Signs: Vital Signs Temperature 98.6 F 12/17/22 17:34 Pulse Rate 124 H 12/17/22 17:34 Respiratory Rate 24 12/17/22 17:34 Blood Pressure 133/87 12/17/22 17:34 Pulse Oximetry 99 12/17/22 17:34 Oxygen Delivery Method Room Air 12/17/22 17:34 GENERAL: Alert frail 82-year-old male HEENT: Head atraumatic,EOMI, pupils reactive, face symmetric, moist mucous membranes CARDIOVASCULAR: Tachycardic irregularly irregular RESPIRATORY: Breath sounds equal bilaterally, no wheezes rales or rhonchi. ABDOMEN: Soft, nontender. Normoactive bowel sounds all 4 quadrants. No guarding or rebound. : Zepeda catheter in place now working with gross hematuria EXTREMITIES: Normal range of motion, no clubbing or edema. Neurovascularly intact NEUROLOGICAL: Alert and oriented x4. SKIN: Warm, dry, no laceration, no petechiae, no rashes or lesions. Course Orders Ordered: ED Orders 12/17/22 19:50 UA Complete [Urinalysis and Microscopic] Stat Urine Culture Stat 12/17/22 20:00 Blood Culture Stat 12/17/22 20:13 Chest [XR chest 1V] Stat 12/17/22 21:15 Covid-19 + FLU A/B + RSV - PCR Stat Acetaminophen (Acetaminophen 325 Mg Tablet) 650 mg PO Q6H PRN PRN Reason: fever Aspirin (Aspirin Ec 81 Mg Tablet) 81 mg PO DAILY [facility] Atorvastatin Calcium (Atorvastatin 20 Mg Tablet) 80 mg PO DAILY [facility] Enoxaparin Sodium (Enoxaparin 40 Mg/0.4 Ml Syringe) 40 mg SUBCUT DAILY [facility] Ferrous Sulfate (Ferrous Sulfate 325 Mg Tablet) 325 mg PO DAILY [facility] Finasteride (Finasteride 5 Mg Tablet) 5 mg PO DAILY [facility] Gabapentin (Gabapentin 600 Mg Tablet) 600 mg PO TID [facility] Last Admin: 12/17/22 23:31 Dose: 600 mg Documented By: CT Sodium Chloride (Normal Saline 0.9%) 1,000 mls @ 100 mls/hr IV CONT [facility]ARY Last Admin: 12/17/22 23:31 Dose: 100 mls/hr Documented By: CT Piperacillin Sod/Tazobactam (Sod 3.375 gm/ Sodium Chloride) 100 mls @ 25 mls/hr IV Q8H [facility] Sodium Chloride (Normal Saline 0.9%) 1,000 mls @ 1,000 mls/hr IV BOLUS PRN PRN Reason: Fluid replacement Last Admin: 12/18/22 00:30 Dose: 1,000 mls/hr Documented By: CT NOREPINEPHRINE BITARTRATE/D5W (Levophed) 4 mg in 250 mls @ 30 mls/hr IV TITRATE MARY; Protocol Methimazole (Methimazole 5 Mg Tablet) 2.5 mg PO DAILY [facility] Metoprolol Tartrate (Metoprolol Ir 25 Mg Tablet) 12.5 mg PO BID [facility] Last Admin: 12/17/22 23:25 Dose: Not Given Documented By: CT Naloxone HCl (Naloxone 0.4 Mg/Ml Vial) 0.2 mg IV Q2MIN PRN PRN Reason: Opiate Reversal Ondansetron HCl (Ondansetron 4 Mg/2 Ml Inj) 4 mg IV Q6HR PRN PRN Reason: Nausea And Vomiting Discontinued Medications Acetaminophen (Acetaminophen 325 Mg Tablet) 975 mg PO NOW ONE Stop: 12/17/22 19:37 Last Admin: 12/17/22 19:40 Dose: 975 mg Documented By: VICKI Sodium Chloride (Normal Saline 0.9%) 1,000 mls @ 1,000 mls/hr IV BOLUS ONE Stop: 12/17/22 20:46 Last Infusion: 12/17/22 21:07 Dose: 0 mls/hr Documented By: Admin: 12/17/22 20:53 Dose: 1,000 mls/hr Documented By: AJAY Piperacillin Sod/Tazobactam (Sod 4.5 gm/ Sodium Chloride) 100 mls @ 200 mls/hr IV NOW ONE Stop: 12/17/22 20:33 Last Infusion: 12/17/22 22:20 Dose: 0 mls/hr Documented By: Admin: 12/17/22 20:54 Dose: 200 mls/hr Documented By: AJAY Sodium Chloride (Normal Saline 0.9%) 1,973.13 mls @ 657.71 mls/hr 30 ml/kg infuse over 3 hr (1973.13 ml) IV NOW ONE Stop: 12/17/22 23:59 Last Admin: 12/17/22 21:08 Dose: 657.71 mls/hr Documented By: AJAY Ketorolac Tromethamine (Ketorolac 30 Mg/Ml Vial) 15 mg IV NOW ONE Stop: 12/17/22 21:01 Last Admin: 12/17/22 21:09 Dose: 15 mg Documented By: AJAY Lidocaine HCl (Lidocaine 2% (Glydo) 6 Ml Gel) 6 ml TOP NOW ONE Stop: 12/17/22 18:19 Last Admin: 12/17/22 18:23 Dose: 6 ml Documented By: RB Morphine Sulfate (Morphine 4 Mg/Ml Inj) 4 mg IV NOW ONE Stop: 12/17/22 18:16 Last Admin: 12/17/22 18:23 Dose: 4 mg Documented By: RB Vital Signs Vital signs: Vital Signs - 8 hr 12/17/22 20:59 12/17/22 20:59 12/17/22 20:00 Temperature 104.2 F H 104.2 F H Pulse Rate 134 H Respiratory Rate 26 H Blood Pressure Pulse Oximetry 12/17/22 20:05 12/17/22 20:06 12/17/22 20:06 Temperature Pulse Rate 138 H 134 H Respiratory Rate 28 H 31 H Blood Pressure 132/72 Pulse Oximetry 96 96 12/17/22 20:10 12/17/22 20:10 12/17/22 20:15 Temperature Pulse Rate 135 H Respiratory Rate 25 H Blood Pressure 138/78 146/67 H Pulse Oximetry 94 12/17/22 20:15 12/17/22 20:20 12/17/22 20:20 Temperature Pulse Rate 131 H 137 H Respiratory Rate 26 H 26 H Blood Pressure 137/70 Pulse Oximetry 95 94 12/17/22 20:25 12/17/22 20:25 12/17/22 20:30 Temperature Pulse Rate 124 H Respiratory Rate 25 H Blood Pressure 138/67 124/81 Pulse Oximetry 94 12/17/22 20:30 12/17/22 20:35 12/17/22 20:35 Temperature Pulse Rate 128 H 120 H Respiratory Rate 32 H 40 H Blood Pressure 131/64 Pulse Oximetry 96 95 12/17/22 20:40 12/17/22 20:40 12/17/22 20:45 Temperature Pulse Rate 113 H Respiratory Rate 24 Blood Pressure 125/59 L 124/64 Pulse Oximetry 96 12/17/22 20:45 12/17/22 20:50 12/17/22 20:50 Temperature Pulse Rate 124 H 118 H Respiratory Rate 28 H 26 H Blood Pressure 121/60 Pulse Oximetry 94 12/17/22 20:55 12/17/22 20:55 12/17/22 21:00 Temperature Pulse Rate 116 H Respiratory Rate 24 Blood Pressure 119/60 115/63 Pulse Oximetry 95 12/17/22 21:00 12/17/22 21:05 12/17/22 21:05 Temperature Pulse Rate 115 H 114 H Respiratory Rate 24 23 Blood Pressure 123/59 L Pulse Oximetry 95 95 12/17/22 21:10 12/17/22 21:10 12/17/22 21:15 Temperature Pulse Rate 107 H Respiratory Rate 24 Blood Pressure 116/59 L 125/60 Pulse Oximetry 95 12/17/22 21:15 12/17/22 21:20 12/17/22 21:20 Temperature Pulse Rate 112 H 106 H Respiratory Rate 26 H 27 H Blood Pressure 107/55 L Pulse Oximetry 96 96 12/17/22 21:25 12/17/22 21:25 12/17/22 21:30 Temperature Pulse Rate 115 H Respiratory Rate 27 H Blood Pressure 114/61 117/58 L Pulse Oximetry 96 12/17/22 21:30 12/17/22 21:35 12/17/22 21:35 Temperature Pulse Rate 110 H 109 H Respiratory Rate 29 H 28 H Blood Pressure 118/67 Pulse Oximetry 97 96 MDM - Male Genitourinary Lab Data 12/18/22 02:32 12/18/22 02:32 Labs: Lab Results 12/17/22 12/17/22 12/17/22 Range/Units 18:25 18:25 18:25 WBC 10.7 (4.5-11.0) X10^3/uL RBC 5.04 (4.5-5.9) X10^6/uL Hgb 13.4 L (13.5-17.5) g/dL Hct 41.0 (41-53) % MCV 81.3 (80-100) fL MCH 26.6 (26-34) PG MCHC 32.8 (30-36) % RDW 20.7 H (11.6-14.8) % Plt Count 241 (150-400) X10^3/uL Neut % (Auto) 83.7 H (50-75) % Lymph % (Auto) 12.3 L (25-40) % [place] % (Auto) 3.5 (3-14) % Eos % (Auto) 0.2 L (2-4) % Baso % (Auto) 0.3 (0-2) % Neut # (Auto) 8900 H (6581-8515) /uL Lymph # (Auto) 1300 (8775-3543) /uL [place] # (Auto) 400 (0-900) /uL Eos # (Auto) 0 (0-450) /uL Baso # (Auto) 0 (0-100) /uL RBC Morphology See below Anisocytosis 2+ H Ovalocytes 1+ H PT 29.5 H (10.1-12.7) SECONDS INR 2.5 H (0.9-1.3) APTT 33 (26-36) SECONDS Sodium 138 (137-145) mmol/L Potassium 4.4 (3.4-5.1) mmol/L Chloride 103 (98-107) mmol/L Carbon Dioxide 23 (22-32) mmol/L BUN 15 (9-20) mg/dL Creatinine 0.75 (0.66-1.25) mg/dL Estimated GFR > 60 (>60) mL/min BUN/Creatinine Ratio 20.0 (6-22) Glucose 128 H (80-110) mg/dL Lactate (0.7-2.1) mmol/L Calcium 8.9 (8.4-10.2) mg/dL Total Bilirubin 1.7 H (0.2-1.3) mg/dL AST 39 (17-59) IU/L ALT 31 (<50) IU/L Alkaline Phosphatase 103 (38-126) U/L Total Protein 8.0 (6.3-8.2) g/dL Albumin 4.5 (3.5-5.0) g/dL Globulin 3.5 (1.7-4.1) g/dL Albumin/Globulin Ratio 1.3 (1.0-2.8) Lipase 94 (23-300) U/L Procalcitonin (<0.5) ng/mL Urine Color Urine Appearance Urine pH (4.5-8.0) Ur Specific [place] (1.000-1.035) Urine Protein (Negative) Urine Glucose (UA) (Negative) g/dL Urine Ketones (NEGATIVE) Urine Occult Blood (Negative) Urine Nitrate (Negative) Urine Bilirubin (NEGATIVE) Urine Urobilinogen (0.2) E.U./dL Ur Leukocyte Esterase (NEGATIVE) Urine RBC (0-5/HPF) Urine WBC (0-5/HPF) Ur Renal Epithelial Cell (0-1/HPF) Amorphous Sediment Urine Bacteria (None) Ur Culture Indicated? SARS-CoV-2 (PCR) (Negative) Influenza A (RT-PCR) (NEGATIVE) Influenza B (RT-PCR) (NEGATIVE) RSV (PCR) (Negative) 12/17/22 12/17/22 12/17/22 Range/Units 18:25 18:25 19:50 WBC (4.5-11.0) X10^3/uL RBC (4.5-5.9) X10^6/uL Hgb (13.5-17.5) g/dL Hct (41-53) % MCV (80-100) fL MCH (26-34) PG MCHC (30-36) % RDW (11.6-14.8) % Plt Count (150-400) X10^3/uL Neut % (Auto) (50-75) % Lymph % (Auto) (25-40) % [place] % (Auto) (3-14) % Eos % (Auto) (2-4) % Baso % (Auto) (0-2) % Neut # (Auto) (6172-6058) /uL Lymph # (Auto) (5569-1555) /uL [place] # (Auto) (0-900) /uL Eos # (Auto) (0-450) /uL Baso # (Auto) (0-100) /uL RBC Morphology Anisocytosis Ovalocytes PT (10.1-12.7) SECONDS INR (0.9-1.3) APTT (26-36) SECONDS Sodium (137-145) mmol/L Potassium (3.4-5.1) mmol/L Chloride (98-107) mmol/L Carbon Dioxide (22-32) mmol/L BUN (9-20) mg/dL Creatinine (0.66-1.25) mg/dL Estimated GFR (>60) mL/min BUN/Creatinine Ratio (6-22) Glucose (80-110) mg/dL Lactate 3.4 H (0.7-2.1) mmol/L Calcium (8.4-10.2) mg/dL Total Bilirubin (0.2-1.3) mg/dL AST (17-59) IU/L ALT (<50) IU/L Alkaline Phosphatase (38-126) U/L Total Protein (6.3-8.2) g/dL Albumin (3.5-5.0) g/dL Globulin (1.7-4.1) g/dL Albumin/Globulin Ratio (1.0-2.8) Lipase (23-300) U/L Procalcitonin 0.16 (<0.5) ng/mL Urine Color Yellow Urine Appearance Clear Urine pH 8.0 (4.5-8.0) Ur Specific [place] 1.015 (1.000-1.035) Urine Protein Trace H (Negative) Urine Glucose (UA) Negative (Negative) g/dL Urine Ketones Trace H (NEGATIVE) Urine Occult Blood 3+ H (Negative) Urine Nitrate Negative (Negative) Urine Bilirubin Negative (NEGATIVE) Urine Urobilinogen 0.2 (0.2) E.U./dL Ur Leukocyte Esterase Trace H (NEGATIVE) Urine RBC 10-30/hpf H (0-5/HPF) Urine WBC 5-10/hpf H (0-5/HPF) Ur Renal Epithelial Cell 1-5/hpf H (0-1/HPF) Amorphous Sediment 1+ Urine Bacteria Occasional (0-1) D (None) Ur Culture Indicated? Specimen cultured SARS-CoV-2 (PCR) (Negative) Influenza A (RT-PCR) (NEGATIVE) Influenza B (RT-PCR) (NEGATIVE) RSV (PCR) (Negative) 12/17/22 12/17/22 Range/Units 21:15 21:34 WBC (4.5-11.0) X10^3/uL RBC (4.5-5.9) X10^6/uL Hgb (13.5-17.5) g/dL Hct (41-53) % MCV (80-100) fL MCH (26-34) PG MCHC (30-36) % RDW (11.6-14.8) % Plt Count (150-400) X10^3/uL Neut % (Auto) (50-75) % Lymph % (Auto) (25-40) % [place] % (Auto) (3-14) % Eos % (Auto) (2-4) % Baso % (Auto) (0-2) % Neut # (Auto) (3712-1784) /uL Lymph # (Auto) (0707-7356) /uL [place] # (Auto) (0-900) /uL Eos # (Auto) (0-450) /uL Baso # (Auto) (0-100) /uL RBC Morphology Anisocytosis Ovalocytes PT (10.1-12.7) SECONDS INR (0.9-1.3) APTT (26-36) SECONDS Sodium (137-145) mmol/L Potassium (3.4-5.1) mmol/L Chloride (98-107) mmol/L Carbon Dioxide (22-32) mmol/L BUN (9-20) mg/dL Creatinine (0.66-1.25) mg/dL Estimated GFR (>60) mL/min BUN/Creatinine Ratio (6-22) Glucose (80-110) mg/dL Lactate 1.1 (0.7-2.1) mmol/L Calcium (8.4-10.2) mg/dL Total Bilirubin (0.2-1.3) mg/dL AST (17-59) IU/L ALT (<50) IU/L Alkaline Phosphatase (38-126) U/L Total Protein (6.3-8.2) g/dL Albumin (3.5-5.0) g/dL Globulin (1.7-4.1) g/dL Albumin/Globulin Ratio (1.0-2.8) Lipase (23-300) U/L Procalcitonin (<0.5) ng/mL Urine Color Urine Appearance Urine pH (4.5-8.0) Ur Specific [place] (1.000-1.035) Urine Protein (Negative) Urine Glucose (UA) (Negative) g/dL Urine Ketones (NEGATIVE) Urine Occult Blood (Negative) Urine Nitrate (Negative) Urine Bilirubin (NEGATIVE) Urine Urobilinogen (0.2) E.U./dL Ur Leukocyte Esterase (NEGATIVE) Urine RBC (0-5/HPF) Urine WBC (0-5/HPF) Ur Renal Epithelial Cell (0-1/HPF) Amorphous Sediment Urine Bacteria (None) Ur Culture Indicated? SARS-CoV-2 (PCR) Negative (Negative) Influenza A (RT-PCR) Flu a negative (NEGATIVE) Influenza B (RT-PCR) Flu b negative (NEGATIVE) RSV (PCR) Negative (Negative) Imaging Data Chest x-ray: Radiologist's Impression: PROCEDURE:? XR CHEST 1V ? INDICATIONS:? fever ? TECHNIQUE:? One view of the chest was acquired.? ? COMPARISON:? [facility], CR, XR CHEST 2V, 07/17/2022, 11:23. ? FINDINGS:? ? Surgical changes and devices:? None.? ? Lungs and pleura:? Lungs are clear without acute consolidation.? No pleural effusions or pneumothorax.? ? Mediastinum:? Mediastinal contours appear unchanged.? Heart size is normal.? ? Bones and chest wall:? No suspicious bony lesions.? Overlying soft tissues appear unremarkable.? ? IMPRESSION:? ? 1.? No acute cardiopulmonary disease. ? ? ? Dictated by: Glenroy Rey M.D. on 12/17/2022 at 20:26 ? ? CT scan - abdomen/pelvis: Radiologist's Impression: PROCEDURE:? CT KIDNEY URETER BLADDER (KUB) ? INDICATIONS:? hematuria ? TECHNIQUE:? Axial sections were acquired from the lung bases to the pubic symphysis.? Coronal and sagittal reformats were performed.? For radiation dose reduction, the following was used: ?automated exposure control, adjustment of mA and/or kV according to patient size.? ? COMPARISON:? [facility], CT, CT KIDNEY URETER BLADDER (KUB), 08/06/2022, 14:05. ? FINDINGS:? Image quality:? Degraded by motion artifact. ? Lung bases:? Unremarkable.? ? Heart:? Moderate calcification of the coronary vasculature. ? URINARY: Right Kidney: ? No stones or hydronephrosis.? Right Ureter:? No hydroureter.? ? Left Kidney: ? No stones or hydronephrosis. Left Ureter:? No hydroureter.? ? Bladder:? Prostate is enlarged.? Suprapubic Zepeda catheter is present.? Urinary bladder is decompressed, limiting evaluation for wall thickening. ? ABDOMEN: Liver:? Nodular hepatic contour. Gallbladder:? Unremarkable.? ? Biliary ducts:? Unremarkable.? ? Pancreas:? Unremarkable.? ? Spleen:? Unremarkable.? ? Adrenal Glands:? Unremarkable.? ? ? Stomach and Bowel:? Stomach, small bowel loops, and colon are unremarkable.? Appendix not seen.? No evidence of appendicitis. Peritoneum:? No abnormal intraperitoneal fluid.? No free air.? ? Ventral Wall: ? No hernia.? Abdominal Nodes:? No change in mildly prominent bilateral iliac chain lymph nodes. Vessels:? Aorta and inferior vena cava are normal in size.? ? PELVIS: Pelvic Organs:? Unremarkable.? ? Pelvic Nodes: Unremarkable. Miscellaneous: No inguinal hernias are seen. ? ? ? Bones:? Unremarkable. ? IMPRESSION:? ? 1.? Limited examination secondary to motion artifact. 2. No evidence of urinary tract calcification, nor obstruction. 3. Enlarged prostate. 4. Coronary artery disease. 5. No change in mildly enlarged iliac chain lymph nodes.? ? Dictated by: Leonor Hinton M.D. on 12/17/2022 at 19:47 ? ECG Data Interpretation: Atrial fibrillation rate [address] changes similar to previous MDM Narrative Medical decision making narrative: Patient 62-year-old male who had suprapubic Zepeda replaced today now not working. It was trouble shooted by nursing staff found catheter was not in the bladder but in the urethra, once balloon was deflated and catheter was retracted immediately started draining there was hematuria there was some clots. Patient developed fever of 103 in the emergency department heart rate increased into the 150s AFib with RVR thought to be secondary to sepsis and infection. I suspect a UTI. He is given fluids and Tylenol. Blood work reveals no leukocytosis no anemia, INR is 2.5, electrolytes are within normal limits lactate however is found to be 3.4 it improved to 1.1 with fluids. Patient is reexamined you really has no complaints slightly cold. Blood pressure is stable however due to elevated lactate fever he is given sepsis fluid doses Zosyn Tylenol. Dr. Muñoz Updated on patient's symptoms test results and patient Discharge Plan Departure Patient Disposition: Admitted As Inpatient Clinical Impression: Sepsis, Atrial fibrillation with rapid ventricular response Admit Date/Time: 12/17/22 21:39 Admit Provider: Rosario Muñoz
[2022-12-17 19:58] LABS: Procalcitonin 0.16 ng/mL (<0.5)
[2022-12-17 20:06] LABS: Appearance Urine UA CLEAR; Bilirubin Urine UA NEGATIVE (NEGATIVE); Color Urine UA YELLOW; Glucose Urine UA NEGATIVE (Negative); Ketones Urine UA TRACE (NEGATIVE); Leukocyte Esterase Urine UA TRACE (NEGATIVE); Nitrite Urine UA NEGATIVE (Negative); Occult Blood Urine UA 3+ (Negative); Protein Urine UA TRACE (Negative); Specific Gravity Urine UA 1.015 (1.000-1.035); Urobilinogen Urine UA 0.2 E.U./dL (0.2)
--- NOTE | 2022-12-17 20:13 | DI.RAD.S_ITS ---
PROCEDURE: XR CHEST 1V INDICATIONS: fever TECHNIQUE: One view of the chest was acquired. COMPARISON: [facility], CR, XR CHEST 2V, 07/17/2022, 11:23. FINDINGS: Surgical changes and devices: None. Lungs and pleura: Lungs are clear without acute consolidation. No pleural effusions or pneumothorax. Mediastinum: Mediastinal contours appear unchanged. Heart size is normal. Bones and chest wall: No suspicious bony lesions. Overlying soft tissues appear unremarkable. IMPRESSION: 1. No acute cardiopulmonary disease. Dictated by: Glenroy Rey M.D. on 12/17/2022 at 20:26 Approved by: Glenroy Rey M.D. on 12/17/2022 at 20:27
--- NOTE | 2022-12-17 20:17 | PC.NURSE ---
Patient arrived with complaints of extreme pain in his penis. Patient had his suprapubic catheter placed at [facility] today. With assistance of fellow RN's line was placed and Dr. Walker gave a verbal order to attempt to place a catheter. Fellow RN attempted catheter placement without success. Dr. Walker gave verbal order for this RN to flush suprapubic catheter with sterile water. This RN used a 60cc syringe and flushed the catheter and had several small clots dislodge through the catheter line and through the patient penis. This RN flushed a second time and the sterile water immediately exited the patients penis and was clear. This RN reported to Dr. Wakler the belief that the catheter was lodged coming out of the patients urethra. Per Dr. Walker order this RN drained 10cc blood and pulled back on the suprapubic catheter slightly and immediately pink urine began flowing down into the drainage bag. Catheter balloon reinflated with the 10ml. 900ml drained within the first thirty minutes. Catheter bag changed and urine is now straw in color.
[2022-12-17 20:26] LABS: Amorphous Sediment Urine 1+; Bacteria Urine Occasional (0-1); Culture Indicated Urine Specimen Cultured; RBC Urine 10-30/HPF (0-5/HPF); Renal Epithelial Cells Urine 1-5/HPF (0-1/HPF); WBC Urine 5-10/HPF (0-5/HPF)
--- NOTE | 2022-12-17 20:38 | PC.NURSE ---
Verbal order to place catheter into the patient penis in attempt to drain the patient bladder. Insertion attempt tried without success.
[2022-12-17] MEDS: SODIUM CHLORIDE 0.9% 1,000 ML 1000 ML IV (20:53)
[2022-12-17] MEDS: PIPERACILLIN/TAZO 4.5 GM in SODIUM CHLORIDE 0.9% 100 ML IV (20:54)
[2022-12-17] MEDS: SODIUM CHLORIDE 0.9% 1,973.13 ML 657.71 ML IV (21:08)
[2022-12-17] MEDS: KETOROLAC 30 MG/ML VIAL 15 MG IV (21:09)
[2022-12-17 21:31] LABS: Reflexed Lactate in 2 Hours Y
[2022-12-17 21:50] LABS: Lactate 2HR (Lactic Acid Rflx) 1.1 mmol/L (0.7-2.1)
[2022-12-17 22:01] LABS: Influenza A - CEPHEID Flu A NEGATIVE (NEGATIVE); Influenza B - CEPHEID Flu B NEGATIVE (NEGATIVE); Respiratory Syncytial Virus Negative (Negative)
[2022-12-17 22:07] LABS: COVID-19 CEPHEID 4-PLEX PCR Negative (Negative)
[2022-12-17] MEDS: SODIUM CHLORIDE 0.9% 1,000 ML 100 ML IV (23:31)
[2022-12-17] MEDS: GABAPENTIN 600 MG TABLET PO (23:31)
[2022-12-18] VITALS (67 sets, daily range): BP systolic 85–136; BP diastolic 49–77; PULSE 64–100; RESP 12–47; TEMP 36.8–37.2; O2SAT 94–100
[2022-12-18] MEDS: SODIUM CHLORIDE 0.9% 1,000 ML 1000 ML IV (00:30)
--- NOTE | 2022-12-18 02:14 | DI.ECHO.S_ITS ---
Version: 1 Study ID: [id number] [place] [address] Name: DESTINY ABREU Study Date: 12/18/2022, 5: 29 AM : 1940 BP: 116 / 62 mmHg Gender: Male Height: 69 in Age: 82 Years Weight: 169 lb BSA: 1.92 mA? Ordering: NIKKO HYMAN Referring: NIKKO HYMAN Clinician: Laure Beltran Reason For Study: RECHECK EJECTION FRACTION History: Summary Statements Afib with controlled rate. Normal LV size and wall thickness; cardiomyopathy with EF 40-45% Severe LA enlargement and moderate RA enlargement. Aortic sclerosis without stenosis Moderate MR and moderate-severe TR Estimated PA systolic pressure 39 mm Hg assuming RA pressure of 8 mm Hg. Compared to prior echo in 2016 LV function improved with EF up from 30-35% to 40-45%. Afib is unchanged from prior. PA systolic pressure is down from 46 to 39 mm Hg Procedure: A two-dimensional transthoracic echocardiogram with color flow and Doppler was performed. The study quality was technically adequate. Comparison is made with the echocardiogram of 10/01/2016. The patient was in sinus rhythm with heart rates between 64-82 bpm during the exam. Left Ventricle: The left ventricle is normal in size and wall thickness. The ejection fraction is estimated to be 40-45%. Diastolic function could not be accurately assessed due to atrial fibrillation. Right Ventricle: The right ventricle is normal size. Right ventricular systolic function is moderately reduced. Atria: The left atrium is severely dilated. The right atrium is mild to moderately dilated. There is no Doppler evidence for an interatrial shunt. Mitral Valve: The mitral valve is normal in structure and function. There is mild mitral regurgitation. Aortic Valve: The aortic valve is trileaflet. There is no aortic valve stenosis. There is mild aortic regurgitation. Tricuspid Valve: The tricuspid valve leaflets are thin and pliable. There is moderate to severe tricuspid regurgitation. Pulmonic Valve: The pulmonic valve is not well seen, but is grossly normal. There is mild to moderate pulmonic regurgitation. Great Vessels: The aortic root is normal size. The dimensions of the ascending aorta are normal. The IVC is dilated (diameter is greater than 2.1 cm) yet it collapses greater than 50% with a sniff. This suggests a right atrial pressure of 8 mm Hg. Pericardium/ Pleura: There is no pericardial effusion. There is no pleural effusion. 2D and M-Mode Measurements and Calculations LVIDd: 4.7 cm LVOT diam: 2.02 cm LVIDs: 3.7 cm Ao root diam: 3.4 cm IVSd: 0.78 cm asc Aorta Diam: 3.6 cm LVPWd: 0.69 cm LV nunes. diameter/BSA (cm/m^2): 2.43 LV sys. diameter/BSA (cm/m^2): 1.92 EPSS: 1.06 cm RVD1 (basal): 3.3 cm RVD2 (mid): 2.08 cm TAPSE: 1.14 cm LA A4 area: 23.7 business analyst project manager? IVC diam: 2.35 cm LA A2 area: 29.5 business analyst project manager? RA area: 23.5 business analyst project manager? LA length (vol): 5.8 cm RA long axis: 6.0 cm LA vol: 102.9 ml RA vol: 78.6 ml LA vol index: 53.5 ml/mA? RA : 40.9 ml/mA? Doppler Measurements and Calculations Ao V2 max: 143.2 cm/sec LVOT Max Antonio: 63.7 cm/sec Ao V2 mean: 97.4 cm/sec LV V1 max P.62 mmHg Ao V2 VTI: 28.2 cm LV V1 VTI: 12.3 cm Ao max P.2 mmHg SV(LVOT): 39.2 ml Ao mean P.4 mmHg PEARL(I,D): 1.39 business analyst project manager? PEARL(V,D): 1.42 business analyst project manager? PEARL indexed to BSA (cm^2/m^2): 0.72 sev ratio: 0.43 AI P1/2t: 730.5 msec AI dec slope: 150.2 cm/secA? MV E max antonio: 81.4 cm/sec MV dec time: 0.27 sec MV A max antonio: 2.7 cm/sec MV E/A: 29.9 Med Peak E' Antonio: 8.6 cm/sec Lat Peak E' Antonio: 11.6 cm/sec E/e' average: 8.2 TR max antonio: 277.4 cm/sec PA mean P.59 mmHg TR max P.8 mmHg PA V2 max: 79.6 cm/sec Electronically signed by: Tracy Rodriguez M.D. 12/18/2022, 11: 33 AM
--- NOTE | 2022-12-18 02:42 | PC.NURSE ---
Received patient from floor in no distress. blood pressure stable upon admission with map 70.
[2022-12-18 02:53] LABS: Basophils Absolute Auto 0 /uL (0-100); Basophils Percent Auto 0.2 % (0-2); Eosinophils Absolute Auto 0 /uL (0-450); Eosinophils Percent Auto 0.1 % (2-4); Hematocrit 34.3 % (41-53); Hemoglobin 11.1 g/dL (13.5-17.5); Lymphocytes Absolute Auto 1300 /uL (1100-4500); Lymphocytes Percent Auto 9.3 % (25-40); Mean Corpuscular HGB Conc 32.5 % (30-36); Mean Corpuscular Hemoglobin 26.4 PG (26-34); Mean Corpuscular Volume 81.5 fL (80-100); Monocytes Absolute Auto 700 /uL (0-900); Monocytes Percent Auto 5.2 % (3-14); Neutrophils Absolute Auto 11800 /uL (1500-7000); Neutrophils Percent Auto 85.2 % (50-75); Platelet Count 197 X10^3/uL (150-400); Red Cell Distribution Width 21.1 % (11.6-14.8); White Blood Cell Count 13.8 X10^3/uL (4.5-11.0)
[2022-12-18 02:55] LABS: Add Manual Diff / Slide Review SLIDE REVIEW; BUN Creatinine Ratio 20.8 (6-22); Blood Urea Nitrogen 16 mg/dL (9-20); Calcium 7.3 mg/dL (8.4-10.2); Carbon Dioxide 21 mmol/L (22-32); Chloride 107 mmol/L (98-107); Estimated Glomerular Filt Rate > 60 mL/min (>60); Glucose 141 mg/dL (80-110); HEMOLYSIS < 15 (0-50); Potassium 4.2 mmol/L (3.4-5.1); Sodium 136 mmol/L (137-145)
[2022-12-18 03:07] LABS: NT-proBNP (BNP-Adult 18+) 939 pg/mL (<450); Troponin I 0.034 ng/mL (0.01-0.034)
[2022-12-18 03:51] LABS: MRSA (Nasal) PCR Not Detected (Not Detect)
[2022-12-18] MEDS: PIPERACILLIN/TAZO 3.375 GM in SODIUM CHLORIDE 0.9% 100 ML IV ×3 (04:38→22:06)
[2022-12-18 07:31] LABS: Anisocytosis 2+; Ovalocytes 1+; Poikilocytosis 1+
[2022-12-18 07:32] LABS: Acinetobacter baumannii Not Detected (Not Detect); Candida albicans Not Detected (Not Detect); Candida glabrata Not Detected (Not Detect); Candida krusei Not Detected (Not Detect); Candida parapsilosis Not Detected (Not Detect); Candida tropicalis Not Detected (Not Detect); E. coli Not Detected (Not Detect); Enterobacter cloacae complex Not Detected (Not Detect); Enterobacteriaceae species Not Detected (Not Detect); Enterococcus species DETECTED (Not Detect); Haemophilus influenzae Not Detected (Not Detect); Listeria monocytogenes Not Detected (Not Detect); Neisseria meningitidis Not Detected (Not Detect); Proteus species Not Detected (Not Detect); Pseudomonas aeruginosa Not Detected (Not Detect); Serratia marcescens Not Detected (Not Detect); Staphylococcus species Not Detected (Not Detect); Streptococcus agalactiae (Gr B Not Detected (Not Detect); Streptococcus pneumonia Not Detected (Not Detect); Streptococcus pyogenes (Gr A) Not Detected (Not Detect); Streptococcus species Not Detected (Not Detect); Vancomycin-rest genes A/B Not Detected (Not Detect)
--- NOTE | 2022-12-18 07:37 | PM.HP.1 ---
History of Present Illness History of Present Illness Date Patient Seen: 12/18/22 Time Patient Seen: 07:03 Chief complaint: pain, urinary catheter not working Narrative: 82-year-old male, well known to me admitted via emergency department with probable urosepsis He presented with abdominal pain several hours after he had his suprapubic catheter replaced. Suprapubic catheter was found to be in the urethra. Once it was repositioned it began to drain urine normally which was not doing previously. Patient then developed evidence of sepsis with hemodynamic changes including hypotension tachycardia etcetera. Was given aggressive fluid resuscitation broad-spectrum IV antibiotics and admitted Overnight patient became somewhat more hypotensive and required transfer to the ICU for use of Levophed, given his hypotension and his prior history of cardiomyopathy, there was concerns about continued fluid resuscitation. However his blood pressure stabilized any did not actually require the use of levofloxacin. This morning blood pressure is 130 systolic without any significant fluids or pressors ongoing. Blood Cultures are growing Gram-positive cocci already (have not yet ruled out contaminant). Patient does have a history of a cardiomyopathy with ejection fraction of 30-35% in 2013. At that point was thought related to possible tachycardia with his presentation with his atrial fibrillation at that time. He unfortunately was lost to follow-up for quite some time and I do not believe he is had a repeat echocardiogram. (that has been ordered for this hospitalization). Fortunately he is responded to the Levophed, his heart rate is not been excessive once he was fluid resuscitated, and he has no respiratory issues at this time. Preliminary report from sterile processing technologist suggest patient with an ejection fraction of about 55% as of this morning. Final report of course still pending Patient History Medical History Atrial fibrillation Bladder stones BPH w urinary obs/LUTS Cardiomyopathy (2013) Chronic indwelling Zepeda catheter CVA (cerebral vascular accident) (08/03/15) Diabetes mellitus History of UTI Hyperthyroidism Stenosis of right carotid artery Suprapubic catheter Trigeminal neuralgia Urinary retention (2014) Urinary retention Surgical History S/P carotid endarterectomy (01/29/22) S/P vasectomy Family & Social History Family History Father CVA (cerebral vascular accident) Sister Thyroid disorder Social History: household members children Prior Living Arrangements House Safety & Behavioral: Feels Safe in Current Yes Environment Been Physically Hurt or No Threatened By a Person Tobacco & Substance use: Smoking Status Never smoker alcohol intake current alcohol intake frequency holiday/special occasion Substance Use Type does not use Meds Home Medications and Allergies Home Medications Medication Instructions Recorded Confirmed Type aspirin 81 mg tablet,delayed 81 mg PO DAILY 02/04/22 12/17/22 History release (Adult Low Dose Aspirin) atorvastatin 80 mg tablet 80 mg PO DAILY #90 tabs 02/06/22 12/17/22 Rx methimazole 5 mg tablet 2.5 mg PO DAILY #90 tabs 07/17/22 12/17/22 Rx ferrous sulfate 325 mg (65 mg 325 mg PO DAILY #90 tabs 08/08/22 12/17/22 Rx iron) tablet gabapentin 600 mg tablet 600 mg PO TID #270 tabs 09/04/22 12/17/22 Rx metoprolol tartrate 25 mg tablet 12.5 mg PO BID #60 tabs 10/24/22 12/17/22 Rx Allergies Allergy/AdvReac Type Severity Reaction Status Date / Time No Known Drug Allergies Allergy Verified 12/17/22 17:36 Review of Systems Review of Systems ROS: Yes All systems reviewed with the patient and are negative except as otherwise documented Exam Vital Signs (past 8 hours): - 12/17/22 23:45 12/18/22 00:00 12/18/22 00:14 Temperature Pulse Rate Respiratory Rate Blood Pressure 99/47 L 89/49 L 101/55 L Pulse Oximetry 12/18/22 00:29 12/18/22 00:44 12/18/22 01:00 Temperature Pulse Rate Respiratory Rate Blood Pressure 99/55 L 92/54 L 95/52 L Pulse Oximetry 12/18/22 01:13 12/18/22 01:28 12/18/22 01:43 Temperature Pulse Rate Respiratory Rate Blood Pressure 102/53 L 102/56 L 93/50 L Pulse Oximetry 12/18/22 01:58 12/18/22 02:13 12/18/22 02:31 Temperature 98.9 F Pulse Rate 84 Respiratory Rate 26 H Blood Pressure 87/51 L 85/50 L 92/61 Pulse Oximetry 97 12/18/22 02:35 12/18/22 02:40 12/18/22 02:45 Temperature Pulse Rate 83 78 Respiratory Rate 28 H 19 Blood Pressure 108/59 L Pulse Oximetry 98 97 12/18/22 02:45 12/18/22 03:00 12/18/22 03:00 Temperature Pulse Rate 85 74 Respiratory Rate 32 H 15 Blood Pressure 92/54 L Pulse Oximetry 98 97 12/18/22 03:15 12/18/22 03:15 12/18/22 03:30 Temperature Pulse Rate 76 Respiratory Rate 15 Blood Pressure 106/53 L 118/56 L Pulse Oximetry 97 12/18/22 03:30 12/18/22 03:45 12/18/22 03:45 Temperature Pulse Rate 91 H 72 Respiratory Rate 23 15 Blood Pressure 88/54 L Pulse Oximetry 99 98 12/18/22 04:00 12/18/22 04:00 12/18/22 04:15 Temperature Pulse Rate 84 Respiratory Rate 17 Blood Pressure 106/56 L 108/57 L Pulse Oximetry 94 12/18/22 04:15 12/18/22 04:30 12/18/22 04:30 Temperature Pulse Rate 70 79 Respiratory Rate 15 12 Blood Pressure 123/59 L Pulse Oximetry 98 98 12/18/22 04:45 12/18/22 04:45 12/18/22 05:00 Temperature Pulse Rate 75 Respiratory Rate 15 Blood Pressure 113/59 L 97/55 L Pulse Oximetry 95 12/18/22 05:00 12/18/22 05:15 12/18/22 05:15 Temperature Pulse Rate 72 73 Respiratory Rate 15 16 Blood Pressure 101/58 L Pulse Oximetry 98 96 12/18/22 05:30 12/18/22 05:30 12/18/22 05:45 Temperature Pulse Rate 72 Respiratory Rate 14 Blood Pressure 103/58 L 103/55 L Pulse Oximetry 98 12/18/22 05:45 Temperature Pulse Rate 74 Respiratory Rate 15 Blood Pressure Pulse Oximetry 97 Oxygen Delivery Method Room Air Oxygen Flow Rate 0 Narrative Exam Narrative: Elderly male in no obvious distress HEENT unremarkable Lungs-clear Heart-irregularly regular no murmur Abdomen-positive bowel tones soft nontender, suprapubic catheter in place Extremities-no cyanosis clubbing or edema Objective Labs 12/18/22 02:32 12/18/22 02:32 Labs: Laboratory Results - last 24 hr 12/17/22 12/17/22 12/17/22 18:25 18:25 18:25 WBC 10.7 RBC 5.04 Hgb 13.4 L Hct 41.0 MCV 81.3 MCH 26.6 MCHC 32.8 RDW 20.7 H Plt Count 241 Neut % (Auto) 83.7 H Lymph % (Auto) 12.3 L Mora % (Auto) 3.5 Eos % (Auto) 0.2 L Baso % (Auto) 0.3 Neut # (Auto) 8900 H Lymph # (Auto) 1300 Mora # (Auto) 400 Eos # (Auto) 0 Baso # (Auto) 0 RBC Morphology See below Poikilocytosis Anisocytosis 2+ H Ovalocytes 1+ H PT 29.5 H INR 2.5 H APTT 33 Sodium 138 Potassium 4.4 Chloride 103 Carbon Dioxide 23 BUN 15 Creatinine 0.75 Estimated GFR > 60 BUN/Creatinine Ratio 20.0 Glucose 128 H Lactate Calcium 8.9 Total Bilirubin 1.7 H AST 39 ALT 31 Alkaline Phosphatase 103 Troponin I NT-Pro-B Natriuret Pep Total Protein 8.0 Albumin 4.5 Globulin 3.5 Albumin/Globulin Ratio 1.3 Lipase 94 Procalcitonin Urine Color Urine Appearance Urine pH Ur Specific [place] Urine Protein Urine Glucose (UA) Urine Ketones Urine Occult Blood Urine Nitrate Urine Bilirubin Urine Urobilinogen Ur Leukocyte Esterase Urine RBC Urine WBC Ur Renal Epithelial Cell Amorphous Sediment Urine Bacteria Ur Culture Indicated? Nasal Screen MRSA (PCR) A. baumannii (PCR) [place] albicans (PCR) C. glabrata (PCR) C. krusei (PCR) C. parapsilosis (PCR) C. tropicalis (PCR) SARS-CoV-2 (PCR) Enterobacteriac sp PCR E. cloacae complex PCR Enterococcus sp PCR E. coli (PCR) H. influenzae (PCR) Influenza A (RT-PCR) Influenza B (RT-PCR) Klebsiella oxytoca PCR Klebsiella pneumoniae List. monocytogenes PCR N. meningitidis (PCR) Proteus species (PCR) RSV (PCR) Serratia marcescens PCR Staphylococcus sp PCR Staph aureus (PCR) mecA-Methicil Res Gene Streptococcus sp PCR Group A Strep (PCR) Strep agalactiae (PCR) Strep pneumoniae (PCR) P. aeruginosa (PCR) Trevon/B-Vanco Res Genes KPC-Carbap Res Gene PCR 12/17/22 12/17/22 12/17/22 18:25 18:25 18:25 WBC RBC Hgb Hct MCV MCH MCHC RDW Plt Count Neut % (Auto) Lymph % (Auto) Mora % (Auto) Eos % (Auto) Baso % (Auto) Neut # (Auto) Lymph # (Auto) Mora # (Auto) Eos # (Auto) Baso # (Auto) RBC Morphology Poikilocytosis Anisocytosis Ovalocytes PT INR APTT Sodium Potassium Chloride Carbon Dioxide BUN Creatinine Estimated GFR BUN/Creatinine Ratio Glucose Lactate 3.4 H Calcium Total Bilirubin AST ALT Alkaline Phosphatase Troponin I NT-Pro-B Natriuret Pep Total Protein Albumin Globulin Albumin/Globulin Ratio Lipase Procalcitonin 0.16 Urine Color Urine Appearance Urine pH Ur Specific [place] Urine Protein Urine Glucose (UA) Urine Ketones Urine Occult Blood Urine Nitrate Urine Bilirubin Urine Urobilinogen Ur Leukocyte Esterase Urine RBC Urine WBC Ur Renal Epithelial Cell Amorphous Sediment Urine Bacteria Ur Culture Indicated? Nasal Screen MRSA (PCR) A. baumannii (PCR) Not detected [place] albicans (PCR) Not detected C. glabrata (PCR) Not detected C. krusei (PCR) Not detected C. parapsilosis (PCR) Not detected C. tropicalis (PCR) Not detected SARS-CoV-2 (PCR) Enterobacteriac sp PCR Not detected E. cloacae complex PCR Not detected Enterococcus sp PCR Detected H E. coli (PCR) Not detected H. influenzae (PCR) Not detected Influenza A (RT-PCR) Influenza B (RT-PCR) Klebsiella oxytoca PCR Not detected Klebsiella pneumoniae Not detected List. monocytogenes PCR Not detected N. meningitidis (PCR) Not detected Proteus species (PCR) Not detected RSV (PCR) Serratia marcescens PCR Not detected Staphylococcus sp PCR Not detected Staph aureus (PCR) Not detected mecA-Methicil Res Gene Not detected Streptococcus sp PCR Not detected Group A Strep (PCR) Not detected Strep agalactiae (PCR) Not detected Strep pneumoniae (PCR) Not detected P. aeruginosa (PCR) Not detected Trevon/B-Vanco Res Genes Not detected KPC-Carbap Res Gene PCR Not detected 12/17/22 12/17/22 12/17/22 19:50 21:15 21:34 WBC RBC Hgb Hct MCV MCH MCHC RDW Plt Count Neut % (Auto) Lymph % (Auto) Mora % (Auto) Eos % (Auto) Baso % (Auto) Neut # (Auto) Lymph # (Auto) Mora # (Auto) Eos # (Auto) Baso # (Auto) RBC Morphology Poikilocytosis Anisocytosis Ovalocytes PT INR APTT Sodium Potassium Chloride Carbon Dioxide BUN Creatinine Estimated GFR BUN/Creatinine Ratio Glucose Lactate 1.1 Calcium Total Bilirubin AST ALT Alkaline Phosphatase Troponin I NT-Pro-B Natriuret Pep Total Protein Albumin Globulin Albumin/Globulin Ratio Lipase Procalcitonin Urine Color Yellow Urine Appearance Clear Urine pH 8.0 Ur Specific [place] 1.015 Urine Protein Trace H Urine Glucose (UA) Negative Urine Ketones Trace H Urine Occult Blood 3+ H Urine Nitrate Negative Urine Bilirubin Negative Urine Urobilinogen 0.2 Ur Leukocyte Esterase Trace H Urine RBC 10-30/hpf H Urine WBC 5-10/hpf H Ur Renal Epithelial Cell 1-5/hpf H Amorphous Sediment 1+ Urine Bacteria Occasional (0-1) D Ur Culture Indicated? Specimen cultured Nasal Screen MRSA (PCR) A. baumannii (PCR) [place] albicans (PCR) C. glabrata (PCR) C. krusei (PCR) C. parapsilosis (PCR) C. tropicalis (PCR) SARS-CoV-2 (PCR) Negative Enterobacteriac sp PCR E. cloacae complex PCR Enterococcus sp PCR E. coli (PCR) H. influenzae (PCR) Influenza A (RT-PCR) Flu a negative Influenza B (RT-PCR) Flu b negative Klebsiella oxytoca PCR Klebsiella pneumoniae List. monocytogenes PCR N. meningitidis (PCR) Proteus species (PCR) RSV (PCR) Negative Serratia marcescens PCR Staphylococcus sp PCR Staph aureus (PCR) mecA-Methicil Res Gene Streptococcus sp PCR Group A Strep (PCR) Strep agalactiae (PCR) Strep pneumoniae (PCR) P. aeruginosa (PCR) Trevon/B-Vanco Res Genes KPC-Carbap Res Gene PCR 12/18/22 12/18/22 12/18/22 02:32 02:32 02:32 WBC 13.8 H RBC 4.20 L Hgb 11.1 L Hct 34.3 L MCV 81.5 MCH 26.4 MCHC 32.5 RDW 21.1 H Plt Count 197 Neut % (Auto) 85.2 H Lymph % (Auto) 9.3 L Mora % (Auto) 5.2 Eos % (Auto) 0.1 L Baso % (Auto) 0.2 Neut # (Auto) 49794 H Lymph # (Auto) 1300 Mora # (Auto) 700 Eos # (Auto) 0 Baso # (Auto) 0 RBC Morphology Not Reportable Poikilocytosis 1+ H Anisocytosis 2+ H Ovalocytes 1+ H PT INR APTT Sodium 136 L Potassium 4.2 Chloride 107 Carbon Dioxide 21 L BUN 16 Creatinine 0.77 Estimated GFR > 60 BUN/Creatinine Ratio 20.8 Glucose 141 H Lactate Calcium 7.3 L Total Bilirubin AST ALT Alkaline Phosphatase Troponin I 0.034 NT-Pro-B Natriuret Pep 939 H Total Protein Albumin Globulin Albumin/Globulin Ratio Lipase Procalcitonin Urine Color Urine Appearance Urine pH Ur Specific [place] Urine Protein Urine Glucose (UA) Urine Ketones Urine Occult Blood Urine Nitrate Urine Bilirubin Urine Urobilinogen Ur Leukocyte Esterase Urine RBC Urine WBC Ur Renal Epithelial Cell Amorphous Sediment Urine Bacteria Ur Culture Indicated? Nasal Screen MRSA (PCR) A. baumannii (PCR) [place] albicans (PCR) C. glabrata (PCR) C. krusei (PCR) C. parapsilosis (PCR) C. tropicalis (PCR) SARS-CoV-2 (PCR) Enterobacteriac sp PCR E. cloacae complex PCR Enterococcus sp PCR E. coli (PCR) H. influenzae (PCR) Influenza A (RT-PCR) Influenza B (RT-PCR) Klebsiella oxytoca PCR Klebsiella pneumoniae List. monocytogenes PCR N. meningitidis (PCR) Proteus species (PCR) RSV (PCR) Serratia marcescens PCR Staphylococcus sp PCR Staph aureus (PCR) mecA-Methicil Res Gene Streptococcus sp PCR Group A Strep (PCR) Strep agalactiae (PCR) Strep pneumoniae (PCR) P. aeruginosa (PCR) Trevon/B-Vanco Res Genes KPC-Carbap Res Gene PCR 12/18/22 02:39 WBC RBC Hgb Hct MCV MCH MCHC RDW Plt Count Neut % (Auto) Lymph % (Auto) Mora % (Auto) Eos % (Auto) Baso % (Auto) Neut # (Auto) Lymph # (Auto) Mora # (Auto) Eos # (Auto) Baso # (Auto) RBC Morphology Poikilocytosis Anisocytosis Ovalocytes PT INR APTT Sodium Potassium Chloride Carbon Dioxide BUN Creatinine Estimated GFR BUN/Creatinine Ratio Glucose Lactate Calcium Total Bilirubin AST ALT Alkaline Phosphatase Troponin I NT-Pro-B Natriuret Pep Total Protein Albumin Globulin Albumin/Globulin Ratio Lipase Procalcitonin Urine Color Urine Appearance Urine pH Ur Specific [place] Urine Protein Urine Glucose (UA) Urine Ketones Urine Occult Blood Urine Nitrate Urine Bilirubin Urine Urobilinogen Ur Leukocyte Esterase Urine RBC Urine WBC Ur Renal Epithelial Cell Amorphous Sediment Urine Bacteria Ur Culture Indicated? Nasal Screen MRSA (PCR) Not detected A. baumannii (PCR) [place] albicans (PCR) C. glabrata (PCR) C. krusei (PCR) C. parapsilosis (PCR) C. tropicalis (PCR) SARS-CoV-2 (PCR) Enterobacteriac sp PCR E. cloacae complex PCR Enterococcus sp PCR E. coli (PCR) H. influenzae (PCR) Influenza A (RT-PCR) Influenza B (RT-PCR) Klebsiella oxytoca PCR Klebsiella pneumoniae List. monocytogenes PCR N. meningitidis (PCR) Proteus species (PCR) RSV (PCR) Serratia marcescens PCR Staphylococcus sp PCR Staph aureus (PCR) mecA-Methicil Res Gene Streptococcus sp PCR Group A Strep (PCR) Strep agalactiae (PCR) Strep pneumoniae (PCR) P. aeruginosa (PCR) Trevon/B-Vanco Res Genes KPC-Carbap Res Gene PCR Assessment & Plan Assessment & Plan narrative: 1. Sepsis-patient with evidence of sepsis with hypotension tachycardia leukocytosis etcetera. Blood cultures already growing Gram-positive cocci. At this point patient has had significant hypotension but appears to have rebounded. Continue with gentle fluids as necessary. Levophed did not appear to be necessary. Given what appears to be an improved left ventricular function verses what we feared might be true I think we can be more liberal with IV fluids if necessary. Does not appear that patient needs additional IV fluids at this time however.. He will will have his infection aggressively treated with antibiotic therapy 2. Infectious [id number] cocci growing from initial blood culture. This of course could be a contaminant but could also be a source of infection. I think adding vancomycin to his regimen given his persistent hypotension despite the Zosyn makes sense at this time until we can identify the organism involved. He has normal renal function so I think this is low risk overall. 3. Atrial fibrillation with rapid ventricular response-much improved once he was somewhat fluid resuscitated. Patient chronically in atrial fibrillation chronically anticoagulated. INR is therapeutic at 2.5. Continue usual dose warfarin at this time but monitor carefully given the antibiotic therapy as above. Echocardiogram has been ordered and to help determine whether not his cardiomyopathy persists. (initial read from sterile processing technologist suggest ejection fraction of about 55% so probably normal or near normal). Also trying to locate records from his cardiology office in [place] since last records we have are 2014, unsure whether he has been seen more recently or not 4. -patient's suprapubic catheter appears to be appropriately placed at this time and is draining urine. Continue to aggressively treat for infection as above 5. Hyperthyroidism-continue patient's usual medication. Plan to check TSH and T4 with next blood draw 6. VTE prophylaxis-patient chronically on warfarin which will be continued so no need for additional prophylaxis 7. Code status-patient has been very clear that he would not want to be resuscitated in the event of a sudden cardiac or respiratory arrest and that is reaffirmed with patient currently. He has been okay with medical treatment such as pressors etcetera which is actively ongoing with him at this time. This is also verified with patient's son who is here in the hospital with him this morning. COVID-19 COVID-19 status: Negative Result date/Date tested (Pos, Neg/Pending): 12/17/22 Quality VTE Deep Vein Thrombosis/Pulmonary Embolism Present on Admission: No
[2022-12-18] MEDS: VANCOMYCIN 750 MG/150 ML PIGGYBACK 150 MG IV ×2 (10:15→17:31)
[2022-12-18] MEDS: METOPROLOL IR 25 MG TABLET 12.5 MG PO ×2 (10:18→22:06)
[2022-12-18] MEDS: ASPIRIN EC 81 MG TABLET PO (10:18)
[2022-12-18] MEDS: FERROUS SULFATE 325 MG TABLET PO (10:18)
[2022-12-18] MEDS: GABAPENTIN 600 MG TABLET PO ×3 (10:18→22:10)
[2022-12-18] MEDS: methIMAzole 5 MG TABLET 2.5 MG PO (13:01)
--- NOTE | 2022-12-18 15:48 | CM.IDA ---
Initial Brief DCP Assessment Patient is 82 y/o male who presents to due to concern for increase in abdominal pain with recent suprapubic catheter change by urologist. Patient has hx of urinary retention, Afib, hx of CVA in 2015, hyperthroidism and suprapubic catheter. Patient was admitted to inpatient status by Dr. Butler/Dr. Muñoz due to concern for Sepsis, blood infection, and afib. Patient's PCP is Dr. Butler, patient has [employer] Medicare insurance. Patient has regularly appts with Urologist Dr. Conteh and PCP. Patient is DNR. METAL SPRAY OPERATOR attempted to meet with patient and son on two occasions but patient and son were unavailable to meet both times. METAL SPRAY OPERATOR reviews EMR and speaks with RN. Per RN, patient resides with son Shahzad, is independent with ADLs and ambulates. At this time patient is receiving IV antibiotics. Plan: DCP to f/u further with patient and son, patient likely to stay more than two midnights for IV antibiotics. DCP to f/u with POC for any DCP needs. SAUL De Guzman Discharge Planning/Care Management CM Discharge Assessment Start: 12/18/22 15:41 Freq: Status: Active Protocol: Document 12/18/22 15:41 LN (Rec: 12/18/22 15:48 LN [id number]) Discharge Planning Assessment Assigned Iuss Analyst SAUL Duran DPOA/Assigned Designee Name lydia/ Denzel Winn Contact Information [phone] Advance Directives? Yes: POLST - DNR Advance Directives on File Yes History Provided By Medical Record Has Patient been admitted in last 30 No days? Prior Living Arrangements House Household Members children Type of transporation used prior to Drives own vehicle admit Independent with ADL's Yes Is patient alert and oriented? Yes Caregiver for Another No Comment DCP to f/u with patient's preference Transportation Arrangement Son POV Referrals Initiated None needed Additional Comment At this time. Please Provide Date Initial DC 12/18/22 Assessment Was Performed
[2022-12-18] MEDS: WARFARIN 5 MG TABLET PO (17:32)
[2022-12-18] MEDS: ATORVASTATIN 20 MG TABLET 80 MG PO (22:18)
[2022-12-19] VITALS: BP 134/65; PULSE 88; RESP 17; TEMP 37.3; O2SAT 100
[2022-12-19] MEDS: VANCOMYCIN 750 MG/150 ML PIGGYBACK 150 MG IV ×2 (00:24→08:35)
[2022-12-19 04:00] VITALS: BP 151/74; PULSE 78; RESP 17; TEMP 36.9; O2SAT 99
[2022-12-19 04:40] LABS: INR 2.4 (0.9-1.3); Prothrombin Time 28.3 SECONDS (10.1-12.7)
[2022-12-19 04:45] LABS: BUN Creatinine Ratio 23.5 (6-22); Blood Urea Nitrogen 16 mg/dL (9-20); Calcium 7.9 mg/dL (8.4-10.2); Carbon Dioxide 23 mmol/L (22-32); Chloride 107 mmol/L (98-107); Estimated Glomerular Filt Rate > 60 mL/min (>60); Glucose 114 mg/dL (80-110); HEMOLYSIS 23 (0-50); Sodium 137 mmol/L (137-145)
[2022-12-19 04:48] LABS: Add Manual Diff / Slide Review NO; Basophils Absolute Auto 0 /uL (0-100); Basophils Percent Auto 0.6 % (0-2); Eosinophils Absolute Auto 200 /uL (0-450); Eosinophils Percent Auto 2.6 % (2-4); Hematocrit 36.7 % (41-53); Hemoglobin 12.2 g/dL (13.5-17.5); Lymphocytes Absolute Auto 1800 /uL (1100-4500); Lymphocytes Percent Auto 25.3 % (25-40); Mean Corpuscular HGB Conc 33.3 % (30-36); Mean Corpuscular Hemoglobin 27.1 PG (26-34); Mean Corpuscular Volume 81.3 fL (80-100); Monocytes Absolute Auto 600 /uL (0-900); Monocytes Percent Auto 8.1 % (3-14); Neutrophils Absolute Auto 4600 /uL (1500-7000); Neutrophils Percent Auto 63.4 % (50-75); Platelet Count 172 X10^3/uL (150-400); Red Blood Cell Count 4.52 X10^6/uL (4.5-5.9); Red Cell Distribution Width 21.4 % (11.6-14.8); White Blood Cell Count 7.3 X10^3/uL (4.5-11.0)
[2022-12-19 05:07] LABS: Free T4, Direct Thyroxine 0.99 ng/dL (0.78-2.19)
[2022-12-19 05:21] LABS: Thyroid Stimulating Hormone 0.301 uIU/mL (0.47-4.68)
[2022-12-19] MEDS: PIPERACILLIN/TAZO 3.375 GM in SODIUM CHLORIDE 0.9% 100 ML IV (05:22)
[2022-12-19 05:46] LABS: Poikilocytosis 1+
[2022-12-19 05:47] LABS: Anisocytosis 1+
--- NOTE | 2022-12-19 07:33 | PM.PN.1 ---
Subjective Subjective Date Patient Seen: 12/19/22 Time Patient Seen: 07:34 Interval history: Patient improved in all aspects over the last 24 hours. Vital signs have stabilized. He somewhat hypertensive even this morning. Blood cultures x2 growing Gram-positive cocci. Vancomycin started yesterday in response. Expecting identification later this morning Excellent urine output through suprapubic catheter Patient this morning awake and alert says he feels much better. The abdominal/suprapubic pain that he was experiencing is completely gone. Was up out of bed little bit yesterday without difficulty Exam Vital Signs (past 8 hours): - 12/19/22 00:00 12/19/22 04:00 Temperature 99.1 F 98.5 F Pulse Rate 88 78 Respiratory Rate 17 17 Blood Pressure 134/65 151/74 H Pulse Oximetry 100 99 Oxygen Delivery Method Room Air Oxygen Flow Rate 0 Objective Labs 12/19/22 04:08 12/19/22 04:08 Labs: Laboratory Results - last 24 hr 12/17/22 12/19/22 12/19/22 18:25 04:08 04:08 WBC 7.3 RBC 4.52 Hgb 12.2 L Hct 36.7 L MCV 81.3 MCH 27.1 MCHC 33.3 RDW 21.4 H Plt Count 172 Neut % (Auto) 63.4 D Lymph % (Auto) 25.3 [place] % (Auto) 8.1 Eos % (Auto) 2.6 Baso % (Auto) 0.6 Neut # (Auto) 4600 Lymph # (Auto) 1800 [place] # (Auto) 600 Eos # (Auto) 200 Baso # (Auto) 0 RBC Morphology See below Poikilocytosis 1+ H Anisocytosis 1+ H PT 28.3 H INR 2.4 H Sodium Potassium Chloride Carbon Dioxide BUN Creatinine Estimated GFR BUN/Creatinine Ratio Glucose Calcium TSH Free T4 A. baumannii (PCR) Not detected [place] albicans (PCR) Not detected C. glabrata (PCR) Not detected C. krusei (PCR) Not detected C. parapsilosis (PCR) Not detected C. tropicalis (PCR) Not detected Enterobacteriac sp PCR Not detected E. cloacae complex PCR Not detected Enterococcus sp PCR Detected H E. coli (PCR) Not detected H. influenzae (PCR) Not detected Klebsiella oxytoca PCR Not detected Klebsiella pneumoniae Not detected List. monocytogenes PCR Not detected N. meningitidis (PCR) Not detected Proteus species (PCR) Not detected Serratia marcescens PCR Not detected Staphylococcus sp PCR Not detected Staph aureus (PCR) Not detected mecA-Methicil Res Gene Streptococcus sp PCR Not detected Group A Strep (PCR) Not detected Strep agalactiae (PCR) Not detected Strep pneumoniae (PCR) Not detected P. aeruginosa (PCR) Not detected Trevon/B-Vanco Res Genes Not detected KPC-Carbap Res Gene PCR 12/19/22 12/19/22 04:08 04:08 WBC RBC Hgb Hct MCV MCH MCHC RDW Plt Count Neut % (Auto) Lymph % (Auto) [place] % (Auto) Eos % (Auto) Baso % (Auto) Neut # (Auto) Lymph # (Auto) [place] # (Auto) Eos # (Auto) Baso # (Auto) RBC Morphology Poikilocytosis Anisocytosis PT INR Sodium 137 Potassium 4.0 Chloride 107 Carbon Dioxide 23 BUN 16 Creatinine 0.68 Estimated GFR > 60 BUN/Creatinine Ratio 23.5 H Glucose 114 H Calcium 7.9 L TSH 0.301 L Free T4 0.99 A. baumannii (PCR) Soledad albicans (PCR) C. glabrata (PCR) C. krusei (PCR) C. parapsilosis (PCR) C. tropicalis (PCR) Enterobacteriac sp PCR E. cloacae complex PCR Enterococcus sp PCR E. coli (PCR) H. influenzae (PCR) Klebsiella oxytoca PCR Klebsiella pneumoniae List. monocytogenes PCR N. meningitidis (PCR) Proteus species (PCR) Serratia marcescens PCR Staphylococcus sp PCR Staph aureus (PCR) mecA-Methicil Res Gene Streptococcus sp PCR Group A Strep (PCR) Strep agalactiae (PCR) Strep pneumoniae (PCR) P. aeruginosa (PCR) Trevon/B-Vanco Res Genes KPC-Carbap Res Gene PCR PFSH Medical History Atrial fibrillation Bladder stones BPH w urinary obs/LUTS Cardiomyopathy (2013) Chronic indwelling Zepeda catheter CVA (cerebral vascular accident) (08/03/15) Diabetes mellitus History of UTI Hyperthyroidism Stenosis of right carotid artery Suprapubic catheter Trigeminal neuralgia Urinary retention (2014) Urinary retention Surgical History S/P carotid endarterectomy (01/29/22) S/P vasectomy Family History Father CVA (cerebral vascular accident) Sister Thyroid disorder Social History household members: children Smoking Status: Never smoker alcohol intake: current Assessment & Plan Assessment & Plan narrative: 1. Sepsis-patient appears to have cleared as sepsis vital signs are stable etcetera. Source of infection clearly urine and organism in process of being identified 2. ID-patient with urinary tract source of sepsis growing Gram-positive cocci from 2 separate blood samples obtained at separate times. Awaiting further identification. Remains on Zosyn plus vancomycin until specific organism and sensitivities are determine 3. Atrial fibrillation-after fluid resuscitation etcetera patient's tachycardia has resolved. He has adequate rate control of his atrial fibrillation at this time. Continues on warfarin as well 4. -catheter appears to be appropriately placed draining your inappropriately 5. Hyperthyroidism-patient's T4 and TSH are acceptable. Continue current dose of methimazole Depending on patient's clinical course this morning and identification of organism patient may actually be well enough to be discharged later today or if not hopefully in the morning Quality VTE Deep Vein Thrombosis/Pulmonary Embolism Present on Admission: No
[2022-12-19 07:49] LABS: Vancomycin Trough 10.7 ug/mL (10-20)
[2022-12-19] MEDS: methIMAzole 5 MG TABLET 2.5 MG PO (08:16)
[2022-12-19] MEDS: ASPIRIN EC 81 MG TABLET PO (08:17)
[2022-12-19] MEDS: FERROUS SULFATE 325 MG TABLET PO (08:17)
[2022-12-19] MEDS: GABAPENTIN 600 MG TABLET PO ×2 (08:17→15:09)
[2022-12-19] MEDS: METOPROLOL IR 25 MG TABLET 12.5 MG PO (08:17)
[2022-12-19] MEDS: VANCOMYCIN 1,250 MG/250 ML PIGGYBACK 166.667 MG IV (13:29)
[2022-12-19 13:35] VITALS: BP 142/72; PULSE 112; RESP 23; TEMP 36.6; O2SAT 97
--- NOTE | 2022-12-19 13:48 | P.DS_ITS ---
History of Present Illness History of Present Illness Date Patient Seen: 12/19/22 Time Patient Seen: 13:48 Chief complaint: pain, urinary catheter not working Narrative: 82-year-old male, well known to me admitted via emergency department with probable urosepsis He presented with abdominal pain several hours after he had his suprapubic catheter replaced. Suprapubic catheter was found to be in the urethra. Once it was repositioned it began to drain urine normally which was not doing previously. Patient then developed evidence of sepsis with hemodynamic changes including hypotension tachycardia etcetera. Was given aggressive fluid resuscitation broad-spectrum IV antibiotics and admitted Overnight patient became somewhat more hypotensive and required transfer to the ICU for use of Levophed, given his hypotension and his prior history of cardiom yopathy, there was concerns about continued fluid resuscitation. However his blood pressure stabilized any did not actually require the use of levofloxacin. This morning blood pressure is 130 systolic without any significant fluids or pressors ongoing. Blood Cultures are growing Gram-positive cocci already (have not yet ruled out contaminant). Patient does have a history of a cardiomyopathy with ejection fraction of 30-35% in 2013. At that point was thought related to possible tachycardia with his presentation with his atrial fibrillation at that time. He unfortunately was lost to follow-up for quite some time and I do not believe he is had a repeat echocardiogram. (that has been ordered for this hospitalization). Fortunately he is responded to the Levophed, his heart rate is not been excessive once he was fluid resuscitated, and he has no respiratory issues at this time. Prelim inary report from business technology professor suggest patient with an ejection fraction of about 55% as of this morning. Final report of course still pending Discharge Providers Provider Date of admission: 12/17/22 21:39 Discharge Date: 12/19/22 Primary care physician: Lloyd Butler MD Discharge provider: Lloyd Butler MD Summary Hospital Course Discharge Diagnosis: 1. Sepsis secondary to UTI, resolved 2. UTI with Enterococcus species 3. Obstruction of suprapubic catheter secondary to placement 4. Chronic atrial fibrillation with rapid ventricular response, rapid ventricular response resolved 5. Chronic anticoagulation with warfarin 6. Diabetes type 2 7. Hyperthyroidism 8. Cardiomyopathy with ejection fraction 40-45% 9. Mild cognitive dysfunction Hospital Course: Patient was admitted as above. He became somewhat modestly hypotensive despite aggressive fluid resuscitation. Was transferred to the ICU in preparation for use of Levophed which was anticipated however patient's blood pressure stabilized with ongoing fluid resuscitation. His heart rate came down also with this resuscitation. Did not require the use of Levophed. He seem to stabilize quite adequately after given enough time Patient grew Enterococcus species from his urine eventually. He was initially started on broad-spectrum IV antibiotics which were expanded a bit when he had some clinical instability. In the end however he was felt to be stable to discharge on oral ampicillin. He would had previous Enterococcus species identified in his urine His catheter was repositioned in the emergency department and continued to drain clear urine throughout the course of his hospitalization His atrial fibrillation remained well controlled once he had resuscitation and resolution of his sepsis His INR was checked twice during this hospitalization and was within therapeutic range His thyroid studies were also checked and were thin the appropriate range on his current medication for his hyperthyroidism Exam Vital Signs (past 8 hours): - 12/19/22 07:00 12/19/22 13:35 Temperature 98 F Pulse Rate 112 H Respiratory Rate 23 Blood Pressure 142/72 H Pulse Oximetry 97 Oxygen Delivery Method Room Air Oxygen Flow Rate 0 Oxygen Delivery Method Room Air Oxygen Flow Rate 0 Objective Labs 12/19/22 04:08 12/19/22 04:08 Labs: Laboratory Results - last 24 hr 12/17/22 12/19/22 12/19/22 18:25 04:08 04:08 WBC 7.3 RBC 4.52 Hgb 12.2 L Hct 36.7 L MCV 81.3 MCH 27.1 MCHC 33.3 RDW 21.4 H Plt Count 172 Neut % (Auto) 63.4 D Lymph % (Auto) 25.3 [place] % (Auto) 8.1 Eos % (Auto) 2.6 Baso % (Auto) 0.6 Neut # (Auto) 4600 Lymph # (Auto) 1800 [place] # (Auto) 600 Eos # (Auto) 200 Baso # (Auto) 0 RBC Morphology See below Poikilocytosis 1+ H Anisocytosis 1+ H PT 28.3 H INR 2.4 H Sodium Potassium Chloride Carbon Dioxide BUN Creatinine Estimated GFR BUN/Creatinine Ratio Glucose Calcium TSH Free T4 Vancomycin Trough A. baumannii (PCR) Not detected Soledad albicans (PCR) Not detected C. glabrata (PCR) Not detected C. krusei (PCR) Not detected C. parapsilosis (PCR) Not detected C. tropicalis (PCR) Not detected Enterobacteriac sp PCR Not detected E. cloacae complex PCR Not detected Enterococcus sp PCR Detected H E. coli (PCR) Not detected H. influenzae (PCR) Not detected Klebsiella oxytoca PCR Not detected Klebsiella pneumoniae Not detected List. monocytogenes PCR Not detected N. meningitidis (PCR) Not detected Proteus species (PCR) Not detected Serratia marcescens PCR Not detected Staphylococcus sp PCR Not detected Staph aureus (PCR) Not detected mecA-Methicil Res Gene Streptococcus sp PCR Not detected Group A Strep (PCR) Not detected Strep agalactiae (PCR) Not detected Strep pneumoniae (PCR) Not detected P. aeruginosa (PCR) Not detected Trevon/B-Vanco Res Genes Not detected KPC-Carbap Res Gene PCR 12/19/22 12/19/22 12/19/22 04:08 04:08 07:15 WBC RBC Hgb Hct MCV MCH MCHC RDW Plt Count Neut % (Auto) Lymph % (Auto) [place] % (Auto) Eos % (Auto) Baso % (Auto) Neut # (Auto) Lymph # (Auto) [place] # (Auto) Eos # (Auto) Baso # (Auto) RBC Morphology Poikilocytosis Anisocytosis PT INR Sodium 137 Potassium 4.0 Chloride 107 Carbon Dioxide 23 BUN 16 Creatinine 0.68 Estimated GFR > 60 BUN/Creatinine Ratio 23.5 H Glucose 114 H Calcium 7.9 L TSH 0.301 L Free T4 0.99 Vancomycin Trough 10.7 A. baumannii (PCR) Soledad albicans (PCR) C. glabrata (PCR) C. krusei (PCR) C. parapsilosis (PCR) C. tropicalis (PCR) Enterobacteriac sp PCR E. cloacae complex PCR Enterococcus sp PCR E. coli (PCR) H. influenzae (PCR) Klebsiella oxytoca PCR Klebsiella pneumoniae List. monocytogenes PCR N. meningitidis (PCR) Proteus species (PCR) Serratia marcescens PCR Staphylococcus sp PCR Staph aureus (PCR) mecA-Methicil Res Gene Streptococcus sp PCR Group A Strep (PCR) Strep agalactiae (PCR) Strep pneumoniae (PCR) P. aeruginosa (PCR) Trevon/B-Vanco Res Genes KPC-Carbap Res Gene PCR [facility] Medical History Atrial fibrillation Bladder stones BPH w urinary obs/LUTS Cardiomyopathy (2013) Chronic indwelling Zepeda catheter CVA (cerebral vascular accident) (08/03/15) Diabetes mellitus History of UTI Hyperthyroidism Stenosis of right carotid artery Suprapubic catheter Trigeminal neuralgia Urinary retention (2014) Urinary retention Surgical History S/P carotid endarterectomy (01/29/22) S/P vasectomy Family History Father CVA (cerebral vascular accident) Sister Thyroid disorder Social History household members: children Smoking Status: Never smoker alcohol intake: current Discharge Assessment & Plan Assessment and Plan Plan of Treatment: Patient to complete a 10 day course of oral ampicillin to treat his Enterococcus in his urine Patient continue all of his other uterus all medications without change. Will need somewhat careful monitoring of his protime given the antibiotic therapy as above Patient be seen in the outpatient clinic by Dr. Butler in 10-14 days time Discharge Plan Discharge Plan Patient Disposition: Home Discharge orders & Medications Prescriptions: New warfarin 5 mg tablet See Rx Instructions .ROUTE .COMPLEX Qty: 90 0RF Rx Instructions: 5 mg orally daily except 2.5 mg on Thursday only, 5 mg every other day of week ampicillin 500 mg capsule 1 g PO TID 10 Days Qty: 60 0RF Continued ferrous sulfate 325 mg (65 mg iron) tablet 325 mg PO DAILY Qty: 90 2RF gabapentin 600 mg tablet 600 mg PO TID Qty: 270 3RF metoprolol tartrate 25 mg tablet 12.5 mg PO BID Qty: 60 1RF aspirin [Adult Low Dose Aspirin] 81 mg tablet,delayed release (DR/EC) 81 mg PO DAILY methimazole 5 mg tablet 2.5 mg PO DAILY Qty: 90 3RF Patient Comments: Patient takes with lunch atorvastatin 80 mg tablet 80 mg PO DAILY Qty: 90 3RF Patient Comments: Patient takes in am. Medication counseling provided by Pharmacist: Yes Follow up/Referrals: Lloyd Butler MD [Primary Care Provider] - 2 Weeks (also needs protime done next week) Discharge Health Status Multidrug resistant organism: No MDRO Diet/Activity/Treatments Diet: Diet as Tolerated Catheter: Suprapubic Visit Report/Discharge Packet Stand Alone Forms: Patient Portal/API Discharge Data Primary Care Provider: Lloyd Butler VTE Deep Vein Thrombosis/Pulmonary Embolism Present on Admission: No
--- NOTE | 2022-12-19 15:35 | CM.DPNOTE ---
DC Note Discharge home w/family this afternoon, close outpatient follow up. Patient back to functional baseline, ambulating in room No needs identified from this CM team JW
== END 2022-12-19 16:35 | disposition home or self-care (01) | DRG 698 ==
LOC: ED 21:40 → AC 21:40 → ICU 12-18 02:24
PROVIDERS: Emergency Medicine; Admitting Provider Family Medicine; Emergency Provider Emergency Medicine; PCP Internal Medicine; Referring Provider Emergency Medicine; Visit Provider Internal Medicine
DX: T83.518A Infection and inflammatory reaction due to other urinary catheter, initial encounter (principal); A41.9 Sepsis, unspecified organism; I48.20 Chronic atrial fibrillation, unspecified; N39.0 Urinary tract infection, site not specified; I42.9 Cardiomyopathy, unspecified; E05.90 Thyrotoxicosis, unspecified without thyrotoxic crisis or storm; B95.2 Enterococcus as the cause of diseases classified elsewhere; E11.9 Type 2 diabetes mellitus without complications; T83.090A Other mechanical complication of cystostomy catheter, initial encounter; Z79.01 Long term (current) use of anticoagulants; Z20.822 Contact with and (suspected) exposure to COVID-19; R31.9 Hematuria, unspecified; R33.9 Retention of urine, unspecified; Z87.440 Personal history of urinary (tract) infections; Z93.59 Other cystostomy status
CPT/HCPCS: 0241U; 36415; 51702; 51798; 71045; 74176; 80048; 80053; 80202; 81001; 83605; 83690; 83880; 84145; 84439; 84443; 84484; 85025; 85610; 85730; 87040; 87077; 87086; 87150; 87185; 87186; 87797; 93005; 93010; 93306; 96365; 96375; 99223; 99238; 99284; 99285; J1885; J2270; J2543

== ENCOUNTER → 2023-01-14 11:04 | Outpatient (CLI) | payer MEDICARE, SELFPAY ==
[2022-12-17 22:33] VITALS: BMI 25.0
== END ==
PROVIDERS: PCP Internal Medicine; Visit Provider Specialist
DX: R33.9 Retention of urine, unspecified (principal); Z87.440 Personal history of urinary (tract) infections
CPT/HCPCS: 51702; 87086

== ENCOUNTER → 2023-02-11 09:37 | Outpatient (CLI) | payer MEDICARE, SELFPAY ==
[2022-12-17 22:33] VITALS: BMI 25.0
== END ==
PROVIDERS: PCP Internal Medicine; Visit Provider Specialist
DX: N40.1 Benign prostatic hyperplasia with lower urinary tract symptoms; N13.8 Other obstructive and reflux uropathy; N21.0 Calculus in bladder; R31.9 Hematuria, unspecified; R33.9 Retention of urine, unspecified; Z93.59 Other cystostomy status
CPT/HCPCS: 51702; 87077; 87086; 87147; 87186

== ENCOUNTER → 2023-03-13 10:59 | Outpatient (CLI) | payer MEDICARE, SELFPAY ==
[2022-12-17 22:33] VITALS: BMI 25.0
== END ==
PROVIDERS: PCP Internal Medicine; Visit Provider Urology
DX: N40.1 Benign prostatic hyperplasia with lower urinary tract symptoms (principal); N13.8 Other obstructive and reflux uropathy; N21.0 Calculus in bladder; R31.9 Hematuria, unspecified; R33.9 Retention of urine, unspecified; L03.90 Cellulitis, unspecified; Z93.59 Other cystostomy status; Z87.440 Personal history of urinary (tract) infections
CPT/HCPCS: 51702; 87086

== ENCOUNTER → 2023-04-03 06:23 | Outpatient (CLI) | payer MEDICARE, SELFPAY ==
[2022-12-17 22:33] VITALS: BMI 25.0
[2023-04-03 08:00] LABS: Add Manual Diff / Slide Review NO; Basophils Absolute Auto 100 /uL (0-100); Basophils Percent Auto 1.4 % (0-2); Eosinophils Absolute Auto 300 /uL (0-450); Eosinophils Percent Auto 3.5 % (2-4); Lymphocytes Absolute Auto 2700 /uL (1100-4500); Lymphocytes Percent Auto 36.6 % (25-40); Mean Corpuscular HGB Conc 33.3 % (30-36); Mean Corpuscular Hemoglobin 30.2 PG (26-34); Mean Corpuscular Volume 90.6 fL (80-100); Monocytes Absolute Auto 400 /uL (0-900); Monocytes Percent Auto 6.1 % (3-14); Neutrophils Absolute Auto 3800 /uL (1500-7000); Neutrophils Percent Auto 52.4 % (50-75); Platelet Count 241 X10^3/uL (150-400); Red Blood Cell Count 4.63 X10^6/uL (4.5-5.9); Red Cell Distribution Width 15.1 % (11.6-14.8); White Blood Cell Count 7.3 X10^3/uL (4.5-11.0)
[2023-04-03 08:29] LABS: Alanine Aminotransferase 25 IU/L (<50); Albumin 4.2 g/dL (3.5-5.0); Albumin Globulin Ratio 1.2 (1.0-2.8); Alkaline Phosphatase 77 U/L (38-126); Aspartate Aminotransferase 28 IU/L (17-59); Bilirubin Total 1.5 mg/dL (0.2-1.3); Blood Urea Nitrogen 17 mg/dL (9-20); Calcium 9.3 mg/dL (8.4-10.2); Carbon Dioxide 30 mmol/L (22-32); Chloride 105 mmol/L (98-107); Estimated Glomerular Filt Rate > 60 mL/min (>60); Globulin 3.4 g/dL (1.7-4.1); Glucose 104 mg/dL (80-110); HEMOLYSIS < 15 (0-50); Sodium 142 mmol/L (137-145); Total Protein 7.6 g/dL (6.3-8.2)
[2023-04-03 08:41] LABS: Free T4, Direct Thyroxine 0.91 ng/dL (0.78-2.19)
[2023-04-03 08:54] LABS: Thyroid Stimulating Hormone 2.48 uIU/mL (0.47-4.68)
[2023-04-04 08:29] LABS: Labcorp Hemoglobin (Hb) A1c 6.2 % (4.8-5.6)
== END ==
PROVIDERS: PCP Internal Medicine; Referring Provider Internal Medicine; Visit Provider Internal Medicine
DX: E05.90 Thyrotoxicosis, unspecified without thyrotoxic crisis or storm (principal); I48.91 Unspecified atrial fibrillation; R31.0 Gross hematuria; Z79.01 Long term (current) use of anticoagulants; Z79.899 Other long term (current) drug therapy; E11.9 Type 2 diabetes mellitus without complications
CPT/HCPCS: 36415; 80053; 83036; 84439; 84443; 85025

== ENCOUNTER → 2023-04-13 09:26 | Outpatient (CLI) | payer MEDICARE, SELFPAY ==
[2022-12-17 22:33] VITALS: BMI 25.0
== END ==
PROVIDERS: PCP Internal Medicine; Visit Provider Specialist
DX: N40.1 Benign prostatic hyperplasia with lower urinary tract symptoms (principal); N13.8 Other obstructive and reflux uropathy; R33.9 Retention of urine, unspecified; Z93.59 Other cystostomy status
CPT/HCPCS: 17250; 51702; 87077; 87086; 87186

== ENCOUNTER → 2023-05-11 09:40 | Outpatient (CLI) | payer MEDICARE, SELFPAY ==
[2022-12-17 22:33] VITALS: BMI 25.0
== END ==
PROVIDERS: PCP Internal Medicine; Visit Provider Urology
DX: N40.1 Benign prostatic hyperplasia with lower urinary tract symptoms (principal); N13.8 Other obstructive and reflux uropathy; R33.9 Retention of urine, unspecified; L92.9 Granulomatous disorder of the skin and subcutaneous tissue, unspecified; Z93.59 Other cystostomy status
CPT/HCPCS: 17250; 51702; 87077; 87086; 87186

== ENCOUNTER 2023-05-16 09:17 | Emergency (ER) | payer MEDICARE, SELFPAY ==
[2022-12-17 22:33] VITALS: BMI 25.0
[2023-05-16 09:27] VITALS: BP 179/91; PULSE 80; RESP 18; TEMP 36.7; O2SAT 99; BMI 22.1
--- NOTE | 2023-05-16 10:40 | ED_ITS ---
HPI - Male Genitourinary General Chief complaint: Urogenital-Male Stated complaint: Cath balloon deflated Time Seen by Provider: 05/16/23 09:56 Source: patient Mode of arrival: Ambulatory Limitations: no limitations History of Present Illness HPI Narrative: This is an 82-year-old male with known suprapubic catheter who states it fell out last night. He states that his last replacement of his catheter he asked e nurse not to put as much fluid in the balloon so he thinks that that is why it fell out. He follows with Dr. Conteh for Urology. Patient states he is not having any abdominal pain. He states no fevers or chills. No nausea or vomiting. States normal bowel movements. No back or flank pain. He states he did actually urinate this morning which was surprising to him through his penis. He states he used to have Zepeda catheters through the penis but was annoyed by having it present so asked his urologist if he could switch over to suprapubic. Patient denies any other issues. He states this happened last night in the evening. Related Data Home Medications Medication Instructions Recorded Confirmed aspirin 81 mg tablet,delayed 81 mg PO DAILY 02/04/22 05/11/23 release (Adult Low Dose Aspirin) gabapentin 600 mg tablet 600 mg PO DAILY 04/06/23 05/11/23 Previous Rx's Medication Instructions Recorded methimazole 5 mg tablet 2.5 mg PO DAILY #90 tabs 07/17/22 metoprolol tartrate 25 mg tablet 12.5 mg PO BID #60 tabs 03/23/23 warfarin 5 mg tablet See Rx Instructions .Route 04/27/23 .COMPLEX #90 tabs atorvastatin 80 mg tablet 80 mg PO DAILY #90 tabs 05/05/23 Allergies Allergy/AdvReac Type Severity Reaction Status Date / Time No Known Drug Allergies Allergy Verified 05/11/23 09:39 Review of Systems Review of Systems ROS Unobtainable: All systems reviewed & are unremarkable except as noted in HPI and below Patient History Medical History Atrial fibrillation Benign prostatic hyperplasia Bladder stones BPH w urinary obs/LUTS Cardiomyopathy (2013) Chronic indwelling Zepeda catheter CVA (cerebral vascular accident) (08/03/15) Diabetes mellitus Hematuria History of UTI Hyperthyroidism Stenosis of right carotid artery Suprapubic catheter Trigeminal neuralgia Urinary retention (2015) Urinary retention Surgical History S/P carotid endarterectomy (01/29/22) S/P vasectomy Family History Father CVA (cerebral vascular accident) Sister Thyroid disorder Social History household members: children Smoking Status: Never smoker alcohol intake: current Smoking Status: Never smoker alcohol intake frequency: holidays/special occasions only Substance Use Type: does not use Exam Narrative Exam Narrative: GENERAL: Alert and oriented x three, well-appearing elderly male in mild distress. HEENT: Head normocephalic, atraumatic, EOMI, pupils reactive, face symmetric, moist mucous membranes NECK: Supple, full range of motion CARDIOVASCULAR: Regular rate and rhythm without murmurs, rubs or gallops. RESPIRATORY: Breath sounds equal bilaterally, no wheezes rales or rhonchi. ABDOMEN: Soft, nontender. Normoactive bowel sounds all 4 quadrants. No guarding or rebound, rigidity, no mass, patient has opening consistent with a suprapubic catheter the catheter is next to him in his clearly out. There is no warmth erythema, no drainage. Patient is not distended. Patient refuses to allow for further lower general urinal examination at this time. : No CVA tenderness EXTREMITIES: Normal range of motion, no clubbing or edema. Neurovascularly intact NEUROLOGICAL: Cranial nerves II through XII grossly intact. Moving all extremities SKIN: Warm, dry, no petechiae, no rashes or lesions. Initial Vital Signs Initial Vital Signs: Vital Signs Temperature 98.1 F 05/16/23 09:27 Pulse Rate 80 05/16/23 09:27 Respiratory Rate 18 05/16/23 09:27 Blood Pressure 179/91 H 05/16/23 09:27 Pulse Oximetry 99 05/16/23 09:27 Oxygen Delivery Method Room Air 05/16/23 09:27 Procedures [facility] Procedure Name of Procedure: Suprapubic catheter replaced. Technique/Description of procedure performed: suprapubic catheter placed by myself under sterile conditions.? Patient is prepped in standard fashion using sterile gloves, sterile drapes, Betadine.? Patient had a 20 Macedonian initially with dental, steady pressure. Was unsuccessful in 16 Macedonian was placed with gentle, steady pressure was advanced with drainage of clear urine, no blood noted. Zepeda catheter bulb was inflated with 10 cc of saline. Pull back with no issue. Patient tolerated well with no pain, catheter draining appropriately Course Vital Signs Vital signs: Vital Signs - 8 hr 05/16/23 11:52 Temperature 98.0 F Pulse Rate 70 Respiratory Rate 16 Blood Pressure 161/79 H Pulse Oximetry 99 Oxygen Delivery Method Room Air MDM - Male Genitourinary MDM Narrative Medical decision making narrative: 82-year-old male with suprapubic catheter that fell out last night, patient uses a 12 Macedonian. He states thinks it is because he asked the nurse not to put as much fluid in the balloon last time and so it fell out or easily. Patient states been about 12 hours he has urinated from his penis once tonight which he states is atypical. He is not have any pain, no other symptoms currently. Patient had Zepeda catheter replaced by myself attempted 20 Macedonian which is what he normally has was unsuccessful in place a 16 Macedonian coude. Was placed successfully had urine drainage out. Catheter was placed with gentle persistent pressure at the site slid through easily balloon was inflated to 10 mL, pulled back stayed in place. Patient has continued to drain clear yellow urine. Patient is supposed follow up in the next month with Dr. Conteh for his Zepeda catheter replacement asked to call on Thursday morning to see if they would like to see him sooner. Discussed return precautions watch for signs of infection all questions answered. Discharge Plan Departure Patient Disposition: Home Clinical Impression: Suprapubic catheter dysfunction Instructions: How to Care for a Suprapubic Catheter Activity Restrictions/Additional Instructions: Follow up with Dr. Conteh your urologist for recheck, let the office know that your catheter was placed here today and see if they would like to follow up sooner than your scheduled appointment. You have had a 16F coude catheter placed today, I was unable to place a 20 Macedonian. If your catheter falls out in the future please return promptly for replacement. Please return for fevers, new abdominal back or flank pain, signs of infection and ear suprapubic catheter site, if there is blockage or no urine draining out if you are having other new or concerning changes. Prescriptions: No Action metoprolol tartrate 25 mg tablet 12.5 mg PO BID Qty: 60 0RF warfarin 5 mg tablet See Rx Instructions .ROUTE .COMPLEX Qty: 90 0RF Rx Instructions: 5 mg orally daily except 2.5 mg on Thursday only, 5 mg every other day of week atorvastatin 80 mg tablet 80 mg PO DAILY Qty: 90 1RF Patient Comments: Patient takes in am. aspirin [Adult Low Dose Aspirin] 81 mg tablet,delayed release (DR/EC) 81 mg PO DAILY methimazole 5 mg tablet 2.5 mg PO DAILY Qty: 90 3RF Patient Comments: Patient takes with lunch gabapentin 600 mg tablet 600 mg PO DAILY Referrals: Nancy Conteh MD [Physician] - Lloyd Butler MD [Primary Care Provider] - Stand Alone Forms: Patient Portal/API
--- NOTE | 2023-05-16 11:13 | PC.NURSE ---
Assisted Dr Walker with suprapubic catheter placement. Pt tolerated well. 16fr placed by Dr Walker and drained dark brittany urine.
[2023-05-16 11:52] VITALS: BP 161/79; PULSE 70; RESP 16; TEMP 36.7; O2SAT 99
== END 2023-05-16 11:53 | disposition home or self-care (01) ==
PROVIDERS: Emergency Provider Emergency Medicine; PCP Internal Medicine
DX: T83.028A Displacement of other urinary catheter, initial encounter (principal)
CPT/HCPCS: 51702; 99281; 99283

== ENCOUNTER → 2023-06-09 10:00 | Outpatient (CLI) | payer MEDICARE, SELFPAY ==
[2022-12-17 22:33] VITALS: BMI 25.0
== END ==
PROVIDERS: PCP Internal Medicine; Visit Provider Specialist
DX: N40.1 Benign prostatic hyperplasia with lower urinary tract symptoms (principal); N13.8 Other obstructive and reflux uropathy; Z93.59 Other cystostomy status
CPT/HCPCS: 51702; 87077; 87086; 87186

== ENCOUNTER → 2023-07-07 10:30 | Outpatient (CLI) | payer MEDICARE, SELFPAY ==
[2022-12-17 22:33] VITALS: BMI 25.0
== END ==
PROVIDERS: PCP Internal Medicine; Visit Provider Specialist
DX: Z93.59 Other cystostomy status (principal); R33.9 Retention of urine, unspecified
CPT/HCPCS: 17250; 51702; 87077; 87086; 87186

== ENCOUNTER → 2023-08-05 10:27 | Outpatient (CLI) | payer MEDICARE, SELFPAY ==
[2022-12-17 22:33] VITALS: BMI 25.0
== END ==
PROVIDERS: PCP Internal Medicine; Visit Provider Urology
DX: R33.9 Retention of urine, unspecified (principal); Z93.59 Other cystostomy status
CPT/HCPCS: 17250; 51702; 87077; 87086; 87186

== ENCOUNTER → 2023-09-08 10:43 | Outpatient (CLI) | payer MEDICARE, SELFPAY ==
[2022-12-17 22:33] VITALS: BMI 25.0
== END ==
PROVIDERS: PCP Internal Medicine; Visit Provider Specialist
DX: N40.1 Benign prostatic hyperplasia with lower urinary tract symptoms (principal); N13.8 Other obstructive and reflux uropathy; R31.9 Hematuria, unspecified; R33.9 Retention of urine, unspecified; L03.90 Cellulitis, unspecified; Z93.59 Other cystostomy status
CPT/HCPCS: 51702; 87077; 87086; 87186

== ENCOUNTER → 2023-10-06 10:33 | Outpatient (CLI) | payer MEDICARE, SELFPAY ==
[2022-12-17 22:33] VITALS: BMI 25.0
== END ==
PROVIDERS: PCP Internal Medicine; Visit Provider Specialist
DX: N40.1 Benign prostatic hyperplasia with lower urinary tract symptoms (principal); N13.8 Other obstructive and reflux uropathy
CPT/HCPCS: 87077; 87086; 87186

== ENCOUNTER → 2023-10-26 07:28 | Outpatient (CLI) | payer MEDICARE, SELFPAY ==
[2022-12-17 22:33] VITALS: BMI 25.0
[2023-10-26 08:18] LABS: Add Manual Diff / Slide Review NO; Basophils Absolute Auto 100 /uL (0-100); Basophils Percent Auto 0.8 % (0-2); Eosinophils Absolute Auto 300 /uL (0-450); Eosinophils Percent Auto 3.7 % (2-4); Hemoglobin 14.2 g/dL (13.5-17.5); Lymphocytes Absolute Auto 3800 /uL (1100-4500); Lymphocytes Percent Auto 46.4 % (25-40); Mean Corpuscular HGB Conc 33.7 % (30-36); Mean Corpuscular Hemoglobin 30.2 PG (26-34); Mean Corpuscular Volume 89.6 fL (80-100); Monocytes Absolute Auto 500 /uL (0-900); Monocytes Percent Auto 6.2 % (3-14); Neutrophils Absolute Auto 3500 /uL (1500-7000); Neutrophils Percent Auto 42.9 % (50-75); Platelet Count 301 X10^3/uL (150-400); Red Blood Cell Count 4.69 X10^6/uL (4.5-5.9); Red Cell Distribution Width 14.8 % (11.6-14.8); White Blood Cell Count 8.3 X10^3/uL (4.5-11.0)
[2023-10-26 09:01] LABS: Free T3, Triiodothyronine Free 3.56 pg/mL (2.77-5.27); Free T4, Direct Thyroxine 0.88 ng/dL (0.78-2.19)
[2023-10-26 09:14] LABS: Thyroid Stimulating Hormone 8.82 uIU/mL (0.47-4.68)
[2023-10-26 09:33] LABS: Hemoglobin A1C% w Est Avg Glu 6.2 % (4.0-6.0)
== END ==
PROVIDERS: PCP Internal Medicine; Referring Provider Internal Medicine; Visit Provider Internal Medicine
DX: I48.91 Unspecified atrial fibrillation (principal); E11.9 Type 2 diabetes mellitus without complications; Z79.01 Long term (current) use of anticoagulants; E05.90 Thyrotoxicosis, unspecified without thyrotoxic crisis or storm
CPT/HCPCS: 36415; 83036; 84439; 84443; 84481; 85025

== ENCOUNTER → 2023-11-04 09:32 | Outpatient (CLI) | payer OTHER, SELFPAY ==
[2023-10-26 14:23] VITALS: BMI 25.0
== END ==
PROVIDERS: PCP Internal Medicine; Visit Provider Specialist
DX: R33.9 Retention of urine, unspecified (principal); N40.1 Benign prostatic hyperplasia with lower urinary tract symptoms; N13.8 Other obstructive and reflux uropathy
CPT/HCPCS: 87077; 87086; 87186

== ENCOUNTER 2023-12-01 23:37 | Emergency (ER) | payer OTHER, SELFPAY ==
[2023-10-26 14:23] VITALS: BMI 25.0
[2023-12-01 23:55] VITALS: PULSE 63; O2SAT 100
[2023-12-01 23:56] VITALS: BP 226/100; PULSE 85; RESP 22; TEMP 36.7; O2SAT 98
[2023-12-02] VITALS: BP 228/100; PULSE 61; O2SAT 99
--- NOTE | 2023-12-02 00:02 | ED.GENADULT ---
HPI - General Adult General Chief complaint: Urogenital-Male Stated complaint: catherter clogged up Time Seen by Provider: 12/01/23 23:59 Source: patient and family Mode of arrival: Ambulatory History of Present Illness HPI narrative: Patient is an 83-year-old male who had a Zepeda catheter placed today. Has a follow-up with Urology at the end of the week. He states that the Zepeda catheter has not been draining for the past hours. He was leaking around the catheter. He is on warfarin. Related Data Home Medications Medication Instructions Recorded Confirmed aspirin 81 mg tablet,delayed 81 mg PO DAILY 02/04/22 12/01/23 release (Adult Low Dose Aspirin) gabapentin 600 mg tablet 600 mg PO DAILY 04/06/23 12/01/23 Previous Rx's Medication Instructions Recorded atorvastatin 80 mg tablet 80 mg PO DAILY #90 tabs 06/09/23 methimazole 5 mg tablet 2.5 mg (1/2 x 5 mg) PO DAILY #90 06/09/23 tabs metoprolol tartrate 25 mg tablet 12.5 mg (1/2 x 25 mg) PO BID #90 06/09/23 tabs warfarin 5 mg tablet See Rx Instructions .Route 11/13/23 .COMPLEX #90 tabs Allergies Allergy/AdvReac Type Severity Reaction Status Date / Time No Known Drug Allergies Allergy Verified 10/27/23 15:28 Review of Systems Gastrointestinal Gastrointestinal: Reports system reviewed and no additional complaints, except as documented Genitourinary Genitourinary: Reports system reviewed and no additional complaints, except as documented Integumentary/Breasts Skin/Breast: Reports system reviewed and no additional complaints, except as documented Patient History Medical History Urinary retention Presence of suprapubic catheter Hematuria Benign prostatic hyperplasia Chronic indwelling Zepeda catheter Bladder stones Stenosis of right carotid artery Trigeminal neuralgia History of UTI BPH w urinary obs/LUTS Hyperthyroidism Atrial fibrillation Urinary retention (2014) CVA (cerebral vascular accident) (08/03/15) Diabetes mellitus Cardiomyopathy (2013) Surgical History S/P carotid endarterectomy (01/29/22) S/P vasectomy Family History Father CVA (cerebral vascular accident) Sister Thyroid disorder Social History household members: children Smoking Status: Never smoker alcohol intake: current Smoking Status: Never smoker alcohol intake frequency: holidays/special occasions only Substance Use Type: does not use Exam Initial Vital Signs Initial Vital Signs: Vital Signs Pulse Rate 63 12/01/23 23:55 Pulse Oximetry 100 12/01/23 23:55 Oxygen Delivery Method Room Air 12/01/23 23:55 GI Inspection: normal to inspection External: normal external exam Other: Zepeda catheter in place Course Vital Signs Vital signs: Vital Signs - 8 hr 12/01/23 23:55 12/01/23 23:56 12/02/23 00:00 Temperature 98.1 F Pulse Rate 63 85 Respiratory Rate 22 Blood Pressure 226/100 H 228/100 H Pulse Oximetry 100 98 Oxygen Delivery Method Room Air Room Air 12/02/23 00:00 12/02/23 00:30 12/02/23 00:31 Temperature Pulse Rate 61 109 H 104 H Respiratory Rate Blood Pressure Pulse Oximetry 99 100 100 Oxygen Delivery Method Room Air Room Air Room Air 12/02/23 00:31 12/02/23 01:08 12/02/23 01:08 Temperature Pulse Rate 66 Respiratory Rate Blood Pressure 183/72 H 150/62 H Pulse Oximetry 97 Oxygen Delivery Method Room Air Medical Decision Making [facility] Narrative Medical decision making narrative: Unable to flush the Zepeda catheter that was in place. You Zepeda catheter was placed and was flushed with return of quite a bit of clots. It is now draining light pink urine. Patient states he feels much better. Will discharge home with instructions to keep his appointment with Urology later this week. Discharge Plan Departure Patient Disposition: Home Clinical Impression: Complication, blocked Zepeda catheter Instructions: How to Care for Your Zepeda Catheter -- Male Activity Restrictions/Additional Instructions: Continue to take all of your medications as directed and keep your scheduled medical appointments to include with the urologist later this week. Return to the emergency department for new symptoms Prescriptions: No Action metoprolol tartrate 25 mg tablet 12.5 mg PO BID Qty: 90 3RF methimazole 5 mg tablet 2.5 mg PO DAILY Qty: 90 3RF Patient Comments: Patient takes with lunch atorvastatin 80 mg tablet 80 mg PO DAILY Qty: 90 3RF Patient Comments: Patient takes in am. warfarin 5 mg tablet See Rx Instructions .ROUTE .COMPLEX Qty: 90 0RF Rx Instructions: 5 mg orally daily except 2.5 mg on Thursday only, 5 mg every other day of week aspirin [Adult Low Dose Aspirin] 81 mg tablet,delayed release (DR/EC) 81 mg PO DAILY gabapentin 600 mg tablet 600 mg PO DAILY Referrals: Lloyd Butler MD [Primary Care Provider] - Stand Alone Forms: Patient Portal/API
--- NOTE | 2023-12-02 00:25 | PC.NURSE ---
Arrived to ED w/ existing indwelling urinary catheter which pt. had disconnected from legbag & was hanging open (system). Attempted to irrigate same w/ SNS 30 mL irrigant volumes X 3 w/ no return of irrigant along w/ spasm-like bloody liquid drainage from around catheter insertion site. Existing catheter removed & new campa catheter 18 Fr. inserted w/ moderate resistance met @ prostate. Return of scant bloody urine. Irrigated new catheter @ 30 mL intervals X 1500 mL w/ return of large amount of small clots. Irrigated until slight pink tinged & no further clots. Pt. tolerated procedure well w/ report of resolve of bladder pressure.
[2023-12-02 00:30] VITALS: PULSE 109; O2SAT 100
[2023-12-02 00:31] VITALS: BP 183/72; PULSE 104; O2SAT 100
[2023-12-02 01:08] VITALS: BP 150/62; PULSE 66; O2SAT 97
== END 2023-12-02 01:13 | disposition home or self-care (01) ==
PROVIDERS: Emergency Provider Emergency Medicine; PCP Internal Medicine
DX: T83.091A Other mechanical complication of indwelling urethral catheter, initial encounter (principal); R33.9 Retention of urine, unspecified
CPT/HCPCS: 51700; 51702; 99283; 99284

== ENCOUNTER 2023-12-09 23:59 | Emergency (ER) | payer OTHER, SELFPAY ==
[2023-10-26 14:23] VITALS: BMI 25.0
[2023-12-10] VITALS (8 sets, daily range): BP systolic 124–173; BP diastolic 64–112; PULSE 92–109; RESP 18–21; TEMP 37.1; O2SAT 94–100; BMI 29.2
--- NOTE | 2023-12-10 00:33 | ED_ITS ---
HPI - Male Genitourinary General Chief complaint: Urogenital-Male Stated complaint: cathether is plugged up Time Seen by Provider: 12/10/23 00:00 Source: patient Mode of arrival: Ambulatory History of Present Illness HPI Narrative: 83-year-old male with history of CVA on warfarin, BPH with urinary retention, chronic use of Zepeda catheter presents by private vehicle from home for blocked Zepeda catheter. Patient states that around 2:00 p.m. his catheter stopped draining and he is progressively felt Antunez and more distended since that time. Similar thing happened on 12/02, patient had irrigation of numerous blood clots and was discharged with urology follow up. Patient states that his catheter has been draining normally until 2:00 p.m. today. Requesting that his INR be checked. Related Data Home Medications Medication Instructions Recorded Confirmed aspirin 81 mg tablet,delayed 81 mg PO DAILY 02/04/22 12/01/23 release (Adult Low Dose Aspirin) gabapentin 600 mg tablet 600 mg PO DAILY 04/06/23 12/01/23 Previous Rx's Medication Instructions Recorded atorvastatin 80 mg tablet 80 mg PO DAILY #90 tabs 06/09/23 methimazole 5 mg tablet 2.5 mg (1/2 x 5 mg) PO DAILY #90 06/09/23 tabs metoprolol tartrate 25 mg tablet 12.5 mg (1/2 x 25 mg) PO BID #90 06/09/23 tabs warfarin 5 mg tablet See Rx Instructions .Route 11/13/23 .COMPLEX #90 tabs Allergies Allergy/AdvReac Type Severity Reaction Status Date / Time No Known Drug Allergies Allergy Verified 10/27/23 15:28 Review of Systems Review of Systems Narrative: Otherwise negative Patient History Medical History Urinary retention Presence of suprapubic catheter Hematuria Benign prostatic hyperplasia Chronic indwelling Zepeda catheter Bladder stones Stenosis of right carotid artery Trigeminal neuralgia History of UTI BPH w urinary obs/LUTS Hyperthyroidism Atrial fibrillation Urinary retention (2014) CVA (cerebral vascular accident) (08/03/15) Diabetes mellitus Cardiomyopathy (2013) Surgical History S/P carotid endarterectomy (01/29/22) S/P vasectomy Family History Father CVA (cerebral vascular accident) Sister Thyroid disorder Social History household members: children Smoking Status: Never smoker alcohol intake: current Smoking Status: Never smoker alcohol intake frequency: holidays/special occasions only Substance Use Type: does not use Exam Initial Vital Signs Initial Vital Signs: Vital Signs Pulse Rate 96 H 12/10/23 00:10 Respiratory Rate 18 12/10/23 00:10 Blood Pressure 173/112 H 12/10/23 00:10 Pulse Oximetry 100 12/10/23 00:10 Oxygen Delivery Method Room Air 12/10/23 00:10 Const: Awake, alert, uncomfortable, appears in pain Cardiac: regular rate, regular rhythm RESP: unlabored, clear bilaterally, no wheezing GI: Soft, suprapubic fullness : [employer] present, Zepeda catheter in place with bloody urine in catheter bag Skin: Warm, Dry, intact, no rashes Neuro: AO x3, CN II-XII grossly intact, moves all extremities Course Orders Ordered: ED Orders 12/10/23 01:20 CBC Auto Diff [Complete Blood Count AUTO DIFF] Stat CMP [Comprehensive Metabolic Panel] Stat PT [Prothrombin Time INR] Stat Discontinued Medications Morphine Sulfate (Morphine 4 Mg/Ml Inj) 4 mg IV NOW ONE Stop: 12/10/23 01:45 Last Admin: 12/10/23 01:50 Dose: 4 mg Documented By: AB Vital Signs Vital signs: Vital Signs - 8 hr 12/10/23 00:10 12/10/23 00:12 12/10/23 03:14 Temperature 98.7 F Pulse Rate 96 H 108 H 109 H Respiratory Rate 18 21 Blood Pressure 173/112 H 173/112 H Pulse Oximetry 100 98 95 Oxygen Delivery Method Room Air Room Air 12/10/23 03:19 12/10/23 03:19 12/10/23 03:30 Temperature Pulse Rate 99 H 93 H Respiratory Rate Blood Pressure 133/75 Pulse Oximetry 96 96 Oxygen Delivery Method 12/10/23 03:30 12/10/23 04:00 12/10/23 04:00 Temperature Pulse Rate 94 H Respiratory Rate 18 Blood Pressure 124/64 136/65 Pulse Oximetry 98 Oxygen Delivery Method 12/10/23 04:30 12/10/23 04:30 12/10/23 05:00 Temperature Pulse Rate 95 H 92 H Respiratory Rate 18 Blood Pressure 138/66 Pulse Oximetry 100 94 Oxygen Delivery Method 12/10/23 05:00 Temperature Pulse Rate Respiratory Rate 18 Blood Pressure 149/76 H Pulse Oximetry Oxygen Delivery Method MDM - Male Genitourinary Differential Diagnosis Differential diagnosis: Likely urinary tract infection, priapism and urethritis Lab Data 12/10/23 01:20 12/10/23 01:20 Labs: Lab Results 12/10/23 Range/Units 01:20 WBC 13.6 H (4.5-11.0) X10^3/uL RBC 4.39 L (4.5-5.9) X10^6/uL Hgb 13.4 L (13.5-17.5) g/dL Hct 39.4 L (41-53) % MCV 89.6 (80-100) fL MCH 30.4 (26-34) PG MCHC 34.0 (30-36) % RDW 15.6 H (11.6-14.8) % Plt Count 360 (150-400) X10^3/uL Neut % (Auto) 81.3 H (50-75) % Lymph % (Auto) 12.8 L (25-40) % Caroline % (Auto) 5.5 (3-14) % Eos % (Auto) 0.1 L (2-4) % Baso % (Auto) 0.3 (0-2) % Neut # (Auto) 79405 H (3461-6927) /uL Lymph # (Auto) 1700 (6596-3073) /uL Caroline # (Auto) 700 (0-900) /uL Eos # (Auto) 0 (0-450) /uL Baso # (Auto) 0 (0-100) /uL PT 36.3 H (9.4-12.5) SECONDS INR 3.1 H (0.9-1.3) Sodium 141 (137-145) mmol/L Potassium 4.1 (3.4-5.1) mmol/L Chloride 107 (98-107) mmol/L Carbon Dioxide 20 L (22-32) mmol/L BUN 13 (9-20) mg/dL Creatinine 0.74 (0.66-1.25) mg/dL Estimated GFR > 60 (>60) mL/min BUN/Creatinine Ratio 17.6 (6-22) Glucose 140 H (80-110) mg/dL Calcium 9.9 (8.4-10.2) mg/dL Total Bilirubin 1.7 H (0.2-1.3) mg/dL AST 38 (17-59) IU/L ALT 26 (<50) IU/L Alkaline Phosphatase 104 (38-126) U/L Total Protein 8.4 H (6.3-8.2) g/dL Albumin 4.7 (3.5-5.0) g/dL Globulin 3.7 (1.7-4.1) g/dL Albumin/Globulin Ratio 1.3 (1.0-2.8) MDM Narrative Medical decision making narrative: Hematuria with blocked Zepeda catheter. Three-way Zepeda placed and multiple L of sterile water normal saline were flushed through the catheter with cleared of moderate amount of sediment, some small clots, with urine ultimately clearing to clear yellow with the slightest pink tinge. After urine drained patient reported feeling significantly better. Hemoglobin stable, creatinine stable. INR 3.1. Patient updated of laboratory results, counseled on the extreme importance of following up with Urology. Son was given a syringe to help to manually irrigate Zepeda catheter and nursing provided instructions at bedside. Discharge Plan Departure Patient Disposition: Home Clinical Impression: Complication, blocked Zepeda catheter, Hematuria Instructions: DI for Hematuria Activity Restrictions/Additional Instructions: Your hemoglobin today was 13.4, which is normal for you. Your INR today was 3.1, follow up with your PCP to continue to closely monitor your INR. Follow up with your urologist as soon as possible. Prescriptions: No Action metoprolol tartrate 25 mg tablet 12.5 mg PO BID Qty: 90 3RF methimazole 5 mg tablet 2.5 mg PO DAILY Qty: 90 3RF Patient Comments: Patient takes with lunch atorvastatin 80 mg tablet 80 mg PO DAILY Qty: 90 3RF Patient Comments: Patient takes in am. warfarin 5 mg tablet See Rx Instructions .ROUTE .COMPLEX Qty: 90 0RF Rx Instructions: 5 mg orally daily except 2.5 mg on Thursday only, 5 mg every other day of week aspirin [Adult Low Dose Aspirin] 81 mg tablet,delayed release (DR/EC) 81 mg PO DAILY gabapentin 600 mg tablet 600 mg PO DAILY Referrals: Lloyd Butler MD [Primary Care Provider] - Nancy Conteh MD [Physician] - Stand Alone Forms: Patient Portal/API
[2023-12-10 01:30] LABS: Add Manual Diff / Slide Review NO; Basophils Absolute Auto 0 /uL (0-100); Basophils Percent Auto 0.3 % (0-2); Eosinophils Absolute Auto 0 /uL (0-450); Eosinophils Percent Auto 0.1 % (2-4); Hematocrit 39.4 % (41-53); Hemoglobin 13.4 g/dL (13.5-17.5); Lymphocytes Absolute Auto 1700 /uL (1100-4500); Lymphocytes Percent Auto 12.8 % (25-40); Mean Corpuscular Hemoglobin 30.4 PG (26-34); Mean Corpuscular Volume 89.6 fL (80-100); Monocytes Absolute Auto 700 /uL (0-900); Monocytes Percent Auto 5.5 % (3-14); Neutrophils Absolute Auto 11100 /uL (1500-7000); Neutrophils Percent Auto 81.3 % (50-75); Platelet Count 360 X10^3/uL (150-400); Red Blood Cell Count 4.39 X10^6/uL (4.5-5.9); Red Cell Distribution Width 15.6 % (11.6-14.8); White Blood Cell Count 13.6 X10^3/uL (4.5-11.0)
[2023-12-10 01:34] LABS: INR 3.1 (0.9-1.3); Prothrombin Time 36.3 SECONDS (9.4-12.5)
[2023-12-10 01:39] LABS: Alanine Aminotransferase 26 IU/L (<50); Albumin 4.7 g/dL (3.5-5.0); Albumin Globulin Ratio 1.3 (1.0-2.8); Alkaline Phosphatase 104 U/L (38-126); Aspartate Aminotransferase 38 IU/L (17-59); BUN Creatinine Ratio 17.6 (6-22); Bilirubin Total 1.7 mg/dL (0.2-1.3); Blood Urea Nitrogen 13 mg/dL (9-20); Calcium 9.9 mg/dL (8.4-10.2); Carbon Dioxide 20 mmol/L (22-32); Chloride 107 mmol/L (98-107); Estimated Glomerular Filt Rate > 60 mL/min (>60); Globulin 3.7 g/dL (1.7-4.1); Glucose 140 mg/dL (80-110); HEMOLYSIS < 15 (0-50); Potassium 4.1 mmol/L (3.4-5.1); Sodium 141 mmol/L (137-145); Total Protein 8.4 g/dL (6.3-8.2)
[2023-12-10] MEDS: MORPHINE 4 MG/ML INJ IV (01:50)
== END 2023-12-10 05:33 | disposition home or self-care (01) ==
PROVIDERS: Emergency Provider Emergency Medicine; PCP Internal Medicine
DX: T83.091A Other mechanical complication of indwelling urethral catheter, initial encounter (principal); R31.9 Hematuria, unspecified
CPT/HCPCS: 36415; 80053; 85025; 85610; 96374; 99284; J2270

== ENCOUNTER 2023-12-25 10:52 | Day surgery (SDC) | payer MEDICARE, SELFPAY ==
[2023-10-26 14:23] VITALS: BMI 25.0
[2023-12-23 14:56] VITALS: BMI 25.4
[2023-12-25] VITALS (10 sets, daily range): BP systolic 84–150; BP diastolic 45–79; PULSE 53–67; RESP 12–22; TEMP 36.2–37.1; O2SAT 97–100; BMI 25.4
--- NOTE | 2023-12-25 11:19 | PM.PREOP ---
Pre-operative Note Interval Note History & Physical reviewed/Exam performed by Physician: Yes Changes to H&P: No
[2023-12-25] MEDS: LACTATED RINGERS 1,000 ML 42 ML IV (11:41)
--- NOTE | 2023-12-25 11:57 | PM.HP.1 ---
History of Present Illness History of Present Illness Date Patient Seen: 12/25/23 Time Patient Seen: 11:35 Chief complaint: SD Narrative: The patient is a chronically ill in chronically debilitated 83-year-old male presenting today for scheduled outpatient repeat SUPRAPUBIC CATHETER PLACEMENT. He has a long history of bladder outlet obstruction due to markedly enlarged prostate associated hypervascularity. Due to extensive comorbidities he was not deemed a candidate for definitive relief of bladder outlet obstruction after failure medical therapy and presentation with retention. He then had recurring and chronic difficulty with Zepeda catheter dislodgement, symptomatic UTI, and gross hematuria while on necessary warfarin lifelong anticoagulant therapy. He had previously declined on multiple occasions recommendation for placement suprapubic catheter. He was admitted to [facility] through the emergency department in early August of 2022 in clot retention. He was taken to operating room for placement of suprapubic catheter on 08/07/2022. Thereafter, the patient was quite pleased with his decision under difficult circumstances to proceed with placement of suprapubic catheter. He presented to the clinic on 12/08/2023 to report that the to pubic catheterization ?. Attempts to cannulate the tract with a guidewire were unsuccessful as well. A Zepeda catheter was placed at that time to temporize the situation until he could have opportunity for placement suprapubic catheter. [facility] Medical History (Updated 12/25/23 @ 12:04 by Nancy Conteh MD) Recurrent UTI Presence of suprapubic catheter Hematuria Benign prostatic hyperplasia Chronic indwelling Zepeda catheter Bladder stones Stenosis of right carotid artery Trigeminal neuralgia History of UTI BPH w urinary obs/LUTS Urinary retention Hyperthyroidism Atrial fibrillation Urinary retention (2014) CVA (cerebral vascular accident) (08/03/15) Diabetes mellitus Cardiomyopathy (2013) Surgical History (Updated 12/24/23 @ 08:04 by Roopa Dorsey RN) S/P carotid endarterectomy (01/29/22) S/P vasectomy Family History Father CVA (cerebral vascular accident) Sister Thyroid disorder Social History household members: children Smoking Status: Never smoker alcohol intake: current Meds Home Medications and Allergies Home Medications Medication Instructions Recorded Confirmed Type aspirin 81 mg tablet,delayed 81 mg PO DAILY 02/04/22 12/25/23 History release (Adult Low Dose Aspirin) gabapentin 600 mg tablet 600 mg PO DAILY 04/06/23 12/25/23 History atorvastatin 80 mg tablet 80 mg PO DAILY #90 tabs 06/09/23 12/25/23 Rx methimazole 5 mg tablet 2.5 mg (1/2 x 5 mg) PO DAILY #90 06/09/23 12/25/23 Rx tabs warfarin 5 mg tablet See Rx Instructions .Route 11/13/23 12/25/23 Rx .COMPLEX #90 tabs metoprolol tartrate 25 mg tablet 12.5 mg PO DAILY 12/25/23 12/25/23 History Allergies Allergy/AdvReac Type Severity Reaction Status Date / Time No Known Drug Allergies Allergy Verified 10/27/23 15:28 Exam Vital Signs (past 8 hours): - 12/25/23 11:29 Temperature 97.5 F L Pulse Rate 53 L Respiratory Rate 16 Blood Pressure 150/79 H Pulse Oximetry 98 Oxygen Delivery Method Room Air Oxygen Delivery Method Room Air Narrative Exam Narrative: He is a well developed, chronically ill elderly male who is limited in his 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 Head/neck-sclera clear pupils are round equal bilaterally. No visible evidence of JVD or adenopathy. Chest-equal and unlabored expansion bilaterally. Heart-normal rate. Abdomen-protuberant, soft, nontender. Well-healed previous suprapubic tube site. Assessment & Plan Assessment and plan (1) Urinary retention: Status: Acute (2) Recurrent UTI: Status: Acute (3) BPH w urinary obs/LUTS: Status: Acute Plan 1. To operating room today for planned replacement of SUPRAPUBIC CATHETER under local and IV sedation. Patient previously underwent informed consent in the Urology Clinic on 12/08/2023 with explanation of rationale and indications for suprapubic tube replacement. He was attended today by his son, Shahzad, who will assist him in the immediate postoperative care. I had a conversation with Shahzad regarding the need to discuss with the patient's PCP options for assistance in self-care and needs of daily living be at with home health or in a facility.
[2023-12-25] MEDS: TRANEXAMIC ACID 1,000 MG in SODIUM CHLORIDE 0.9% 100 ML 200 MG IV (12:20)
[2023-12-25] MEDS: CIPROFLOXACIN 400 MG/200 ML PIGGYBACK 200 MG IV (12:25)
--- NOTE | 2023-12-25 12:44 | SUR.OPER ---
Lithotomy on padded OR bed, head on pillow, arms padded with gel pads and tucked at sides. Legs secured in padded yellow fins stirrups.
[2023-12-25] MEDS: BUPIVACAINE 0.25% (PF) 30 ML, EPINEPHrine 0.15 MG INJ (12:49)
[2023-12-25] MEDS: BUPIVACAINE LIPOSOME 266 MG/20 ML VIAL INJ (12:50)
[2023-12-25] MEDS: BACITRACIN OINT 0.9 GM PCKT 1 APPLIC TOP (12:56)
--- NOTE | 2023-12-25 13:03 | PM.OP.1 ---
Operative Date/Time/Diagnoses Date of procedure: 12/25/23 Time of procedure: 13:04 Pre-op diagnosis: 1. Urinary retention. 2. History of suprapubic tube dislodgement. Post-op diagnosis: same Procedure & Clinicians Procedure: 1. Cystoscopy/ Placement suprapubic tube (redo). Complexity modifier is indicated in this case due to operation in previously operated field and 150% plus increase in length of operative case. Same procedure as scheduled: Yes Indications: 1. Urinary retention. 2. History of suprapubic catheter dislodgement. Surgeon: Nancy Conteh Click Yes if Unassisted: Yes Anesthesia Type: MAC +/- (Propofol) and Local (50: 50 solution of 0.25% Marcaine +1.33% Exparel) Operative Notes Findings: 1. Dense postoperative changes and scar tissue and vicinity about previous suprapubic catheter tract. 2. Fixation of superior anterior bladder wall secondary to same. 3. Urethra-normal caliber without annular stricture or lesion. 4. External sphincter-slightly gaping with mildly excoriated overlying urothelium (foreign body/catheter history). 5. Prostate-6+ cm length with marked trilobar hyperplasia and markedly elevated median bar. 6. Bladder-severe trabeculation. No stone, foreign body, or neoplasm seen. Anterior bladder wall fixation superiorly. Closure Type: primary Specimen(s): none sent Applied: catheter (Eighteen Beninese silicone catheter to gravity drainage.) Estimated Blood Loss (mL): 1 Blood products transfused: none Procedure in detail: The patient was positioned supine and was administered general anesthesia. He was then repositioned in semi-lithotomy in the abdomen, genitalia, and groin were then prepped and draped in sterile fashion after removal of existing indwelling Zepeda catheter. The 22 Beninese panendoscope was then passed and lower urinary tract with findings as described above. The bladder was then filled in the panendoscope was removed. Next, the Lowsley retractor was advanced into the urethra and positioned with its tip anteriorly. The Lowsley retractor was manipulated so that the tip could be palpated superior, and adjacent to the previous suprapubic tract site. Prepared local anesthetic was then used to infiltrate the skin, subcutaneous fat, midline anterior rectal wall and bladder wall. A #15 scalpel was then is to cut down to the tip of the Lowsley retractor. The Lowsley retractor was then manipulated and advanced anteriorly to the anterior abdominal wall. The jaws were then opened and an 18 Beninese silicone catheter tip was positioned within the jaws. The jaws were then closed snugly in the Lowsley retractor was then withdrawn. The jaws were then loosened slightly in the Lowsley retractor was removed. With the catheter tip at the urethral meatus the panendoscope was then advanced into the lower urinary tract once again with gentle withdrawal of the 18 Beninese silicone catheter until its tip was visualized within the lumen of the bladder. The balloon was then filled to 10 cc under direct visualization. Hemostasis was excellent. General further retraction on the silicone catheter brought it into approximation to the anterior superior bladder wall. Panendoscope was then removed. Two 0 silk was then used to create a superior, and inferior secure to the catheter utilizing a Mandeep sandal technique in usual fashion. Site was dressed with bacitracin ointment. Sterile 4x4s were tailored to accommodate the drain and were applied to the cleaned and dried skin surface. Additional 4 x 4 sterile gauze were applied over the site and then finally a transparent Op site dressing was applied for bio occlusion at the skin margins peripherally. The suprapubic catheter was then placed to gravity drainage. The bladder contents were drained and then connected to a gravity bag. The patient was then repositioned in supine and the catheter was secured without tension by means of a StatLock to the right thigh. The patient was then carefully transferred to [facility] and transported to recovery in stable condition. Complications: none Post-operative Condition: stable Disposition: PACU Plan for aftercare: 1. Discharge home.
== END 2023-12-25 14:50 | disposition home or self-care (01) ==
PROVIDERS: PCP Internal Medicine; Referring Provider Specialist; Visit Provider Specialist
PROC: 0T9B30Z Drainage of Bladder with Drainage Device, Percutaneous Approach (ICD-10-PCS; CPT 51102; principal; 2023-12-25 12:15)
DX: R33.9 Retention of urine, unspecified (principal); N40.1 Benign prostatic hyperplasia with lower urinary tract symptoms; N13.8 Other obstructive and reflux uropathy; Z87.440 Personal history of urinary (tract) infections
CPT/HCPCS: 51040; C9290; J0171; J0744

== ENCOUNTER 2024-02-23 12:21 | Emergency (ER) | payer MEDICARE, SELFPAY ==
[2023-10-26 14:23] VITALS: BMI 25.0
[2024-02-23 12:25] VITALS: BP 177/87; PULSE 90; RESP 18; TEMP 36.8; O2SAT 99; BMI 23.8
--- NOTE | 2024-02-23 13:24 | PC.NURSE ---
Pt has a suprapuic catheter that was suppose to be changed out by urology a couple weeks ago; per home health he did not go to appt and when home health nurse came to home they were unable to change out catheter w/o pain. Pt denies abdominal pain. Pt denies any fevers. urine collected in bag; yellow.
--- NOTE | 2024-02-23 14:12 | ED.GENADULT ---
HPI - General Adult General Chief complaint: Urogenital-Male Stated complaint: post surg/sediment in cathetar Time Seen by Provider: 02/23/24 12:47 History of Present Illness HPI narrative: 83-year-old gentleman with recently placed suprapubic catheter was supposed to be changed by home health. The catheter was placed on December 24 and this is the 1st catheter exchange. Apparently the home health nurse a tempted to replace it but was concerned that it was adherent. They were advised come to the emergency department as he is a relative fall risk with gait instability and they wanted to avoid falls or complications by having him go to the outpatient urology office. Patient has been tolerating the catheter well there seemed to be no other issues Related Data Home Medications Medication Instructions Recorded Confirmed aspirin 81 mg tablet,delayed 81 mg PO DAILY 02/04/22 12/25/23 release (Adult Low Dose Aspirin) gabapentin 600 mg tablet 600 mg PO DAILY 04/06/23 12/25/23 metoprolol tartrate 25 mg tablet 12.5 mg PO DAILY 12/25/23 12/25/23 Previous Rx's Medication Instructions Recorded atorvastatin 80 mg tablet 80 mg PO DAILY #90 tabs 06/09/23 methimazole 5 mg tablet 2.5 mg (1/2 x 5 mg) PO DAILY #90 06/09/23 tabs warfarin 5 mg tablet See Rx Instructions .Route 11/13/23 .COMPLEX #90 tabs cefdinir 300 mg capsule 300 mg PO BID #20 caps 12/25/23 oxycodone 5 mg tablet 5 mg PO Q6H PRN pain #10 tabs 12/25/23 Allergies Allergy/AdvReac Type Severity Reaction Status Date / Time No Known Drug Allergies Allergy Verified 10/27/23 15:28 Review of Systems Review of Systems Narrative: Pertinent positive and negative findings as per HPI Patient History Medical History Recurrent UTI Presence of suprapubic catheter Hematuria Benign prostatic hyperplasia Chronic indwelling Zepeda catheter Bladder stones Stenosis of right carotid artery Trigeminal neuralgia History of UTI BPH w urinary obs/LUTS Urinary retention Hyperthyroidism Atrial fibrillation Urinary retention (2014) CVA (cerebral vascular accident) (08/03/15) Diabetes mellitus Cardiomyopathy (2013) Surgical History S/P carotid endarterectomy (01/29/22) S/P vasectomy Family History Father CVA (cerebral vascular accident) Sister Thyroid disorder Social History household members: children Smoking Status: Never smoker alcohol intake: current Smoking Status: Never smoker alcohol intake frequency: holidays/special occasions only Substance Use Type: does not use Exam Initial Vital Signs Initial Vital Signs: Vital Signs Temperature 98.3 F 02/23/24 12:25 Pulse Rate 90 02/23/24 12:25 Respiratory Rate 18 02/23/24 12:25 Blood Pressure 177/87 H 02/23/24 12:25 Pulse Oximetry 99 02/23/24 12:25 Oxygen Delivery Method Room Air 02/23/24 12:25 General: Alert appropriate in no acute distress Respiratory: Able to speak in full sentences, no obvious respiratory distress Skin: No obvious rashes, warm and dry Neurologic: Grossly intact no obvious asymmetries or abnormalities Psych: appropriate insight and affect, cooperative Lower abdomen: Suprapubic site is healing nicely with tract forming nicely. The 18 gauge catheter is exchanged without any difficulty. Course Orders Ordered: ED Orders 02/23/24 15:09 Urinalysis and Microscopic Stat Vital Signs Vital signs: Vital Signs - 8 hr 02/23/24 12:25 Temperature 98.3 F Pulse Rate 90 Respiratory Rate 18 Blood Pressure 177/87 H Pulse Oximetry 99 Oxygen Delivery Method Room Air Medical Decision Making [facility] Narrative Medical decision making narrative: 83-year-old gentleman with mobility issues, recently placed suprapubic catheter that needs to be exchanged. Catheter was initially placed on December 24 has not yet been replaced. Home health nurse felt some tension on the catheter and was uncertain about placement and urology clinic recommended the patient come to the ER for catheter change. There were no difficulties with pulling out the prior catheter, new catheter was placed. There is a minor amount of bleeding initially that has cleared nicely. Patient tolerated the procedure well He is safe for discharge Discharge Plan Departure Patient Disposition: Home Clinical Impression: Zepeda catheter problem Qualifiers: Encounter type: initial encounter Qualified Code(s): T83.9XXA - Unspecified complication of genitourinary prosthetic device, implant and graft, initial encounter Instructions: How to Care for Your Zepeda Catheter -- Male Activity Restrictions/Additional Instructions: Thank you for coming in today The very 1st change after a suprapubic catheter has been placed can sometimes be a bit tricky. Fortunately, the suprapubic tract looks like it is healing nicely. We were able to change the suprapubic catheter without difficulties in the emergency department. This should be something that is able to be changed by home health going forward. Recommendation would be to change it in 4-6 weeks, somewhere between March 22 and April 07 If you find that you are getting worse or develop any new symptoms, please feel free to return to the emergency department for further evaluation. Prescriptions: No Action methimazole 5 mg tablet 2.5 mg PO DAILY Qty: 90 3RF Patient Comments: Patient takes with lunch atorvastatin 80 mg tablet 80 mg PO DAILY Qty: 90 3RF Patient Comments: Patient takes in am. warfarin 5 mg tablet See Rx Instructions .ROUTE .COMPLEX Qty: 90 0RF Rx Instructions: 5 mg orally daily except 2.5 mg on Thursday only, 5 mg every other day of week aspirin [Adult Low Dose Aspirin] 81 mg tablet,delayed release (DR/EC) 81 mg PO DAILY gabapentin 600 mg tablet 600 mg PO DAILY metoprolol tartrate 25 mg tablet 12.5 mg PO DAILY cefdinir 300 mg capsule 300 mg PO BID Qty: 20 0RF oxycodone 5 mg tablet 5 mg PO Q6H PRN (Reason: pain) Qty: 10 0RF Referrals: Lloyd Butler MD [Primary Care Provider] - Stand Alone Forms: Patient Portal/API
--- NOTE | 2024-02-23 15:11 | PC.NURSE ---
Pt arrived with supra pubic cath that was unable to be changed at home. upon arrival to Er, tube moves freely at suprapubic site. Dr. Ronquillo evaluated and a new 18 f Supra pubic cath placed without difficulty. the old suprapubic cath was removed with some sediment attached to the tip of cath. removed catheter without incident. a few small clots noted after suprapubic inserted/ pink tinged urine. draining without incident.
[2024-02-23 15:40] VITALS: BP 150/75; PULSE 106; RESP 18; O2SAT 97
--- NOTE | 2024-02-23 15:40 | PC.NURSE ---
no urinalysis at this time per dr. stoddard needed.
== END 2024-02-23 15:43 | disposition home or self-care (01) ==
PROVIDERS: Emergency Provider Emergency Medicine; PCP Internal Medicine
DX: T83.091A Other mechanical complication of indwelling urethral catheter, initial encounter (principal)
CPT/HCPCS: 99283

== ENCOUNTER → 2024-03-25 15:23 | Outpatient (ROUT) | payer MEDICARE, SELFPAY ==
[2023-10-26 14:23] VITALS: BMI 25.0
[2024-03-25 15:30] LABS: Appearance Urine UA SL CLOUDY; Bilirubin Urine UA NEGATIVE (NEGATIVE); Color Urine UA YELLOW; Glucose Urine UA NEGATIVE (Negative); Ketones Urine UA NEGATIVE (NEGATIVE); Leukocyte Esterase Urine UA 2+ (NEGATIVE); Nitrite Urine UA NEGATIVE (Negative); Occult Blood Urine UA 2+ (Negative); Protein Urine UA 1+ (Negative); Specific Gravity Urine UA >=1.030 (1.000-1.035); Urobilinogen Urine UA 0.2 E.U./dL (0.2); pH Urine UA 5.5 (4.5-8.0)
[2024-03-25 15:40] LABS: Bacteria Urine Moderate (10-30); Culture Indicated Urine Specimen Cultured; RBC Urine 1-5/HPF (0-5/HPF); Squamous Epithelial Cell Urine 1-5 /HPF (0-5/HPF); Urine Volume Low Vol <10mL (spun); WBC Urine 30-100/HPF (0-5/HPF)
== END ==
PROVIDERS: PCP Internal Medicine; Visit Provider Specialist
DX: Z43.5 Encounter for attention to cystostomy (principal); N40.1 Benign prostatic hyperplasia with lower urinary tract symptoms; N13.8 Other obstructive and reflux uropathy
CPT/HCPCS: 81001; 87077; 87086

== ENCOUNTER → 2024-04-19 11:45 | Outpatient (CLI) | payer MEDICARE, SELFPAY ==
[2023-10-26 14:23] VITALS: BMI 25.0
[2024-04-19 14:40] LABS: Appearance Urine UA CLEAR; Bilirubin Urine UA NEGATIVE (NEGATIVE); Color Urine UA YELLOW; Glucose Urine UA NEGATIVE (Negative); Ketones Urine UA NEGATIVE (NEGATIVE); Leukocyte Esterase Urine UA 2+ (NEGATIVE); Nitrite Urine UA NEGATIVE (Negative); Occult Blood Urine UA 2+ (Negative); Protein Urine UA 1+ (Negative); Urobilinogen Urine UA 0.2 E.U./dL (0.2)
[2024-04-19 14:57] LABS: Urine Volume Low Vol <10mL (spun)
[2024-04-19 14:58] LABS: Bacteria Urine Few (2-10); Culture Indicated Urine Specimen Cultured; RBC Urine 5-10/HPF (0-5/HPF); Squamous Epithelial Cell Urine 1-5 /HPF (0-5/HPF); WBC Urine 10-30/HPF (0-5/HPF)
== END ==
PROVIDERS: PCP Internal Medicine; Referring Provider Specialist; Visit Provider Specialist
DX: N39.0 Urinary tract infection, site not specified (principal)
CPT/HCPCS: 81001; 87086

== ENCOUNTER → 2024-05-09 07:29 | Outpatient (CLI) | payer MEDICARE, SELFPAY ==
[2023-10-26 14:23] VITALS: BMI 25.0
[2024-05-09 09:48] LABS: Add Manual Diff / Slide Review NO; Basophils Absolute Auto 0 /uL (0-100); Basophils Percent Auto 0.5 % (0-2); Eosinophils Absolute Auto 300 /uL (0-450); Eosinophils Percent Auto 3.8 % (2-4); Hematocrit 40.5 % (41-53); Hemoglobin 13.5 g/dL (13.5-17.5); Lymphocytes Absolute Auto 3300 /uL (1100-4500); Lymphocytes Percent Auto 39.8 % (25-40); Mean Corpuscular HGB Conc 33.3 % (30-36); Mean Corpuscular Hemoglobin 28.9 PG (26-34); Mean Corpuscular Volume 86.9 fL (80-100); Monocytes Absolute Auto 600 /uL (0-900); Monocytes Percent Auto 7.1 % (3-14); Neutrophils Absolute Auto 4000 /uL (1500-7000); Neutrophils Percent Auto 48.8 % (50-75); Platelet Count 278 X10^3/uL (150-400); Red Blood Cell Count 4.67 X10^6/uL (4.5-5.9); Red Cell Distribution Width 17.3 % (11.6-14.8); White Blood Cell Count 8.3 X10^3/uL (4.5-11.0)
[2024-05-09 10:13] LABS: Hemoglobin A1C% w Est Avg Glu 6.3 % (4.0-6.0)
[2024-05-09 10:17] LABS: Alanine Aminotransferase 22 IU/L (<50); Albumin 4.5 g/dL (3.5-5.0); Albumin Globulin Ratio 1.4 (1.0-2.8); Alkaline Phosphatase 83 U/L (38-126); Aspartate Aminotransferase 27 IU/L (17-59); BUN Creatinine Ratio 23.3 (6-22); Bilirubin Total 1.3 mg/dL (0.2-1.3); Blood Urea Nitrogen 17 mg/dL (9-20); Calcium 9.5 mg/dL (8.4-10.2); Carbon Dioxide 27 mmol/L (22-32); Chloride 107 mmol/L (98-107); Estimated Glomerular Filt Rate > 60 mL/min (>60); Globulin 3.2 g/dL (1.7-4.1); Glucose 110 mg/dL (80-110); HEMOLYSIS < 15 (0-50); Potassium 5.2 mmol/L (3.4-5.1); Sodium 142 mmol/L (137-145); Total Protein 7.7 g/dL (6.3-8.2)
[2024-05-09 10:30] LABS: Free T3, Triiodothyronine Free 4.27 pg/mL (2.77-5.27); Free T4, Direct Thyroxine 1.11 ng/dL (0.78-2.19)
[2024-05-09 10:42] LABS: Thyroid Stimulating Hormone 1.35 uIU/mL (0.47-4.68)
== END ==
PROVIDERS: PCP Internal Medicine; Referring Provider Internal Medicine; Visit Provider Internal Medicine
DX: E11.9 Type 2 diabetes mellitus without complications (principal); E05.90 Thyrotoxicosis, unspecified without thyrotoxic crisis or storm; I48.91 Unspecified atrial fibrillation
CPT/HCPCS: 36415; 80053; 83036; 84439; 84443; 84481; 85025

== ENCOUNTER → 2025-02-13 14:04 | Outpatient (CLI) | payer MEDICARE, SELFPAY ==
[2023-10-26 14:23] VITALS: BMI 25.0
== END ==
LOC: LAB 14:05
PROVIDERS: PCP Internal Medicine; Visit Provider Urology
DX: N40.1 Benign prostatic hyperplasia with lower urinary tract symptoms (principal); N13.8 Other obstructive and reflux uropathy
CPT/HCPCS: 87077; 87086; 87186

== ENCOUNTER → 2025-03-03 09:58 | Outpatient (CLI) | payer MEDICARE, SELFPAY ==
[2023-10-26 14:23] VITALS: BMI 25.0
[2025-03-03 10:22] LABS: Add Manual Diff / Slide Review NO; Basophils Absolute Auto 100 /uL (0-100); Basophils Percent Auto 0.7 % (0-2); Eosinophils Absolute Auto 200 /uL (0-450); Eosinophils Percent Auto 2.8 % (2-4); Hematocrit 41.3 % (41-53); Hemoglobin 14.1 g/dL (13.5-17.5); Lymphocytes Absolute Auto 2700 /uL (1100-4500); Lymphocytes Percent Auto 33.7 % (25-40); Mean Corpuscular HGB Conc 34.2 % (30-36); Mean Corpuscular Hemoglobin 30.2 PG (26-34); Mean Corpuscular Volume 88.3 fL (80-100); Monocytes Absolute Auto 500 /uL (0-900); Monocytes Percent Auto 6.6 % (3-14); Neutrophils Absolute Auto 4400 /uL (1500-7000); Neutrophils Percent Auto 56.2 % (50-75); Platelet Count 283 X10^3/uL (150-400); Red Blood Cell Count 4.68 X10^6/uL (4.5-5.9); Red Cell Distribution Width 15.1 % (11.6-14.8); White Blood Cell Count 7.9 X10^3/uL (4.5-11.0)
[2025-03-03 10:35] LABS: INR 3.2 (0.9-1.3); Prothrombin Time 35.3 SECONDS (9.4-12.5)
[2025-03-03 10:49] LABS: Alanine Aminotransferase 30 IU/L (<50); Albumin 4.5 g/dL (3.5-5.0); Albumin Globulin Ratio 1.3 (1.0-2.8); Alkaline Phosphatase 79 U/L (38-126); Aspartate Aminotransferase 37 IU/L (17-59); BUN Creatinine Ratio 19.2 (6-22); Bilirubin Total 1.5 mg/dL (0.2-1.3); Blood Urea Nitrogen 15 mg/dL (9-20); Calcium 9.5 mg/dL (8.4-10.2); Carbon Dioxide 29 mmol/L (22-32); Chloride 106 mmol/L (98-107); Estimated Glomerular Filt Rate > 60 mL/min (>60); Globulin 3.4 g/dL (1.7-4.1); Glucose 93 mg/dL (70-99); HEMOLYSIS < 15 (0-50); Potassium 4.5 mmol/L (3.4-5.1); Sodium 144 mmol/L (137-145); Total Protein 7.9 g/dL (6.3-8.2)
[2025-03-03 11:07] LABS: Free T3, Triiodothyronine Free 4.41 pg/mL (2.77-5.27); Free T4, Direct Thyroxine 0.96 ng/dL (0.78-2.19)
[2025-03-03 11:20] LABS: Thyroid Stimulating Hormone 4.32 uIU/mL (0.47-4.68)
== END ==
PROVIDERS: PCP Internal Medicine; Referring Provider Internal Medicine; Visit Provider Internal Medicine
DX: E11.9 Type 2 diabetes mellitus without complications (principal); I48.91 Unspecified atrial fibrillation; D64.9 Anemia, unspecified; Z79.01 Long term (current) use of anticoagulants; E05.90 Thyrotoxicosis, unspecified without thyrotoxic crisis or storm
CPT/HCPCS: 36415; 80053; 83036; 84439; 84443; 84481; 85025; 85610

== ENCOUNTER → 2025-08-25 10:18 | Outpatient (CLI) | payer MEDICARE, SELFPAY ==
[2023-10-26 14:23] VITALS: BMI 25.0
[2025-08-25 11:15] LABS: Add Manual Diff / Slide Review NO; Hematocrit 40.0 % (41-53); Hemoglobin 13.5 g/dL (13.5-17.5); Lymphocytes Absolute Auto 2800 /uL (1100-4500); Mean Corpuscular HGB Conc 33.8 % (30-36); Mean Corpuscular Hemoglobin 30.6 PG (26-34); Mean Corpuscular Volume 90.7 fL (80-100); Platelet Count 276 X10^3/uL (150-400)
[2025-08-25 11:16] LABS: Hemoglobin A1C% w Est Avg Glu 6.0 % (4.0-6.0)
[2025-08-25 11:38] LABS: Alanine Aminotransferase 23 IU/L (<50); Albumin 4.3 g/dL (3.5-5.0); Albumin Globulin Ratio 1.3 (1.0-2.8); Alkaline Phosphatase 76 U/L (38-126); Blood Urea Nitrogen 13 mg/dL (9-20); Calcium 9.6 mg/dL (8.4-10.2); Carbon Dioxide 26 mmol/L (22-32); Chloride 106 mmol/L (98-107); Estimated Glomerular Filt Rate > 60 mL/min (>60); Globulin 3.2 g/dL (1.7-4.1); Glucose 108 mg/dL (70-99); HEMOLYSIS < 15 (0-50); Potassium 4.2 mmol/L (3.4-5.1); Sodium 143 mmol/L (137-145); Total Protein 7.5 g/dL (6.3-8.2)
[2025-08-25 11:55] LABS: Free T4, Direct Thyroxine 1.13 ng/dL (0.78-2.19)
[2025-08-25 12:09] LABS: Thyroid Stimulating Hormone 2.39 uIU/mL (0.47-4.68)
== END ==
PROVIDERS: PCP Internal Medicine; Referring Provider Internal Medicine; Visit Provider Internal Medicine
DX: E05.90 Thyrotoxicosis, unspecified without thyrotoxic crisis or storm (principal); E11.9 Type 2 diabetes mellitus without complications; I48.91 Unspecified atrial fibrillation; Z79.01 Long term (current) use of anticoagulants
CPT/HCPCS: 36415; 80053; 83036; 84439; 84443; 85025